=== PATIENT | male | born 1960 | race Caucasian/White ===

== ENCOUNTER 2022-10-14 22:29 | Inpatient (IN) | payer OTHER ==
[2022-10-14] MEDS ORDERED: IPRATROPIUM 0.5 MG/2.5 ML NEBU INHALATION STA (22:38)
[2022-10-14] MEDS ORDERED: SODIUM CHLORIDE 0.9% 500 ML 500 ML IV STA (22:38)
[2022-10-14] MEDS ORDERED: ALBUTEROL NEBULIZED 2.5 MG/3 ML INHALATION STA (22:38)
[2022-10-14] MEDS ORDERED: SODIUM CHLORIDE 0.9% 1,000 ML IV STA (22:38)
[2022-10-14] MEDS ORDERED: methylPREDNISolone SOD SUCCI 125 MG/2 ML VIAL IV STA (22:38)
--- NOTE | 2022-10-14 22:40 | ED ---
SOB HPI - General Chief Complaint: Shortness of Breath Stated Complaint: asthma attack Time Seen by Provider: 10/14/22 22:38 Source: patient, RN notes reviewed, old records reviewed, Caregiver Mode of arrival: ambulatory Limitations: no limitations - History of Present Illness Initial Comments: This is a 62-year-old male to the emergency department for evaluation. Patient coming in for significant shortness of breath wheezing diffuse and generalized wheezing no chest pain. He does have history of COPD his been out of his medications at home. Aside from COPD and asthma patient has no significant heart history no recent fevers no known travel history or sick contacts. Patient was in the last 3 days did run rales medications has been having sig nificant shortness of breath since MD Complaint: shortness of breath, cough, "asthma attack", anxiety -: hour(s) Radiation: back Severity: moderate Severity scale (1-10): 6 Consistency: constant Improves With: oxygen, rest Worsens With: exertion, movement Known History Of: COPD, asthma Context: recent URI Associated Symptoms: chest pain, cough, sputum production Treatments Prior to Arrival: none - Related Data Allergies Allergy/AdvReac Type Severity Reaction Status Date / Time No Known Allergies Allergy Verified 10/14/22 22:34 Review of Systems ROS Statement: Those systems with pertinent positive or pertinent negative responses have been documented in the HPI. ROS Other: All systems not noted in ROS Statement are negative. Past Medical History Past Medical History: Asthma, COPD History of Any Multi-Drug Resistant Organisms: None Reported Past Surgical History: Appendectomy, Bowel Resection, Ear Surgery, Hernia Repair, Orthopedic Surgery Past Psychological History: No Psychological Hx Reported Smoking Status: Current every day smoker Past Alcohol Use History: Occasional General Exam Limitations: no limitations General appearance: alert, in no apparent distress, anxious, in distress Head exam: Present: atraumatic, normocephalic, normal inspection Eye exam: Present: normal appearance, PERRL, EOMI. Absent: scleral icterus, conjunctival injection, periorbital swelling ENT exam: Present: normal exam, mucous membranes dry Neck exam: Present: normal inspection. Absent: tenderness, meningismus, lymphadenopathy Respiratory exam: Present: respiratory distress, wheezes, accessory muscle use, decreased breath sounds, prolonged expiratory. Absent: rales, rhonchi, stridor Cardiovascular Exam: Present: normal rhythm, tachycardia, normal heart sounds. Absent: systolic murmur, diastolic murmur, rubs, gallop, clicks GI/Abdominal exam: Present: soft, normal bowel sounds. Absent: distended, tenderness, guarding, rebound, rigid Extremities exam: Present: normal inspection, full ROM, normal capillary refill. Absent: tenderness, pedal edema, joint swelling, calf tenderness Back exam: Present: normal inspection Neurological exam: Present: alert, oriented X3, CN II-XII intact Psychiatric exam: Present: normal affect, normal mood Skin exam: Present: warm, dry, intact, normal color. Absent: rash Course Vital Signs 10/14/22 10/14/22 10/14/22 22:31 23:06 23:28 Temperature 98 F Pulse Rate 122 H 92 98 Respiratory 24 Rate Blood Pressure 152/87 O2 Sat by Pulse 98 Oximetry 10/14/22 10/15/22 23:56 00:10 Temperature Pulse Rate 109 H 109 H Respiratory 22 Rate Blood Pressure 140/63 O2 Sat by Pulse 91 L Oximetry - Reevaluation(s) Reevaluation #1: 10/14/22 22:40 Medical records reviewed Reevaluation #2: 10/14/22 22:40 Patient symptoms are improving Reevaluation #3: 10/14/22 22:40 Patient informed results and questions answered Reevaluation #4: 10/14/22 22:40 Differential Dyspnea: Coronary syndrome, arrhythmia, tamponade, asthma, COPD, pulmonary embolism, pneumonia, pneumothorax, pulmonary effusion, anaphylaxis, diabetic ketoacidosis, flailed chest, pulmonary contusion, diaphragmatic rupture, anemia, neuromuscular, this is not meant to be an all-inclusive list. Reevaluation #5: 10/14/22 22:40 Was pt. sent in by a medical professional or institution? @ -no Did you speak to anyone other than the patient for history? @ -no Did you review nursing and triage notes? @ -agree Were old charts reviewed? @ -no Differential Diagnosis? @ -prior EKG interpreted by me (3pts min.)? @ -yes X-rays interpreted by me (1pt min.)? @ -yes CT interpreted by me (1pt min.)? @ -[none] U/S interpreted by me (1pt. min.)? @ -[none] What testing was considered but not performed? (CT, X-rays, U/S, labs)? Why? @ CT chest, PE What meds were considered but not given? Why? @ -[none] Did you discuss the management of the patient with other professionals? @ -no Did you reconcile home meds? @ -[none] Was smoking cessation discussed for >3mins.? @ -[none] Was critical care preformed (if so, how long)? @ -[none] Were there social determinants of health that impacted care today? How? (Homelessness, low income, unemployed, alcoholism, drug addiction, transportation, low edu. Level, literacy, decrease access to med. care, nursing home, rehab)? @ -currently off his medications Was there de-escalation of care discussed even if they declined? (Discuss DNR or withdrawal of care, Hospice)? @ -no What co-morbidities impacted this encounter? (DM, HTN, Smoking, COPD, CAD, Cancer, CVA, Hep., AIDS, mental health diagnosis, sleep apnea, morbid obesity)? @ -COPD Was patient admitted / discharged? @ -admit Undiagnosed new problem with uncertain prognosis? @ -nSTEMI Drug Therapy requiring intensive monitoring for toxicity (Heparin, Nitro, Insulin, Cardizem)? @ -heparin Were any procedures done? @ -[none] Diagnosis/symptom? @ -NSTEMI,COPD Acute, or Chronic, or Acute on Chronic? @ -Acute Uncomplicated (without systemic symptoms) or Complicated (systemic symptoms)? @ -compicated COPD Side effects of treatment? @ -[none] Exacerbation, Progression, or Severe Exacerbation] @ -[no] Poses a threat to life or bodily function? @ -[no] 10/15/22 00:22 - Consultations Consultation #1: spoke w [facility] regarding patient we can admit this patient Medical Decision Making - Medical Decision Making 62 male to the emergency department for evaluation of severe COPD exacerbation significant wheezing out of medication. Patient's also suffered a non-ST elevated [place] at this time will be admitted for cardiology to evaluate place on heparin - Lab Data Result diagrams: 10/14/22 22:51 10/14/22 22:51 Lab Results 10/14/22 10/14/22 10/14/22 Range/Units 22:51 22:51 22:51 WBC 7.9 (3.8-10.6) k/uL RBC 4.65 (4.30-5.90) m/uL Hgb 15.8 (13.0-17.5) gm/dL Hct 45.3 (39.0-53.0) % MCV 97.5 (80.0-100.0) fL MCH 34.0 (25.0-35.0) pg MCHC 34.9 (31.0-37.0) g/dL RDW 11.5 (11.5-15.5) % Plt Count 263 (150-450) k/uL MPV 7.6 Neutrophils % 52 % Lymphocytes % 34 % Monocytes % 6 % Eosinophils % 4 % Basophils % 1 % Neutrophils # 4.2 (1.3-7.7) k/uL Lymphocytes # 2.7 (1.0-4.8) k/uL Monocytes # 0.5 (0-1.0) k/uL Eosinophils # 0.3 (0-0.7) k/uL Basophils # 0.1 (0-0.2) k/uL PT 9.7 (9.0-12.0) sec INR 0.9 (<1.2) APTT 24.8 (22.0-30.0) sec Sodium 141 (137-145) mmol/L Potassium 4.0 (3.5-5.1) mmol/L Chloride 108 H (98-107) mmol/L Carbon Dioxide 23 (22-30) mmol/L Anion Gap 10 mmol/L BUN 12 (9-20) mg/dL Creatinine 0.81 (0.66-1.25) mg/dL Est GFR (CKD-EPI)AfAm >90 (>60 ml/min/1.73 sqM) Est GFR (CKD-EPI)NonAf >90 (>60 ml/min/1.73 sqM) Glucose 121 H (74-99) mg/dL Plasma Lactic Acid Tony (0.7-2.0) mmol/L Calcium 9.4 (8.4-10.2) mg/dL Magnesium 2.2 (1.6-2.3) mg/dL Total Bilirubin 0.5 (0.2-1.3) mg/dL AST 67 H (17-59) U/L ALT 76 H (4-49) U/L Alkaline Phosphatase 75 (38-126) U/L Troponin I (0.000-0.034) ng/mL NT-Pro-B Natriuret Pep pg/mL Total Protein 7.0 (6.3-8.2) g/dL Albumin 4.5 (3.5-5.0) g/dL 10/14/22 10/14/22 10/14/22 Range/Units 22:51 22:51 22:51 WBC (3.8-10.6) k/uL RBC (4.30-5.90) m/uL Hgb (13.0-17.5) gm/dL Hct (39.0-53.0) % MCV (80.0-100.0) fL MCH (25.0-35.0) pg MCHC (31.0-37.0) g/dL RDW (11.5-15.5) % Plt Count (150-450) k/uL MPV Neutrophils % % Lymphocytes % % Monocytes % % Eosinophils % % Basophils % % Neutrophils # (1.3-7.7) k/uL Lymphocytes # (1.0-4.8) k/uL Monocytes # (0-1.0) k/uL Eosinophils # (0-0.7) k/uL Basophils # (0-0.2) k/uL PT (9.0-12.0) sec INR (<1.2) APTT (22.0-30.0) sec Sodium (137-145) mmol/L Potassium (3.5-5.1) mmol/L Chloride (98-107) mmol/L Carbon Dioxide (22-30) mmol/L Anion Gap mmol/L BUN (9-20) mg/dL Creatinine (0.66-1.25) mg/dL Est GFR (CKD-EPI)AfAm (>60 ml/min/1.73 sqM) Est GFR (CKD-EPI)NonAf (>60 ml/min/1.73 sqM) Glucose (74-99) mg/dL Plasma Lactic Acid Tony 2.3 H* (0.7-2.0) mmol/L Calcium (8.4-10.2) mg/dL Magnesium (1.6-2.3) mg/dL Total Bilirubin (0.2-1.3) mg/dL AST (17-59) U/L ALT (4-49) U/L Alkaline Phosphatase (38-126) U/L Troponin I 0.363 H* (0.000-0.034) ng/mL NT-Pro-B Natriuret Pep 393 pg/mL Total Protein (6.3-8.2) g/dL Albumin (3.5-5.0) g/dL - EKG Data -: EKG Interpreted by Me (EKG shows sinus tachycardia, MI 130 QRS 102 QTc 412) - Radiology Data Radiology results: report reviewed (Chest x-rays negative for acute disease), image reviewed Critical Care Time Critical Care Time: Yes Total Critical Care Time: 31 Disposition Clinical Impression: Acute exacerbation of chronic obstructive pulmonary disease, NSTEMI (non-ST elevated myocardial infarction) Disposition: ADMITTED IP TO THIS HOSP Condition: Serious Is patient prescribed a controlled substance at d/c from ED?: No Referrals: None,Stated [Primary Care Provider] - 1-2 days Time of Disposition: 00:25
[2022-10-14 23:07] LABS: Basophils # (A) 0.1 k/uL (0-0.2); Basophils % (A) 1 %; Eosinophils # (A) 0.3 k/uL (0-0.7); Eosinophils % (A) 4 %; HCT 45.3 % (39.0-53.0); HGB 15.8 gm/dL (13.0-17.5); Lymphocytes # (A) 2.7 k/uL (1.0-4.8); Lymphocytes % (A) 34 %; MCHC 34.9 g/dL (31.0-37.0); MCV 97.5 fL (80.0-100.0); Mean Platelet Volume 7.6; Monocytes # (A) 0.5 k/uL (0-1.0); Monocytes % (A) 6 %; Neutrophils # (A) 4.2 k/uL (1.3-7.7); Neutrophils % (A) 52 %; Platelet Count 263 k/uL (150-450); RBC 4.65 m/uL (4.30-5.90); RDW 11.5 % (11.5-15.5); WBC 7.9 k/uL (3.8-10.6)
[2022-10-14 23:17] LABS: INR 0.9 (<1.2); Partial Thromboplastin Time 24.8 sec (22.0-30.0); Prothrombin Time 9.7 sec (9.0-12.0)
[2022-10-14 23:21] LABS: ALT 76 U/L (4-49); AST 67 U/L (17-59); African American GFR (CKD) >90 (>60 ml/min/1.73 sqM); Albumin 4.5 g/dL (3.5-5.0); Alkaline Phosphatase 75 U/L (38-126); Anion Gap 10 mmol/L; Blood Urea Nitrogen 12 mg/dL (9-20); Calcium 9.4 mg/dL (8.4-10.2); Carbon Dioxide 23 mmol/L (22-30); Chloride 108 mmol/L (98-107); Glucose 121 mg/dL (74-99); Magnesium 2.2 mg/dL (1.6-2.3); Non-African American GFR(CKD) >90 (>60 ml/min/1.73 sqM); Sodium 141 mmol/L (137-145); Total Bilirubin 0.5 mg/dL (0.2-1.3)
--- NOTE | 2022-10-15 00:10 | XR ---
EXAMINATION TYPE: XR chest 1V portable DATE OF EXAM: 10/14/2022 COMPARISON: NONE HISTORY: Short of TECHNIQUE: FINDINGS: Heart is normal. Lungs are clear. Diaphragm is normal. Bony thorax is intact. IMPRESSION: Normal chest.
[2022-10-15] MEDS ORDERED: HEPARIN SODIUM 1,000 UN/ML (10ML VL) IV PRN (00:18)
[2022-10-15] MEDS ORDERED: HEPARIN SODIUM 1,000 UN/ML (10ML VL) IV ONE (00:18)
[2022-10-15] MEDS ORDERED: IPRATROPIUM-ALBUTEROL 3 ML NEB INHALATION STA (00:18)
[2022-10-15] MEDS ORDERED: ONDANSETRON 4 MG/2 ML VIAL IVP PRN (00:18)
[2022-10-15] MEDS ORDERED: NALOXONE 0.4 MG/ML 1 ML VIAL IV PRN (00:18)
[2022-10-15] MEDS ORDERED: ALBUTEROL NEBULIZED 2.5 MG/3 ML INHALATION PRN (00:32)
[2022-10-15] MEDS: HEPARIN SOD,PORK IN 0.45% NACL 25,000 UNIT in 0.45% NACL 1 250ML.BAG IV SCH (00:44)
[2022-10-15] MEDS: MORPHINE SULFATE 4 MG/ML SYRINGE IV PRN ×2 (01:46→06:00)
[2022-10-15] MEDS ORDERED: LORazepam 1 MG TAB PO PRN (02:15)
[2022-10-15] MEDS: NICOTINE 21MG/24HR PATCH TRANSDERM SCH ×2 (03:52→08:32)
[2022-10-15] MEDS: LORazepam 1 MG TAB PO PRN ×4 (03:52→23:15)
[2022-10-15] MEDS: SODIUM CHLORIDE 0.9% 1,000 ML IV SCH ×4 (03:53→20:00)
[2022-10-15] MEDS: methylPREDNISolone SOD SUCCI 125 MG/2 ML VIAL IV SCH ×4 (06:00→23:16)
[2022-10-15] MEDS ORDERED: HEPARIN SODIUM,PORCINE 2,500 UNIT in SODIUM CHLORIDE 0.9% 250 ML IRRIGATION PRN (07:00)
[2022-10-15] MEDS ORDERED: HEPARIN SODIUM,PORCINE 10,000 UNIT in SODIUM CHLORIDE 0.9% 1,000 ML IRRIGATION PRN (07:00)
[2022-10-15] MEDS ORDERED: ALBUTEROL NEBULIZED 2.5 MG/3 ML INHALATION SCH (08:00)
[2022-10-15] MEDS ORDERED: ASPIRIN 81 MG PO SCH (09:15)
[2022-10-15] MEDS ORDERED: ALPRAZolam 0.25 MG TAB PO PRN (09:23)
[2022-10-15] MEDS ORDERED: NITROGLYCERIN SL TABS 0.4 MG TAB SUBLINGUAL PRN (09:23)
[2022-10-15] MEDS ORDERED: ATORVASTATIN 80 MG TAB PO STA (09:23)
[2022-10-15] MEDS ORDERED: ASPIRIN 325 MG TAB PO STA (09:23)
[2022-10-15] MEDS ORDERED: ALPRAZolam 0.5 MG TAB PO PRN (09:23)
[2022-10-15] MEDS ORDERED: SODIUM CHLORIDE 0.9% 1,000 ML in EMPTY BAG 1 BAG IV SCH (09:30)
[2022-10-15] MEDS: METOPROLOL TARTRATE 12.5 MG TAB PO SCH ×2 (09:35→19:59)
--- NOTE | 2022-10-15 09:36 | P.HPIM ---
History of Present Illness This is a pleasant 62 years old male with past medical history of asthma/COPD, not on home medication. Patient presents because of dyspnea and he was wheezing in the emergency room. This morning patient told me he was complaining of from left-sided chest pain for the last 2 days, it was then/10 in severity however does not look in distress currently due to pain, he states this felt like sharp increased by deep inspiration and is going to the back. Also reports some dizziness that he is about to pass out But he did not. He occasionally coughs, and his been complaining with dyspnea. He denies any GI or urinary symptoms, no abdominal pain vomiting or diarrhea, no urgency or dysuria. He has mild headache but no weakness or numbness He smokes about 1 pack per day and he was counseled to quit and he agrees, he already has nicotine patch. He drinks about half a pint of liquor as well as 2 large cancer of beer, no illicit drugs. He feels depressed but denies suicidal or homicidal ideation He is not on home oxygen and he does not follow up with [facility] He complained from insomnia as well Vitas looks stable, patient is mildly tachypneic with rate about 22, afebrile.. Saturation 93-94% on room air. CBC, INR, BMP are unremarkable Mildly elevated liver enzymes with AST 67 and ALT 76 with normal bilirubin. Lactic acid is high at 2.7, troponin is elevated 0.3 and 0.2. ProBNP 393. Chest x-ray: Normal chest EKG showing sinus tachycardia at [address]-T changes On admission patient was started on heparin drip, IV Solu-Medrol and normal saline. Cartilage and pulmonary services were consulted Review of Systems Review of systems CONSTITUTIONAL: No fever, no malaise, no fatigue. HEENT: No recent visual problems or hearing problems. Denied any sore throat. CARDIOVASCULAR: No orthopnea, PND, no palpitations, no syncope. PULMONARY: No chest wall tenderness, no hemoptysis. GASTROINTESTINAL: No diarrhea, no nausea, no vomiting, no abdominal pain. Normoactive bowel sounds. NEUROLOGICAL: No headaches, no weakness, no numbness. HEMATOLOGICAL: Denies any bleeding or petechiae. GENITOURINARY: Denies any burning micturition, frequency, or urgency. MUSCULOSKELETAL/RHEUMATOLOGICAL: Denies any joint pain, swelling, or any muscle pain. ENDOCRINE: Denies any polyuria or polydipsia. Past Medical History Past Medical History: Asthma, COPD History of Any Multi-Drug Resistant Organisms: None Reported Past Surgical History: Appendectomy, Bowel Resection, Ear Surgery, Hernia Repair, Orthopedic Surgery Past Anesthesia/Blood Transfusion Reactions: No Reported Reaction Past Psychological History: No Psychological Hx Reported Smoking Status: Current every day smoker Past Alcohol Use History: Occasional Medications and Allergies Home Medications Medication Instructions Recorded Confirmed Type No Known Home Medications 10/15/22 10/15/22 History Allergies Allergy/AdvReac Type Severity Reaction Status Date / Time No Known Allergies Allergy Verified 10/15/22 07:34 Physical Exam Vitals: Vital Signs Temp Pulse Pulse Resp BP BP Pulse Ox 10/15/22 04:00 97 22 159/73 93 L 10/15/22 03:15 96 10/15/22 03:07 97 94 L 10/15/22 01:19 98 F 104 H 22 162/86 94 L 10/15/22 00:10 109 H 22 140/63 91 L 10/14/22 23:56 109 H 10/14/22 23:28 98 10/14/22 23:06 92 10/14/22 22:31 98 F 122 H 24 152/87 98 Intake and Output 10/14/22 10/15/22 10/15/22 22:59 06:59 14:59 Output Total 800 Balance -800 Output: Urine 800 Other: Voiding Method Urinal Weight 83.915 kg 83.915 kg GENERAL: The patient is alert and oriented x3, not in any acute distress. Well developed, well nourished. HEENT: Pupils are round and equally reacting to light. EOMI. No scleral icterus. No conjunctival pallor. Normocephalic, atraumatic. No pharyngeal erythema. No thyromegaly. CARDIOVASCULAR: S1 and S2 present. No murmurs, rubs, or gallops. PULMONARY: Chest is clear to auscultation, no wheezing or crackles. ABDOMEN: Soft, nontender, nondistended, normoactive bowel sounds. No palpable organomegaly. MUSCULOSKELETAL: No joint swelling or deformity. EXTREMITIES: No cyanosis, clubbing, or pedal edema. NEUROLOGICAL: Gross neurological examination did not reveal any focal deficits. SKIN: No rashes. no petechiae. Results CBC & Chem 7: 10/14/22 22:51 10/14/22 22:51 Labs: Abnormal Lab Results - Last 24 Hours (Table) 10/14/22 10/14/22 10/14/22 Range/Units 22:51 22:51 22:51 Chloride 108 H (98-107) mmol/L Glucose 121 H (74-99) mg/dL Plasma Lactic Acid Tony 2.3 H* (0.7-2.0) mmol/L AST 67 H (17-59) U/L ALT 76 H (4-49) U/L Troponin I 0.363 H* (0.000-0.034) ng/mL 10/15/22 10/15/22 Range/Units 02:54 02:54 Chloride (98-107) mmol/L Glucose (74-99) mg/dL Plasma Lactic Acid Tony 2.7 H* (0.7-2.0) mmol/L AST (17-59) U/L ALT (4-49) U/L Troponin I 0.228 H* (0.000-0.034) ng/mL Thrombosis Risk Factor Assmnt - Choose All That Apply Any of the Below Risk Factors Present?: Yes Each Factor Represents 1 point: Abnormal pulmonary function (COPD) Each Risk Factor Represents 2 Points: Age 61-74 years Thrombosis Risk Factor Assessment Total Risk Factor Score: 3 Thrombosis Risk Factor Assessment Level: Moderate Risk Assessment and Plan Assessment: Elevated troponin suspicious for non-STEMI Presyncope Possible acute COPD exacerbation, mild Mild transaminitis, most likely secondary to alcohol affect Alcohol abuse at-risk of alcohol withdrawal Nicotine dependence Elevated lactic acid Insomnia Continue with steroids Continue with aspirin Continuous serial troponin Check echocardiogram Cardiology and pulmonary consult Nicotine patch Continue with CIWA protocol and pain me Labs and medication were reviewed.. Continue same treatment. Continue with symptomatic treatment. Resume home medication. Monitor labs and vitals. DVT and GI prophylaxis. Further recommendations as per clinical course of the patient DVT prophylaxis: heparin GI Prophylaxis: Pepcid PT/OT: Pending, deferred Prognosis is guarded
[2022-10-15] MEDS ORDERED: IPRATROPIUM-ALBUTEROL 3 ML NEB INHALATION PRN (11:04)
--- NOTE | 2022-10-15 11:24 | P.CRDCN ---
History of Present Illness History of present illness: HISTORY OF PRESENT ILLNESS: This is a 62-year-old male with a past medical history significant for COPD and nicotine dependence. 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 We have been asked to see the patient in consultation for elevated troponins. Patient examin ed at the bedside. Patient states he began having shortness of breath about 2 days ago. He states he uses 4 inhalers at home which he ran out of about 3 days ago. He states in addition to her shortness of breath he has been having chest pain in the middle of his chest that goes into his back. He states the chest pain has been present for the past 2 days and is fairly persistent. He states the pain is not worse with deep inspiration. He reports the pain is worse with chest wall palpation. He reports he felt like he was having hot flashes at home and was diaphoretic. The patient is a current cigarette smoker. He denies any known history of hypertension, hyperlipidemia, or diabetes. He denies having any previous cardiac workup. * EKG reveals sinus mechanism with no signs of acute ischemia * Chest xray negative for acute process * Laboratory data: WBC 7.9. Hemoglobin 15.8. Platelet count 263. Sodium 141. Potassium 4.0. BUN 12. Creatinine 0.81. Troponin 0.363. 0.228. 0.194. * Current home cardiac medications include: None REVIEW OF SYSTEMS: At the time of my exam: CONSTITUTIONAL: Denies fever or chills. HEENT: Denies blurred vision, vision changes, or eye pain. Denies hemoptysis CARDIOVASCULAR: Denies chest pain. Denies orthopnea. Denies PND. Denies palpitations RESPIRATORY: Denies shortness of breath. GASTROINTESTINAL: Denies abdominal pain. Denies nausea or vomiting. HEMATOLOGIC: Denies bleeding disorders. GENITOURINARY: Denies any blood in urine. SKIN: Denies pruitis. Denies rash. PHYSICAL EXAM: VITAL SIGNS: Reviewed. GENERAL: Well-developed in no acute distress. HEENT: Head is normocephalic. Pupils are equal, round. Sclerae anicteric. Mucous membranes of the mouth are moist. Neck supple. No JVD or thyromegaly LUNGS: Respirations even and unlabored. Lungs with decreased air exchange bilaterally HEART: Regular rate and rhythm. S1 and S2 heard. ABDOMEN: Soft. Nondistended. Nontender. EXTREMITIES: Normal range of motion. No clubbing or cyanosis. Peripheral pulses intact. No lower extremity edema NEUROLOGIC: Awake and alert. Oriented x 3. ASSESSMENT: Chest pain Non-STEMI Acute COPD exacerbation Nicotine dependence Elevated lactic acid Mildly elevated LFTs PLAN: Obtain 2-D echo to assess cardiac structure and function Continue IV heparin Begin aspirin, atorvastatin, metoprolol, and Nitropaste Patient to undergo cardiac catheterization today with Dr. Guerrero Further recommendations pending patient's course Nurse practitioner note has been reviewed by physician. Signing provider agrees with the documented findings, assessment, and plan of care. Past Medical History Past Medical History: Asthma, COPD History of Any Multi-Drug Resistant Organisms: None Reported Past Surgical History: Appendectomy, Bowel Resection, Ear Surgery, Hernia Repair, Orthopedic Surgery Past Anesthesia/Blood Transfusion Reactions: No Reported Reaction Past Psychological History: No Psychological Hx Reported Smoking Status: Current every day smoker Past Alcohol Use History: Occasional Medications and Allergies Home Medications Medication Instructions Recorded Confirmed Type No Known Home Medications 10/15/22 10/15/22 History Allergies Allergy/AdvReac Type Severity Reaction Status Date / Time No Known Allergies Allergy Verified 10/15/22 07:34 Physical Exam Vitals: Vital Signs Temp Pulse Pulse Resp BP BP Pulse Ox 10/15/22 08:01 110 H 20 10/15/22 07:50 107 H 20 99 10/15/22 04:00 97 22 159/73 93 L 10/15/22 03:15 96 10/15/22 03:07 97 94 L 10/15/22 01:19 98 F 104 H 22 162/86 94 L 10/15/22 00:10 109 H 22 140/63 91 L 10/14/22 23:56 109 H 10/14/22 23:28 98 10/14/22 23:06 92 10/14/22 22:31 98 F 122 H 24 152/87 98 Intake and Output 10/14/22 10/15/22 10/15/22 22:59 06:59 14:59 Output Total 800 Balance -800 Output: Urine 800 Other: Voiding Method Urinal Weight 83.915 kg 83.915 kg Results 10/14/22 22:51 10/14/22 22:51 Cardiac Enzymes 10/14/22 10/14/22 10/15/22 Range/Units 22:51 22:51 02:54 AST 67 H (17-59) U/L Troponin I 0.363 H* 0.228 H* (0.000-0.034) ng/mL Coagulation 10/14/22 10/15/22 Range/Units 22:51 07:58 PT 9.7 (9.0-12.0) sec APTT 24.8 33.5 H (22.0-30.0) sec CBC 10/14/22 Range/Units 22:51 WBC 7.9 (3.8-10.6) k/uL RBC 4.65 (4.30-5.90) m/uL Hgb 15.8 (13.0-17.5) gm/dL Hct 45.3 (39.0-53.0) % Plt Count 263 (150-450) k/uL Comprehensive Metabolic Panel 10/14/22 Range/Units 22:51 Sodium 141 (137-145) mmol/L Potassium 4.0 (3.5-5.1) mmol/L Chloride 108 H (98-107) mmol/L Carbon Dioxide 23 (22-30) mmol/L BUN 12 (9-20) mg/dL Creatinine 0.81 (0.66-1.25) mg/dL Glucose 121 H (74-99) mg/dL Calcium 9.4 (8.4-10.2) mg/dL AST 67 H (17-59) U/L ALT 76 H (4-49) U/L Alkaline Phosphatase 75 (38-126) U/L Total Protein 7.0 (6.3-8.2) g/dL Albumin 4.5 (3.5-5.0) g/dL Current Medications Generic Name Dose Route Start Last Admin Trade Name Freq PRN Reason Stop Dose Admin Acetaminophen 650 mg 10/15/22 00:18 Acetaminophen Tab 325 Mg Tab PO Q6HR PRN Mild Pain or Fever > 100.5 Albuterol Sulfate 2.5 mg 10/15/22 08:00 10/15/22 07:49 Albuterol Nebulized 2.5 Mg/3 Ml INHALATION 2.5 mg RT-QID AUNG Administration Albuterol Sulfate 2.5 mg 10/15/22 00:32 Albuterol Nebulized 2.5 Mg/3 Ml INHALATION RT-Q2H PRN Shortness Of Breath Or Wheezing Heparin Sodium (Porcine) 0 unit 10/15/22 00:18 Heparin Sodium 1,000 Un/Ml (10ml Vl) IV PER PROTOCOL PRN Low PTT Protocol Heparin Sodium/Sodium Chloride 250 mls @ 10 mls/hr 10/15/22 00:30 10/15/22 00:44 25,000 unit/ Sodium Chloride IV 11.9168 units/kg/hr .Q24H AUNG 10 mls/hr Administration Protocol 11.9168 UNITS/KG/HR Sodium Chloride 1,000 mls @ 130 mls/hr 10/15/22 00:30 10/15/22 03:53 Saline 0.9% IV Not Given .Q7H42M AUNG Lorazepam 1 mg 10/15/22 02:15 10/15/22 03:52 Lorazepam 1 Mg Tab PO 1 mg Q4HR PRN Administration Ciwa 6 To 7 Lorazepam 1 mg 10/15/22 02:15 Lorazepam 1 Mg Tab PO Q1HR PRN Alcohol Withdrawal Methylprednisolone Sodium Succinate 60 mg 10/15/22 06:00 10/15/22 06:00 Methylprednisolone Sod Succi 125 Mg/2 Ml Vial IV 60 mg Q6HR AUNG Administration Morphine Sulfate 4 mg 10/15/22 00:18 10/15/22 06:00 Morphine Sulfate 4 Mg/Ml Syringe IV 4 mg Q4HR PRN Administration Severe Pain (Scale 7 to 10) Naloxone HCl 0.2 mg 10/15/22 00:18 Naloxone 0.4 Mg/Ml 1 Ml Vial IV Q2M PRN Opioid Reversal Nicotine 1 patch 10/15/22 02:15 10/15/22 08:32 Nicotine 21mg/24hr Patch TRANSDERM Not Given DAILY AUNG Ondansetron HCl 4 mg 10/15/22 00:18 Ondansetron 4 Mg/2 Ml Vial IVP Q8HR PRN Nausea And Vomiting Thiamine HCl 100 mg 10/16/22 09:00 Thiamine 100 Mg Tab PO DAILY AUNG Intake and Output 10/14/22 10/15/22 10/15/22 22:59 06:59 14:59 Output Total 800 Balance -800 Output: Urine 800 Other: Voiding Method Urinal Weight 83.915 kg 83.915 kg 10/14/22 22:51 10/14/22 22:51
[2022-10-15] MEDS: IPRATROPIUM-ALBUTEROL 3 ML NEB INHALATION SCH ×3 (11:25→20:59)
[2022-10-15] MEDS ORDERED: IV FLUID CONTINUATION 1,000 ML IV ONE (11:30)
[2022-10-15] MEDS ORDERED: MIDAZOLAM 2 MG/2 ML VIAL IV ONE (11:38)
[2022-10-15] MEDS ORDERED: fentaNYL (PF) 50 MCG/ML 2 ML AMP IV ONE (11:38)
[2022-10-15] MEDS ORDERED: LIDOCAINE 1% INJ 10MG/ML (5 ML VIAL-PF) SQ ONE (11:39)
[2022-10-15] MEDS ORDERED: VERAPAMIL SYRINGE (5 MG/10 ML) INTRAARTER ONE (11:40)
[2022-10-15] MEDS: HEPARIN SODIUM 1,000 UN/ML (10ML VL) IV ONE ×2 (11:44→12:25)
[2022-10-15] MEDS: FAMOTIDINE 20 MG/2 ML VIAL IV SCH ×2 (12:17→19:58)
[2022-10-15] MEDS ORDERED: TICAGRELOR 90 MG TAB PO ONE (12:26)
[2022-10-15] MEDS ORDERED: NITROGLYCERIN 1000MCG/10ML SYRINGE INTRACORON ONE (12:34)
[2022-10-15] MEDS ORDERED: IOPAMIDOL-370 100ML BTL INJ ONE (12:40)
--- NOTE | 2022-10-15 13:22 | P.PRCINT ---
Percutaneous Coronary Int. - Percutaneous Coronary Intervention Percutaneous Coronary Intervention: PROCEDURES PERFORMED: Left coronary angiography, PCI proximal OM1 with a 3.25 x 12mm Xience PRASHANTH INDICATION: NSTEMI, chest pain PROCEDURE: After the risks, benefits and alternatives of the above mentioned procedure explained in detail with the patient, informed consent was obtained. Patient was taken to the catheterization lab and prepped and draped in usual fashion. A right radial sheath had previously been placed and diagnostic images were performed with diagnostic procedure, see separate report. There was a BUTTONHOLE MAKER HAND of the RCA well collateralized ane culprit lesion felt to be OM1. Therefore the decision was made to perform PCI of OM1. Heparin was given for ACT greater than 250. A 6-Andorran CLS 3.5 guide was used to engage the left main. A 0.014 BMW wire was advanced to the distal OM1 branch. Primary stenting was performed with a 3.25 x 12 mm Xience PRASHANTH with excellent result. Stenting did straighten out the proximal portion of OM1 lesion to the circumflex having a different angulation however no significant compromise noted to the circumflex. The intervention there was 95% stenosis and EBONY 3 flow and post intervention there was 0% stenosis with EBONY 3 flow. The right radial sheath was removed and a TR band was placed with hemostasis achieved. The patient tolerated the procedure well. Patient was transported back to the post catheterization holding area in stable condition. Conscious Sedation: Patient was monitored under the direct supervision of vision of myself for conscious sedation using Versed and fentanyl for a total duration of 22 minutes HEMODYNAMICS: Aorta: 137/81 SELECTIVE CORONARY ARTERIOGRAPHY: LEFT MAIN: The left main is a large caliber vessel which bifurcates into the LAD and circumflex. There is no significant stenosis. LEFT ANTERIOR DESCENDING CORONARY ARTERY: LAD is a large caliber vessel which wraps around to the apex. There is a mid LAD 20-30% stenosis and otherwise mild luminal irregularities. There are [id number] collaterals to the RCA. LEFT CIRCUMFLEX CORONARY ARTERY: Left circumflex is a moderate caliber vessel. OM1 is moderate caliber and has a proximal 95% stenosis and otherwise there are mild luminal irregularities. RIGHT CORONARY ARTERY: The right coronary artery was not imaged however known to be 100% occluded. FINAL IMPRESSION: 1. CAD as described above including 95% OM1 stenosis status post PCI proximal OM1 with a 3.25 x 12mm Xience PRASHANTH PLAN: 1. Aggressive risk factor modification per most recent ACC/AHA guidelines. 2. Continue dual antiplatelet with aspirin and Brillinta for 12 months.
[2022-10-15] MEDS ORDERED: ATROPINE SULFATE 0.1 MG/ML 10ML SYRINGE IV PRN (13:42)
[2022-10-15] MEDS ORDERED: ZOLPIDEM 5 MG TAB PO PRN (13:42)
[2022-10-15] MEDS ORDERED: RX INFO: IV CONTRAST WAS GIVEN 1 EACH MISC MISCELLANE PRN (13:42)
[2022-10-15] MEDS ORDERED: MAG HYDROX/AL HYDROX/SIMETH 30 ML CUP PO PRN (13:42)
--- NOTE | 2022-10-15 15:19 | P.CNPUL ---
History of Present Illness Consult date: 10/15/22 Requesting physician: Roby E Jayashree Reason for consult: COPD Chief complaint: Shortness of breath, cough, wheezing, and chest discomfort History of present illness: This is a 62-year-old white male, [id number] smoking history at least, patient is known to have COPD, and normally maintained on medications in the form of albuterol and Advair. A few days ago, patient ran out of his medications, and he develops symptoms of cough wheezing and shortness of breath. Cough is nonproductive, no fever no chills, no hemoptysis, but he did have intermittent episodes of left-sided chest discomfort. Patient felt that his chest was tight, and remains tight even during my evaluation. He was already seen by cardiology for his abnormal troponin on this admission, he is already on heparin, and the patient is scheduled to have cardiac catheterization. By the time I'm dictating this report, patient underwent cardiac catheterization, and he was found to have 95% stenosis of his obtuse marginal branch and he underwent stent placement in the meantime the patient is already on bronchodilators including albuterol with Atrovent, Symbicort, Solu-Medrol, I expect him to do well, and hopefully we cou ld consider discharge planning in the next couple of days. Chest x-ray on admission showed no evidence of active disease Review of Systems CONSTITUTIONAL: No fever, no malaise, no fatigue. HEENT: Negative. CARDIOVASCULAR: As noted in HPI mostly chest tightness PULMONARY: As noted in HPI cough wheezing shortness of breath GASTROINTESTINAL: Negative.. NEUROLOGICAL: Negative HEMATOLOGICAL: Negative GENITOURINARY: Negative MUSCULOSKELETAL/RHEUMATOLOGICAL: Negative ENDOCRINE: Negative Past Medical History Past Medical History: Asthma, COPD History of Any Multi-Drug Resistant Organisms: None Reported Past Surgical History: Appendectomy, Bowel Resection, Ear Surgery, Hernia Repair, Orthopedic Surgery Past Anesthesia/Blood Transfusion Reactions: No Reported Reaction Past Psychological History: No Psychological Hx Reported Smoking Status: Current every day smoker Past Alcohol Use History: Occasional Medications and Allergies Home Medications Medication Instructions Recorded Confirmed Type No Known Home Medications 10/15/22 10/15/22 History Allergies Allergy/AdvReac Type Severity Reaction Status Date / Time No Known Allergies Allergy Verified 10/15/22 07:34 Physical Exam Vitals: Vital Signs Temp Pulse Pulse Resp BP BP Pulse Ox 10/15/22 08:01 110 H 20 10/15/22 08:00 97.7 F 113 H 20 160/81 94 L 10/15/22 07:50 107 H 20 99 10/15/22 04:00 97 22 159/73 93 L 10/15/22 03:15 96 10/15/22 03:07 97 94 L 10/15/22 01:19 98 F 104 H 22 162/86 94 L 10/15/22 00:10 109 H 22 140/63 91 L 10/14/22 23:56 109 H 10/14/22 23:28 98 10/14/22 23:06 92 10/14/22 22:31 98 F 122 H 24 152/87 98 Intake and Output 10/15/22 10/15/22 10/15/22 06:59 14:59 22:59 Intake Total 200 Output Total 800 300 Balance -800 -100 Intake: IV 200 Output: Urine 800 300 Other: Voiding Method Urinal Weight 83.915 kg Physical Exam: Revealed 62-year-old white male in no distress. Head: Atraumatic, normocephalic. HEENT:[Neck is supple.] [No neck masses.] [No thyromegaly.] [No JVD.] Chest: Scattered rhonchi and wheezes noted bilaterally. Anterior chest wall tenderness was also noted. Cardiac Exam: [Normal S1 and S2, no S3 gallop, no murmur.] Abdomen: [Soft, nontender, no megaly, no rebound, no guarding, normal bowel sounds.] Extremities: [No clubbing, no edema, no cyanosis.] Neurological Exam: [No focal neurologic deficit.] Alert oriented 3. Psychiatric: Normal mood, affect and normal mental status examination. Skin: No rashes Results - Laboratory Findings CBC and BMP: 10/14/22 22:51 10/14/22 22:51 PT/INR, D-dimer PT 9.7 sec (9.0-12.0) 10/14/22 22:51 INR 0.9 (<1.2) 10/14/22 22:51 Abnormal lab findings: Abnormal Labs 10/14/22 10/14/22 10/14/22 22:51 22:51 22:51 APTT Chloride 108 H Glucose 121 H Plasma Lactic Acid Tony 2.3 H* AST 67 H ALT 76 H Troponin I 0.363 H* 10/15/22 10/15/22 10/15/22 02:54 02:54 07:58 APTT Chloride Glucose Plasma Lactic Acid Tony 2.7 H* AST ALT Troponin I 0.228 H* 0.194 H* 10/15/22 07:58 APTT 33.5 H Chloride Glucose Plasma Lactic Acid Tony AST ALT Troponin I - Diagnostic Findings Chest x-ray: image reviewed (No evidence of active disease) Assessment and Plan Assessment: Impression: Acute exacerbation of COPD, no evidence of pneumonia Elevated troponin, consistent with non-ST elevation myocardial infarction History of alcohol abuse, patient is at risk of alcohol withdrawal. Tobacco dependence syndrome. Recommendation: Continue bronchodilators Continue Solu-Medrol Continue heparin, cardiac catheterization report was noted, patient had a stent placement. Continue medical therapy for his underlying coronary artery disease Patient was counseled regarding smoking cessation. We will continue to follow Time with Patient: Greater than 30
[2022-10-15] MEDS: NITROGLYCERIN OINT 1 INCH/GM PACKET TOPICAL SCH ×2 (18:04→23:15)
[2022-10-15] MEDS: ACETAMINOPHEN TAB 325 MG TAB PO PRN (18:05)
[2022-10-15] MEDS: ATORVASTATIN 80 MG TAB PO SCH (19:58)
[2022-10-15] MEDS: TICAGRELOR 90 MG TAB PO SCH (19:59)
[2022-10-15] MEDS: SYMBICORT 160-4.5 MCG INHALER INHALATION SCH (20:58)
--- NOTE | 2022-10-15 22:10 | CC ---
CARDIAC CATHETERIZATION REPORT INDICATION: Acute [id number] elevation WA. PROCEDURE NOTE: After obtaining informed consent, left heart catheterization and coronary angiogram were performed via the right radial artery using size 3.5 right and left Angela catheters. Hemodynamics were obtained using the right Angela catheter. The patient tolerated the procedure well without any obvious immediate complications. The patient received moderate conscious sedation. Total sedation time was 19 minutes. Right radial artery access was obtained using modified Seldinger technique. A 6-Kiswahili sheath was placed. Catheters and wires were floated into the ascending aorta under fluoroscopic guidance. The patient received 5 mg of verapamil and 4000 units of heparin per protocol. FINDINGS: 1. Hemodynamics: Left ventricular end-diastolic pressure is 11 mm. There is no significant gradient across the aortic valve. 2. Left ventriculogram: Left ventriculogram was not performed. 3. Angiographic data: a.Left main coronary artery: Left main coronary artery appears calcified, but is free of significant stenosis. Divides into left anterior descending coronary artery and circumflex coronary artery. LAD and its branches are free of significant stenosis. OM branch shows a focal 95% stenosis. There are left-to- right collaterals to the distal RCA from the circ. Right coronary artery appears chronically occluded proximally. CONCLUSION: 1. Chronic occlusion of the right coronary artery with extensive [id number] collaterals. 2. 95% focal stenosis involving the OM branch. PLAN: Dr. Muhammad, the on-call yardage control operator forming will review the angiographic data and advise on the angioplasty of the OM branch. MMRADHA / DELONTEN: [id number] /
[2022-10-16] MEDS: HEPARIN SOD,PORK IN 0.45% NACL 25,000 UNIT in 0.45% NACL 1 250ML.BAG IV SCH (03:43)
[2022-10-16] MEDS: MORPHINE SULFATE 4 MG/ML SYRINGE IV PRN (03:50)
[2022-10-16] MEDS: methylPREDNISolone SOD SUCCI 125 MG/2 ML VIAL IV SCH ×3 (07:00→17:39)
[2022-10-16] MEDS: IPRATROPIUM-ALBUTEROL 3 ML NEB INHALATION SCH ×4 (08:08→20:55)
[2022-10-16] MEDS: SYMBICORT 160-4.5 MCG INHALER INHALATION SCH ×2 (08:08→20:33)
[2022-10-16] MEDS: METOPROLOL TARTRATE 12.5 MG TAB PO SCH (08:44)
[2022-10-16] MEDS: FAMOTIDINE 20 MG/2 ML VIAL IV SCH (08:44)
[2022-10-16] MEDS: THIAMINE 100 MG TAB PO SCH (08:44)
[2022-10-16] MEDS: NICOTINE 21MG/24HR PATCH TRANSDERM SCH (08:44)
[2022-10-16] MEDS: ASPIRIN 81 MG PO SCH (08:44)
[2022-10-16] MEDS: TICAGRELOR 90 MG TAB PO SCH ×2 (08:45→20:29)
[2022-10-16] MEDS: LORazepam 1 MG TAB PO PRN ×2 (08:45→20:28)
[2022-10-16] MEDS: NITROGLYCERIN OINT 1 INCH/GM PACKET TOPICAL SCH ×2 (08:45→17:39)
[2022-10-16 09:23] LABS: Basophils % (A) 0 %; Eosinophils % (A) 0 %; HCT 45.1 % (39.0-53.0); HGB 14.7 gm/dL (13.0-17.5); Lymphocytes # (A) 0.5 k/uL (1.0-4.8); Lymphocytes % (A) 3 %; MCHC 32.6 g/dL (31.0-37.0); MCV 98.2 fL (80.0-100.0); Mean Platelet Volume 7.4; Monocytes # (A) 0.5 k/uL (0-1.0); Monocytes % (A) 3 %; Neutrophils # (A) 13.1 k/uL (1.3-7.7); Neutrophils % (A) 93 %; Platelet Count 251 k/uL (150-450); RBC 4.59 m/uL (4.30-5.90); RDW 11.9 % (11.5-15.5); WBC 14.1 k/uL (3.8-10.6)
[2022-10-16] MEDS ORDERED: METOPROLOL TARTRATE 12.5 MG TAB PO STA (09:36)
[2022-10-16 09:38] LABS: INR 0.9 (<1.2); Prothrombin Time 10.1 sec (9.0-12.0)
--- NOTE | 2022-10-16 10:52 | P.PN ---
Subjective This is a pleasant 62 years old male with past medical history of asthma/COPD, not on home medication. Patient presents because of dyspnea and he was wheezing in the emergency room. This morning patient told me he was complaining of from left-sided chest pain for the last 2 days, it was then/10 in severity however does not look in distress currently due to pain, he states this felt like sharp increased by deep inspiration and is going to the back. Also reports some dizziness that he is about to pass out But he did not. He occasionally coughs, and his been complaining with dyspnea. He denies any GI or urinary symptoms, no abdominal pain vomiting or diarrhea, no urgency or dysuria. He has mild headache but no weakness or numbness He smokes about 1 pack per day and he was counseled to quit and he agrees, he already has nicotine patch. He drinks about half a pint of liquor as well as 2 large cancer of beer, no illicit drugs. He feels depressed but denies suicidal or homicidal ideation He is not on home oxygen and he does not follow up with manager beverage and automobile tester He complained from insomnia as well Vitas looks stable, patient is mildly tachypneic with rate about 22, afebrile.. Saturation 93-94% on room air. CBC, INR, BMP are unremarkable Mildly elevated liver enzymes with AST 67 and ALT 76 with normal bilirubin. Lactic acid is high at 2.7, troponin is elevated 0.3 and 0.2. ProBNP 393. Chest x-ray: Normal chest EKG showing sinus tachycardia at [address]-T changes On admission patient was started on heparin drip, IV Solu-Medrol and normal saline. Cartilage and pulmonary services were consulted 10/16/2022 Patient stent placed yesterday to OM1, patient denies chest pain today however he feels uncomfortable and he still wheezing He is not quite ready for discharge. Because of his COPD and was he was cleared. He is not undergoing significant withdrawal symptoms. Patient was started on aspirin and brilinta , the importance of dual antiplatelet therapy is explained for him with risks benefits including but not limited to the risk of bleeding and he verbalized understanding and acceptance. mild leukocytosis secondary to steroid effect. Currently he is on CIWA protocol, thiamine, Solu-Medrol 60 mg on normal saline 75 mL/h. Also on aspirin and brilinta Objective - Vital Signs Vital signs: Vital Signs Temp 97.6 F 10/16/22 08:00 Pulse 90 10/16/22 08:23 Resp 18 10/16/22 08:00 BP 154/77 10/16/22 08:00 Pulse Ox 94 L 10/16/22 08:00 FiO2 Intake & Output 10/15/22 10/16/22 10/16/22 18:59 06:59 18:59 Intake Total 1400 600 Output Total 675 350 Balance 725 -350 600 Intake: IV 200 Oral 1200 600 Output: Urine 675 350 Other: Voiding Method Urinal - Exam GENERAL: The patient is alert and oriented x3, not in any acute distress. Well developed, well nourished. HEENT: Pupils are round and equally reacting to light. EOMI. No scleral icterus. No conjunctival pallor. Normocephalic, atraumatic. No pharyngeal erythema. No thyromegaly. CARDIOVASCULAR: S1 and S2 present. No murmurs, rubs, or gallops. -PULMONARY: Chest is clear to auscultation, Bilateral expiratory wheezing, no crackles. ABDOMEN: Soft, nontender, nondistended, normoactive bowel sounds. No palpable organomegaly. MUSCULOSKELETAL: No joint swelling or deformity. EXTREMITIES: No cyanosis, clubbing, or pedal edema. NEUROLOGICAL: Gross neurological examination did not reveal any focal deficits. SKIN: No rashes. no petechiae. - Labs CBC & Chem 7: 10/16/22 08:59 10/14/22 22:51 Labs: Abnormal Lab Results - Last 24 Hours (Table) 10/16/22 Range/Units 08:59 WBC 14.1 H (3.8-10.6) k/uL Neutrophils # 13.1 H (1.3-7.7) k/uL Lymphocytes # 0.5 L (1.0-4.8) k/uL Microbiology - Last 24 Hours (Table) 10/15/22 02:54 Blood Culture - Preliminary Blood No Growth after 24 hours Assessment and Plan Assessment: Elevated troponin suspicious for non-STEMI, status post PCI to OM1 Presyncope Possible acute COPD exacerbation, mild Mild transaminitis, most likely secondary to alcohol affect Alcohol abuse at-risk of alcohol withdrawal Nicotine dependence Elevated lactic acid Insomnia Plan: Continue with steroids, Solu-Medrol 60 mg Continue with aspirin, brilinta Cardiology and pulmonary consult Nicotine patch Continue with CIWA protocol and pain me Labs and medication were reviewed.. Continue same treatment. Continue with symptomatic treatment. Resume home medication. Monitor labs and vitals. DVT and GI prophylaxis. Further recommendations as per clinical course of the patient DVT prophylaxis: heparin GI Prophylaxis: Pepcid PT/OT: Pending, deferred Prognosis is guarded
[2022-10-16 12:21] LABS: African American GFR (CKD) >90 (>60 ml/min/1.73 sqM); Anion Gap 7 mmol/L; Blood Urea Nitrogen 11 mg/dL (9-20); Calcium 9.4 mg/dL (8.4-10.2); Carbon Dioxide 22 mmol/L (22-30); Chloride 107 mmol/L (98-107); Glucose 172 mg/dL (74-99); Non-African American GFR(CKD) >90 (>60 ml/min/1.73 sqM); Potassium 4.1 mmol/L (3.5-5.1); Sodium 136 mmol/L (137-145)
[2022-10-16 13:02] VITALS: BMI 27.3
--- NOTE | 2022-10-16 13:07 | P.PN ---
Subjective Progress Note Date: 10/16/22 HISTORY OF PRESENT ILLNESS: This is a 62-year-old male with a past medical history significant for COPD and nicotine dependence. Patient does not follow with a turret lathe tender. We have been asked to see the patient in consultation for elevated troponins. Patient examined at the bedside. Patient states he began having shortness of breath about 2 days ago. He states he uses 4 inhalers at home which he ran out of about 3 days ago. He states in addition to her shortness of breath he has been having chest pain in the middle of his chest that goes into his back. He states the chest pain has been present for the past 2 days and is fairly persistent. He states the pain is not worse with deep inspiration. He reports the pain is worse with chest wall palpation. He reports he felt like he was having hot flashes at home and was diaphoretic. The patient is a current cigarette smoker. He denies any known history of hypertension, hyperlipidemia, or diabetes. He denies having any previous cardiac workup. * EKG reveals sinus mechanism with no signs of acute ischemia * Chest xray negative for acute process * Laboratory data: WBC 7.9. Hemoglobin 15.8. Platelet count 263. Sodium 141. Potassium 4.0. BUN 12. Creatinine 0.81. Troponin 0.363. 0.228. 0.194. * Current home cardiac medications include: None 10/16/2022 Patient is status post cardiac catheterization with Dr. Ceballos revealing 95% OM1 stenosis and 100% occlusion of RCA. Patient underwent stenting of OM1 by Dr. Muhammad. Patient examined this morning at the bedside. Patient denies chest pain or pressure. He denies shortness of breath. Vital signs are stable. PHYSICAL EXAM: VITAL SIGNS: Reviewed. GENERAL: Well-developed in no acute distress. HEENT: Head is normocephalic. Pupils are equal, round. Sclerae anicteric. Mucous membranes of the mouth are moist. Neck supple. No JVD or thyromegaly LUNGS: Respirations even and unlabored. Lungs with decreased air exchange bilaterally HEART: Regular rate and rhythm. S1 and S2 heard. ABDOMEN: Soft. Nondistended. Nontender. EXTREMITIES: Normal range of motion. No clubbing or cyanosis. Peripheral pulses intact. No lower extremity edema NEUROLOGIC: Awake and alert. Oriented x 3. ASSESSMENT: Chest pain Non-STEMI Acute COPD exacerbation Nicotine dependence Elevated lactic acid Mildly elevated LFTs PLAN: 2-D echo ordered. Await results Increase metoprolol to 25 mg twice a day as patient is mildly tachycardic this morning Continue additional cardiac medications Further recommendations pending patient's course Nurse practitioner note has been reviewed by physician. Signing provider agrees with the documented findings, assessment, and plan of care. Objective - Vital Signs Vital signs: Vital Signs Temp 97.6 F 10/16/22 08:00 Pulse 100 10/16/22 11:50 Resp 18 10/16/22 08:00 BP 154/77 10/16/22 08:00 Pulse Ox 94 L 10/16/22 08:00 FiO2 Intake & Output 10/15/22 10/16/22 10/16/22 18:59 06:59 18:59 Intake Total 1400 600 Output Total 675 350 Balance 725 -350 600 Weight 83.915 kg Intake: IV 200 Oral 1200 600 Output: Urine 675 350 Other: Voiding Method Urinal - Labs CBC & Chem 7: 10/16/22 08:59 10/16/22 08:59 Labs: Abnormal Lab Results - Last 24 Hours (Table) 10/16/22 10/16/22 Range/Units 08:59 08:59 WBC 14.1 H (3.8-10.6) k/uL Neutrophils # 13.1 H (1.3-7.7) k/uL Lymphocytes # 0.5 L (1.0-4.8) k/uL Sodium 136 L (137-145) mmol/L Glucose 172 H (74-99) mg/dL Microbiology - Last 24 Hours (Table) 10/15/22 02:54 Blood Culture - Preliminary Blood No Growth after 24 hours
--- NOTE | 2022-10-16 13:25 | P.PN ---
Subjective Progress Note Date: 10/16/22 This is a 62-year-old white male, [id number] smoking history at least, patient is known to have COPD, and normally maintained on medications in the form of albuterol and Advair. A few days ago, patient ran out of his medications, and he develops symptoms of cough wheezing and shortness of breath. Cough is nonproductive, no fever no chills, no hemoptysis, but he did have intermittent episodes of left-sided chest discomfort. Patient felt that his chest was tight, and remains tight even during my evaluation. He was already seen by cardiology for his abnormal troponin on this admission, he is already on heparin, and the patient is scheduled to have cardiac catheterization. By the time I'm dictating this report, patient underwent cardiac catheterization, and he was found to have 95% stenosis of his obtuse marginal branch and he underwent stent placement in the meantime the patient is already on bronchodilators including albuterol with Atrovent, Symbicort, Solu-Medrol, I expect him to do well, and hopefully we could consider discharge planning in the next couple of days. Chest x-ray on a dmission showed no evidence of active disease The patient is seen today 10/16/2022 in follow-up on the selective care unit. He is currently resting comfortably in bed. Awake and alert in no acute d istress. He did end up undergoing a catheterization and stenting to the OM1. He is initiated on Brilinta. He is still short of breath with exertion. Still with some chest tightness and wheezing. He is currently maintaining O2 saturations in the 90s on room air. Afebrile. Hemodynamically stable. Blood culture reveals no growth. White count 14.1. Hemoglobin 14.7. Platelets 251. Sodium 136. Potassium 4.1. BUN 11. Creatinine 0.69. Glucose 172. He is continued on Symbicort, DuoNeb inhalations, IV Solu-Medrol. NicoDerm patch in place. Objective - Vital Signs Vital signs: Vital Signs Temp 97.6 F 10/16/22 08:00 Pulse 100 10/16/22 11:50 Resp 18 10/16/22 08:00 BP 154/77 10/16/22 08:00 Pulse Ox 94 L 10/16/22 08:00 FiO2 Intake & Output 10/15/22 10/16/22 10/16/22 18:59 06:59 18:59 Intake Total 1400 600 Output Total 675 350 Balance 725 -350 600 Weight 83.915 kg Intake: IV 200 Oral 1200 600 Output: Urine 675 350 Other: Voiding Method Urinal - Exam GENERAL EXAM: Alert, pleasant 62-year-old male patient, on room air, comfortable in no apparent distress. HEAD: Normocephalic. EYES: Normal reaction of pupils, equal size. NOSE: Clear with pink turbinates. THROAT: No erythema or exudates. NECK: No masses, no JVD. CHEST: No chest wall deformity. LUNGS: Equal air entry with bilateral expiratory wheezing, diminished. CVS: S1 and S2 normal with no audible murmur, regular rhythm. ABDOMEN: No hepatosplenomegaly, normal bowel sounds, no guarding or rigidity. SPINE: No scoliosis or deformity SKIN: No rashes CENTRAL NERVOUS SYSTEM: No focal deficits, tone is normal in all 4 extremities. EXTREMITIES: There is no peripheral edema. No clubbing, no cyanosis. Peripheral pulses are intact. - Labs CBC & Chem 7: 10/16/22 08:59 10/16/22 08:59 Labs: Abnormal Lab Results - Last 24 Hours (Table) 10/16/22 10/16/22 Range/Units 08:59 08:59 WBC 14.1 H (3.8-10.6) k/uL Neutrophils # 13.1 H (1.3-7.7) k/uL Lymphocytes # 0.5 L (1.0-4.8) k/uL Sodium 136 L (137-145) mmol/L Glucose 172 H (74-99) mg/dL Microbiology - Last 24 Hours (Table) 10/15/22 02:54 Blood Culture - Preliminary Blood No Growth after 24 hours Assessment and Plan Assessment: Acute exacerbation of COPD, no evidence of pneumonia Non-ST elevation myocardial infarction, status post stenting to the OM1, 10/15/2022 History of alcohol abuse, patient is at risk of alcohol withdrawal. Tobacco dependence syndrome. Plan: The patient was seen and evaluated Labs and medications reviewed Continue DuoNeb inhalations, Symbicort, IV Solu-Medrol Stable and on room air Educated regarding the importance of complete smoking cessation NicoDerm patch is in place Probable discharge in the a.m. We'll continue to follow I have personally seen and examined the patient, performed the documentation and the assessment and plan as written. Number of minutes spent on the visit: 10.
[2022-10-16] MEDS: ATORVASTATIN 80 MG TAB PO SCH (20:28)
[2022-10-16] MEDS: METOPROLOL TARTRATE 25 MG TAB PO SCH ×2 (20:28→20:29)
[2022-10-16] MEDS: ACETAMINOPHEN TAB 325 MG TAB PO PRN (20:29)
[2022-10-16] MEDS: SODIUM CHLORIDE 0.9% 1,000 ML IV SCH (20:30)
[2022-10-16] MEDS: FAMOTIDINE 20 MG TAB PO SCH (20:30)
[2022-10-17] MEDS: methylPREDNISolone SOD SUCCI 125 MG/2 ML VIAL IV SCH ×2 (00:07→05:14)
[2022-10-17] MEDS: NITROGLYCERIN OINT 1 INCH/GM PACKET TOPICAL SCH ×2 (00:08→08:49)
[2022-10-17 02:08] VITALS: RESP 18
[2022-10-17] MEDS: SODIUM CHLORIDE 0.9% 1,000 ML IV SCH (03:21)
[2022-10-17] MEDS: IPRATROPIUM-ALBUTEROL 3 ML NEB INHALATION SCH ×2 (07:26→11:40)
[2022-10-17] MEDS: SYMBICORT 160-4.5 MCG INHALER INHALATION SCH (07:26)
[2022-10-17] MEDS: ASPIRIN 81 MG PO SCH (09:06)
[2022-10-17] MEDS: FAMOTIDINE 20 MG TAB PO SCH (09:06)
[2022-10-17] MEDS: TICAGRELOR 90 MG TAB PO SCH (09:06)
[2022-10-17] MEDS: THIAMINE 100 MG TAB PO SCH (09:06)
[2022-10-17] MEDS: ACETAMINOPHEN TAB 325 MG TAB PO PRN (09:06)
[2022-10-17] MEDS: NICOTINE 21MG/24HR PATCH TRANSDERM SCH (09:07)
[2022-10-17] MEDS: METOPROLOL TARTRATE 25 MG TAB PO SCH (09:07)
[2022-10-17 09:12] VITALS: PULSE 95; TEMP 98.7
[2022-10-17 09:14] VITALS: BP 147/69
--- NOTE | 2022-10-17 10:30 | P.PN ---
Subjective Progress Note Date: 10/17/22 HISTORY OF PRESENT ILLNESS: This is a 62-year-old male with a past medical history significant for COPD and nicotine dependence. 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 We have been asked to see the patient in consultation for elevated troponins. Patient examined at the bedside. Patient states he began having shortness of breath about 2 days ago. He states he uses 4 inhalers at home which he ran out of about 3 days ago. He states in addition to her shortness of breath he has been having chest pain in the middle of his chest that goes into his back. He states the chest pain has been present for the past 2 days and is fairly persistent. He states the pain is not worse with deep inspiration. He reports the pain is worse with chest wall palpation. He reports he felt like he was having hot flashes at home and was diaphoretic. The patient is a current cigarette smoker. He denies any known history of hypertension, hyperlipidemia, or diabetes. He denies having any previous cardiac workup. * EKG reveals sinus mechanism with no signs of acute ischemia * Chest xray negative for acute process * Laboratory data: WBC 7.9. Hemoglobin 15.8. Platelet count 263. Sodium 141. Potassium 4.0. BUN 12. Creatinine 0.81. Troponin 0.363. 0.228. 0.194. * Current home cardiac medications include: None 10/16/2022 Patient is status post cardiac catheterization with Dr. Ceballos revealing 95% OM1 stenosis and 100% occlusion of RCA. Patient underwent stenting of OM1 by Dr. Muhammad. Patient examined this morning at the bedside. Patient denies chest pain or pressure. He denies shortness of breath. Vital signs are stable. 10/17/2022 Patient examined this morning at the bedside. Patient denies chest pain or pressure. He denies shortness of breath. He's been up ambulate without difficulty. Vital signs are stable. PHYSICAL EXAM: VITAL SIGNS: Reviewed. GENERAL: Well-developed in no acute distress. HEENT: Head is normocephalic. Pupils are equal, round. Sclerae anicteric. Mucous membranes of the mouth are moist. Neck supple. No JVD or thyromegaly LUNGS: Respirations even and unlabored. Lungs with decreased air exchange bilaterally HEART: Regular rate and rhythm. S1 and S2 heard. ABDOMEN: Soft. Nondistended. Nontender. EXTREMITIES: Normal range of motion. No clubbing or cyanosis. Peripheral pulses intact. No lower extremity edema NEUROLOGIC: Awake and alert. Oriented x 3. ASSESSMENT: Chest pain Non-STEMI Acute COPD exacerbation Nicotine dependence Elevated lactic acid Mildly elevated LFTs PLAN: Will obtain 2-D echo outpatient in the office Continue current cardiac medications Patient is stable for discharge home today from a cardiac standpoint Nurse practitioner note has been reviewed by physician. Signing provider agrees with the documented findings, assessment, and plan of care. Objective - Vital Signs Vital signs: Vital Signs Temp 98.7 F 10/17/22 08:00 Pulse 95 10/17/22 08:00 Resp 18 10/17/22 08:00 BP 147/69 10/17/22 08:00 Pulse Ox 94 L 10/17/22 08:00 FiO2 Intake & Output 10/16/22 10/17/22 10/17/22 18:59 06:59 18:59 Intake Total 1680 700 180 Balance 1680 700 180 Weight 83.915 kg Intake: Intake, IV Titration 300 Amount Sodium Chloride 0.9% 1, 300 000 ml @ 75 mls/hr IV . [id number] [facility] Rx#:[id number] Oral 1680 400 180 Other: Voiding Method Urinal # Voids 2 # Bowel Movements 1 - Labs CBC & Chem 7: 10/16/22 08:59 10/16/22 08:59 Labs: Abnormal Lab Results - Last 24 Hours (Table) 10/16/22 Range/Units 08:59 Sodium 136 L (137-145) mmol/L Glucose 172 H (74-99) mg/dL Microbiology - Last 24 Hours (Table) 10/15/22 02:54 Blood Culture - Preliminary Blood No Growth after 48 hours
--- NOTE | 2022-10-17 12:43 | P.PN ---
Subjective Progress Note Date: 10/17/22 This is a 62-year-old white male, 10-toez-abal smoking history at least, patient is known to have COPD, and normally maintained on medications in the form of albuterol and Advair. A few days ago, patient ran out of his medications, and he develops symptoms of cough wheezing and shortness of breath. Cough is nonproductive, no fever no chills, no hemoptysis, but he did have intermittent episodes of left-sided chest discomfort. Patient felt that his chest was tight, and remains tight even during my evaluation. He was already seen by cardiology for his abnormal troponin on this admission, he is already on heparin, and the patient is scheduled to have cardiac catheterization. By the time I'm dictating this report, patient underwent cardiac catheterization, and he was found to have 95% stenosis of his obtuse marginal branch and he underwent stent placement in the meantime the patient is already on bronchodilators including albuterol with Atrovent, Symbicort, Solu-Medrol, I expect him to do well, and hopefully we could consider discharge planning in the next couple of days. Chest x-ray on a dmission showed no evidence of active disease The patient is seen today 10/16/2022 in follow-up on the selective care unit. He is currently resting comfortably in bed. Awake and alert in no acute d istress. He did end up undergoing a catheterization and stenting to the OM1. He is initiated on Brilinta. He is still short of breath with exertion. Still with some chest tightness and wheezing. He is currently maintaining O2 saturations in the 90s on room air. Afebrile. Hemodynamically stable. Blood culture reveals no growth. White count 14.1. Hemoglobin 14.7. Platelets 251. Sodium 136. Potassium 4.1. BUN 11. Creatinine 0.69. Glucose 172. He is continued on Symbicort, DuoNeb inhalations, IV Solu-Medrol. NicoDerm patch in place. The patient is seen today 10/17/2022 in follow-up on the selective care unit. He is currently sitting up at the bedside. Awake and alert in no acute distress. No worsening shortness of breath, cough or congestion. No chest pain or palpitations. Maintaining O2 saturation in the 90s on room air. He's afebrile. Hemodynamically stable. No new labs today. He is continued on DuoNeb inhalations, Symbicort, IV Solu-Medrol. NicoDerm patch remains in place. Heparin for DVT prophylaxis. Continued on Brilinta and aspirin. Objective - Vital Signs Vital signs: Vital Signs Temp 98.7 F 10/17/22 08:00 Pulse 95 10/17/22 08:00 Resp 18 10/17/22 08:00 BP 147/69 10/17/22 08:00 Pulse Ox 95 10/17/22 12:18 FiO2 Intake & Output 10/16/22 10/17/22 10/17/22 18:59 06:59 18:59 Intake Total 1680 700 180 Balance 1680 700 180 Weight 83.915 kg Intake: Intake, IV Titration 300 Amount Sodium Chloride 0.9% 1, 300 000 ml @ 75 mls/hr IV . [id number] [facility] Rx#:[id number] Oral 1680 400 180 Other: Voiding Method Urinal # Voids 2 # Bowel Movements 1 - Exam GENERAL EXAM: Alert, pleasant 62-year-old male patient, sitting up at the bedside, on room air, comfortable in no apparent distress. HEAD: Normocephalic. EYES: Normal reaction of pupils, equal size. NOSE: Clear with pink turbinates. THROAT: No erythema or exudates. NECK: No masses, no JVD. CHEST: No chest wall deformity. LUNGS: Equal air entry with bilateral expiratory wheezing, diminished. CVS: S1 and S2 normal with no audible murmur, regular rhythm. ABDOMEN: No hepatosplenomegaly, normal bowel sounds, no guarding or rigidity. SPINE: No scoliosis or deformity SKIN: No rashes CENTRAL NERVOUS SYSTEM: No focal deficits, tone is normal in all 4 extremities. EXTREMITIES: There is no peripheral edema. No clubbing, no cyanosis. Peripheral pulses are intact. - Labs CBC & Chem 7: 10/16/22 08:59 10/16/22 08:59 Labs: Microbiology - Last 24 Hours (Table) 10/15/22 02:54 Blood Culture - Preliminary Blood No Growth after 48 hours Assessment and Plan Assessment: Acute exacerbation of COPD, no evidence of pneumonia Non-ST elevation myocardial infarction, status post stenting to the OM1, 10/15/2022 History of alcohol abuse, patient is at risk of alcohol withdrawal. Tobacco dependence syndrome. Plan: The patient was seen and evaluated Medications reviewed Continue DuoNeb inhalations, Symbicort Transition to prednisone taper starting at 40 mg daily for 4 days Educated regarding the importance of complete smoking cessation NicoDerm patch is in place Cleared for discharge from the pulmonary standpoint Follow up in the office in 1 week I have personally seen and examined the patient, performed the documentation and the assessment and plan as written. Number of minutes spent on the visit: 10.
[2022-10-18] MEDS ORDERED: predniSONE 20 MG TAB PO SCH (09:00)
== END 2022-10-17 12:56 | disposition home or self-care (01) | DRG 247 ==
LOC: EC 22:29 → 3SCARD 10-15 00:20
PROVIDERS: ADMIT Hospitalist; ATTEND Hospitalist
PROC: 027034Z Dilation of Coronary Artery, One Artery with Drug-eluting Intraluminal Device, Percutaneous Approach (ICD-10-PCS; principal; 2022-10-15 09:55)
PROC: B2111ZZ Fluoroscopy of Multiple Coronary Arteries using Low Osmolar Contrast (ICD-10-PCS; 2022-10-15 09:55)
PROC: 4A023N7 Measurement of Cardiac Sampling and Pressure, Left Heart, Percutaneous Approach (ICD-10-PCS; 2022-10-15 09:55)
DX: I21.4 Non-ST elevation (NSTEMI) myocardial infarction (principal); J44.1 Chronic obstructive pulmonary disease with (acute) exacerbation; R74.01 Elevation of levels of liver transaminase levels; F10.10 Alcohol abuse, uncomplicated; F41.9 Anxiety disorder, unspecified; T38.0X5A Adverse effect of glucocorticoids and synthetic analogues, initial encounter; G47.00 Insomnia, unspecified; R51.9 Headache, unspecified; D72.829 Elevated white blood cell count, unspecified; F17.210 Nicotine dependence, cigarettes, uncomplicated; Z71.6 Tobacco abuse counseling
CPT/HCPCS: 36415; 71045; 80048; 80053; 83605; 83735; 83880; 84484; 85025; 85610; 85730; 87040; 93005; 93458; 94640; 94644; 94760; 96361; 96374; 96375; 99291

== ENCOUNTER 2022-10-31 11:47 | Observation (INO) | payer OTHER ==
--- NOTE | 2022-10-31 12:36 | ED ---
General Adult HPI - General Chief complaint: Chest Pain Stated complaint: chest pain Time Seen by Provider: 10/31/22 12:06 Source: patient, EMS Mode of arrival: EMS Limitations: no limitations - History of Present Illness Initial comments: This patient is a 62-year-old man who is brought to have evaluation after he was not able to get up from the bathroom floor. Patient states that he had gone to a friend's house. He had gone to use the bathroom. He states that the he had then attempted to get up from the commode and slid off. He was then on the floor between the toilet and tub, and he states he was not able to get up. His friend helped him to the couch and then called the ambulance. The patient has also been having intermittent chest pains. He had been admitted here, had heart catheterization with one stent placement. He states he also was told that he had chronic occlusion of one of the vessels but that it could not be stented. Patient not having any anginal symptoms, no dyspnea, diaphoresis, nausea or vomiting. -: hour(s) Location: chest Radiation: non-radiation Quality: aching Consistency: intermittent Improves with: none Worsens with: none Associated Symptoms: denies other symptoms Treatments Prior to Arrival: none - Related Data Home Medications Medication Instructions Recorded Confirmed Albuterol Inhaler [Ventolin Hfa 2 puff INHALATION RT-QID 10/31/22 10/31/22 Inhaler] Losartan Potassium [Cozaar] 25 mg PO DAILY 10/31/22 10/31/22 predniSONE See Taper PO DIRECTED 10/31/22 10/31/22 Previous Rx's Medication Instructions Recorded Ticagrelor [Brilinta] 90 mg PO BID #60 tab 10/16/22 Acetaminophen Tab [Tylenol] 650 mg PO Q6HR PRN tab 10/17/22 Aspirin 81 mg PO DAILY #30 tab 10/17/22 Atorvastatin [Lipitor] 80 mg PO HS #30 tab 10/17/22 Budesonide-Formot 160-4.5 Mcg 2 puff INHALATION RT-BID #1 inh 10/17/22 [Symbicort 160-4.5 Mcg Inhaler] Famotidine [Pepcid] 20 mg PO BID #60 tab 10/17/22 Metoprolol Tartrate [Lopressor] 25 mg PO BID #60 tab 10/17/22 Nitroglycerin Sl Tabs [Nitrostat] 0.4 mg SUBLINGUAL Q5M PRN #20 tab 10/17/22 Thiamine [Vitamin B-1] 100 mg PO DAILY #30 tab 10/17/22 Allergies Allergy/AdvReac Type Severity Reaction Status Date / Time No Known Allergies Allergy Verified 10/31/22 17:04 Review of Systems ROS Statement: Those systems with pertinent positive or pertinent negative responses have been documented in the HPI. ROS Other: All systems not noted in ROS Statement are negative. Constitutional: Reports: weakness. Denies: fever, chills Eyes: Denies: vision change Respiratory: Denies: cough, dyspnea Cardiovascular: Reports: chest pain. Denies: palpitations, orthopnea, edema, syncope Gastrointestinal: Denies: abdominal pain, vomiting, diarrhea Genitourinary: Denies: dysuria, hematuria Musculoskeletal: Denies: back pain Skin: Denies: rash Neurological: Denies: headache, weakness, numbness Past Medical History Past Medical History: Asthma, COPD, Myocardial Infarction ([place]) History of Any Multi-Drug Resistant Organisms: None Reported Past Surgical History: Appendectomy, Bowel Resection, Ear Surgery, Heart Catheterization With Stent, Hernia Repair, Orthopedic Surgery Past Anesthesia/Blood Transfusion Reactions: No Reported Reaction Past Psychological History: No Psychological Hx Reported Smoking Status: Current every day smoker Past Alcohol Use History: Daily, Heavy Past Drug Use History: Marijuana - Past Family History Father Family Medical History: Coronary Artery Disease (CAD) General Exam Limitations: no limitations General appearance: alert, in no apparent distress, appears intoxicated Head exam: Present: atraumatic, normocephalic Eye exam: Present: normal appearance. Absent: scleral icterus, conjunctival injection ENT exam: Present: mucous membranes dry Neck exam: Present: normal inspection, full ROM. Absent: tenderness Respiratory exam: Present: normal lung sounds bilaterally. Absent: respiratory distress, wheezes, rales, rhonchi, stridor, chest wall tenderness, accessory muscle use Cardiovascular Exam: Present: regular rate, normal rhythm, normal heart sounds. Absent: systolic murmur, diastolic murmur, rubs, gallop GI/Abdominal exam: Present: soft. Absent: distended, tenderness, guarding, rebound, rigid, mass Extremities exam: Present: normal inspection, normal capillary refill. Absent: pedal edema, calf tenderness Back exam: Present: normal inspection. Absent: CVA tenderness (R), CVA tenderness (L) Neurological exam: Present: alert Skin exam: Present: warm, dry, intact, normal color. Absent: rash Course Vital Signs 10/31/22 10/31/22 10/31/22 11:49 14:00 15:00 Temperature 98.3 F Pulse Rate 85 70 72 Respiratory 20 18 18 Rate Blood Pressure 133/75 127/73 120/62 O2 Sat by Pulse 97 95 120 H Oximetry 10/31/22 10/31/22 18:20 18:28 Temperature 98.4 F Pulse Rate 87 85 Respiratory 18 18 Rate Blood Pressure 155/79 129/78 O2 Sat by Pulse 97 96 Oximetry EKG Findings - EKG Results: EKG: interpreted by KIRAN ZAVALA, sinus rhythm (Rate 74 bpm), normal axis, normal QRS, normal ST/T, no acute changes Medical Decision Making - Medical Decision Making Patient is 62-year-old man here for generalized weakness, found to have significantly high alcohol level. Patient be admitted to prevent DTs. - Lab Data Result diagrams: 10/31/22 12:35 10/31/22 12:35 Lab Results 10/31/22 10/31/22 10/31/22 Range/Units 12:35 12:35 12:35 WBC 6.7 (3.8-10.6) k/uL RBC 4.62 (4.30-5.90) m/uL Hgb 14.9 (13.0-17.5) gm/dL Hct 44.2 (39.0-53.0) % MCV 95.8 (80.0-100.0) fL MCH 32.3 (25.0-35.0) pg MCHC 33.8 (31.0-37.0) g/dL RDW 12.4 (11.5-15.5) % Plt Count 249 (150-450) k/uL MPV 6.9 Neutrophils % 89 % Lymphocytes % 8 % Monocytes % 3 % Eosinophils % 0 % Basophils % 0 % Neutrophils # 5.9 (1.3-7.7) k/uL Lymphocytes # 0.5 L (1.0-4.8) k/uL Monocytes # 0.2 (0-1.0) k/uL Eosinophils # 0.0 (0-0.7) k/uL Basophils # 0.0 (0-0.2) k/uL PT 9.7 (9.0-12.0) sec INR 0.9 (<1.2) APTT 21.8 L (22.0-30.0) sec Sodium (137-145) mmol/L Potassium (3.5-5.1) mmol/L Chloride (98-107) mmol/L Carbon Dioxide (22-30) mmol/L Anion Gap mmol/L BUN (9-20) mg/dL Creatinine (0.66-1.25) mg/dL Est GFR (CKD-EPI)AfAm (>60 ml/min/1.73 sqM) Est GFR (CKD-EPI)NonAf (>60 ml/min/1.73 sqM) Glucose (74-99) mg/dL Calcium (8.4-10.2) mg/dL Magnesium (1.6-2.3) mg/dL Total Bilirubin (0.2-1.3) mg/dL AST (17-59) U/L ALT (4-49) U/L Alkaline Phosphatase (38-126) U/L Troponin I (0.000-0.034) ng/mL NT-Pro-B Natriuret Pep pg/mL Total Protein (6.3-8.2) g/dL Albumin (3.5-5.0) g/dL Amylase (30-110) U/L Lipase (23-300) U/L Urine Color Colorless Urine Appearance Clear (Clear) Urine pH 5.5 (5.0-8.0) Ur Specific [place] 1.006 (1.001-1.035) Urine Protein Negative (Negative) Urine Glucose (UA) Negative (Negative) Urine Ketones Negative (Negative) Urine Blood Negative (Negative) Urine Nitrite Negative (Negative) Urine Bilirubin Negative (Negative) Urine Urobilinogen <2.0 (<2.0) mg/dL Ur Leukocyte Esterase Negative (Negative) Serum Alcohol mg/dL 10/31/22 10/31/22 10/31/22 Range/Units 12:35 12:35 12:35 WBC (3.8-10.6) k/uL RBC (4.30-5.90) m/uL Hgb (13.0-17.5) gm/dL Hct (39.0-53.0) % MCV (80.0-100.0) fL MCH (25.0-35.0) pg MCHC (31.0-37.0) g/dL RDW (11.5-15.5) % Plt Count (150-450) k/uL MPV Neutrophils % % Lymphocytes % % Monocytes % % Eosinophils % % Basophils % % Neutrophils # (1.3-7.7) k/uL Lymphocytes # (1.0-4.8) k/uL Monocytes # (0-1.0) k/uL Eosinophils # (0-0.7) k/uL Basophils # (0-0.2) k/uL PT (9.0-12.0) sec INR (<1.2) APTT (22.0-30.0) sec Sodium 144 (137-145) mmol/L Potassium 4.5 (3.5-5.1) mmol/L Chloride 109 H (98-107) mmol/L Carbon Dioxide 26 (22-30) mmol/L Anion Gap 9 mmol/L BUN 15 (9-20) mg/dL Creatinine 0.74 (0.66-1.25) mg/dL Est GFR (CKD-EPI)AfAm >90 (>60 ml/min/1.73 sqM) Est GFR (CKD-EPI)NonAf >90 (>60 ml/min/1.73 sqM) Glucose 111 H (74-99) mg/dL Calcium 8.6 (8.4-10.2) mg/dL Magnesium 2.1 (1.6-2.3) mg/dL Total Bilirubin 0.7 (0.2-1.3) mg/dL AST 70 H (17-59) U/L ALT 99 H (4-49) U/L Alkaline Phosphatase 56 (38-126) U/L Troponin I 0.013 (0.000-0.034) ng/mL NT-Pro-B Natriuret Pep 160 pg/mL Total Protein 7.0 (6.3-8.2) g/dL Albumin 4.5 (3.5-5.0) g/dL Amylase 128 H (30-110) U/L Lipase 236 (23-300) U/L Urine Color Urine Appearance (Clear) Urine pH (5.0-8.0) Ur Specific [place] (1.001-1.035) Urine Protein (Negative) Urine Glucose (UA) (Negative) Urine Ketones (Negative) Urine Blood (Negative) Urine Nitrite (Negative) Urine Bilirubin (Negative) Urine Urobilinogen (<2.0) mg/dL Ur Leukocyte Esterase (Negative) Serum Alcohol 298 H* mg/dL 10/31/22 Range/Units 16:53 WBC (3.8-10.6) k/uL RBC (4.30-5.90) m/uL Hgb (13.0-17.5) gm/dL Hct (39.0-53.0) % MCV (80.0-100.0) fL MCH (25.0-35.0) pg MCHC (31.0-37.0) g/dL RDW (11.5-15.5) % Plt Count (150-450) k/uL MPV Neutrophils % % Lymphocytes % % Monocytes % % Eosinophils % % Basophils % % Neutrophils # (1.3-7.7) k/uL Lymphocytes # (1.0-4.8) k/uL Monocytes # (0-1.0) k/uL Eosinophils # (0-0.7) k/uL Basophils # (0-0.2) k/uL PT (9.0-12.0) sec INR (<1.2) APTT (22.0-30.0) sec Sodium (137-145) mmol/L Potassium (3.5-5.1) mmol/L Chloride (98-107) mmol/L Carbon Dioxide (22-30) mmol/L Anion Gap mmol/L BUN (9-20) mg/dL Creatinine (0.66-1.25) mg/dL Est GFR (CKD-EPI)AfAm (>60 ml/min/1.73 sqM) Est GFR (CKD-EPI)NonAf (>60 ml/min/1.73 sqM) Glucose (74-99) mg/dL Calcium (8.4-10.2) mg/dL Magnesium (1.6-2.3) mg/dL Total Bilirubin (0.2-1.3) mg/dL AST (17-59) U/L ALT (4-49) U/L Alkaline Phosphatase (38-126) U/L Troponin I 0.014 (0.000-0.034) ng/mL NT-Pro-B Natriuret Pep pg/mL Total Protein (6.3-8.2) g/dL Albumin (3.5-5.0) g/dL Amylase (30-110) U/L Lipase (23-300) U/L Urine Color Urine Appearance (Clear) Urine pH (5.0-8.0) Ur Specific [place] (1.001-1.035) Urine Protein (Negative) Urine Glucose (UA) (Negative) Urine Ketones (Negative) Urine Blood (Negative) Urine Nitrite (Negative) Urine Bilirubin (Negative) Urine Urobilinogen (<2.0) mg/dL Ur Leukocyte Esterase (Negative) Serum Alcohol mg/dL Disposition Clinical Impression: Alcohol intoxication Disposition: ADMITTED IP TO THIS HOSP Condition: Fair
[2022-10-31 13:07] LABS: Basophils % (A) 0 %; Eosinophils % (A) 0 %; HCT 44.2 % (39.0-53.0); HGB 14.9 gm/dL (13.0-17.5); Lymphocytes # (A) 0.5 k/uL (1.0-4.8); Lymphocytes % (A) 8 %; MCH 32.3 pg (25.0-35.0); MCHC 33.8 g/dL (31.0-37.0); MCV 95.8 fL (80.0-100.0); Mean Platelet Volume 6.9; Monocytes # (A) 0.2 k/uL (0-1.0); Monocytes % (A) 3 %; Neutrophils # (A) 5.9 k/uL (1.3-7.7); Neutrophils % (A) 89 %; Platelet Count 249 k/uL (150-450); RBC 4.62 m/uL (4.30-5.90); RDW 12.4 % (11.5-15.5); WBC 6.7 k/uL (3.8-10.6)
[2022-10-31 13:10] LABS: Appearance,Urine Clear (Clear); Bilirubin,Urine Negative (Negative); Blood,Urine Negative (Negative); Color,Urine Colorless; Glucose,Urine (UA) Negative (Negative); Ketones,Urine Negative (Negative); Leukocyte Esterase,Urine Negative (Negative); Nitrite,Urine Negative (Negative); PH, Urine 5.5 (5.0-8.0); Protein,Urine Negative (Negative); Specific Gravity,Urine 1.006 (1.001-1.035); Urobilinogen,Urine <2.0 mg/dL (<2.0)
--- NOTE | 2022-10-31 13:17 | XR ---
EXAMINATION TYPE: XR chest 2V DATE OF EXAM: 10/31/2022 COMPARISON: Chest x-ray 17 days ago HISTORY: Chest pain. TECHNIQUE: Frontal and lateral views of the chest are obtained. FINDINGS: There is no suspicious new focal air space opacity, pleural effusion, or pneumothorax seen . The cardiac silhouette size is stable and within normal limits. Old fractures of the anterolateral right fourth and fifth ribs are noted. Old fracture of the anterolateral left sixth rib is also susp ected. IMPRESSION: No acute process. No significant change from prior.
[2022-10-31 13:20] LABS: INR 0.9 (<1.2); Partial Thromboplastin Time 21.8 sec (22.0-30.0); Prothrombin Time 9.7 sec (9.0-12.0)
[2022-10-31 13:31] LABS: ALT 99 U/L (4-49); AST 70 U/L (17-59); African American GFR (CKD) >90 (>60 ml/min/1.73 sqM); Albumin 4.5 g/dL (3.5-5.0); Alkaline Phosphatase 56 U/L (38-126); Amylase 128 U/L (30-110); Anion Gap 9 mmol/L; Blood Urea Nitrogen 15 mg/dL (9-20); Calcium 8.6 mg/dL (8.4-10.2); Carbon Dioxide 26 mmol/L (22-30); Chloride 109 mmol/L (98-107); Glucose 111 mg/dL (74-99); Lipase 236 U/L (23-300); Magnesium 2.1 mg/dL (1.6-2.3); Non-African American GFR(CKD) >90 (>60 ml/min/1.73 sqM); Potassium 4.5 mmol/L (3.5-5.1); Sodium 144 mmol/L (137-145); Total Bilirubin 0.7 mg/dL (0.2-1.3)
[2022-10-31 13:54] LABS: Alcohol 298 mg/dL
[2022-10-31] MEDS ORDERED: SODIUM CHLORIDE 0.9% 1,000 ML IV ONE (16:22)
[2022-10-31] MEDS ORDERED: MAG HYDROX/AL HYDROX/SIMETH 30 ML, HYOSCYAMINE ELIXIR 10 ML, LIDOCAINE VISCOUS 2% 10 ML PO STA ×3 (17:49)
[2022-10-31] MEDS ORDERED: MORPHINE SULFATE 4 MG/ML SYRINGE IV STA (19:25)
[2022-10-31] MEDS ORDERED: NALOXONE 0.4 MG/ML 1 ML VIAL IV PRN (20:15)
[2022-10-31] MEDS ORDERED: chlordiazePOXIDE 25 MG CAP PO PRN (20:17)
[2022-10-31] MEDS ORDERED: LORazepam 2 MG/ML INJ IV PRN ×3 (20:17)
[2022-10-31] MEDS: SODIUM CHLORIDE 0.9% 1,000 ML IV SCH (21:43)
[2022-10-31] MEDS ORDERED: ACETAMINOPHEN TAB 325 MG TAB PO PRN (22:35)
--- NOTE | 2022-10-31 22:37 | P.HPIM ---
History of Present Illness H&P Date: 10/31/22 The patient is a 62-year-old male with a PMH of COPD and CAD status post recent stenting of OM1 on 10/15/22 who presents to the emergency room with complaints of left-sided chest pain and alcohol intoxication. Patient reports that he began having a left-sided sharp 10 out of 10 chest discomfort, nonradiating, occurring intermittently starting this morning at around 10 AM. He reports that the pain was initially waxing and waning but then subsequently became constant, which prompted the emergency room. He denies pleuritic nature of the pain. Reports associated lightheadedness. Denied lower extremity swelling or pain. States that the pain is different from when he had his IN 2 weeks ago. Cardiac catheterization at that time had revealed 100% occluded RCA and 95% occluded left OM1 which was subsequently stented with a PRASHANTH. States that the pain is improved to a 6 out of 10 at the time of interview. Patient reports that he has been drinking heavily for the past several decades, and is currently drinking around a pint of hard liquor daily with last drink earlier today. Laboratory e valuation revealed a serum alcohol level of 298 and troponin 0.013. EKG revealed sinus rhythm at [address]/T-wave changes noted as reviewed by me. Chest x-ray was unremarkable. Review of systems: Pertinent positives and negatives as discussed in HPI, a complete review of systems was performed and all other systems are negative. Physical examination: General: non toxic, no distress, appears at stated age, normal weight Derm: no unusual rashes/lesions, warm Head: atraumatic, normocephalic, symmetric Eyes: EOMI, no lid lag, anicteric sclera, pupils equal round reactive to light ENT: Nose and ears atraumatic Neck: No cervical lymphadenopathy, trachea midline, supple Mouth: no lip lesion, mucus membranes moist Cardiovascular: S1S2 reg, no murmur, positive dorsalis pedis pulse bilateral, no edema Lungs: CTA bilateral, no rhonchi, no rales, no accessory muscle use Abdominal: soft, nontender to palpation, no guarding Ext: muscle strength 5 out of 5 in all 4 extremities grossly, no gross muscle atrophy, no contractures, Neuro: CN II-XI grossly intact, no gross focal neuro deficits Psych: Alert, oriented, appropriate affect Assessment/plan Chest pain with atypical features -Cardiology consulted -Cardiac monitoring -Trend troponin -Continue with aspirin, brillinta Alcohol intoxication, impending withdrawal -Strongly advised on importance of cessation -[facility] protocol -Monitor electrolytes -Cardiac monitoring -IV fluids -Thiamine DVT prophylaxis -Heparin subcu The patient is admitted with an anticipated less than 2 midnight stay for evaluation of chest pain CODE STATUS: Full Code Discussed with: Patient Anticipated discharge date: in am Anticipated discharge place: Home Past Medical History Past Medical History: Asthma, COPD, Myocardial Infarction ([place]) History of Any Multi-Drug Resistant Organisms: None Reported Past Surgical History: Appendectomy, Bowel Resection, Ear Surgery, Heart Catheterization With Stent, Hernia Repair, Orthopedic Surgery Past Anesthesia/Blood Transfusion Reactions: No Reported Reaction Past Psychological History: No Psychological Hx Reported Smoking Status: Current every day smoker Past Alcohol Use History: Daily, Heavy Past Drug Use History: Marijuana - Past Family History Father Family Medical History: Coronary Artery Disease (CAD) Medications and Allergies Home Medications Medication Instructions Recorded Confirmed Type Ticagrelor [Brilinta] 90 mg PO BID #60 tab 10/16/22 10/31/22 Rx Acetaminophen Tab [Tylenol] 650 mg PO Q6HR PRN tab 10/17/22 10/31/22 Rx Aspirin 81 mg PO DAILY #30 tab 10/17/22 10/31/22 Rx Atorvastatin [Lipitor] 80 mg PO HS #30 tab 10/17/22 10/31/22 Rx Budesonide-Formot 160-4.5 Mcg 2 puff INHALATION RT-BID #1 inh 10/17/22 10/31/22 Rx [Symbicort 160-4.5 Mcg Inhaler] Famotidine [Pepcid] 20 mg PO BID #60 tab 10/17/22 10/31/22 Rx Metoprolol Tartrate [Lopressor] 25 mg PO BID #60 tab 10/17/22 10/31/22 Rx Nitroglycerin Sl Tabs [Nitrostat] 0.4 mg SUBLINGUAL Q5M PRN #20 tab 10/17/22 10/31/22 Rx Thiamine [Vitamin B-1] 100 mg PO DAILY #30 tab 10/17/22 10/31/22 Rx Albuterol Inhaler [Ventolin Hfa 2 puff INHALATION RT-QID 10/31/22 10/31/22 History Inhaler] Losartan Potassium [Cozaar] 25 mg PO DAILY 10/31/22 10/31/22 History predniSONE See Taper PO DIRECTED 10/31/22 10/31/22 History Allergies Allergy/AdvReac Type Severity Reaction Status Date / Time No Known Allergies Allergy Verified 10/31/22 17:04 Physical Exam Vitals: Vital Signs Temp Pulse Resp BP Pulse Ox 10/31/22 18:28 98.4 F 85 18 129/78 96 10/31/22 18:20 87 18 155/79 97 10/31/22 15:00 72 18 120/62 120 H 10/31/22 14:00 70 18 127/73 95 10/31/22 11:49 98.3 F 85 20 133/75 97 Intake and Output 10/31/22 10/31/22 10/31/22 06:59 14:59 22:59 Other: Weight 87.09 kg Results CBC & Chem 7: 10/31/22 12:35 10/31/22 12:35 Labs: Abnormal Lab Results - Last 24 Hours (Table) 10/31/22 10/31/22 10/31/22 Range/Units 12:35 12:35 12:35 Lymphocytes # 0.5 L (1.0-4.8) k/uL APTT 21.8 L (22.0-30.0) sec Chloride 109 H (98-107) mmol/L Glucose 111 H (74-99) mg/dL AST 70 H (17-59) U/L ALT 99 H (4-49) U/L Amylase 128 H (30-110) U/L Serum Alcohol 298 H* mg/dL
[2022-10-31] MEDS: NICOTINE 21MG/24HR PATCH TRANSDERM SCH (22:38)
[2022-11-01] MEDS: HEPARIN SODIUM,PORCINE/PF 5,000 UNIT/0.5 ML SYRINGE SQ SCH ×4 (00:41→16:46)
[2022-11-01] MEDS: SODIUM CHLORIDE 0.9% 1,000 ML IV SCH ×2 (07:49→13:12)
[2022-11-01 07:51] VITALS: TEMP 98.2
[2022-11-01] MEDS ORDERED: SYMBICORT 160-4.5 MCG INHALER INHALATION SCH (08:00)
[2022-11-01] MEDS: NICOTINE 21MG/24HR PATCH TRANSDERM SCH (08:32)
[2022-11-01] MEDS ORDERED: FAMOTIDINE 20 MG TAB PO SCH (09:00)
[2022-11-01] MEDS ORDERED: METOPROLOL TARTRATE 25 MG TAB PO SCH (09:00)
[2022-11-01] MEDS ORDERED: ASPIRIN 81 MG PO SCH (09:00)
[2022-11-01] MEDS ORDERED: TICAGRELOR 90 MG TAB PO SCH (09:00)
[2022-11-01] MEDS ORDERED: THIAMINE 100 MG TAB PO SCH (09:00)
[2022-11-01] MEDS ORDERED: LOSARTAN 25 MG TAB PO SCH (09:00)
[2022-11-01] MEDS: ALBUTEROL NEBULIZED 2.5 MG/3 ML INHALATION SCH ×3 (09:12→15:32)
--- NOTE | 2022-11-01 10:37 | P.PN ---
Subjective Progress Note Date: 11/01/22 Patient complaint of chest pain again this morning. Had another EKG, reviewed by me, no changes from initial EKG on admission. Patient's troponin is pending. Ongoing chest pain appears to be musculoskeletal in nature, worse with palpation of the chest. Cardiology evaluation is still pending Gen: awake, alert HEENT: normocephalic, atraumatic, good hearing acuity, moist mucous membranes Resp: good air exchange, breathing comfortably with no accessory muscle use, clear to auscultation bilaterally CVS: good distal perfusion x 4, regular rate and rhythm, no murmurs, GI: soft, NTTP, ND : no SPT, no CVAT, gleason catheter not present MSK: no pitting edema, no clubbing, reproducible pain to palpation of the pectoral muscle on the left Neuro: non-focal, moving all extremities Psych: cooperative, euthymic mood Assessment/plan: Chest pain with atypical features -Cardiology consulted, pending evaluation -Cardiac monitoring, no acute events -Trend troponin, thus far negative, repeating troponin today -Continue with aspirin, brillinta -EKG repeated today and no changes from admission - normal sinus rhythm with no ST-T changes concerning for ischemia and normal intervals/durations Alcohol intoxication, impending withdrawal -Strongly advised on importance of cessation -CIWA protocol, ativan PRN for withdrawal symptoms. -Monitor electrolytes -Cardiac monitoring -IV fluids -Thiamine DVT prophylaxis -Heparin subcu The patient is admitted with an anticipated less than 2 midnight stay for lacy luation of chest pain CODE STATUS: Full Code Discussed with: Patient Anticipated discharge date: in am Anticipated discharge place: Home Objective - Vital Signs Vital signs: Vital Signs Temp 98.2 F 11/01/22 07:51 Pulse 81 11/01/22 09:24 Resp 18 11/01/22 09:24 BP 162/81 11/01/22 07:51 Pulse Ox 98 11/01/22 09:13 FiO2 Intake & Output 10/31/22 11/01/22 11/01/22 18:59 06:59 18:59 Output Total 300 Balance -300 Weight 87.09 kg 87.09 kg Output: Urine 300 Other: # Voids 2 - Labs CBC & Chem 7: 10/31/22 12:35 10/31/22 12:35 Labs: Abnormal Lab Results - Last 24 Hours (Table) 10/31/22 10/31/22 10/31/22 Range/Units 12:35 12:35 12:35 Lymphocytes # 0.5 L (1.0-4.8) k/uL APTT 21.8 L (22.0-30.0) sec Chloride 109 H (98-107) mmol/L Glucose 111 H (74-99) mg/dL AST 70 H (17-59) U/L ALT 99 H (4-49) U/L Amylase 128 H (30-110) U/L Serum Alcohol 298 H* mg/dL
--- NOTE | 2022-11-01 13:37 | P.CRDCN ---
History of Present Illness Consult date: 11/01/22 Requesting physician: Chau Yarbrough Reason for Consult (text): chest pain Chief complaint: dizziness, fall, chest pain History of present illness: This is a 62-year-old gentleman who follows with Dr. Guerrero. Just recently established with a housing liaison. Was recently admitted on the of this month with complaints of shortness of breath and chest pain and was found to be positive for non-ST elevation MN. He has a history of COPD and nicotine dependence. He also drinks 224 ounce beers and a half a pint of whiskey every day. On last admission he underwent cardiac catheterization which showed 95% lesion in the first OM and 100% occlusion of the RCA and he underwent stenting of the first OM by Dr. Muhammad. Does continue to have chest pain since discharge. Presented to the emergency department this admission after becoming dizzy and falling in the bathroom at a friend's house. On admission alcohol level was found to be elevated. He has also been complaining of chest discomfor t, fairly constant and with some tenderness to palpation. He said he was recently seen in the office by Dr. Ceballos and had medication adjustments at that time but is unsure of what those changes were. He denies relief of his chest pain with nitroglycerin the pain was relieved with morphine. Troponins on admission have been 0.013 0.014. Another troponin was drawn this morning and that is pending. EKG shows no evidence of ischemia. Chest x-ray shows no acute process, no significant change from prior. He does complain of some shortness of breath, somewhat worse since discharge however he continues to smoke half a pack a day. He has not followed up with pulmonology but is planning to do so. Denies any edema, orthopnea or PND. Does have positional dizziness. Denies any syncope. Denies any palpitations. He's had no nausea or vomiting. Denies any evidence of bleeding. He's had no reflux or heartburn. Past Medical History Past Medical History: Asthma, COPD, Myocardial Infarction ([place]) Last Myocardial Infarction Date:: n/a History of Any Multi-Drug Resistant Organisms: None Reported Past Surgical History: Appendectomy, Bowel Resection, Ear Surgery, Heart Catheterization With Stent, Hernia Repair, Orthopedic Surgery Past Anesthesia/Blood Transfusion Reactions: No Reported Reaction Date of Last Stent Placement:: per patient 2 weeks ago Past Psychological History: No Psychological Hx Reported Smoking Status: Current every day smoker Past Alcohol Use History: Daily, Heavy Past Drug Use History: Marijuana - Past Family History Father Family Medical History: Coronary Artery Disease (CAD) Medications and Allergies Home Medications Medication Instructions Recorded Confirmed Type Ticagrelor [Brilinta] 90 mg PO BID #60 tab 10/16/22 10/31/22 Rx Acetaminophen Tab [Tylenol] 650 mg PO Q6HR PRN tab 10/17/22 10/31/22 Rx Aspirin 81 mg PO DAILY #30 tab 10/17/22 10/31/22 Rx Atorvastatin [Lipitor] 80 mg PO HS #30 tab 10/17/22 10/31/22 Rx Budesonide-Formot 160-4.5 Mcg 2 puff INHALATION RT-BID #1 inh 10/17/22 10/31/22 Rx [Symbicort 160-4.5 Mcg Inhaler] Famotidine [Pepcid] 20 mg PO BID #60 tab 10/17/22 10/31/22 Rx Metoprolol Tartrate [Lopressor] 25 mg PO BID #60 tab 10/17/22 10/31/22 Rx Nitroglycerin Sl Tabs [Nitrostat] 0.4 mg SUBLINGUAL Q5M PRN #20 tab 10/17/22 10/31/22 Rx Thiamine [Vitamin B-1] 100 mg PO DAILY #30 tab 10/17/22 10/31/22 Rx Albuterol Inhaler [Ventolin Hfa 2 puff INHALATION RT-QID 10/31/22 10/31/22 History Inhaler] Losartan Potassium [Cozaar] 25 mg PO DAILY 10/31/22 10/31/22 History predniSONE See Taper PO DIRECTED 10/31/22 10/31/22 History Allergies Allergy/AdvReac Type Severity Reaction Status Date / Time No Known Allergies Allergy Verified 10/31/22 17:04 Physical Exam Vitals: Vital Signs Temp Pulse Pulse Resp BP BP Pulse Ox 11/01/22 09:24 81 18 11/01/22 09:13 81 18 98 11/01/22 07:51 98.2 F 86 16 162/81 99 11/01/22 01:47 98.0 F 78 14 162/78 96 11/01/22 00:15 98.1 F 98 16 171/89 96 11/01/22 00:00 78 16 155/77 96 10/31/22 22:00 77 16 144/70 95 10/31/22 20:00 98 16 143/87 96 10/31/22 18:28 98.4 F 85 18 129/78 96 10/31/22 18:20 87 18 155/79 97 10/31/22 15:00 72 18 120/62 120 H 10/31/22 14:00 70 18 127/73 95 10/31/22 11:49 98.3 F 85 20 133/75 97 Intake and Output 10/31/22 11/01/22 11/01/22 22:59 06:59 14:59 Output Total 300 Balance -300 Output: Urine 300 Other: # Voids 2 Weight 87.09 kg PHYSICAL EXAMINATION: This is a 62-year-old male in no apparent distress at the time of my examination. HEENT: Head is atraumatic, normocephalic. Pupils are equal, round. Sclerae anicteric. Conjunctivae are clear. Mucous membranes of the mouth are moist. Neck is supple. There is no elevated jugular venous pressure. No carotid bruit is heard. CHEST EXAMINATION: Lungs reveal diffuse expiratory wheezing throughout. No rales or rhonchi. Respirations even and nonlabored. HEART EXAMINATION: Heart regular, positive S1 and S2. No S3. No S4. No clicks, rubs or murmurs. ABDOMEN: Mild distention noted, abdomen somewhat firm, nontender. Bowel sounds are heard. No organomegaly noted. EXTREMITIES: 2+ peripheral pulses with no evidence of peripheral edema and no calf tenderness noted. NEUROLOGIC EXAMINATION: Patient is awake, alert and oriented x3. Results 10/31/22 12:35 10/31/22 12:35 Cardiac Enzymes 10/31/22 10/31/22 10/31/22 Range/Units 12:35 12:35 16:53 AST 70 H (17-59) U/L Troponin I 0.013 0.014 (0.000-0.034) ng/mL Coagulation 10/31/22 Range/Units 12:35 PT 9.7 (9.0-12.0) sec APTT 21.8 L (22.0-30.0) sec CBC 10/31/22 Range/Units 12:35 WBC 6.7 (3.8-10.6) k/uL RBC 4.62 (4.30-5.90) m/uL Hgb 14.9 (13.0-17.5) gm/dL Hct 44.2 (39.0-53.0) % Plt Count 249 (150-450) k/uL Comprehensive Metabolic Panel 10/31/22 Range/Units 12:35 Sodium 144 (137-145) mmol/L Potassium 4.5 (3.5-5.1) mmol/L Chloride 109 H (98-107) mmol/L Carbon Dioxide 26 (22-30) mmol/L BUN 15 (9-20) mg/dL Creatinine 0.74 (0.66-1.25) mg/dL Glucose 111 H (74-99) mg/dL Calcium 8.6 (8.4-10.2) mg/dL AST 70 H (17-59) U/L ALT 99 H (4-49) U/L Alkaline Phosphatase 56 (38-126) U/L Total Protein 7.0 (6.3-8.2) g/dL Albumin 4.5 (3.5-5.0) g/dL Current Medications Generic Name Dose Route Start Last Admin Trade Name Freq PRN Reason Stop Dose Admin Acetaminophen 650 mg 10/31/22 22:35 Acetaminophen Tab 325 Mg Tab PO Q6HR PRN Mild Pain or Fever > 100.5 Albuterol Sulfate 2.5 mg 11/01/22 08:00 11/01/22 09:12 Albuterol Nebulized 2.5 Mg/3 Ml INHALATION 2.5 mg RT-QID AUNG Administration Aspirin 81 mg 11/01/22 09:00 11/01/22 08:32 Aspirin 81 Mg PO 81 mg DAILY AUNG Administration Atorvastatin Calcium 80 mg 11/01/22 21:00 Atorvastatin 80 Mg Tab PO HS [facility] Budesonide/Formoterol Fumarate 2 puff 11/01/22 08:00 11/01/22 09:12 Symbicort 160-4.5 Mcg Inhaler INHALATION 2 puff RT-BID AUNG Administration Chlordiazepoxide HCl 50 mg 10/31/22 20:17 Chlordiazepoxide 25 Mg Cap PO Q4HR PRN Ciwa 6 To 7 Famotidine 20 mg 11/01/22 09:00 11/01/22 08:32 Famotidine 20 Mg Tab PO 20 mg BID AUNG Administration Heparin Sodium (Porcine) 5,000 unit 11/01/22 00:00 11/01/22 08:32 Heparin Sodium,Porcine/Pf 5,000 Unit/0.5 Ml Syringe SQ Not Given Q8HR AUNG Sodium Chloride 1,000 mls @ 130 mls/hr 10/31/22 20:15 11/01/22 07:49 Saline 0.9% IV Not Given .Q7H42M AUNG Lorazepam 2 mg 10/31/22 20:17 Lorazepam 2 Mg/Ml Inj IV 11/02/22 20:17 Q10M PRN CIWA 16 or higher Lorazepam 1 mg 10/31/22 20:17 11/01/22 00:42 Lorazepam 2 Mg/Ml Inj IV 1 mg Q2HR PRN Administration CIWA 8 or 9 Lorazepam 1 mg 10/31/22 20:17 Lorazepam 2 Mg/Ml Inj IV Q1HR PRN CIWA 10 to 15 Losartan Potassium 25 mg 11/01/22 09:00 11/01/22 08:32 Losartan 25 Mg Tab PO 25 mg DAILY AUNG Administration Metoprolol Tartrate 25 mg 11/01/22 09:00 11/01/22 08:32 Metoprolol Tartrate 25 Mg Tab PO 25 mg BID AUNG Administration Naloxone HCl 0.2 mg 10/31/22 20:15 Naloxone 0.4 Mg/Ml 1 Ml Vial IV Q2M PRN Opioid Reversal Nicotine 1 patch 10/31/22 22:00 11/01/22 08:32 Nicotine 21mg/24hr Patch TRANSDERM 1 patch DAILY AUNG Administration Thiamine HCl 100 mg 11/01/22 09:00 11/01/22 08:32 Thiamine 100 Mg Tab PO 100 mg DAILY AUNG Administration Ticagrelor 90 mg 11/01/22 09:00 11/01/22 08:32 Ticagrelor 90 Mg Tab PO 90 mg BID AUNG Administration Intake and Output 10/31/22 11/01/22 11/01/22 22:59 06:59 14:59 Output Total 300 Balance -300 Output: Urine 300 Other: # Voids 2 Weight 87.09 kg 10/31/22 12:35 10/31/22 12:35 EKG Interpretations (text) Sinus rhythm Assessment and Plan Assessment: #1 symptoms of chest pain, acute coronary event has been ruled out #2 CAD with recent non-ST elevation [place], known 100% occlusion of RCA and recent PCI of the OM1 #3 hypertension #4 hyperlipidemia #5 alcohol abuse #6 nicotine dependence #7 COPD Plan: From cardiology's perspective patient's pain is atypical for acute coronary syndrome. No indication for further cardiac workup at this time. Patient may be discharged home and follow-up in the office with Dr. Guerrero. SAND TECHNICIAN note has been reviewed, I agree with a documented findings and plan of care. Patient was seen and examined.
[2022-11-01 13:39] VITALS: BP 161/79; RESP 16
[2022-11-01 15:44] VITALS: PULSE 71
--- NOTE | 2022-11-01 16:54 | P.DS ---
Providers Date of admission: 10/31/22 20:15 Expected date of discharge: 11/01/22 Attending physician: Chau Yarbrough MD Consults: 10/31/22 22:34 Consult Physician Urgent Consulting Provider: Andrea Olvera Consult Reason/Comments: chest pain Do you want consulting provider notified?: Yes Primary care physician: Stated None Hospital Course: Chest pain with atypical features Alcohol intoxication, impending withdrawal COPD without exacerbation HTN HLD The patient is a 62-year-old male with a PMH of COPD and CAD status post recent stenting of OM1 on 10/15/22 who presents to the emergency room with complaints of left-sided chest pain and alcohol intoxication. Patient recently had an [facility] 2 weeks ago. Cardiac catheterization at that time had revealed 100% occluded RCA and 95% occluded left OM1 which was subsequently stented with a PRASHANTH. In the emergency room, patient was afebrile, 133/75, heart rate 85, 97% on room air. Laboratory evaluation revealed a serum alcohol level of 298 and troponin 0.013. EKG revealed sinus rhythm at [address]/T-wave changes noted as reviewed by me. Chest x-ray was unremarkable. Case was discussed with emergency room physician decision was made to admit the patient for chest pain rule out. Cardiology was consulted and helped facilitate the case. Troponin's trended negative. EKG showed normal sinus rhythm with no ischemic changes on admission and had a repeat done on the day of discharge which also showed normal sinus rhythm with no ischemic changes and was similar to admission EKG. Cardiology had evaluated the patient and cleared him for discharge with routine follow-up with his tour narrator. Patient will be discharged with follow-up with cardiology as well as primary care physician for further monitoring. See same day progress note for physical exam Patient Condition at Discharge: Good Plan - Discharge Summary Discharge Rx Participant: Yes New Discharge Prescriptions: Continue Ticagrelor [Brilinta] 90 mg PO BID #60 tab Aspirin 81 mg PO DAILY #30 tab Metoprolol Tartrate [Lopressor] 25 mg PO BID #60 tab Famotidine [Pepcid] 20 mg PO BID #60 tab Budesonide-Formot 160-4.5 Mcg [Symbicort 160-4.5 Mcg Inhaler] 2 puff INHALATION RT-BID #1 inh Acetaminophen Tab [Tylenol] 650 mg PO Q6HR PRN tab PRN Reason: Mild Pain Or Fever > 100.5 Thiamine [Vitamin B-1] 100 mg PO DAILY #30 tab Losartan Potassium [Cozaar] 25 mg PO DAILY Albuterol Inhaler [Ventolin Hfa Inhaler] 2 puff INHALATION RT-QID Atorvastatin [Lipitor] 80 mg PO HS #30 tab Nitroglycerin Sl Tabs [Nitrostat] 0.4 mg SUBLINGUAL Q5M PRN #20 tab PRN Reason: Chest Pain predniSONE See Taper PO DIRECTED Discharge Medication List Ticagrelor [Brilinta] 90 mg PO BID #60 tab 10/16/22 [Rx] Acetaminophen Tab [Tylenol] 650 mg PO Q6HR PRN tab 10/17/22 [Rx] Aspirin 81 mg PO DAILY #30 tab 10/17/22 [Rx] Atorvastatin [Lipitor] 80 mg PO HS #30 tab 10/17/22 [Rx] Budesonide-Formot 160-4.5 Mcg [Symbicort 160-4.5 Mcg Inhaler] 2 puff INHALATION RT-BID #1 inh 10/17/22 [Rx] Famotidine [Pepcid] 20 mg PO BID #60 tab 10/17/22 [Rx] Metoprolol Tartrate [Lopressor] 25 mg PO BID #60 tab 10/17/22 [Rx] Nitroglycerin Sl Tabs [Nitrostat] 0.4 mg SUBLINGUAL Q5M PRN #20 tab 10/17/22 [Rx] Thiamine [Vitamin B-1] 100 mg PO DAILY #30 tab 10/17/22 [Rx] Albuterol Inhaler [Ventolin Hfa Inhaler] 2 puff INHALATION RT-QID 10/31/22 [History] Losartan Potassium [Cozaar] 25 mg PO DAILY 10/31/22 [History] predniSONE See Taper PO DIRECTED 10/31/22 [History] Follow up Appointment(s)/Referral(s): None,Stated [Primary Care Provider] - 1-2 days Discharge Disposition: HOME SELF-CARE
[2022-11-01] MEDS ORDERED: ATORVASTATIN 80 MG TAB PO SCH (21:00)
== END 2022-11-01 17:51 | disposition home or self-care (01) ==
LOC: EC 11:47 → 4SSUR 20:15
PROVIDERS: ADMIT Internal Medicine; ATTEND Internal Medicine
DX: F10.129 Alcohol abuse with intoxication, unspecified (principal); Y90.8 Blood alcohol level of 240 mg/100 ml or more; Z71.41 Alcohol abuse counseling and surveillance of alcoholic; R07.89 Other chest pain; J44.9 Chronic obstructive pulmonary disease, unspecified; I10 Essential (primary) hypertension; I25.10 Atherosclerotic heart disease of native coronary artery without angina pectoris; E78.5 Hyperlipidemia, unspecified; I25.2 Old myocardial infarction; F17.210 Nicotine dependence, cigarettes, uncomplicated; Z90.49 Acquired absence of other specified parts of digestive tract; Z95.5 Presence of coronary angioplasty implant and graft; Z98.890 Other specified postprocedural states; Z82.49 Family history of ischemic heart disease and other diseases of the circulatory system; Z79.899 Other long term (current) drug therapy; Z79.02 Long term (current) use of antithrombotics/antiplatelets; Z79.51 Long term (current) use of inhaled steroids
CPT/HCPCS: 96374; 96375; 99285; 36415; 94640 ×2; 94760; 93005; 83880; 80053; 82150; 83690; 83735; 84484 ×2; 85025; 85610; 85730; 81003; 71046; G0378 ×2; G0480; S4990 ×2; J2060; J2270; 80320

== ENCOUNTER 2023-03-22 18:58 | Inpatient (IN) | payer OTHER ==
[2023-03-22] MEDS ORDERED: IPRATROPIUM-ALBUTEROL 3 ML NEB INHALATION STA (19:05)
[2023-03-22] MEDS ORDERED: SODIUM CHLORIDE 0.9% 1,000 ML IV STA ×2 (19:05→19:56)
[2023-03-22 19:06] VITALS: RESP 18
--- NOTE | 2023-03-22 19:08 | ED ---
Weakness HPI - General Chief complaint: Chest Pain Stated complaint: KAY,CHEST PAIN,ETOH Time Seen by Provider: 03/22/23 19:05 Source: patient, EMS, RN notes reviewed, old records reviewed Mode of arrival: EMS Limitations: no limitations - History of Present Illness Initial comments: Is a 62-year-old male to the emergency department for evaluation today. This patient presents today for evaluation regards to shortness of breath complains of shortness of breath. Patient does admit alcohol intoxication patient is also complaining of chest pain chest pain is anterior chest back. Does admit to significant alcohol use today and depression. Patient denies suicidal thoughts MD Complaint: generalized weakness (Shortness of breath and chest pain) -: days(s) Location: generalized Severity: moderate Severity scale (1-10): 4 Consistency: constant Improves with: none Worsens with: none Context: recent illness, history of similar Associated Symptoms: chest pain, shortness of breath - Related Data Home Medications Medication Instructions Recorded Confirmed Albuterol Inhaler [Ventolin Hfa 2 puff INHALATION RT-QID PRN 10/31/22 03/22/23 Inhaler] Albuterol Nebulized [Ventolin 2.5 mg INHALATION RT-QID 03/22/23 03/22/23 Nebulized] Nitroglycerin Sl Tabs [Nitrostat] 0.4 mg SL Q5M PRN 03/22/23 03/22/23 lisinopriL [Prinivil] 10 mg PO DAILY 03/22/23 03/22/23 Previous Rx's Medication Instructions Recorded Ticagrelor [Brilinta] 90 mg PO BID #60 tab 10/16/22 Acetaminophen Tab [Tylenol] 650 mg PO Q6HR PRN tab 10/17/22 Aspirin 81 mg PO DAILY #30 tab 10/17/22 Atorvastatin [Lipitor] 80 mg PO HS #30 tab 10/17/22 Budesonide-Formot 160-4.5 Mcg 2 puff INHALATION RT-BID #1 inh 10/17/22 [Symbicort 160-4.5 Mcg Inhaler] Famotidine [Pepcid] 20 mg PO BID #60 tab 10/17/22 Metoprolol Tartrate [Lopressor] 25 mg PO BID #60 tab 10/17/22 Allergies Allergy/AdvReac Type Severity Reaction Status Date / Time No Known Allergies Allergy Verified 03/22/23 20:56 Review of Systems ROS Statement: Those systems with pertinent positive or pertinent negative responses have been documented in the HPI. ROS Other: All systems not noted in ROS Statement are negative. Past Medical History Past Medical History: Asthma, COPD, Hypertension, Myocardial Infarction (ND) Last Myocardial Infarction Date:: n/a History of Any Multi-Drug Resistant Organisms: None Reported Past Surgical History: Appendectomy, Bowel Resection, Ear Surgery, Heart Catheterization With Stent, Hernia Repair, Orthopedic Surgery Past Anesthesia/Blood Transfusion Reactions: No Reported Reaction Date of Last Stent Placement:: per patient 2 weeks ago Past Psychological History: No Psychological Hx Reported Smoking Status: Current every day smoker Past Alcohol Use History: Daily, Heavy Past Drug Use History: Marijuana - Past Family History Father Family Medical History: Coronary Artery Disease (CAD) General Exam Limitations: no limitations General appearance: alert, appears intoxicated, anxious Head exam: Present: atraumatic, normocephalic, normal inspection Eye exam: Present: normal appearance, PERRL, EOMI. Absent: scleral icterus, conjunctival injection, periorbital swelling ENT exam: Present: normal exam, mucous membranes moist Neck exam: Present: normal inspection. Absent: tenderness, meningismus, lymphadenopathy Respiratory exam: Present: respiratory distress, wheezes. Absent: rales, rhonchi, stridor Cardiovascular Exam: Present: normal rhythm, tachycardia, normal heart sounds. Absent: systolic murmur, diastolic murmur, rubs, gallop, clicks GI/Abdominal exam: Present: soft, normal bowel sounds. Absent: distended, tenderness, guarding, rebound, rigid Extremities exam: Present: normal inspection, full ROM, normal capillary refill. Absent: tenderness, pedal edema, joint swelling, calf tenderness Back exam: Present: normal inspection Neurological exam: Present: alert, oriented X3, CN II-XII intact Psychiatric exam: Present: normal affect, normal mood Skin exam: Present: warm, dry, intact, normal color. Absent: rash Course Vital Signs 03/22/23 03/22/23 03/22/23 19:00 20:03 20:13 Pulse Rate 80 92 96 Pulse Rate [ Pulse Oximetery ] Respiratory 18 Rate Blood Pressure 144/98 Blood Pressure [Left Arm] O2 Sat by Pulse 98 Oximetry 06/18/23 06/18/23 06/18/23 20:14 20:25 20:51 Pulse Rate 96 96 90 Pulse Rate [ Pulse Oximetery ] Respiratory 18 Rate Blood Pressure 161/70 Blood Pressure [Left Arm] O2 Sat by Pulse 97 Oximetry 03/22/23 21:59 Pulse Rate Pulse Rate [ 107 H Pulse Oximetery ] Respiratory 18 Rate Blood Pressure Blood Pressure 184/95 [Left Arm] O2 Sat by Pulse 97 Oximetry - Reevaluation(s) Reevaluation #1: 03/22/23 20:20 Medical record is reviewed Reevaluation #2: 03/22/23 20:20 Patient fell out of his bed here in the ER x-rays will be obtained further imaging Imaging is negative Reevaluation #3: 03/22/23 20:21 Results and questions have been answered Reevaluation #4: 03/22/23 20:21 Was pt. sent in by a medical professional or institution? @ -no Did you speak to anyone other than the patient for history? @ -no Did you review nursing and triage notes? @ -agree Were old charts reviewed? @ -no Differential Diagnosis? @ -prior EKG interpreted by me (3pts min.)? @ -yes X-rays interpreted by me (1pt min.)? @ -yes CT interpreted by me (1pt min.)? @ -yes U/S interpreted by me (1pt. min.)? @ -no What testing was considered but not performed? (CT, X-rays, U/S, labs)? Why? @ -no What meds were considered but not given? Why? @ -no Did you discuss the management of the patient with other professionals? @ -no Did you reconcile home meds? @ -no Was smoking cessation discussed for >3mins.? @ -no Was critical care preformed (if so, how long)? @ -no Were there social determinants of health that impacted care today? How? (Homelessness, low income, unemployed, alcoholism, drug addiction, transpor tation, low edu. Level, literacy, decrease access to med. care, fci, rehab)? @ -no Was there de-escalation of care discussed even if they declined? (Discuss DNR or withdrawal of care, Hospice)? @ -no What co-morbidities impacted this encounter? (DM, HTN, Smoking, COPD, CAD, Cancer, CVA, Hep., AIDS, mental health diagnosis, sleep apnea, morbid obesity)? @ -none Was patient admitted / discharged? @ -62 male who is intoxicated and presents to the emergency department for evaluation of chest pain. Persistent chest pain here in the ER will be admitted for inpatient evaluation, patient also suffers from COPD and breathing treatments and supportive care Admitted Undiagnosed new problem with uncertain prognosis? @ -no Drug Therapy requiring intensive monitoring for toxicity (Heparin, Nitro, Insulin, Cardizem)? @ -no Were any procedures done? @ -no Diagnosis/symptom? @ -Chest pain, COPD, EtOH Acute, or Chronic, or Acute on Chronic? @ -Acute Uncomplicated (without systemic symptoms) or Complicated (systemic symptoms)? @ -uncomplicated Side effects of treatment? @ -no Exacerbation, Progression, or Severe Exacerbation] @ -no Poses a threat to life or bodily function? @ -yes all 3 etoh, ACS with chest pain, as well as respiratoyr failure w hypoxia and COPD Reevaluation #5: 03/22/23 20:21 Differential Chest Pain: Stable Angina, Unstable Angina, STEMI, NSTEMI Aortic Dissection, Pneumothorax, Musculoskeletal, Esophageal Spasm GERD, Cholecystitis, Pancreatitis, Zoster, this is not meant to be an all-inclusive list. Differential Dyspnea: Coronary syndrome, arrhythmia, tamponade, asthma, COPD, pulmonary embolism, pneumonia, pneumothorax, pulmonary effusion, anaphylaxis, diabetic ketoacidosis, flailed chest, pulmonary contusion, diaphragmatic rupture, anemia, neuromuscular, this is not meant to be an all-inclusive list. - Consultations Consultation #1: spoke w admitting physician who agree to admit this patient EKG Findings - EKG Comments: EKG Findings:: EKG is sinus 84 [address] 139 QRS 100 QTc 409 - EKG Results: EKG: interpreted by ERMD Medical Decision Making - Medical Decision Making 62 male who is intoxicated and presents to the emergency department for eval uation of chest pain. Persistent chest pain here in the ER will be admitted for inpatient evaluation, patient also suffers from COPD and breathing treatments and supportive care - Lab Data Result diagrams: 03/24/23 07:36 03/24/23 07:36 Lab Results 03/22/23 03/22/23 03/22/23 Range/Units 19:14 19:14 19:14 WBC 8.0 (3.8-10.6) k/uL RBC 4.88 (4.30-5.90) m/uL Hgb 15.9 (13.0-17.5) gm/dL Hct 47.9 (39.0-53.0) % MCV 98.2 (80.0-100.0) fL MCH 32.6 (25.0-35.0) pg MCHC 33.2 (31.0-37.0) g/dL RDW 11.6 (11.5-15.5) % Plt Count 245 (150-450) k/uL MPV 7.3 Neutrophils % 50 % Lymphocytes % 39 % Monocytes % 6 % Eosinophils % 2 % Basophils % 1 % Neutrophils # 4.0 (1.3-7.7) k/uL Lymphocytes # 3.1 (1.0-4.8) k/uL Monocytes # 0.5 (0-1.0) k/uL Eosinophils # 0.1 (0-0.7) k/uL Basophils # 0.0 (0-0.2) k/uL PT 10.2 (9.0-12.0) sec INR 1.0 (<1.2) APTT 24.2 (22.0-30.0) sec Sodium 137 (137-145) mmol/L Potassium 5.4 H (3.5-5.1) mmol/L Chloride 106 (98-107) mmol/L Carbon Dioxide 24 (22-30) mmol/L Anion Gap 7 mmol/L BUN 11 (9-20) mg/dL Creatinine 0.68 (0.66-1.25) mg/dL Est GFR (CKD-EPI)AfAm >90 (>60 ml/min/1.73 sqM) Est GFR (CKD-EPI)NonAf >90 (>60 ml/min/1.73 sqM) Glucose 82 (74-99) mg/dL Calcium 8.4 (8.4-10.2) mg/dL Magnesium 2.1 (1.6-2.3) mg/dL Total Bilirubin 1.0 (0.2-1.3) mg/dL AST 115 H (17-59) U/L ALT 88 H (4-49) U/L Alkaline Phosphatase 83 (38-126) U/L Troponin I (0.000-0.034) ng/mL NT-Pro-B Natriuret Pep pg/mL Total Protein 7.0 (6.3-8.2) g/dL Albumin 4.2 (3.5-5.0) g/dL Serum Alcohol 294 H* mg/dL 03/22/23 03/22/23 Range/Units 19:14 19:14 WBC (3.8-10.6) k/uL RBC (4.30-5.90) m/uL Hgb (13.0-17.5) gm/dL Hct (39.0-53.0) % MCV (80.0-100.0) fL MCH (25.0-35.0) pg MCHC (31.0-37.0) g/dL RDW (11.5-15.5) % Plt Count (150-450) k/uL MPV Neutrophils % % Lymphocytes % % Monocytes % % Eosinophils % % Basophils % % Neutrophils # (1.3-7.7) k/uL Lymphocytes # (1.0-4.8) k/uL Monocytes # (0-1.0) k/uL Eosinophils # (0-0.7) k/uL Basophils # (0-0.2) k/uL PT (9.0-12.0) sec INR (<1.2) APTT (22.0-30.0) sec Sodium (137-145) mmol/L Potassium (3.5-5.1) mmol/L Chloride (98-107) mmol/L Carbon Dioxide (22-30) mmol/L Anion Gap mmol/L BUN (9-20) mg/dL Creatinine (0.66-1.25) mg/dL Est GFR (CKD-EPI)AfAm (>60 ml/min/1.73 sqM) Est GFR (CKD-EPI)NonAf (>60 ml/min/1.73 sqM) Glucose (74-99) mg/dL Calcium (8.4-10.2) mg/dL Magnesium (1.6-2.3) mg/dL Total Bilirubin (0.2-1.3) mg/dL AST (17-59) U/L ALT (4-49) U/L Alkaline Phosphatase (38-126) U/L Troponin I 0.032 (0.000-0.034) ng/mL NT-Pro-B Natriuret Pep 77 pg/mL Total Protein (6.3-8.2) g/dL Albumin (3.5-5.0) g/dL Serum Alcohol mg/dL - EKG Data -: EKG Interpreted by Me - Radiology Data Radiology results: report reviewed (Chest x-ray is negative for acute disease CT brain C-spine chest and pelvis x-ray negative for traumatic injury), image reviewed Disposition Clinical Impression: Acute exacerbation of chronic obstructive pulmonary disease, Alcohol intoxication, Chest wall syndrome, Chest pain, Atypical chest pain Disposition: ADMITTED IP TO THIS HOSP Condition: Fair Is patient prescribed a controlled substance at d/c from ED?: No Time of Disposition: 20:15
[2023-03-22 19:22] LABS: Basophils % (A) 1 %; Eosinophils # (A) 0.1 k/uL (0-0.7); Eosinophils % (A) 2 %; HCT 47.9 % (39.0-53.0); HGB 15.9 gm/dL (13.0-17.5); Lymphocytes # (A) 3.1 k/uL (1.0-4.8); Lymphocytes % (A) 39 %; MCH 32.6 pg (25.0-35.0); MCHC 33.2 g/dL (31.0-37.0); MCV 98.2 fL (80.0-100.0); Mean Platelet Volume 7.3; Monocytes # (A) 0.5 k/uL (0-1.0); Monocytes % (A) 6 %; Neutrophils % (A) 50 %; Platelet Count 245 k/uL (150-450); RBC 4.88 m/uL (4.30-5.90); RDW 11.6 % (11.5-15.5)
[2023-03-22 19:37] LABS: ALT 88 U/L (4-49); AST 115 U/L (17-59); African American GFR (CKD) >90 (>60 ml/min/1.73 sqM); Albumin 4.2 g/dL (3.5-5.0); Alkaline Phosphatase 83 U/L (38-126); Anion Gap 7 mmol/L; Blood Urea Nitrogen 11 mg/dL (9-20); Calcium 8.4 mg/dL (8.4-10.2); Carbon Dioxide 24 mmol/L (22-30); Chloride 106 mmol/L (98-107); Glucose 82 mg/dL (74-99); Magnesium 2.1 mg/dL (1.6-2.3); Non-African American GFR(CKD) >90 (>60 ml/min/1.73 sqM); Potassium 5.4 mmol/L (3.5-5.1); Sodium 137 mmol/L (137-145)
[2023-03-22 19:44] LABS: Alcohol 294 mg/dL
--- NOTE | 2023-03-22 19:47 | XR ---
EXAMINATION TYPE: XR chest 1V portable DATE OF EXAM: 03/22/2023 7:34 PM COMPARISON: Chest x-ray 10/31/2022 TECHNIQUE: XR chest 1V portable . CLINICAL INDICATION:Male, 62 years old with history of sob; FINDINGS: Lungs/Pleura: There is no evidence of pleural effusion, focal consolidation, or pneumothorax. Pulmonary vascularity: Unremarkable. Heart/mediastinum: Cardiomediastinal silhouette is unremarkable. Musculoskeletal: No acute osseous pathology. IMPRESSION: No acute cardiopulmonary disease/process.
[2023-03-22] MEDS ORDERED: LORazepam 2 MG/ML INJ IV PRN ×2 (20:07)
[2023-03-22] MEDS ORDERED: HYDROmorphone 1 MG/ML 1 ML SYRINGE IVP STA (20:07)
[2023-03-22] MEDS ORDERED: MORPHINE SULFATE 4 MG/ML SYRINGE IV PRN (20:07)
[2023-03-22] MEDS ORDERED: NALOXONE 0.4 MG/ML 1 ML VIAL IV PRN (20:07)
[2023-03-22] MEDS ORDERED: THIAMINE 100 MG/ML 2 ML VIAL IM STA (20:07)
[2023-03-22] MEDS ORDERED: ONDANSETRON 4 MG/2 ML VIAL IVP PRN (20:07)
[2023-03-22 20:14] LABS: Partial Thromboplastin Time 24.2 sec (22.0-30.0); Prothrombin Time 10.2 sec (9.0-12.0)
--- NOTE | 2023-03-22 20:41 | XR ---
EXAMINATION TYPE: XR chest 1V DATE OF EXAM: 03/22/2023 8:34 PM COMPARISON: Chest x-ray 03/22/2023, chest x-ray 10/14/2022 TECHNIQUE: XR chest 1V . CLINICAL INDICATION:Male, 62 years old with history of fall; FINDINGS: Lungs/Pleura: There is no evidence of pleural effusion, focal consolidation, or pneumothorax. Pulmonary vascularity: Unremarkable. Heart/mediastinum: Cardiomediastinal silhouette is unremarkable. Musculoskeletal: No acute osseous pathology. Degenerative changes of the acromioclavicular joints michelle aterally. IMPRESSION: No acute cardiopulmonary disease/process. No significant change from earlier radiograph.
--- NOTE | 2023-03-22 20:43 | XR ---
EXAMINATION TYPE: XR pelvis AP view DATE OF EXAM: 03/22/2023 8:34 PM INDICATION: Patient age:Male; 62 years old; Reason for study: fall; [facility]. COMPARISON: None. TECHNIQUE: AP view of the pelvis. FINDINGS: No evidence of any acute osseous pathology, joint dislocation, or soft tissue swelling. IMPRESSION: No acute osseous pathology.
--- NOTE | 2023-03-22 20:52 | CT ---
EXAMINATION TYPE: CT brain cspine wo con CT DLP: 1435.9 mGycm, Automated exposure control for dose reduction was used. DATE OF EXAM: 03/22/2023 8:42 PM COMPARISON: None.. CLINICAL INDICATION:Male, 62 years old with history of fall; Fall TECHNIQUE: Brain: Multiple axial CT images of the brain were obtained without IV contrast. Cspine: Axial CT images from the skull base to the inferior aspect of T2 we obtained without intraven ous contrast. Coronal and sagittal reformatted images were also reviewed. FINDINGS: Brain: Extra-axial spaces: No abnormal extra-axial fluid collections. Ventricular system: Within normal limits Cerebral parenchyma: No acute intraparenchymal hemorrhage or mass effect. The rosas-white junction is well differentiated. Cerebellum: Unremarkable. Mass effect: No evidence of midline shift. Intracranial vasculature: Atherosclerotic calcifications of the intracranial vessels. Soft tissues: Normal. Calvarium/osseous structures: No depressed skull fracture. Paranasal sinuses and mastoid air cells: Mild scattered mucosal thickening and or secretions.Mastoid air cells are Clear Visualized orbits: Orbital contents are intact. Cervical spine: Fracture: None. Osseous structures: Multilevel degenerative disc disease changes with endplate spurring and disc oste ophyte complex's. Degenerative changes are most pronounced at C5-C6 and C6-C7. Vertebral alignment: Mild straightening is noted which is likely secondary to positioning. The cranio cervical and cervicothoracic junctions are normally aligned. Spinal canal/Neural Foramina: No evidence of significant spinal canal narrowing. No evidence for sign ificant neural foraminal stenosis. Neck soft tissues: Prevertebral soft tissues are within normal limits. Other: The airway is patent. The lung apices are clear. IMPRESSION: 1. No acute intracranial process. 2. No evidence of cervical spine fracture. 3. Mild multilevel degenerative disc disease.
[2023-03-22] MEDS: SODIUM CHLORIDE 0.9% 1,000 ML IV SCH ×2 (21:06→21:08)
[2023-03-22] MEDS ORDERED: ALBUTEROL NEBULIZED 2.5 MG/3 ML INHALATION PRN (21:50)
[2023-03-22] MEDS ORDERED: NITROGLYCERIN SL TABS 0.4 MG TAB SUBLINGUAL PRN (21:51)
[2023-03-22] MEDS: METOPROLOL TARTRATE 25 MG TAB PO SCH (22:16)
[2023-03-22] MEDS: ATORVASTATIN 80 MG TAB PO SCH (22:16)
[2023-03-22] MEDS: LORazepam 2 MG/ML INJ IV PRN (22:16)
[2023-03-22] MEDS: TICAGRELOR 90 MG TAB PO SCH (22:16)
[2023-03-23] MEDS: NICOTINE 21MG/24HR PATCH TRANSDERM SCH ×2 (00:08→19:51)
[2023-03-23] MEDS: LORazepam 2 MG/ML INJ IV PRN ×7 (00:08→21:29)
[2023-03-23] MEDS: SYMBICORT 160-4.5 MCG INHALER INHALATION SCH ×3 (04:13→21:19)
[2023-03-23] MEDS: SODIUM CHLORIDE 0.9% 1,000 ML IV SCH ×6 (05:38→17:39)
[2023-03-23 08:18] LABS: Basophils % (A) 1 %; Eosinophils # (A) 0.1 k/uL (0-0.7); Eosinophils % (A) 1 %; HCT 40.3 % (39.0-53.0); HGB 13.2 gm/dL (13.0-17.5); Lymphocytes # (A) 1.7 k/uL (1.0-4.8); Lymphocytes % (A) 25 %; MCHC 32.7 g/dL (31.0-37.0); MCV 100.8 fL (80.0-100.0); Mean Platelet Volume 7.3; Monocytes # (A) 0.5 k/uL (0-1.0); Monocytes % (A) 7 %; Neutrophils # (A) 4.4 k/uL (1.3-7.7); Neutrophils % (A) 65 %; Platelet Count 191 k/uL (150-450); RDW 11.7 % (11.5-15.5); WBC 6.8 k/uL (3.8-10.6)
[2023-03-23 08:42] LABS: ALT 74 U/L (4-49); AST 110 U/L (17-59); African American GFR (CKD) >90 (>60 ml/min/1.73 sqM); Albumin 3.1 g/dL (3.5-5.0); Alkaline Phosphatase 72 U/L (38-126); Anion Gap 4 mmol/L; Blood Urea Nitrogen 9 mg/dL (9-20); Calcium 7.9 mg/dL (8.4-10.2); Carbon Dioxide 22 mmol/L (22-30); Chloride 111 mmol/L (98-107); Glucose 77 mg/dL (74-99); Magnesium 1.9 mg/dL (1.6-2.3); Non-African American GFR(CKD) >90 (>60 ml/min/1.73 sqM); Phosphorus 3.8 mg/dL (2.5-4.5); Potassium 3.8 mmol/L (3.5-5.1); Sodium 137 mmol/L (137-145); Total Bilirubin 0.4 mg/dL (0.2-1.3); Total Protein 5.3 g/dL (6.3-8.2)
[2023-03-23] MEDS: TICAGRELOR 90 MG TAB PO SCH ×2 (08:54→19:51)
[2023-03-23] MEDS: THIAMINE 100 MG TAB PO SCH (08:54)
[2023-03-23] MEDS: lisinopriL 10 MG TAB PO SCH (08:54)
[2023-03-23] MEDS: ASPIRIN 81 MG PO SCH (08:54)
[2023-03-23] MEDS: METOPROLOL TARTRATE 25 MG TAB PO SCH ×2 (08:54→19:51)
[2023-03-23] MEDS: PANTOPRAZOLE 40 MG/10 ML VIAL IV SCH (08:54)
[2023-03-23] MEDS: ALBUTEROL NEBULIZED 2.5 MG/3 ML INHALATION SCH ×4 (09:16→21:19)
--- NOTE | 2023-03-23 11:07 | P.CRDCN ---
History of Present Illness Consult date: 03/23/23 Consult reason: chest pain History of present illness: History of present illness: This is a 62-year-old male patient of Dr. Rianna Guerrero with past medical history of non-ST MN October 2022 underwent cardiac catheterization which showed a 95% lesion in the first OM and 100% occlusion of the RCA and underwent stenting of the first OM by Dr. Muhammad. Past medical history of hypertension, dyslipidemia, smoking less than a pack per day. Patient was last seen in the office in December which time he did run out of his medication and was only on aspirin and Brillinta. Patient was advised for an echocardiogram and stress test which does not seem to have been completed. We have been asked to evaluate the patient for chest pain. Patient presented to the hospital due to shortness of breath was found to have alcohol intoxication as well as chest pain in the anterior chest to the back. Patient denies any symptoms at the time of evaluation. His initial blood pressure 144/98 EKG sinus rhythm without acute ST changes. Chest x-ray: No acute process. CT of the head and neck revealed no acute intracranial process. No cervical spine fracture. Mild multilevel degenerative disc disease. CBC unremarkable. INR 1. Initial potassium 5.4 now 3.8. AST 110, ALT 74. Troponin negative 1. Serum alcohol level CCXCIV. Home cardiac medications: Aspirin 81 mg daily, Lipitor 80 mg at bedtime, lisinopril 10 mg daily, Lopressor 25 mg twice daily, Nitrostat as needed, Brilinta 90 mg twice daily. Treadmill exercise stress test 11/2022 revealed poor exercise tolerance. Significant CAD cannot be excluded he goes the patient did not achieve 85% of goal at 76% no ischemic EKG abnormalities. Review Of Systems: At the time of my evaluation: Constitutional: No fever, no chills. No weakness, fatigue or lethargy. EENT: No headache. No dizziness. Lungs: No shortness of breath, cough, no sputum production. No wheezing. Cardiovascular: No chest pain, no lower extremity edema. No palpitations. No paroxysmal nocturnal dyspnea. No orthopnea. No lightheadedness or dizziness. No syncopal episodes. Abdominal: No abdominal pain. No nausea, vomiting. No diarrhea. No constipation. No bloody or tarry stools. Genitourinary: No dysuria.. No urinary retention. Musculoskeletal: No myalgias. No muscle weakness, no frequent falls. No back pain. No neck pain. Integumentary: No wounds. No rash. No unusual bruising. Neurologic: No aphasia. No facial droop. No change in mentation. No head injury. No headache. Physical examination: Gen: This is a 62-year-old male. He is resting in bed and appears to be in no acute distress VS: reviewed. Blood pressure 156/90, heart rate in the 60s. HEENT: Head is atraumatic, normocephalic. Pupils equal, round. Sclerae is anicteric. NECK: Supple. No JVD. . LUNGS: Clear to auscultation. No wheezes or rhonchi. No intercostal retractions. HEART: Regular rate and rhythm. No murmur. ABDOMEN: Soft No tenderness. EXTREMITIES: No pedal edema. No calf tenderness. NEUROLOGICAL: Patient is awake, alert and oriented x3. Assessment: Chest pain, acute coronary syndrome ruled out Alcohol intoxication History of coronary artery disease with non-ST MN known to have 100% occlusion of the RCA and recent PCI of the OM1 10/2022 Hypertension Hyperlipidemia History of alcohol abuse Tobacco use and dependence COPD Noncompliance Plan: Acute coronary syndrome has been ruled out Resume patient's home cardiac medications Obtain 2-D echocardiogram and Doppler study to assess cardiac structure and function No further cardiac workup at this time. Patient may follow-up in the office with Dr. Rianna Guerrero in one week following discharge Thank you kindly for this consultation. Nurse practitioner note has been reviewed, I agree with documented findings and plan of care. Patient was seen and examined. Past Medical History Past Medical History: Asthma, COPD, Hypertension, Myocardial Infarction (MN) Last Myocardial Infarction Date:: n/a History of Any Multi-Drug Resistant Organisms: None Reported Past Surgical History: Appendectomy, Bowel Resection, Ear Surgery, Heart Catheterization With Stent, Hernia Repair, Orthopedic Surgery Past Anesthesia/Blood Transfusion Reactions: No Reported Reaction Date of Last Stent Placement:: 10/05/2022 Past Psychological History: No Psychological Hx Reported Smoking Status: Current every day smoker Past Alcohol Use History: Daily, Heavy Past Drug Use History: Marijuana - Past Family History Father Family Medical History: Coronary Artery Disease (CAD) Medications and Allergies Home Medications Medication Instructions Recorded Confirmed Type Ticagrelor [Brilinta] 90 mg PO BID #60 tab 10/16/22 03/22/23 Rx Acetaminophen Tab [Tylenol] 650 mg PO Q6HR PRN tab 10/17/22 03/22/23 Rx Aspirin 81 mg PO DAILY #30 tab 10/17/22 03/22/23 Rx Atorvastatin [Lipitor] 80 mg PO HS #30 tab 10/17/22 03/22/23 Rx Budesonide-Formot 160-4.5 Mcg 2 puff INHALATION RT-BID #1 inh 10/17/22 03/22/23 Rx [Symbicort 160-4.5 Mcg Inhaler] Famotidine [Pepcid] 20 mg PO BID #60 tab 10/17/22 03/22/23 Rx Metoprolol Tartrate [Lopressor] 25 mg PO BID #60 tab 10/17/22 03/22/23 Rx Albuterol Inhaler [Ventolin Hfa 2 puff INHALATION RT-QID PRN 10/31/22 03/22/23 History Inhaler] Albuterol Nebulized [Ventolin 2.5 mg INHALATION RT-QID 03/22/23 03/22/23 History Nebulized] Nitroglycerin Sl Tabs [Nitrostat] 0.4 mg SL Q5M PRN 03/22/23 03/22/23 History lisinopriL [Prinivil] 10 mg PO DAILY 03/22/23 03/22/23 History Allergies Allergy/AdvReac Type Severity Reaction Status Date / Time No Known Allergies Allergy Verified 03/22/23 20:56 Physical Exam Vitals: Vital Signs Temp Pulse Pulse Resp BP BP Pulse Ox 03/23/23 08:43 98.3 F 69 18 156/90 99 03/23/23 04:00 74 18 145/87 96 03/23/23 00:00 88 18 112/62 93 L 03/22/23 21:59 107 H 18 184/95 97 03/22/23 20:51 90 18 161/70 97 03/22/23 20:25 96 03/22/23 20:14 96 03/22/23 20:13 96 03/22/23 20:03 92 03/22/23 19:00 80 18 144/98 98 Intake and Output 03/22/23 03/23/23 03/23/23 22:59 06:59 14:59 Other: Voiding Method Urinal Urinal # Voids 1 Weight 83.915 kg Results 03/23/23 07:32 03/23/23 07:32 Cardiac Enzymes 03/22/23 03/22/23 03/23/23 Range/Units 19:14 19:14 07:32 AST 115 H 110 H (17-59) U/L Troponin I 0.032 (0.000-0.034) ng/mL Coagulation 03/22/23 Range/Units 19:14 PT 10.2 (9.0-12.0) sec APTT 24.2 (22.0-30.0) sec CBC 03/22/23 03/23/23 Range/Units 19:14 07:32 WBC 8.0 6.8 (3.8-10.6) k/uL RBC 4.88 4.00 L (4.30-5.90) m/uL Hgb 15.9 13.2 (13.0-17.5) gm/dL Hct 47.9 40.3 (39.0-53.0) % Plt Count 245 191 (150-450) k/uL Comprehensive Metabolic Panel 03/22/23 03/23/23 Range/Units 19:14 07:32 Sodium 137 137 (137-145) mmol/L Potassium 5.4 H 3.8 (3.5-5.1) mmol/L Chloride 106 111 H (98-107) mmol/L Carbon Dioxide 24 22 (22-30) mmol/L BUN 11 9 (9-20) mg/dL Creatinine 0.68 0.58 L (0.66-1.25) mg/dL Glucose 82 77 (74-99) mg/dL Calcium 8.4 7.9 L (8.4-10.2) mg/dL AST 115 H 110 H (17-59) U/L ALT 88 H 74 H (4-49) U/L Alkaline Phosphatase 83 72 (38-126) U/L Total Protein 7.0 5.3 L (6.3-8.2) g/dL Albumin 4.2 3.1 L (3.5-5.0) g/dL Current Medications Generic Name Dose Route Start Last Admin Trade Name Freq PRN Reason Stop Dose Admin Acetaminophen 650 mg 03/22/23 21:50 Acetaminophen Tab 325 Mg Tab PO Q6HR PRN Mild Pain or Fever > 100.5 Albuterol Sulfate 2.5 mg 03/22/23 21:50 Albuterol Nebulized 2.5 Mg/3 Ml INHALATION RT-QID PRN Shortness Of Breath Albuterol Sulfate 2.5 mg 03/23/23 08:00 Albuterol Nebulized 2.5 Mg/3 Ml INHALATION RT-QID AUNG Aspirin 81 mg 03/23/23 09:00 03/23/23 08:54 Aspirin 81 Mg PO 81 mg DAILY AUNG Administration Atorvastatin Calcium 80 mg 03/22/23 22:00 03/22/23 22:16 Atorvastatin 80 Mg Tab PO 80 mg HS AUNG Administration Budesonide/Formoterol Fumarate 2 puff 03/22/23 21:51 03/23/23 04:13 Symbicort 160-4.5 Mcg Inhaler INHALATION Not Given RT-BID AUNG Sodium Chloride 1,000 mls @ 130 mls/hr 03/22/23 20:00 03/23/23 08:55 Saline 0.9% IV 130 mls/hr .Q7H42M AUNG Administration Sodium Chloride 1,000 mls @ 130 mls/hr 03/22/23 20:15 03/23/23 08:55 Saline 0.9% IV Not Given .Q7H42M AUNG Lisinopril 10 mg 03/23/23 09:00 03/23/23 08:54 Lisinopril 10 Mg Tab PO 10 mg DAILY AUNG Administration Lorazepam 2 mg 03/22/23 20:07 Lorazepam 2 Mg/Ml Inj IV 03/24/23 20:08 Q10M PRN CIWA 16 or higher Lorazepam 1 mg 03/22/23 20:07 03/23/23 08:54 Lorazepam 2 Mg/Ml Inj IV 1 mg Q2HR PRN Administration CIWA 8 or 9 Lorazepam 1 mg 03/22/23 20:07 03/23/23 04:07 Lorazepam 2 Mg/Ml Inj IV 1 mg Q1HR PRN Administration CIWA 10 to 15 Metoprolol Tartrate 25 mg 03/22/23 22:00 03/23/23 08:54 Metoprolol Tartrate 25 Mg Tab PO 25 mg BID AUNG Administration Naloxone HCl 0.2 mg 03/22/23 20:07 Naloxone 0.4 Mg/Ml 1 Ml Vial IV Q2M PRN Opioid Reversal Nicotine 1 patch 03/22/23 23:00 03/23/23 00:08 Nicotine 21mg/24hr Patch TRANSDERM 1 patch HS AUNG Administration Nitroglycerin 0.4 mg 03/22/23 21:51 Nitroglycerin Sl Tabs 0.4 Mg Tab SUBLINGUAL Q5M PRN Chest Pain Ondansetron HCl 4 mg 03/22/23 20:07 Ondansetron 4 Mg/2 Ml Vial IVP Q8HR PRN Nausea And Vomiting Pantoprazole Sodium 40 mg 03/23/23 09:00 03/23/23 08:54 Pantoprazole 40 Mg/10 Ml Vial IV 40 mg DAILY AUNG Administration Thiamine HCl 100 mg 03/23/23 09:00 03/23/23 08:54 Thiamine 100 Mg Tab PO 100 mg DAILY AUNG Administration Ticagrelor 90 mg 03/22/23 22:00 03/23/23 08:54 Ticagrelor 90 Mg Tab PO 90 mg BID AUNG Administration Intake and Output 03/22/23 03/23/23 03/23/23 22:59 06:59 14:59 Other: Voiding Method Urinal Urinal # Voids 1 Weight 83.915 kg 03/23/23 07:32 03/23/23 07:32
[2023-03-23] MEDS: ACETAMINOPHEN TAB 325 MG TAB PO PRN (11:27)
--- NOTE | 2023-03-23 13:17 | CA ---
Transthoracic Echo Report Name: Roland Cerda Age: 62 Gender: M : 1960 Exam Date: 03/23/2023 11:28 Exam Location: [facility] Ht (in): 69 Wt (lb): 185 Ordering Physician: Anita Maradiaga Attending/Referring Phys: [id number], Hiren Threader Operator Tejal Greenwood RDCS Procedure CPT: Indications: LVF Cardiac Hx: Technical Quality: Fair Contrast 1: Total Dose (mL): Contrast 2: Total Dose (mL): MEASUREMENTS (Male / Female) Normal Values 2D ECHO LV Diastolic Diameter PLAX 5.0 cm 4.2 - 5.9 / 3.9 - 5.3 cm LV Systolic Diameter PLAX 3.3 cm IVS Diastolic Thickness 1.3 cm 0.6 - 1.0 / 0.6 - 0.9 cm LVPW Diastolic Thickness 1.3 cm 0.6 - 1.0 / 0.6 - 0.9 cm LV Relative Wall Thickness 0.5 RV Internal Dim ED PLAX 3.7 cm LA Systolic Diameter LX 4.3 cm 3.0 - 4.0 / 2.7 - 3.8 cm LV Diastolic Volume MOD 4C 118.7 cm??? LV Systolic Volume MOD 4C 75.7 cm??? LV Ejection Fraction MOD 4C 36.2 % LV Diastolic Length 4C 8.6 cm LV Systolic Length 4C 7.3 cm LV Diastolic Volume MOD 2C 100.9 cm??? LV Systolic Volume MOD 2C 57.9 cm??? LV Ejection Fraction MOD 2C 42.6 % LV Diastolic Length 2C 8.8 cm LV Systolic Length 2C 7.5 cm LA Volume 55.0 cm??? 18 - 58 / 22 - 52 cm??? M-MODE Aortic Root Diameter MM 3.4 cm MV E Point Septal Separation 0.4 cm AV Cusp Separation MM 2.4 cm DOPPLER AV Peak Velocity 103.4 cm/s AV Peak Gradient 4.3 mmHg MV Area PHT 4.0 cm??? Mitral E Point Velocity 97.8 cm/s Mitral A Point Velocity 82.5 cm/s Mitral E to A Ratio 1.2 MV Deceleration Time 189.4 ms MV E' Velocity 6.5 cm/s Mitral E to MV E' Ratio 15.1 TR Peak Velocity 257.8 cm/s TR Peak Gradient 26.6 mmHg Right Ventricular Systolic Press 31.6 mmHg FINDINGS Left Ventricle Left ventricular ejection fraction is estimated at 45 %. Left ventricular cavity size normal. Mildly increased septal wall thickness. Right Ventricle Mild right ventricular dilatation. Right ventricular systolic pressure within normal limits. Right Atrium Normal right atrial size. Left Atrium Mildly increased left atrial diameter. Mitral Valve Structurally normal mitral valve. No mitral stenosis, regurgitation or prolapse. Aortic Valve Trileaflet aortic valve. No aortic valve stenosis or regurgitation. Tricuspid Valve Structurally normal tricuspid valve. No tricuspid regurgitation. Pulmonic Valve Structurally normal pulmonic valve. Trace pulmonic regurgitation. Pericardium Normal pericardium. No pericardial effusion. Aorta Normal size aortic root and proximal ascending aorta. CONCLUSIONS Left ventricular ejection fraction 45% Mild increased left ventricular wall thickness Mild right ventricular dilation RVSP 31 Mildly dilated left atrium No pericardial effusion Previewed by: Dr. Omar Muhammad DO (Electronically Signed) Final Date: 23 March 2023 13:16
--- NOTE | 2023-03-23 13:29 | P.CNPUL ---
History of Present Illness Consult date: 03/23/23 Reason for consult: dyspnea, chest pain History of present illness: 62-year-old male patient, known history of COPD and alcoholism and coronary a rtery disease, came into the hospital for complaints of chest pain or shortness of breath. The patient was intoxicated. The patient is post non-STEMI back in general 2022. He has undergone cardiac catheterization which showed 95% stenosis in the OM1, percent and RCA and the patient underwent stenting of the OM1 and he was discharged home. He is a chronic smoker. He has also history of hypertension, hyperlipidemia and he smokes about one pack of cigarettes a day. There is also history of medication noncompliance. He apparently ran out of his medication he was taking only the combination of aspirin and Brillinta . Chest x-ray shows no acute abnormalities. Consistent with COPD. EKG showed normal sinus rhythm. No acute ST segment changes. CAT scan of the brain was negative. Blood work is essentially within normal limits. Serum alcohol level was up to 94. He did have some mild elevation of the liver function tests consistent with alcoholic hepatitis. BUN and creatinine was within normal limits. Electrolytes were normal. Troponins were negative. He is currently on room air oxygen. Review of Systems Constitutional: No fever, no chills. No weakness, fatigue or lethargy. EENT: No headache. No dizziness. Lungs: No shortness of breath, cough, no sputum production. No wheezing. Cardiovascular: No chest pain, no lower extremity edema. No palpitations. No paroxysmal nocturnal dyspnea. No orthopnea. No lightheadedness or dizziness. No syncopal episodes. Abdominal: No abdominal pain. No nausea, vomiting. No diarrhea. No constipat ion. No bloody or tarry stools. Genitourinary: No dysuria.. No urinary retention. Musculoskeletal: No myalgias. No muscle weakness, no frequent falls. No back pain. No neck pain. Integumentary: No wounds. No rash. No unusual bruising. Neurologic: No aphasia. No facial droop. No change in mentation. No head injury. No headache. Constitutional: Reports as per HPI Eyes: denies as per HPI, denies blurred vision, denies bulging eye, denies de creased vision, denies diplopia, denies discharge, denies dry eye, denies irritation, denies itching, denies pain, denies photophobia, denies loss of peripheral vision, denies loss of vision, denies tunnel vision/blind spots Ears: deny: decreased hearing, ear discharge, earache, tinnitus Ears, nose, mouth and throat: Reports as per HPI Breasts: absent: as per HPI, gynecomastia Cardiovascular: Reports chest pain, Reports dyspnea on exertion Respiratory: Reports cough, Reports dyspnea Gastrointestinal: Reports as per HPI Genitourinary: Reports as per HPI Musculoskeletal: Reports as per HPI Musculoskeletal: absent: ankle pain, ankle stiffness, ankle swelling Neurological: Reports as per HPI Psychiatric: Reports as per HPI Endocrine: Reports as per HPI Hematologic/Lymphatic: Reports as per HPI Allergic/Immunologic: Reports as per HPI Past Medical History Past Medical History: Coronary Artery Disease (CAD), COPD, Hyperlipidemia, Hypertension, Myocardial Infarction ([place]) Additional Past Medical History / Comment(s): Alcoholism Last Myocardial Infarction Date:: n/a History of Any Multi-Drug Resistant Organisms: None Reported Past Surgical History: Appendectomy, Bowel Resection, Ear Surgery, Heart Ca theterization With Stent, Hernia Repair, Orthopedic Surgery Past Anesthesia/Blood Transfusion Reactions: No Reported Reaction Date of Last Stent Placement:: 10/05/2022 Past Psychological History: No Psychological Hx Reported Smoking Status: Current every day smoker Past Alcohol Use History: Daily, Heavy Past Drug Use History: Marijuana - Past Family History Father Family Medical History: Coronary Artery Disease (CAD) Medications and Allergies Home Medications Medication Instructions Recorded Confirmed Type Ticagrelor [Brilinta] 90 mg PO BID #60 tab 10/16/22 03/22/23 Rx Acetaminophen Tab [Tylenol] 650 mg PO Q6HR PRN tab 10/17/22 03/22/23 Rx Aspirin 81 mg PO DAILY #30 tab 10/17/22 03/22/23 Rx Atorvastatin [Lipitor] 80 mg PO HS #30 tab 10/17/22 03/22/23 Rx Budesonide-Formot 160-4.5 Mcg 2 puff INHALATION RT-BID #1 inh 10/17/22 03/22/23 Rx [Symbicort 160-4.5 Mcg Inhaler] Famotidine [Pepcid] 20 mg PO BID #60 tab 10/17/22 03/22/23 Rx Metoprolol Tartrate [Lopressor] 25 mg PO BID #60 tab 10/17/22 03/22/23 Rx Albuterol Inhaler [Ventolin Hfa 2 puff INHALATION RT-QID PRN 10/31/22 03/22/23 History Inhaler] Albuterol Nebulized [Ventolin 2.5 mg INHALATION RT-QID 03/22/23 03/22/23 History Nebulized] Nitroglycerin Sl Tabs [Nitrostat] 0.4 mg SL Q5M PRN 03/22/23 03/22/23 History lisinopriL [Prinivil] 10 mg PO DAILY 03/22/23 03/22/23 History Allergies Allergy/AdvReac Type Severity Reaction Status Date / Time No Known Allergies Allergy Verified 03/22/23 20:56 Physical Exam Vitals: Vital Signs Temp Pulse Pulse Resp BP BP Pulse Ox 03/23/23 09:16 64 18 95 03/23/23 08:43 98.3 F 69 18 156/90 99 03/23/23 04:00 74 18 145/87 96 03/23/23 00:00 88 18 112/62 93 L 03/22/23 21:59 107 H 18 184/95 97 03/22/23 20:51 90 18 161/70 97 03/22/23 20:25 96 03/22/23 20:14 96 03/22/23 20:13 96 03/22/23 20:03 92 03/22/23 19:00 80 18 144/98 98 Intake and Output 03/22/23 03/23/23 03/23/23 22:59 06:59 14:59 Output Total 300 Balance -300 Output: Urine 300 Other: Voiding Method Urinal Urinal # Voids 1 Weight 83.915 kg Gen. appearance the patient is calm and comfortable and the patient is not having any acute respiratory distress HEENT: Head is atraumatic, normocephalic. Pupils equal, round. Sclerae is anicteric. Neck was supple and without jugular venous distension, thyromegaly, or carotid bruits. Carotids were easily palpable bilaterally. There was no adenopathy.. LUNGS: Clear to auscultation. No wheezes or rhonchi. No intercostal retractions. Cardiac exam revealed the PMI to be normally situated and sized. The rhythm was regular and no extrasystoles were noted during several minutes of auscultation. The first and second heart sounds were normal and physiologic splitting of the second heart sound was noted. There were no murmurs, rubs, clicks, or gallops. Abdominal exam revealed normal bowel sounds. The abdomen was soft, non-tender, and without masses, organomegaly, or appreciable enlargement of the abdominal aorta. Examination of the extremities revealed easily palpable radial, femoral and pedal pulses. There was no cyanosis, clubbing or edema. NEUROLOGICAL: Patient is awake, alert and oriented x3 Results - Laboratory Findings CBC and BMP: 03/23/23 07:32 03/23/23 07:32 PT/INR, D-dimer PT 10.2 sec (9.0-12.0) 03/22/23 19:14 INR 1.0 (<1.2) 03/22/23 19:14 Abnormal lab findings: Abnormal Labs 03/22/23 03/23/23 03/23/23 19:14 07:32 07:32 RBC 4.00 L MCV 100.8 H Potassium 5.4 H Chloride 111 H Creatinine 0.58 L Calcium 7.9 L AST 115 H 110 H ALT 88 H 74 H Total Protein 5.3 L Albumin 3.1 L Serum Alcohol 294 H* - Diagnostic Findings Chest x-ray: image reviewed Assessment and Plan Plan: COPD currently inactive and stable. No signs of any clear exacerbation the patient is a chronic smoker and his chest x-ray is essentially negative for any acute abnormalities. Chest pain, acute coronary syndrome ruled out Alcohol intoxication, watch for any signs of delirium tremens Coronary artery disease with non-ST AL known to have 100% occlusion of the RCA and recent PCI of the OM1 10/2022 Hypertension Hyperlipidemia History of alcohol abuse Tobacco use and dependence Medication noncompliance Plan Continue bronchodilators May transition this patient a prednisone burst taper as of tomorrow No need for antibiotics Cardiology consultation regarding chest pain Watch for any signs of delirium tremens We'll continue to follow
--- NOTE | 2023-03-23 14:57 | P.HPIM ---
History of Present Illness H&P Date: 03/23/23 History of present illness; patient is 62-year-old gentleman with past medical history significant for COPD, alcohol abuse presented to the ER because of worsening shortness of breath. Patient was also intoxicated, expressing that he is very depressed, denies any suicidal thoughts. Patient also complaining of chest pain, central in location, nonradiating, no aggravating or relieving factors associated with this chest pain. Patient denied any fever or chills. Denies any orthopnea or PND. Because of this worsening shortness of breath patient came to the ER. Initial lab work done in the ER showed white count 8, hemoglobin 15.9, platelet count 245, sodium 137, potassium 5.4, BUN 11, creatinine 0.68, serum alcohol [address] cervical spine showed no acute intracranial process, no evidence of cervical spine fracture Pelvic x-ray negative for acute fracture. Chest x-ray showed no acute cardiopulmonary process Patient was admitted to medicine service REVIEW OF SYSTEMS: CONSTITUTIONAL: No fever, no malaise, no fatigue. HEENT: No recent visual problems or hearing problems. Denied any sore throat. CARDIOVASCULAR: As mentioned in HPI PULMONARY: As in HPI GASTROINTESTINAL: No diarrhea, no nausea, no vomiting, no abdominal pain. NEUROLOGICAL: No headaches, no weakness, no numbness. HEMATOLOGICAL: Denies any bleeding or petechiae. GENITOURINARY: Denies any burning micturition, frequency, or urgency. MUSCULOSKELETAL/RHEUMATOLOGICAL: Denies any joint pain, swelling, or any muscle pain. ENDOCRINE: Denies any polyuria or polydipsia. The rest of the 14-point review of systems is negative. PHYSICAL EXAMINATION: GENERAL: The patient is alert and oriented x3, not in any acute distress. Well developed, well nourished. HEENT: Pupils are round and equally reacting to light. EOMI. No scleral icterus. No conjunctival pallor. Normocephalic, atraumatic. No pharyngeal erythema. No thyromegaly. CARDIOVASCULAR: S1 and S2 present. No murmurs, rubs, or gallops. PULMONARY: Chest is clear to auscultation, no wheezing or crackles. ABDOMEN: Soft, nontender, nondistended, normoactive bowel sounds. No palpable organomegaly. MUSCULOSKELETAL: No joint swelling or deformity. EXTREMITIES: No cyanosis, clubbing, or pedal edema. NEUROLOGICAL: Gross neurological examination did not reveal any focal deficits. SKIN: No rashes. Assessment and plan Chest pain Alcohol intoxication Alcohol detox Acute COPD exacerbation Coronary artery disease with non-ST [place] known to have 100% occlusion of the RCA and recent PCI of the OM1 10/2022 Hypertension Hyperlipidemia Plan; Monitor vital signs Monitor CBC Monitor CMP Trend troponins. 2-D echo ordered Continue breathing treatments Continue CIWA protocol Continue Solu-Medrol Continue thiamine and folic acid Cardiology consulted Pulmonology consulted DVT prophylaxis: Past Medical History Past Medical History: Asthma, COPD, Hypertension, Myocardial Infarction ([place]) Last Myocardial Infarction Date:: n/a History of Any Multi-Drug Resistant Organisms: None Reported Past Surgical History: Appendectomy, Bowel Resection, Ear Surgery, Heart Catheterization With Stent, Hernia Repair, Orthopedic Surgery Past Anesthesia/Blood Transfusion Reactions: No Reported Reaction Date of Last Stent Placement:: 10/05/2022 Past Psychological History: No Psychological Hx Reported Smoking Status: Current every day smoker Past Alcohol Use History: Daily, Heavy Past Drug Use History: Marijuana - Past Family History Father Family Medical History: Coronary Artery Disease (CAD) Medications and Allergies Home Medications Medication Instructions Recorded Confirmed Type Ticagrelor [Brilinta] 90 mg PO BID #60 tab 10/16/22 03/22/23 Rx Acetaminophen Tab [Tylenol] 650 mg PO Q6HR PRN tab 10/17/22 03/22/23 Rx Aspirin 81 mg PO DAILY #30 tab 10/17/22 03/22/23 Rx Atorvastatin [Lipitor] 80 mg PO HS #30 tab 10/17/22 03/22/23 Rx Budesonide-Formot 160-4.5 Mcg 2 puff INHALATION RT-BID #1 inh 10/17/22 03/22/23 Rx [Symbicort 160-4.5 Mcg Inhaler] Famotidine [Pepcid] 20 mg PO BID #60 tab 10/17/22 03/22/23 Rx Metoprolol Tartrate [Lopressor] 25 mg PO BID #60 tab 10/17/22 03/22/23 Rx Albuterol Inhaler [Ventolin Hfa 2 puff INHALATION RT-QID PRN 10/31/22 03/22/23 History Inhaler] Albuterol Nebulized [Ventolin 2.5 mg INHALATION RT-QID 03/22/23 03/22/23 History Nebulized] Nitroglycerin Sl Tabs [Nitrostat] 0.4 mg SL Q5M PRN 03/22/23 03/22/23 History lisinopriL [Prinivil] 10 mg PO DAILY 03/22/23 03/22/23 History Allergies Allergy/AdvReac Type Severity Reaction Status Date / Time No Known Allergies Allergy Verified 03/22/23 20:56 Physical Exam Vitals: Vital Signs Temp Pulse Pulse Resp BP BP Pulse Ox 03/23/23 09:16 64 18 95 03/23/23 08:43 98.3 F 69 18 156/90 99 03/23/23 04:00 74 18 145/87 96 03/23/23 00:00 88 18 112/62 93 L 03/22/23 21:59 107 H 18 184/95 97 03/22/23 20:51 90 18 161/70 97 03/22/23 20:25 96 03/22/23 20:14 96 03/22/23 20:13 96 03/22/23 20:03 92 03/22/23 19:00 80 18 144/98 98 Intake and Output 03/22/23 03/23/23 03/23/23 22:59 06:59 14:59 Other: Voiding Method Urinal Urinal # Voids 1 Weight 83.915 kg Results CBC & Chem 7: 03/23/23 07:32 03/23/23 07:32 Labs: Abnormal Lab Results - Last 24 Hours (Table) 03/22/23 03/23/23 03/23/23 Range/Units 19:14 07:32 07:32 RBC 4.00 L (4.30-5.90) m/uL MCV 100.8 H (80.0-100.0) fL Potassium 5.4 H (3.5-5.1) mmol/L Chloride 111 H (98-107) mmol/L Creatinine 0.58 L (0.66-1.25) mg/dL Calcium 7.9 L (8.4-10.2) mg/dL AST 115 H 110 H (17-59) U/L ALT 88 H 74 H (4-49) U/L Total Protein 5.3 L (6.3-8.2) g/dL Albumin 3.1 L (3.5-5.0) g/dL Serum Alcohol 294 H* mg/dL Thrombosis Risk Factor Assmnt - Choose All That Apply Any of the Below Risk Factors Present?: Yes Each Factor Represents 1 point: Abnormal pulmonary function (COPD) Each Risk Factor Represents 2 Points: Age 61-74 years Thrombosis Risk Factor Assessment Total Risk Factor Score: 3 Thrombosis Risk Factor Assessment Level: Moderate Risk
[2023-03-23] MEDS: ATORVASTATIN 80 MG TAB PO SCH (19:51)
[2023-03-23] MEDS: methylPREDNISolone SOD SUCCI 40 MG/ML 1 ML VIAL IV SCH (19:51)
[2023-03-23] MEDS ORDERED: methylPREDNISolone SOD SUCCIN 40 MG in SODIUM CHLORIDE 0.9% 100 ML IVPB SCH (21:00)
[2023-03-24] MEDS: LORazepam 2 MG/ML INJ IV PRN ×3 (00:23→05:47)
[2023-03-24] MEDS: SODIUM CHLORIDE 0.9% 1,000 ML IV SCH ×4 (02:14→09:48)
[2023-03-24] MEDS: lisinopriL 10 MG TAB PO SCH (08:03)
[2023-03-24] MEDS: METOPROLOL TARTRATE 25 MG TAB PO SCH (08:03)
[2023-03-24] MEDS: ASPIRIN 81 MG PO SCH (08:03)
[2023-03-24] MEDS: THIAMINE 100 MG TAB PO SCH (08:03)
[2023-03-24] MEDS: TICAGRELOR 90 MG TAB PO SCH (08:03)
[2023-03-24] MEDS: ACETAMINOPHEN TAB 325 MG TAB PO PRN (08:04)
[2023-03-24] MEDS: methylPREDNISolone SOD SUCCI 40 MG/ML 1 ML VIAL IV SCH (08:05)
[2023-03-24] MEDS: PANTOPRAZOLE 40 MG/10 ML VIAL IV SCH (08:05)
[2023-03-24] MEDS: ALBUTEROL NEBULIZED 2.5 MG/3 ML INHALATION SCH ×3 (08:11→14:45)
[2023-03-24] MEDS: SYMBICORT 160-4.5 MCG INHALER INHALATION SCH (08:11)
[2023-03-24 08:48] LABS: Basophils % (A) 0 %; Eosinophils % (A) 0 %; HCT 46.9 % (39.0-53.0); HGB 15.5 gm/dL (13.0-17.5); Lymphocytes # (A) 0.4 k/uL (1.0-4.8); Lymphocytes % (A) 10 %; MCH 32.8 pg (25.0-35.0); MCHC 33.1 g/dL (31.0-37.0); MCV 99.2 fL (80.0-100.0); Mean Platelet Volume 7.6; Monocytes # (A) 0.2 k/uL (0-1.0); Monocytes % (A) 5 %; Neutrophils # (A) 3.6 k/uL (1.3-7.7); Neutrophils % (A) 84 %; Platelet Count 242 k/uL (150-450); RBC 4.73 m/uL (4.30-5.90); RDW 11.6 % (11.5-15.5); WBC 4.2 k/uL (3.8-10.6)
[2023-03-24 09:08] LABS: ALT 72 U/L (4-49); AST 68 U/L (17-59); African American GFR (CKD) >90 (>60 ml/min/1.73 sqM); Albumin 3.8 g/dL (3.5-5.0); Alkaline Phosphatase 94 U/L (38-126); Anion Gap 8 mmol/L; Blood Urea Nitrogen 4 mg/dL (9-20); Calcium 8.9 mg/dL (8.4-10.2); Carbon Dioxide 20 mmol/L (22-30); Chloride 106 mmol/L (98-107); Glucose 148 mg/dL (74-99); Non-African American GFR(CKD) >90 (>60 ml/min/1.73 sqM); Potassium 4.4 mmol/L (3.5-5.1); Sodium 134 mmol/L (137-145); Total Bilirubin 0.9 mg/dL (0.2-1.3); Total Protein 6.5 g/dL (6.3-8.2)
--- NOTE | 2023-03-24 10:53 | P.PN ---
Subjective Progress Note Date: 03/24/23 History of present illness: This is a 62-year-old male patient of Dr. Rianna Guerrero with past medical history of non-ST IA October 2022 underwent cardiac catheterization which showed a 95% lesion in the first OM and 100% occlusion of the RCA and underwent stenting of the first OM by Dr. Muhammad. Past medical history of hypertension, dyslipidemia, smoking less than a pack per day. Patient was last seen in the office in December which time he did run out of his medication and was only on aspirin and Brillinta. Patient was advised for an echocardiogram and stress test which does not seem to have been completed. We have been asked to evaluate the patient for chest pain. Patient presented to the hospital due to shortness of breath was found to have alcohol intoxication as well as chest pain in the anterior chest to the back. Patient denies any symptoms at the time of evaluation. His initial blood pressure 144/98 EKG sinus rhythm without acute ST changes. Chest x-ray: No acute process. CT of the head and neck revealed no acute intracranial process. No cervical spine fracture. Mild multilevel degenerative disc disease. CBC unremarkable. INR 1. Initial potassium 5.4 now 3.8. AST 110, ALT 74. Troponin negative 1. Serum alcohol level [id number]. Home cardiac medications: Aspirin 81 mg daily, Lipitor 80 mg at bedtime, lisinopril 10 mg daily, Lopressor 25 mg twice daily, Nitrostat as needed, Brilinta 90 mg twice daily. Treadmill exercise stress test 11/2022 revealed poor exercise tolerance. Significant CAD cannot be excluded he goes the patient did not achieve 85% of goal at 76% no ischemic EKG abnormalities. 03/24 Patient is seen today in follow-up. Echocardiogram reveals EF of 45%, mild increased left ventricular wall thickness, mild right ventricular dilation, RVSP 31, mildly dilated left atrium. No pericardial effusion. Results reviewed with the patient. No prior echocardiogram is available to compare. His heart rate is been running in the 80s and blood pressure 144/86. Patient has been resumed on his home cardiac medications. He denies having any chest pain.. Physical examination: Gen: This is a 62-year-old male. He is resting in bed and appears to be in no acute distress VS: reviewed. HEENT: Head is atraumatic, normocephalic. Pupils equal, round. Sclerae is anicteric. NECK: Supple. No JVD. . LUNGS: Clear to auscultation. No wheezes or rhonchi. No intercostal retractions. HEART: Regular rate and rhythm. No murmur. ABDOMEN: Soft No tenderness. EXTREMITIES: No pedal edema. No calf tenderness. NEUROLOGICAL: Patient is awake, alert and oriented x3. Assessment: Chest pain, acute coronary syndrome ruled out Alcohol intoxication History of coronary artery disease with non-ST [place] known to have 100% occlusion of the RCA and recent PCI of the OM1 10/2022 Hypertension Hyperlipidemia History of alcohol abuse Tobacco use and dependence COPD Noncompliance Plan: Acute coronary syndrome has been ruled out Resume patient's home cardiac medications No further cardiac workup at this time. Patient may follow-up in the office with Dr. Rianna Guerrero in one week following discharge Nurse practitioner note has been reviewed, I agree with documented findings and plan of care. Patient was seen and examined. Objective - Vital Signs Vital signs: Vital Signs Temp 97.5 F L 03/24/23 07:59 Pulse 80 03/24/23 08:26 Resp 18 03/24/23 07:59 BP 144/86 03/24/23 07:59 Pulse Ox 97 03/24/23 07:59 FiO2 Intake & Output 03/23/23 03/24/23 03/24/23 18:59 06:59 18:59 Intake Total 1140 750 Output Total 725 1350 Balance 415 -1350 750 Intake: Oral 1140 750 Output: Urine 725 1350 Other: Voiding Method Urinal Urinal Urinal # Voids 1 # Bowel Movements 1 - Labs CBC & Chem 7: 03/24/23 07:36 03/24/23 07:36 Labs: Abnormal Lab Results - Last 24 Hours (Table) 03/24/23 Range/Units 07:36 Lymphocytes # 0.4 L (1.0-4.8) k/uL
[2023-03-24 11:06] VITALS: TEMP 98
[2023-03-24] MEDS ORDERED: IBUPROFEN 400 MG TAB PO PRN (11:07)
--- NOTE | 2023-03-24 12:09 | P.PN ---
Subjective Progress Note Date: 03/24/23 62-year-old male patient, known history of COPD and alcoholism and coronary art ludwin disease, came into the hospital for complaints of chest pain or shortness of breath. The patient was intoxicated. The patient is post non-STEMI back in general 2022. He has undergone cardiac catheterization which showed 95% stenosis in the OM1, percent and RCA and the patient underwent stenting of the OM1 and he was discharged home. He is a chronic smoker. He has also history of hypertension, hyperlipidemia and he smokes about one pack of cigarettes a day. There is also history of medication noncompliance. He apparently ran out of his medication he was taking only the combination of aspirin and Brillinta . Chest x-ray shows no acute abnormalities. Consistent with COPD. EKG showed normal sinus rhythm. No acute ST segment changes. CAT scan of the brain was negative. Blood work is essentially within normal limits. Serum alcohol level was up to 94. He did have some mild elevation of the liver function tests consistent with alcoholic hepatitis. BUN and creatinine was within normal limits. Electrolytes were normal. Troponins were negative. He is currently on room air oxygen. On today's evaluation of 03/24/2023, the patient is experiencing some on and off pain over the left anterior chest area. Is also complaining of numbness in his right lower extremity patient states that sometimes the patient is left hip area. His alcoholism. no signs of any delirium tremens at this point in time. is also known to have copd copd is currently inactive and stable i'm going to discontinue the iv solu-medrol. he remains on bronchodilators and symbicort as maintenance. the rest of the blood work was noted and the cecum was at 4.2 with hemoglobin 15.5 and a platelet count of 242. bun is at 4 with a creatinine of 0.5 and a sodium level is at 134. Objective - Vital Signs Vital signs: Vital Signs Temp 97.5 F L 03/24/23 07:59 Pulse 80 03/24/23 08:26 Resp 18 03/24/23 07:59 BP 144/86 03/24/23 07:59 Pulse Ox 97 03/24/23 07:59 FiO2 Intake & Output 03/23/23 03/24/23 03/24/23 18:59 06:59 18:59 Intake Total 1140 750 Output Total 725 1350 Balance 415 -1350 750 Intake: Oral 1140 750 Output: Urine 725 1350 Other: Voiding Method Urinal Urinal Urinal # Voids 1 # Bowel Movements 1 - Exam Gen. appearance the patient is calm and comfortable and the patient is not having any acute respiratory distress, the patient is currently on room air oxygen. HEENT: Head is atraumatic, normocephalic. Pupils equal, round. Sclerae is anicteric. Neck was supple and without jugular venous distension, thyromegaly, or carotid bruits. Carotids were easily palpable bilaterally. There was no adenopathy.. LUNGS: Clear to auscultation. No wheezes or rhonchi. No intercostal retractions. Cardiac exam revealed the PMI to be normally situated and sized. The rhythm was regular and no extrasystoles were noted during several minutes of auscultation. The first and second heart sounds were normal and physiologic splitting of the second heart sound was noted. There were no murmurs, rubs, clicks, or gallops. Abdominal exam revealed normal bowel sounds. The abdomen was soft, non-tender, and without masses, organomegaly, or appreciable enlargement of the abdominal aorta. Examination of the extremities revealed easily palpable radial, femoral and pedal pulses. There was no cyanosis, clubbing or edema. NEUROLOGICAL: Patient is awake, alert and oriented x3 - Labs CBC & Chem 7: 03/24/23 07:36 03/24/23 07:36 Labs: Abnormal Lab Results - Last 24 Hours (Table) 03/24/23 03/24/23 Range/Units 07:36 07:36 Lymphocytes # 0.4 L (1.0-4.8) k/uL Sodium 134 L (137-145) mmol/L Carbon Dioxide 20 L (22-30) mmol/L BUN 4 L (9-20) mg/dL Creatinine 0.54 L (0.66-1.25) mg/dL Glucose 148 H (74-99) mg/dL AST 68 H (17-59) U/L ALT 72 H (4-49) U/L Assessment and Plan Plan: COPD currently inactive and stable. No signs of any clear exacerbation the patient is a chronic smoker and his chest x-ray is essentially negative for any acute abnormalities. Chest pain, acute coronary syndrome ruled out, still ongoing pain, unexplained, questionable radiation to his lower extremities Alcohol intoxication, watch for any signs of delirium tremens Coronary artery disease with non-ST [place] known to have 100% occlusion of the RCA and recent PCI of the OM1 10/2022 Hypertension Hyperlipidemia History of alcohol abuse Tobacco use and dependence Medication noncompliance Plan Obesity of the aorta Continue bronchodilators Discontinue the IV Solu-Medrol and there is no need for prednisone No need for antibiotics Cardiology consultation regarding chest pain Watch for any signs of delirium tremens No signs of any delirium tremens We'll continue to follow
--- NOTE | 2023-03-24 12:25 | CT ---
EXAMINATION TYPE: CT angio thor/abd CT DLP: 1052 mGycm, Automated exposure control for dose reduction was used. DATE OF EXAM: 03/24/2023 11:46 AM COMPARISON: None. CLINICAL INDICATION:Male, 62 years old with history of chest pain, leg pain; TECHNIQUE: Multiple thin slice sub-millimeter images were obtained through the chest abdomen, pelvis, after administration of contrast. 3-D reconstructed images and maximum intensity projection images were obtained of the chest, abdomen, pelvis. CT Contrast: Contrast used: 100 cc of Isovue-370 Oral contrast used: None FINDINGS: CTA : Noncontrast imaging does not demonstrate evidence for intrarenal hematoma. Scattered calcified atherosclerosis throughout the aorta. Contrast-enhanced imaging demonstrates no evidence for aneurysm al dilation. The major branches of the aortic arch are patent. No filling defect within the pulmonary arterial vasculature to suggest embolus. The abdominal aorta and its branches are patent. LUNGS/PLEURA: The lung parenchyma appears unremarkable. HEART: Within normal limits. MEDIASTINUM: No gross evidence of adenopathy. LOWER NECK: No significant findings. LIVER: Scattered hepatic simple appearing cyst. GALLBLADDER AND BILE DUCTS: Unremarkable. PANCREAS: Unremarkable. SPLEEN: Unremarkable. ADRENAL GLANDS: Unremarkable. KIDNEYS AND URETERS: No evidence of hydronephrosis or renal calculus. The ureters are unremarkable. PELVIS BLADDER: Unremarkable REPRODUCTIVE: Unremarkable. ABDOMEN & PELVIS STOMACH AND BOWEL: No evidence of bowel obstruction. PERITONEUM: No evidence of pneumoperitoneum or free fluid. VASCULATURE: No evidence of aortic aneurysm. MUSCULOSKELETAL: No acute osseous abnormalities LYMPH NODES: No gross evidence for lymphadenopathy. SOFT TISSUE/ABDOMINAL WALL: Unremarkable IMPRESSION 1. No evidence for vascular occlusion, dissection or intramural hematoma. No aneurysm. 2. Mild to moderate atherosclerosis of the arterial vasculature. 3. No acute thoracic or abdominal process.
--- NOTE | 2023-03-24 13:05 | P.PN ---
Subjective Progress Note Date: 03/24/23 patient is 62-year-old gentleman with past medical history significant for COPD, alcohol abuse presented to the ER because of worsening shortness of breath. Patient was also intoxicated, expressing that he is very depressed, denies any suicidal thoughts. Patient also complaining of chest pain, central i n location, nonradiating, no aggravating or relieving factors associated with this chest pain. Patient denied any fever or chills. Denies any orthopnea or PND. Because of this worsening shortness of breath patient came to the ER. Initial lab work done in the ER showed white count 8, hemoglobin 15.9, platelet count 245, sodium 137, potassium 5.4, BUN 11, creatinine 0.68, serum alcohol [address] cervical spine showed no acute intracranial process, no evidence of cervical spine fracture Pelvic x-ray negative for acute fracture. Chest x-ray showed no acute cardiopulmonary process Patient was admitted to medicine service 03/24. Patient seen and examined. Complaining of numbness of the right lower extremity at times, states it comes and goes. REVIEW OF SYSTEMS: CONSTITUTIONAL: No fever, no malaise,. CARDIOVASCULAR: No chest pain, no palpitations, no syncope. PULMONARY: No shortness of breath, no cough, GASTROINTESTINAL: No diarrhea, no nausea, no vomiting, no abdominal pain. NEUROLOGICAL: No headaches, no weakness, PHYSICAL EXAMINATION: GENERAL: The patient is alert and oriented x3, not in any acute distress. Well developed, well nourished. HEENT: Pupils are round and equally reacting to light. EOMI. No scleral icterus. No conjunctival pallor. Normocephalic, atraumatic. No pharyngeal erythema. No thyromegaly. CARDIOVASCULAR: S1 and S2 present. No murmurs, rubs, or gallops. PULMONARY: Chest is clear to auscultation, no wheezing or crackles. ABDOMEN: Soft, nontender, nondistended, normoactive bowel sounds. No palpable organomegaly. MUSCULOSKELETAL: No joint swelling or deformity. EXTREMITIES: No cyanosis, clubbing, or pedal edema. NEUROLOGICAL: Gross neurological examination did not reveal any focal deficits. SKIN: No rashes. Assessment and plan Chest pain Alcohol intoxication Alcohol detox Acute COPD exacerbation Coronary artery disease with non-ST [place] known to have 100% occlusion of the RCA and recent PCI of the OM1 10/2022 Hypertension Hyperlipidemia Plan; Monitor vital signs Monitor CBC Monitor CMP Continue telemetry monitoring 2-D echo ordered, showed LVEF of 45%, mild right ventricular dilatation, no pericardial effusion Continue breathing treatments Continue CIWA protocol CTA chest abdominal and ordered dC steroids Continue thiamine and folic acid DVT prophylaxis: Objective - Vital Signs Vital signs: Vital Signs Temp 97.5 F L 03/24/23 07:59 Pulse 80 03/24/23 08:26 Resp 18 03/24/23 07:59 BP 144/86 03/24/23 07:59 Pulse Ox 97 03/24/23 07:59 FiO2 Intake & Output 03/23/23 03/24/23 03/24/23 18:59 06:59 18:59 Intake Total 1140 750 Output Total 725 1350 Balance 415 -1350 750 Intake: Oral 1140 750 Output: Urine 725 1350 Other: Voiding Method Urinal Urinal Urinal # Voids 1 # Bowel Movements 1 - Labs CBC & Chem 7: 03/24/23 07:36 03/24/23 07:36 Labs: Abnormal Lab Results - Last 24 Hours (Table) 03/24/23 Range/Units 07:36 Lymphocytes # 0.4 L (1.0-4.8) k/uL
[2023-03-24 15:43] VITALS: BP 154/89; PULSE 82
[2023-03-24] MEDS ORDERED: LORazepam 2 MG/ML INJ IM STA (16:07)
[2023-03-24] MEDS ORDERED: LORazepam 2 MG/ML INJ IV STA (16:12)
--- NOTE | 2023-03-31 15:11 | P.DS ---
Providers Date of admission: 03/22/23 20:14 Expected date of discharge: 03/31/23 Attending physician: Dread Puente Consults: 03/22/23 21:27 Consult Physician Stat Consulting Provider: Andrea Olvera Consult Reason/Comments: chest pain Do you want consulting provider notified?: Yes, Notify in am 03/23/23 09:37 Consult Physician Urgent Consulting Provider: Soham Cash Consult Reason/Comments: COPD exacerbation Do you want consulting provider notified?: Yes Primary care physician: Stated None Hospital Course: Discharge diagnoses; Chest pain Alcohol intoxication Alcohol detox Acute COPD exacerbation Coronary artery disease with non-ST [place] known to have 100% occlusion of the RCA and recent PCI of the OM1 10/2022 Hypertension Hyperlipidemia Hospital course; patient is 62-year-old gentleman with past medical history significant for COPD, alcohol abuse presented to the ER because of worsening shortness of breath. Patient was also intoxicated, expressing that he is very depressed, denies any suicidal thoughts. Patient also complaining of chest pain, central in location, nonradiating, no aggravating or relieving factors associated with this chest pain. Patient denied any fever or chills. Denies any orthopnea or PND. Because of this worsening shortness of breath patient came to the ER. Initial lab work done in the ER showed white count 8, hemoglobin 15.9, platelet count 245, sodium 137, potassium 5.4, BUN 11, creatinine 0.68, serum alcohol [address] cervical spine showed no acute intracranial process, no evidence of cervical spine fracture Pelvic x-ray negative for acute fracture. Chest x-ray showed no acute cardiopulmonary process Patient was admitted to medicine service 03/24. Patient seen and examined. Complaining of numbness of the right lower extremity at times, states it comes and goes. Later in the day, patient started stating that he wants to leave AGAINST MEDICAL ADVICE and he does not want to stay in the hospital. Discussed with him regarding the need for him to stay in the hospital and continue treatment, at this time patient has capacity to make decision and understands the risks and benefits of leaving the hospital AGAINST MEDICAL ADVICE, patient signed AMA papers and left PHYSICAL EXAMINATION: GENERAL: The patient is alert and oriented x3, not in any acute distress. Well developed, well nourished. HEENT: Pupils are round and equally reacting to light. EOMI. No scleral icterus. No conjunctival pallor. Normocephalic, atraumatic. No pharyngeal erythema. No thyromegaly. CARDIOVASCULAR: S1 and S2 present. No murmurs, rubs, or gallops. PULMONARY: Chest is clear to auscultation, no wheezing or crackles. ABDOMEN: Soft, nontender, nondistended, normoactive bowel sounds. No palpable organomegaly. MUSCULOSKELETAL: No joint swelling or deformity. EXTREMITIES: No cyanosis, clubbing, or pedal edema. NEUROLOGICAL: Gross neurological examination did not reveal any focal deficits. SKIN: No rashes. Patient Condition at Discharge: Fair Plan - Discharge Summary Discharge Rx Participant: No New Discharge Prescriptions: No Action Ticagrelor [Brilinta] 90 mg PO BID #60 tab Aspirin 81 mg PO DAILY #30 tab Metoprolol Tartrate [Lopressor] 25 mg PO BID #60 tab Famotidine [Pepcid] 20 mg PO BID #60 tab Budesonide-Formot 160-4.5 Mcg [Symbicort 160-4.5 Mcg Inhaler] 2 puff INHALATION RT-BID #1 inh Acetaminophen Tab [Tylenol] 650 mg PO Q6HR PRN tab PRN Reason: Mild Pain Or Fever > 100.5 Albuterol Inhaler [Ventolin Hfa Inhaler] 2 puff INHALATION RT-QID PRN PRN Reason: Shortness Of Breath Albuterol Nebulized [Ventolin Nebulized] 2.5 mg INHALATION RT-QID lisinopriL [Prinivil] 10 mg PO DAILY Nitroglycerin Sl Tabs [Nitrostat] 0.4 mg SL Q5M PRN PRN Reason: Chest Pain Atorvastatin [Lipitor] 80 mg PO HS #30 tab Discharge Medication List Ticagrelor [Brilinta] 90 mg PO BID #60 tab 10/16/22 [Rx] Acetaminophen Tab [Tylenol] 650 mg PO Q6HR PRN tab 10/17/22 [Rx] Aspirin 81 mg PO DAILY #30 tab 10/17/22 [Rx] Atorvastatin [Lipitor] 80 mg PO HS #30 tab 10/17/22 [Rx] Budesonide-Formot 160-4.5 Mcg [Symbicort 160-4.5 Mcg Inhaler] 2 puff INHALATION RT-BID #1 inh 10/17/22 [Rx] Famotidine [Pepcid] 20 mg PO BID #60 tab 10/17/22 [Rx] Metoprolol Tartrate [Lopressor] 25 mg PO BID #60 tab 10/17/22 [Rx] Albuterol Inhaler [Ventolin Hfa Inhaler] 2 puff INHALATION RT-QID PRN 10/31/22 [History] Albuterol Nebulized [Ventolin Nebulized] 2.5 mg INHALATION RT-QID 03/22/23 [History] Nitroglycerin Sl Tabs [Nitrostat] 0.4 mg SL Q5M PRN 03/22/23 [History] lisinopriL [Prinivil] 10 mg PO DAILY 03/22/23 [History] Follow up Appointment(s)/Referral(s): None,Stated [Primary Care Provider] - 1-2 days Discharge/Stand Alone Forms: AA Meetings [place], Community Resources, Outpatient Counseling, Inp Substance Abuse Facilities, Area PCPs Discharge Disposition: LEFT AGAINST MEDICAL ADVICE
== END 2023-03-24 17:38 | disposition left against medical advice (07) | DRG 770 ==
LOC: EC 18:58 → 3SCARD 20:14
PROVIDERS: ADMIT Hospitalist; ATTEND Hospitalist
PROC: HZ2ZZZZ Detoxification Services for Substance Abuse Treatment (ICD-10-PCS; principal; 2023-03-22)
DX: F10.229 Alcohol dependence with intoxication, unspecified (principal); K70.10 Alcoholic hepatitis without ascites; Z53.29 Procedure and treatment not carried out because of patient's decision for other reasons; I25.82 Chronic total occlusion of coronary artery; J44.9 Chronic obstructive pulmonary disease, unspecified; E78.5 Hyperlipidemia, unspecified; I25.10 Atherosclerotic heart disease of native coronary artery without angina pectoris; R07.89 Other chest pain; F17.210 Nicotine dependence, cigarettes, uncomplicated; F32.A Depression, unspecified; I10 Essential (primary) hypertension; I25.2 Old myocardial infarction; Y90.4 Blood alcohol level of 80-99 mg/100 ml; Z95.5 Presence of coronary angioplasty implant and graft; Z91.199 Patient's noncompliance with other medical treatment and regimen due to unspecified reason; Z79.02 Long term (current) use of antithrombotics/antiplatelets; Z91.148 Patient's other noncompliance with medication regimen for other reason; Z79.51 Long term (current) use of inhaled steroids; Z79.82 Long term (current) use of aspirin; Z79.899 Other long term (current) drug therapy; Z82.49 Family history of ischemic heart disease and other diseases of the circulatory system
CPT/HCPCS: 36415; 70450; 71045; 71275; 72125; 72170; 74175; 80053; 80320; 83735; 83880; 84100; 84484; 85025; 85610; 85730; 93005; 93306; 94640; 94760; 96361; 96372; 96374; 99285

== ENCOUNTER 2023-03-25 17:52 | Emergency (ER) | payer OTHER ==
[2023-03-25 18:00] VITALS: TEMP 98.6
[2023-03-25] MEDS ORDERED: KETOROLAC 15 MG/ML 1 ML VIAL IM STA (18:46)
--- NOTE | 2023-03-25 19:12 | ED ---
General Adult HPI - General Chief complaint: Headache Stated complaint: headache Source: patient Mode of arrival: EMS Limitations: no limitations - History of Present Illness Initial comments: C old male with past medical history significant for coronary artery disease S/PE PCI of OM1 on 10/27 resents to the ED with a chief complaint of headache. Patient was recently seen here and discharged yesterday. Cleared of ACS by cardiology also had an echocardiogram that showed an EF of 45%. During his time here also had a negative head CT. Patient presenting today with continued complaints of headache, chest pain, and residual weakness from prior "stroke". Additionally patient is complaining that he has lost his phone pipe organ mechanic from when he was last here. No other complaints. - Related Data Home Medications Medication Instructions Recorded Confirmed Albuterol Inhaler [Ventolin Hfa 2 puff INHALATION RT-QID PRN 10/31/22 03/22/23 Inhaler] Albuterol Nebulized [Ventolin 2.5 mg INHALATION RT-QID 03/22/23 03/22/23 Nebulized] Nitroglycerin Sl Tabs [Nitrostat] 0.4 mg SL Q5M PRN 03/22/23 03/22/23 lisinopriL [Prinivil] 10 mg PO DAILY 03/22/23 03/22/23 Previous Rx's Medication Instructions Recorded Ticagrelor [Brilinta] 90 mg PO BID #60 tab 10/16/22 Acetaminophen Tab [Tylenol] 650 mg PO Q6HR PRN tab 10/17/22 Aspirin 81 mg PO DAILY #30 tab 10/17/22 Atorvastatin [Lipitor] 80 mg PO HS #30 tab 10/17/22 Budesonide-Formot 160-4.5 Mcg 2 puff INHALATION RT-BID #1 inh 10/17/22 [Symbicort 160-4.5 Mcg Inhaler] Famotidine [Pepcid] 20 mg PO BID #60 tab 10/17/22 Metoprolol Tartrate [Lopressor] 25 mg PO BID #60 tab 10/17/22 Allergies Allergy/AdvReac Type Severity Reaction Status Date / Time No Known Allergies Allergy Verified 03/22/23 20:56 Review of Systems ROS Statement: Those systems with pertinent positive or pertinent negative responses have been documented in the HPI. ROS Other: All systems not noted in ROS Statement are negative. Past Medical History Past Medical History: Asthma, COPD, Hypertension, Myocardial Infarction (GA) Additional Past Medical History / Comment(s): Alcoholism Last Myocardial Infarction Date:: n/a History of Any Multi-Drug Resistant Organisms: None Reported Past Surgical History: Appendectomy, Bowel Resection, Ear Surgery, Heart Catheterization With Stent, Hernia Repair, Orthopedic Surgery Past Anesthesia/Blood Transfusion Reactions: No Reported Reaction Date of Last Stent Placement:: 10/05/2022 Past Psychological History: No Psychological Hx Reported Smoking Status: Current every day smoker Past Alcohol Use History: Daily, Heavy Past Drug Use History: Marijuana - Past Family History Father Family Medical History: Coronary Artery Disease (CAD) General Exam Limitations: no limitations General appearance: alert Head exam: Present: atraumatic Neck exam: Present: normal inspection Respiratory exam: Present: normal lung sounds bilaterally Cardiovascular Exam: Present: regular rate, normal rhythm GI/Abdominal exam: Present: soft Neurological exam: Present: alert, oriented X3 Psychiatric exam: Present: agitated Skin exam: Present: warm, dry Course Vital Signs 03/25/23 17:56 Temperature 98.6 F Pulse Rate 94 Respiratory 18 Rate Blood Pressure 163/96 O2 Sat by Pulse 97 Oximetry Medical Decision Making - Medical Decision Making Was pt. sent in by a medical professional or institution (, PA, PLUG WIRER, urgent care, hospital, or senior care...) When possible be specific @ -No Did you speak to anyone other than the patient for history (EMS, parent, family, police, friend...)? What history was obtained from this source @ -No Did you review nursing and triage notes (agree or disagree)? Why? @ -I reviewed and agree with nursing and triage notes Were old charts reviewed (outside hosp., previous admission, EMS record, old EKG, old radiological studies, urgent care reports/EKG's, senior care records)? Report findings @ -Charts reviewed showing workup with discharge yesterday. Seen by cardiology clearance of ACS. Additionally had an echo that showed an EF of 45%. Also had a CT that showed no acute findings. Differential Diagnosis (chest pain, altered mental status, abdominal pain women, abdominal pain men, vaginal bleeding, weakness, fever, dyspnea, syncope, headache, dizziness, GI bleed, back pain, seizure, CVA, palpatations, mental health, musculoskeletal)? @ -Differential Chest Pain: Stable Angina, Unstable Angina, STEMI, NSTEMI Aortic Dissection, Pneumothorax, Musculoskeletal, Esophageal Spasm GERD, Cholecystitis, Pancreatitis, Zoster, this is not meant to be an all-inclusive list. EKG interpreted by me (3pts min.). @ -None X-rays interpreted by me (1pt min.). @ -None done CT interpreted by me (1pt min.). @ -None done U/S interpreted by me (1pt. min.). @ -None done What testing was considered but not performed or refused? (CT, X-rays, U/S, labs)? Why? @ -Testing to rule out ACS/acute hemorrhage was considered however considering patient had full workup and discharge yesterday felt at this time additional workup for patient's symptoms unnecessary as patient presents with continued symptoms. No new symptoms of pain at this time. What meds were considered but not given or refused? Why? @ -None Did you discuss the management of the patient with other professionals (professionals i.e. , PA, PLUG WIRER, lab, RT, psych nurse, social security specialist, hearing therapy teacher, teacher, correctional officer, watch case polisher)? Give summary @ -No Was smoking cessation discussed for >3mins.? @ -No Was critical care preformed (if so, how long)? @ -No Were there social determinants of health that impacted care today? How? (Homelessness, low income, unemployed, alcoholism, drug addiction, transportation, low edu. Level, literacy, decrease access to med. care, halfway, rehab)? @ -No Was there de-escalation of care discussed even if they declined (Discuss DNR or withdrawal of care, Hospice)? DNR status @ -No What co-morbidities impacted this encounter? (DM, HTN, Smoking, COPD, CAD, Cancer, CVA, ARF, Chemo, Hep., AIDS, mental health diagnosis, sleep apnea, morb id obesity)? @ -None Was patient admitted / discharged? Hospital course, mention meds given and route, prescriptions, significant lab abnormalities, going to OR and other pertinent info. @ -Discharged. Phone pipe organ mechanic was found for patient. Provided Toradol with improvement of pain. At this time, patient is agreeable with no further workup and states that he would like to go home. He is discharged home. Discussed return precautions patient verbalized agreement. Undiagnosed new problem with uncertain prognosis? @ -No Drug Therapy requiring intensive monitoring for toxicity (Heparin, Nitro, Insulin, Cardizem)? @ -No Were any procedures done? @ -No Diagnosis/symptom? @ -Chest pain, headache Acute, or Chronic, or Acute on Chronic? @ -Acute on chronic Uncomplicated (without systemic symptoms) or Complicated (systemic symptoms)? @ -Uncomplicated Side effects of treatment? @ -No Exacerbation, Progression, or Severe Exacerbation? @ -No Poses a threat to life or bodily function? How? (Chest pain, USA, GA, pneumonia, PE, COPD, DKA, ARF, appy, cholecystitis, CVA, Diverticulitis, Homicidal, Suicidal, threat to staff... and all critical care pts) @ -No Disposition Clinical Impression: Headache Disposition: HOME SELF-CARE Condition: Good Instructions (If sedation given, give patient instructions): Acute Headache (ED) Additional Instructions: Please return to the Emergency Department if symptoms worsen or any other concerns. Is patient prescribed a controlled substance at d/c from ED?: No Referrals: None,Stated [Primary Care Provider] - 1-2 days Time of Disposition: 19:40
[2023-03-25 19:56] VITALS: BP 157/101; PULSE 110; RESP 19
== END 2023-03-25 19:56 | disposition home or self-care (01) ==
LOC: EC 17:52
DX: R51.9 Headache, unspecified (principal); J44.9 Chronic obstructive pulmonary disease, unspecified; I10 Essential (primary) hypertension; I25.2 Old myocardial infarction; F17.200 Nicotine dependence, unspecified, uncomplicated; F12.90 Cannabis use, unspecified, uncomplicated; Z79.899 Other long term (current) drug therapy
CPT/HCPCS: 99284; 96372; J1885

== ENCOUNTER 2023-04-21 23:44 | Observation (INO) | payer OTHER ==
[2023-04-22] MEDS ORDERED: SODIUM CHLORIDE 0.9% 1,000 ML IV STA (00:39)
[2023-04-22 00:53] LABS: Basophils % (A) 0 %; Eosinophils # (A) 0.2 k/uL (0-0.7); Eosinophils % (A) 3 %; HCT 45.7 % (39.0-53.0); HGB 15.4 gm/dL (13.0-17.5); Lymphocytes # (A) 2.5 k/uL (1.0-4.8); Lymphocytes % (A) 32 %; MCH 33.3 pg (25.0-35.0); MCHC 33.6 g/dL (31.0-37.0); Mean Platelet Volume 6.9; Monocytes # (A) 0.5 k/uL (0-1.0); Monocytes % (A) 7 %; Neutrophils # (A) 4.4 k/uL (1.3-7.7); Neutrophils % (A) 57 %; Platelet Count 300 k/uL (150-450); RBC 4.61 m/uL (4.30-5.90); RDW 12.3 % (11.5-15.5); WBC 7.8 k/uL (3.8-10.6)
[2023-04-22 01:03] LABS: ALT 67 U/L (4-49); AST 81 U/L (17-59); African American GFR (CKD) >90 (>60 ml/min/1.73 sqM); Albumin 4.2 g/dL (3.5-5.0); Alkaline Phosphatase 103 U/L (38-126); Anion Gap 11 mmol/L; Blood Urea Nitrogen 9 mg/dL (9-20); Calcium 8.7 mg/dL (8.4-10.2); Carbon Dioxide 19 mmol/L (22-30); Chloride 105 mmol/L (98-107); Glucose 98 mg/dL (74-99); Magnesium 2.2 mg/dL (1.6-2.3); Non-African American GFR(CKD) >90 (>60 ml/min/1.73 sqM); Sodium 135 mmol/L (137-145); Total Bilirubin 0.6 mg/dL (0.2-1.3); Total Protein 7.1 g/dL (6.3-8.2)
[2023-04-22 01:06] LABS: INR 0.9 (<1.2); Partial Thromboplastin Time 22.9 sec (22.0-30.0); Prothrombin Time 9.4 sec (9.0-12.0)
--- NOTE | 2023-04-22 01:09 | ED ---
Alcohol HPI - General Chief Complaint: Alcohol Stated Complaint: ETOH Time Seen by Provider: 04/21/23 23:56 Source: patient, EMS, RN notes reviewed Mode of arrival: EMS Limitations: no limitations - History of Present Illness Initial Comments: 62-year-old male presents emergency Department EMS after syncopal episode. Patient was reportedly passed out at home which initially thought from being acutely intoxicated. He states that he's been pass out of recent he had stent placed 5 months ago he states she's been having extreme lightheadedness and sync opal episodes. had another event today which is not remember he did strike his head. Patient states he does drink daily and continues to smoke even though he's had recent cardiac stent placement. Patient states he is unsure if he is taking his cardiac medications properly. Denies any significant complaints of headache no focal weakness he does quite a bit of his chest. - Related Data Home Medications Medication Instructions Recorded Confirmed Albuterol Inhaler [Ventolin Hfa 2 puff INHALATION RT-QID PRN 10/31/22 03/22/23 Inhaler] Albuterol Nebulized [Ventolin 2.5 mg INHALATION RT-QID 03/22/23 03/22/23 Nebulized] Nitroglycerin Sl Tabs [Nitrostat] 0.4 mg SL Q5M PRN 03/22/23 03/22/23 lisinopriL [Prinivil] 10 mg PO DAILY 03/22/23 03/22/23 Previous Rx's Medication Instructions Recorded Ticagrelor [Brilinta] 90 mg PO BID #60 tab 10/16/22 Acetaminophen Tab [Tylenol] 650 mg PO Q6HR PRN tab 10/17/22 Aspirin 81 mg PO DAILY #30 tab 10/17/22 Atorvastatin [Lipitor] 80 mg PO HS #30 tab 10/17/22 Budesonide-Formot 160-4.5 Mcg 2 puff INHALATION RT-BID #1 inh 10/17/22 [Symbicort 160-4.5 Mcg Inhaler] Famotidine [Pepcid] 20 mg PO BID #60 tab 10/17/22 Metoprolol Tartrate [Lopressor] 25 mg PO BID #60 tab 10/17/22 Allergies Allergy/AdvReac Type Severity Reaction Status Date / Time No Known Allergies Allergy Verified 03/22/23 20:56 Review of Systems ROS Statement: Those systems with pertinent positive or pertinent negative responses have been documented in the HPI. ROS Other: All systems not noted in ROS Statement are negative. Past Medical History Past Medical History: Asthma, COPD, Hypertension, Myocardial Infarction (NE) Additional Past Medical History / Comment(s): Alcoholism Last Myocardial Infarction Date:: n/a History of Any Multi-Drug Resistant Organisms: None Reported Past Surgical History: Appendectomy, Bowel Resection, Ear Surgery, Heart Catheterization With Stent, Hernia Repair, Orthopedic Surgery Past Anesthesia/Blood Transfusion Reactions: No Reported Reaction Date of Last Stent Placement:: 10/05/2022 Past Psychological History: No Psychological Hx Reported Smoking Status: Current every day smoker Past Alcohol Use History: Daily, Heavy Past Drug Use History: Marijuana - Past Family History Father Family Medical History: Coronary Artery Disease (CAD) General Exam Limitations: no limitations General appearance: alert, in no apparent distress Head exam: Present: atraumatic, normocephalic, normal inspection Eye exam: Present: normal appearance, PERRL, EOMI. Absent: scleral icterus, conjunctival injection, periorbital swelling ENT exam: Present: normal exam, normal oropharynx, mucous membranes moist Neck exam: Present: normal inspection, full ROM. Absent: tenderness, meningismus, lymphadenopathy Respiratory exam: Present: normal lung sounds bilaterally. Absent: respiratory distress, wheezes, rales, rhonchi, stridor Cardiovascular Exam: Present: regular rate, normal rhythm, normal heart sounds. Absent: systolic murmur, diastolic murmur, rubs, gallop, clicks GI/Abdominal exam: Present: soft, normal bowel sounds. Absent: distended, tenderness, guarding, rebound, rigid Back exam: Absent: normal inspection (Bruising noted) Neurological exam: Present: alert, oriented X3, CN II-XII intact, reflexes normal. Absent: motor sensory deficit Course Vital Signs 04/22/23 01:10 Temperature 97.7 F Pulse Rate 86 Respiratory 18 Rate Blood Pressure 122/71 O2 Sat by Pulse 96 Oximetry Medical Decision Making - Medical Decision Making Was pt. sent in by a medical professional or institution (, PA, ORDER ENTRY SPECIALIST, urgent care, hospital, or halfway...) When possible be specific @ -No Did you speak to anyone other than the patient for history (EMS, parent, family, police, friend...)? What history was obtained from this source @ -EMS regarding prehospital vitals, care and complaint Did you review nursing and triage notes (agree or disagree)? Why? @ -I reviewed and agree with nursing and triage notes Were old charts reviewed (outside hosp., previous admission, EMS record, old EKG, old radiological studies, urgent care reports/EKG's, halfway records)? Report findings @ -No old charts were reviewed Differential Diagnosis (chest pain, altered mental status, abdominal pain women, abdominal pain men, vaginal bleeding, weakness, fever, dyspnea, syncope, headache, dizziness, GI bleed, back pain, seizure, CVA, palpatations, mental health, musculoskeletal)? @ -nDifferential Syncope: Valvular disease, hypertrophic cardiomyopathy, pulmonary embolism, tamponade, tachycardia, bradycardia, NE, hypovolemia, hemorrhage, dissection, anemia, intracranial hemorrhage, seizure, hypoglycemia, carbon monoxide poisoning, this is not meant to be an all-inclusive list.cable EKG interpreted by me (3pts min.). @ -As above X-rays interpreted by me (1pt min.). @ -Chest x-ray shows no acute process CT interpreted by me (1pt min.). @ -CT brain and C-spine no acute injury U/S interpreted by me (1pt. min.). @ -None done What testing was considered but not performed or refused? (CT, X-rays, U/S, labs)? Why? @ -None What meds were considered but not given or refused? Why? @ -None Did you discuss the management of the patient with other professionals (professionals i.e. , PA, ORDER ENTRY SPECIALIST, lab, RT, psych nurse, school social worker, community service worker, teacher, second officer, community case manager)? Give summary @ -No Was smoking cessation discussed for >3mins.? @ -No Was critical care preformed (if so, how long)? @ -No Were there social determinants of health that impacted care today? How? (Homelessness, low income, unemployed, alcoholism, drug addiction, transportation, low edu. Level, literacy, decrease access to med. care, prison, rehab)? @ -No Was there de-escalation of care discussed even if they declined (Discuss DNR or withdrawal of care, Hospice)? DNR status @ -No What co-morbidities impacted this encounter? (DM, HTN, Smoking, COPD, CAD, Cancer, CVA, ARF, Chemo, Hep., AIDS, mental health diagnosis, sleep apnea, morbid obesity)? @ -CAD Was patient admitted / discharged? Hospital course, mention meds given and route, prescriptions, significant lab abnormalities, going to OR and other pertinent info. @ -Admitted patient is a been having multiple recent syncopal episodes patient states started after recent cardiac stent and medications patient be admitted for cardiology evaluation, acute alcohol intoxication Undiagnosed new problem with uncertain prognosis? @ -No Drug Therapy requiring intensive monitoring for toxicity (Heparin, Nitro, Insulin, Cardizem)? @ -No Were any procedures done? @ -No Diagnosis/symptom? @ -Syncope, intoxication Acute, or Chronic, or Acute on Chronic? @ -Acute Uncomplicated (without systemic symptoms) or Complicated (systemic symptoms)? @ -complicated Side effects of treatment? @ -No Exacerbation, Progression, or Severe Exacerbation? @ -No Poses a threat to life or bodily function? How? (Chest pain, USA, NE, pneumonia, PE, COPD, DKA, ARF, appy, cholecystitis, CVA, Diverticulitis, Homicidal, Suicidal, threat to staff... and all critical care pts) @ -No - Lab Data Result diagrams: 04/22/23 00:46 04/22/23 00:46 Lab Results 04/22/23 04/22/23 04/22/23 Range/Units 00:46 00:46 00:46 WBC 7.8 (3.8-10.6) k/uL RBC 4.61 (4.30-5.90) m/uL Hgb 15.4 (13.0-17.5) gm/dL Hct 45.7 (39.0-53.0) % MCV 99.0 (80.0-100.0) fL MCH 33.3 (25.0-35.0) pg MCHC 33.6 (31.0-37.0) g/dL RDW 12.3 (11.5-15.5) % Plt Count 300 (150-450) k/uL MPV 6.9 Neutrophils % 57 % Lymphocytes % 32 % Monocytes % 7 % Eosinophils % 3 % Basophils % 0 % Neutrophils # 4.4 (1.3-7.7) k/uL Lymphocytes # 2.5 (1.0-4.8) k/uL Monocytes # 0.5 (0-1.0) k/uL Eosinophils # 0.2 (0-0.7) k/uL Basophils # 0.0 (0-0.2) k/uL PT 9.4 (9.0-12.0) sec INR 0.9 (<1.2) APTT 22.9 (22.0-30.0) sec Sodium 135 L (137-145) mmol/L Potassium 4.7 (3.5-5.1) mmol/L Chloride 105 (98-107) mmol/L Carbon Dioxide 19 L (22-30) mmol/L Anion Gap 11 mmol/L BUN 9 (9-20) mg/dL Creatinine 0.64 L (0.66-1.25) mg/dL Est GFR (CKD-EPI)AfAm >90 (>60 ml/min/1.73 sqM) Est GFR (CKD-EPI)NonAf >90 (>60 ml/min/1.73 sqM) Glucose 98 (74-99) mg/dL Calcium 8.7 (8.4-10.2) mg/dL Magnesium 2.2 (1.6-2.3) mg/dL Total Bilirubin 0.6 (0.2-1.3) mg/dL AST 81 H (17-59) U/L ALT 67 H (4-49) U/L Alkaline Phosphatase 103 (38-126) U/L Troponin I (0.000-0.034) ng/mL Total Protein 7.1 (6.3-8.2) g/dL Albumin 4.2 (3.5-5.0) g/dL Serum Alcohol 297 H* mg/dL 04/22/23 Range/Units 00:46 WBC (3.8-10.6) k/uL RBC (4.30-5.90) m/uL Hgb (13.0-17.5) gm/dL Hct (39.0-53.0) % MCV (80.0-100.0) fL MCH (25.0-35.0) pg MCHC (31.0-37.0) g/dL RDW (11.5-15.5) % Plt Count (150-450) k/uL MPV Neutrophils % % Lymphocytes % % Monocytes % % Eosinophils % % Basophils % % Neutrophils # (1.3-7.7) k/uL Lymphocytes # (1.0-4.8) k/uL Monocytes # (0-1.0) k/uL Eosinophils # (0-0.7) k/uL Basophils # (0-0.2) k/uL PT (9.0-12.0) sec INR (<1.2) APTT (22.0-30.0) sec Sodium (137-145) mmol/L Potassium (3.5-5.1) mmol/L Chloride (98-107) mmol/L Carbon Dioxide (22-30) mmol/L Anion Gap mmol/L BUN (9-20) mg/dL Creatinine (0.66-1.25) mg/dL Est GFR (CKD-EPI)AfAm (>60 ml/min/1.73 sqM) Est GFR (CKD-EPI)NonAf (>60 ml/min/1.73 sqM) Glucose (74-99) mg/dL Calcium (8.4-10.2) mg/dL Magnesium (1.6-2.3) mg/dL Total Bilirubin (0.2-1.3) mg/dL AST (17-59) U/L ALT (4-49) U/L Alkaline Phosphatase (38-126) U/L Troponin I <0.012 (0.000-0.034) ng/mL Total Protein (6.3-8.2) g/dL Albumin (3.5-5.0) g/dL Serum Alcohol mg/dL - EKG Data -: EKG Interpreted by Me EKG Comments: EKG performed at 1:07 sinus rhythm rate of 82 [place] 139 QRS 102 QT/QTC 385/424 Disposition Clinical Impression: Alcohol intoxication, Syncope Disposition: ADMITTED IP TO THIS [facility] Condition: Fair Time of Disposition: 01:35
--- NOTE | 2023-04-22 01:15 | CT ---
EXAM: CT Head Without Intravenous Contrast CLINICAL HISTORY: ITS.REASON CT Reason: fall, trauma TECHNIQUE: Axial computed tomography images of the head/brain without intravenous contrast. CTDI is 1117 mGy and DLP is 758.5 mGy-cm. This CT exam was performed using one or more of the following dose reduction techniques: automated exposure control, adjustment of the mA and/or kV according to patient size, and/or use of iterative reconstruction technique. COMPARISON: No relevant prior studies available. FINDINGS: Brain: Unremarkable. No hemorrhage. No significant white matter disease. No edema. Ventricles: Unremarkable. No ventriculomegaly. Bones/joints: Unremarkable. No acute fracture. Soft tissues: Unremarkable. Sinuses: Right maxillary sinus inflammatory changes. Mastoid air cells: Unremarkable as visualized. No mastoid effusion. IMPRESSION: No acute findings in the head/brain. EXAM: CT Cervical Spine Without Intravenous Contrast CLINICAL HISTORY: ITS.REASON CT Reason: fall, trauma TECHNIQUE: Axial computed tomography images of the cervical spine without intravenous contrast. CTDI is 393.2 mGy and DLP is 758.5 mGy-cm. This CT exam was performed using one or more of the following dose reduction techniques: automated exposure control, adjustment of the mA and/or kV according to patient size, and/or use of iterative reconstruction technique. COMPARISON: No relevant prior studies available. FINDINGS: Vertebrae: Mild multilevel cervical spondylopathy without significant canal or neural foraminal stenosis at Stenosis due to a degenerative disc bulge and bony hypertrophy. No acute fracture. Discs/spinal canal/neural foramina: See above. Soft tissues: Unremarkable. Vasculature: Carotid calcifications. IMPRESSION: Mild multilevel cervical spondylopathy without significant canal or neural foraminal stenosis
--- NOTE | 2023-04-22 01:17 | XR ---
EXAM: XR Chest, 2 Views CLINICAL HISTORY: ITS.REASON XR Reason: syncope TECHNIQUE: Frontal and lateral views of the chest. COMPARISON: No relevant prior studies available. FINDINGS: Lungs: Unremarkable. No consolidation. Pleural space: Unremarkable. No pneumothorax. Heart: Unremarkable. No cardiomegaly. Mediastinum: Unremarkable. Bones/joints: Unremarkable. IMPRESSION: Normal chest x-rays.
[2023-04-22 01:22] LABS: Alcohol 297 mg/dL; Potassium 4.7 mmol/L (3.5-5.1)
[2023-04-22] MEDS ORDERED: NITROGLYCERIN SL TABS 0.4 MG TAB SUBLINGUAL PRN (02:07)
[2023-04-22] MEDS ORDERED: LORazepam 1 MG TAB PO PRN ×3 (02:08)
[2023-04-22] MEDS ORDERED: LORazepam 0.5 MG TAB PO PRN (02:08)
[2023-04-22] MEDS ORDERED: THIAMINE 100 MG/ML 2 ML VIAL IM STA (02:08)
[2023-04-22] MEDS: ASPIRIN 81 MG PO SCH (11:01)
[2023-04-22] MEDS: lisinopriL 10 MG TAB PO SCH (11:01)
[2023-04-22] MEDS: METOPROLOL TARTRATE 25 MG TAB PO SCH ×2 (11:01→21:04)
[2023-04-22] MEDS: TICAGRELOR 90 MG TAB PO SCH ×2 (11:01→21:04)
--- NOTE | 2023-04-22 13:40 | P.CRDCN ---
History of Present Illness History of present illness: HISTORY OF PRESENT ILLNESS: This is a 62-year-old male with a past medical history significant for coronary artery disease, hypertension, hyperlipidemia, nicotine dependence, and alcohol abuse. Patient follows in the office with Dr. Guerrero. We have been asked to see the patient in consultation for chest pain and syncope. Patient examined at the bedside in the emergency room. Patient states that he was getting up to use the bathroom yesterday home. He states that he began to feel weak and fell. He is unsure if he lost consciousness. The patient reports he has been having chest pain on and off for the past week. He reports he has been taking his medication s as prescribed. The patient was found to be acutely intoxicated with a level of 297. He states that he drinks half a pint of liquor in 2-3 beers daily. His last drink was yesterday. He reports occasional marijuana use. He is also a cigarette smoker and smokes 1 pack per day. * EKG reveals sinus mechanism with no signs of acute ischemia * Chest xray negative for acute process * Laboratory data: W BC 7.8. Hemoglobin 15.4. Platelet count 300. Sodium 135. Potassium 4.7. BUN 9. Creatinine 0.64. Troponin negative 3 * Current home cardiac medications include Brilinta 90 mg twice a day, lis inopril 10 mg daily, metoprolol tartrate 25 mg twice a day, Lipitor 80 mg at night, and aspirin 81 mg daily * Most recent echocardiogram obtained in March 2023 reveals ejection fraction 45%, mild right ventricular dilation, RVSP 31, mildly dilated left atrium * Cardiac catheterization history: October 2022 revealing 95% OM1 stenosis with PCI of the proximal OM1. Patient was also found to have mid LAD 20-30% stenosis. Right coronary artery was not imaged at this time however is known to be 100% occluded. REVIEW OF SYSTEMS: At the time of my exam: CONSTITUTIONAL: Denies fever or chills. HEENT: Denies blurred vision, vision changes, or eye pain. Denies hemoptysis CARDIOVASCULAR: Denies chest pain. Denies orthopnea. Denies PND. Denies palpitations RESPIRATORY: Denies shortness of breath. GASTROINTESTINAL: Denies abdominal pain. Denies nausea or vomiting. HEMATOLOGIC: Denies bleeding disorders. GENITOURINARY: Denies any blood in urine. SKIN: Denies pruitis. Denies rash. PHYSICAL EXAM: VITAL SIGNS: Reviewed. GENERAL: Well-developed in no acute distress. HEENT: Head is normocephalic. Pupils are equal, round. Sclerae anicteric. Mucous membranes of the mouth are moist. Neck supple. No JVD or thyromegaly LUNGS: Respirations even and unlabored. Lungs essentially clear to auscultation bilaterally. HEART: Regular rate and rhythm. S1 and S2 heard. ABDOMEN: Soft. Nondistended. Nontender. EXTREMITIES: Normal range of motion. No clubbing or cyanosis. Peripheral pulses intact. No lower extremity edema NEUROLOGIC: Awake and alert. Oriented x 3. ASSESSMENT: Chest pain, troponins negative 3 Status post fall, does not appear to be syncopal in nature Acute alcohol intoxication Coronary artery disease with stenting of the proximal OM, October 2022 Known chronic total occlusion of the RCA Hypertension Hyperlipidemia History of alcohol abuse Nicotine dependence, patient smokes 1 pack per day Marijuana use PLAN: An acute coronary event has been ruled out Resume home cardiac medications Continue antiplatelet therapy with aspirin and Brilinta Abstinence from alcohol recommended Smoking cessation encouraged Patient is stable for discharge home today from a cardiac standpoint Recommend outpatient stress testing when patient is medically stable and not acutely intoxicated Patient may follow up in the office with Dr. Guerrero Nurse practitioner note has been reviewed by physician. Signing provider agrees with the documented findings, assessment, and plan of care. Dr. Alaniz's Addendum Patient is noncompliant and drinks half pint of alcohol and 48 ounces of beer every day. He also smokes 1 pack per day. Patient had recent PCI. He does report that he is compliant to Brilinta takes it twice daily. His EKG and troponins do not show any evidence of ACS. His symptoms of chest pain is very atypical and this patient is not able to give reliable history as younger siblings intoxicated with his serum alcohol levels being high. Patient denies any interest in quitting alcohol or smoking at this time. Further cardiac testing is not recommended at this time. He would benefit from an outpatient stress test once patient is not under the influence of alcohol. I have personally seen and examined the patient. I have personally performed all the components of medical care documented above including formulating the assessment and plan. I have personally reviewed the relevant labs, imaging and other diagnostics. I have discussed this in detail with my MDS COORDINATOR who has helped me with this documentation. I have carefully reviewed this document before finalizing. Total time spent reviewing medical chart, examining patient, cou nselling patient and documentation [45] mins Thank you for letting cardiology team participating in this patient's care. Dr. Ren Alaniz MD Cardiovascular Disease Past Medical History Past Medical History: Asthma, COPD, Hypertension, Myocardial Infarction ([place]) Additional Past Medical History / Comment(s): Alcoholism Last Myocardial Infarction Date:: n/a History of Any Multi-Drug Resistant Organisms: None Reported Past Surgical History: Appendectomy, Bowel Resection, Ear Surgery, Heart Catheterization With Stent, Hernia Repair, Orthopedic Surgery Past Anesthesia/Blood Transfusion Reactions: No Reported Reaction Date of Last Stent Placement:: 10/05/2022 Past Psychological History: No Psychological Hx Reported Smoking Status: Current every day smoker Past Alcohol Use History: Daily, Heavy Past Drug Use History: Marijuana - Past Family History Father Family Medical History: Coronary Artery Disease (CAD) Medications and Allergies Home Medications Medication Instructions Recorded Confirmed Type Ticagrelor [Brilinta] 90 mg PO BID #60 tab 10/16/22 04/22/23 Rx Acetaminophen Tab [Tylenol] 650 mg PO Q6HR PRN tab 10/17/22 04/22/23 Rx Aspirin 81 mg PO DAILY #30 tab 10/17/22 04/22/23 Rx Atorvastatin [Lipitor] 80 mg PO HS #30 tab 10/17/22 04/22/23 Rx Budesonide-Formot 160-4.5 Mcg 2 puff INHALATION RT-BID #1 inh 10/17/22 04/22/23 Rx [Symbicort 160-4.5 Mcg Inhaler] Famotidine [Pepcid] 20 mg PO BID #60 tab 10/17/22 04/22/23 Rx Metoprolol Tartrate [Lopressor] 25 mg PO BID #60 tab 10/17/22 04/22/23 Rx Albuterol Inhaler [Ventolin Hfa 2 puff INHALATION RT-QID PRN 10/31/22 04/22/23 History Inhaler] Albuterol Nebulized [Ventolin 2.5 mg INHALATION RT-QID 03/22/23 04/22/23 History Nebulized] Nitroglycerin Sl Tabs [Nitrostat] 0.4 mg SL Q5M PRN 03/22/23 04/22/23 History lisinopriL [Prinivil] 10 mg PO DAILY 03/22/23 04/22/23 History Allergies Allergy/AdvReac Type Severity Reaction Status Date / Time No Known Allergies Allergy Verified 04/22/23 08:03 Physical Exam Vitals: Vital Signs Temp Pulse Resp BP Pulse Ox 04/22/23 08:44 77 19 144/83 97 04/22/23 01:10 97.7 F 86 18 122/71 96 Intake and Output 04/21/23 04/22/23 04/22/23 22:59 06:59 14:59 Other: Weight 76.204 kg Results 04/22/23 00:46 04/22/23 00:46 Cardiac Enzymes 04/22/23 04/22/23 04/22/23 Range/Units 00:46 00:46 05:16 AST 81 H (17-59) U/L Troponin I <0.012 0.014 (0.000-0.034) ng/mL 04/22/23 Range/Units 08:15 AST (17-59) U/L Troponin I 0.015 (0.000-0.034) ng/mL Coagulation 04/22/23 Range/Units 00:46 PT 9.4 (9.0-12.0) sec APTT 22.9 (22.0-30.0) sec CBC 04/22/23 Range/Units 00:46 WBC 7.8 (3.8-10.6) k/uL RBC 4.61 (4.30-5.90) m/uL Hgb 15.4 (13.0-17.5) gm/dL Hct 45.7 (39.0-53.0) % Plt Count 300 (150-450) k/uL Comprehensive Metabolic Panel 04/22/23 Range/Units 00:46 Sodium 135 L (137-145) mmol/L Potassium 4.7 (3.5-5.1) mmol/L Chloride 105 (98-107) mmol/L Carbon Dioxide 19 L (22-30) mmol/L BUN 9 (9-20) mg/dL Creatinine 0.64 L (0.66-1.25) mg/dL Glucose 98 (74-99) mg/dL Calcium 8.7 (8.4-10.2) mg/dL AST 81 H (17-59) U/L ALT 67 H (4-49) U/L Alkaline Phosphatase 103 (38-126) U/L Total Protein 7.1 (6.3-8.2) g/dL Albumin 4.2 (3.5-5.0) g/dL Current Medications Generic Name Dose Route Start Last Admin Trade Name Freq PRN Reason Stop Dose Admin Aspirin 81 mg 04/22/23 10:00 Aspirin 81 Mg PO DAILY [facility] Atorvastatin Calcium 80 mg 04/22/23 21:00 Atorvastatin 80 Mg Tab PO HS AUNG Lisinopril 10 mg 04/22/23 10:00 Lisinopril 10 Mg Tab PO DAILY AUNG Lorazepam 0.5 mg 04/22/23 02:08 Lorazepam 0.5 Mg Tab PO Q4HR PRN Ciwa 4 To 5 Lorazepam 1 mg 04/22/23 02:08 Lorazepam 1 Mg Tab PO Q4HR PRN Ciwa 6 To 7 Lorazepam 2 mg 04/22/23 02:08 Lorazepam 1 Mg Tab PO Q2HR PRN Ciwa 10 or greater Lorazepam 2 mg 04/22/23 02:08 Lorazepam 1 Mg Tab PO Q3HR PRN Ciwa 8 To 9 Metoprolol Tartrate 25 mg 04/22/23 10:00 Metoprolol Tartrate 25 Mg Tab PO BID AUNG Nitroglycerin 0.4 mg 04/22/23 02:07 Nitroglycerin Sl Tabs 0.4 Mg Tab SUBLINGUAL Q5M PRN Chest Pain Thiamine HCl 100 mg 04/23/23 09:00 Thiamine 100 Mg Tab PO DAILY AUNG Ticagrelor 90 mg 04/22/23 10:00 Ticagrelor 90 Mg Tab PO BID AUNG Intake and Output 04/21/23 04/22/23 04/22/23 22:59 06:59 14:59 Other: Weight 76.204 kg 04/22/23 00:46 04/22/23 00:46
--- NOTE | 2023-04-22 19:38 | HP ---
HISTORY AND PHYSICAL HISTORY OF PRESENT ILLNESS: A 62-year-old white male came to emergency room with syncope, passed out at home, acutely intoxicated. He . He became lightheaded with syncope. He did not strike his head. He does drink daily, continues to smoke, not taking his medications at home for his heart. HOME MEDICATIONS: Include: 1. Albuterol inhaler. 2. Nitroglycerin sublingual. 3. Prinivil 10 mg daily. 4. He takes Pepcid 20 b.i.d. 5. Lopressor 25 b.i.d. 6. Lipitor 80 daily. 7. Aspirin 81 daily. 8. Brilinta 90 b.i.d. REVIEW OF SYSTEMS: Fourteen-point review of systems is otherwise negative. ALLERGIES: Negative. PAST MEDICAL HISTORY: Asthma, COPD, hypertension, and myocardial infarction. PAST SURGICAL HISTORY: Appendectomy, bowel resection, heart catheterization with stent, hernia repair, and orthopedic surgery. SOCIAL HISTORY: Current everyday smoker, heavy alcohol, marijuana. FAMILY HISTORY: Father, coronary artery disease. PHYSICAL EXAMINATION: VITAL SIGNS: Blood pressure 120s/70s, temperature 97.7, pulse , respiratory rate 16 to 18, O2 of 96%. HEENT: Normocephalic and atraumatic. Pupils are equal, round, and reactive. LUNGS: Transmitted upper airway sounds. CARDIOVASCULAR: S1 and S2. GI: Soft. BACK: Range of motion is full. CRANIAL NERVES: Intact. PSYCHIATRIC: Fair mood and affect. ASSESSMENT: 1. Syncope, possible vasovagal. Rule out cardiac event. 2. Alcohol intoxication. 3. Mild dehydration. 4. Mild hyponatremia. 5. Elevated liver enzymes secondary to alcohol intake. PLAN: [facility] protocol. Cardiology to rule out any cardiac source of syncope. Watching for alcohol withdrawal. EKG, sinus rhythm. Prognosis is guarded. Wait for Neurology recommendations prior to him going home. MMODL / IJN: [id number] /
[2023-04-22] MEDS: ATORVASTATIN 80 MG TAB PO SCH (21:04)
[2023-04-22] MEDS ORDERED: BUTALB/APAP/CAFF 50-325-40MG TAB PO PRN (22:03)
[2023-04-22] MEDS: SODIUM CHLORIDE 0.9% 1,000 ML IV SCH (22:22)
[2023-04-23] MEDS: SODIUM CHLORIDE 0.9% 1,000 ML IV SCH ×2 (08:15→20:32)
[2023-04-23] MEDS: SYMBICORT 160-4.5 MCG INHALER INHALATION SCH ×2 (08:32→20:55)
[2023-04-23] MEDS: TICAGRELOR 90 MG TAB PO SCH ×2 (09:42→20:32)
[2023-04-23] MEDS: lisinopriL 10 MG TAB PO SCH (09:42)
[2023-04-23] MEDS: THIAMINE 100 MG TAB PO SCH (09:42)
[2023-04-23] MEDS: METOPROLOL TARTRATE 25 MG TAB PO SCH ×2 (09:42→20:32)
[2023-04-23] MEDS: FAMOTIDINE 20 MG TAB PO SCH ×2 (09:42→20:32)
[2023-04-23] MEDS: ASPIRIN 81 MG PO SCH (09:42)
[2023-04-23 13:23] LABS: Basophils # (A) 0.05 X 10*3/uL (0.00-0.10); Basophils % (A) 0.7 %; Eosinophils # (A) 0.16 X 10*3/uL (0.04-0.35); Eosinophils % (A) 2.4 %; HCT 42.3 % (39.6-50.0); HGB 14.4 d/dL (12.0-15.0); Lymphocytes # (A) 1.84 X 10*3/uL (0.90-5.00); Lymphocytes % (A) 27.3 %; Mean Platelet Volume 9.3 FL (9.5-12.2); Monocytes # (A) 0.79 X 10*3/uL (0.20-1.00); Monocytes % (A) 11.7 %; NRBC Per 100 WBC 0 X 10*3/uL (0.00-0.01); Neutrophils # (A) 3.88 X 10*3/uL (1.80-7.70); Neutrophils % (A) 57.5 %; Platelet Count 250 X 10*3/uL (140-440); RBC 4.36 X 10*6/uL (4.40-5.60); RDW 12.9 % (11.5-14.5); WBC 6.75 X 10*3/uL (4.50-10.00)
[2023-04-23 13:36] LABS: ALT 59 U/L (10-49); AST 60 U/L (14-35); Albumin 3.5 d/dL (3.8-4.9); Albumin/Globulin Ratio 1.84 Ratio (1.60-3.17); Alkaline Phosphatase 95 U/L (41-126); BUN/Creat Ratio 9.62 Ratio (12.00-20.00); Blood Urea Nitrogen 7.7 mg/dL (9.0-27.0); Calcium 8.8 mg/dL (8.7-10.3); Carbon Dioxide 20.9 mmol/L (21.6-31.8); Chloride 108 mmol/L (96-109); Chol/HDL Ratio 1.63 Ratio; Globulin 1.9 d/dL (1.6-3.3); Glucose 88 mg/dL (70-110); LDL Cholesterol,Calculated 32.2 mg/dL (0.0-131.0); Sodium 140 mmol/L (135-145); Total Bilirubin 0.7 mg/dL (0.3-1.2); Total Protein 5.4 d/dL (6.2-8.2)
[2023-04-23] MEDS: ATORVASTATIN 80 MG TAB PO SCH (20:32)
[2023-04-24 02:07] VITALS: RESP 16
[2023-04-24] MEDS: SODIUM CHLORIDE 0.9% 1,000 ML IV SCH (05:44)
[2023-04-24] MEDS: SYMBICORT 160-4.5 MCG INHALER INHALATION SCH (08:00)
[2023-04-24 08:52] VITALS: BP 156/84; PULSE 60; TEMP 97.9
[2023-04-24] MEDS: FAMOTIDINE 20 MG TAB PO SCH (10:27)
[2023-04-24] MEDS: TICAGRELOR 90 MG TAB PO SCH (10:27)
[2023-04-24] MEDS: lisinopriL 10 MG TAB PO SCH (10:27)
[2023-04-24] MEDS: ASPIRIN 81 MG PO SCH (10:27)
[2023-04-24] MEDS: METOPROLOL TARTRATE 25 MG TAB PO SCH (10:27)
[2023-04-24] MEDS: THIAMINE 100 MG TAB PO SCH (10:27)
[2023-04-24] MEDS ORDERED: FOLIC ACID 1 MG TAB PO SCH (11:15)
--- NOTE | 2023-04-24 12:16 | P.CNNES ---
History of Present Illness Consult date: 04/24/23 Requesting physician: Shane King Reason for Consult: syncope History of Present Illness: This is a 62-year-old gentleman with history of hypertension, CAD s/p stent, significant alcohol use, tobacco use, marijuana use who was syncopal episode. Patient states that he does not feel he drinks heavily. He drinks half a pint according to him with 2 beers daily. Regarding the syncope episode he states that the there been going on for the past couple months and happened once a month and happens he thinks when he is getting up from sitting to standing position. Denies any tongue bite, denies being told that he shaken with these episodes according to the patient. Denies any history of seizures. He denies any history of stroke to his knowledge. According to the nurse she notified her that that V they happen when the he over drinks alcohol but to me he stated initially no and later stated that one of the episodes happen when he over drank. Some of the workup during his hospital visit consisted of: Lipid panel is cholesterol is 118, LDL is 32, HDL is 72, triglyceride is 67. Alcohol level is 297. CT of the head is reported as no acute finding in the head/brain CT cervical spine is reported as mild multilevel cervical spondylopathy without significant canal or neuroforaminal stenosis. I personally reviewed the CT and the fact the patient has hypodensity over the left basal ganglia/kim radiata, another one adjacent to the left anterior horn of left ventricle that is small in size. Past Medical History Past Medical History: Asthma, COPD, Hypertension, Myocardial Infarction ([place]) Additional Past Medical History / Comment(s): Alcoholism Last Myocardial Infarction Date:: n/a History of Any Multi-Drug Resistant Organisms: None Reported Past Surgical History: Appendectomy, Bowel Resection, Ear Surgery, Heart Catheterization With Stent, Hernia Repair, Orthopedic Surgery Past Anesthesia/Blood Transfusion Reactions: No Reported Reaction Date of Last Stent Placement:: 10/05/2022 Past Psychological History: No Psychological Hx Reported Smoking Status: Current every day smoker Past Alcohol Use History: Daily, Heavy Past Drug Use History: Marijuana - Past Family History Father Family Medical History: Coronary Artery Disease (CAD) Medications and Allergies Home Medications Medication Instructions Recorded Confirmed Type Ticagrelor [Brilinta] 90 mg PO BID #60 tab 10/16/22 04/22/23 Rx Acetaminophen Tab [Tylenol] 650 mg PO Q6HR PRN tab 10/17/22 04/22/23 Rx Aspirin 81 mg PO DAILY #30 tab 10/17/22 04/22/23 Rx Atorvastatin [Lipitor] 80 mg PO HS #30 tab 10/17/22 04/22/23 Rx Budesonide-Formot 160-4.5 Mcg 2 puff INHALATION RT-BID #1 inh 10/17/22 04/22/23 Rx [Symbicort 160-4.5 Mcg Inhaler] Famotidine [Pepcid] 20 mg PO BID #60 tab 10/17/22 04/22/23 Rx Metoprolol Tartrate [Lopressor] 25 mg PO BID #60 tab 10/17/22 04/22/23 Rx Albuterol Inhaler [Ventolin Hfa 2 puff INHALATION RT-QID PRN 10/31/22 04/22/23 History Inhaler] Albuterol Nebulized [Ventolin 2.5 mg INHALATION RT-QID 03/22/23 04/22/23 History Nebulized] Nitroglycerin Sl Tabs [Nitrostat] 0.4 mg SL Q5M PRN 03/22/23 04/22/23 History lisinopriL [Prinivil] 10 mg PO DAILY 03/22/23 04/22/23 History Allergies Allergy/AdvReac Type Severity Reaction Status Date / Time No Known Allergies Allergy Verified 04/22/23 08:03 Physical Examination - Vital Signs Vital Signs: Vital Signs Temp Pulse Resp BP Pulse Ox 04/24/23 08:00 96 04/24/23 07:40 97.9 F 60 16 156/84 98 04/24/23 01:03 98.3 F 63 16 129/77 96 04/23/23 19:27 97.6 F 80 14 137/79 98 04/23/23 15:00 97.4 F L 69 16 136/61 97 Intake and Output 04/23/23 04/24/23 04/24/23 22:59 06:59 14:59 Intake Total 118 Output Total 220 Balance -102 Intake: Oral 118 Output: Urine 220 Other: # Voids 2 2 GENERAL: The patient is lying in bed and is not in acute distress. NEUROLOGICAL: Higher mental function: The patient is awake, alert, oriented to self, place and time. Patient is following commands. No aphasia and no neglect. Cranial nerves: The pupils are round, equal and reactive to light and accommodation. Visual tan are full to confrontation throughout. Extraocular movement is intact no nystagmus is noted. Facial sensation is normal to touch throughout. The facial strength is normal throughout. Hearing is normal bilaterally to hand rub. Tongue is midline and moved [id number] without any difficulty. No dysarthria is noted. Shoulder shrug is normal bilaterally. Motor: Gait is normal. The strength is 5 over 5 throughout. Normal tone and bulk. Cerebellum: Normal finger to nose heel to [place] bilaterally. Has a subtle tremor with movement of uppers and there is no dysmetria or ataxia noted Sensation: Sensation is normal to touch throughout. Reflexes (right/left): 2+ throughout. Plantars are downgoing bilaterally. Results - Laboratory Findings CBC and BMP: 04/23/23 06:40 04/23/23 06:40 Abnormal Lab Findings: Abnormal Labs 04/22/23 04/23/23 04/23/23 00:46 06:40 06:40 RBC 4.36 L MCH 33.0 H MPV 9.3 L Sodium 135 L Carbon Dioxide 19 L 20.9 L BUN 7.7 L Creatinine 0.64 L BUN/Creatinine Ratio 9.62 L AST 81 H 60 H ALT 67 H 59 H Total Protein 5.4 L Albumin 3.5 L HDL Cholesterol 72.30 H Serum Alcohol 297 H* Assessment and Plan Assessment: This is a 62-year-old gentleman with significant alcohol use who states he is having syncopal episodes at home for the past couple months. He notified the nurse it happens when he overdrinks on alcohol. His alcohol level during this hospital visit is 297. Denies hx of stroke or seizure in past. Syncope: Unsure exact cause but probable due to alcohol intoxication. On CT head it appears he has old stroke on left basal ganglia/kim radiata: Likely due to chronic small vessel disease due to his risk factors. He denies history of stroke. Alcohol intoxication 297 History of Coronary artery disease s/p stent Hypertension Nicotine use Marijuana use Plan: I ordered a routine EEG to rule out any underlying seizure discharges. I ordered carotid duplex especially with the the old stroke to rule out any significant carotid stenosis that could've contributed to the stroke other than the chronic small vessel disease and to rule out any the significant stenosis that can contribute to syncope Ordered orthostatic vitals He was started on aspirin 81 mg as well as Brilinta 90mg bid by cardiology team. Cardiology team started him on Lipitor 80 mg daily at bedtime. I'll defer the use of statin and dose since he has alcohol intoxication that can cause liver issues. Recommend MRI of the brain. I started him on folic acid 1mg daily. She was counseled on tobacco cessation as well as alcohol cessation. We'll defer the rest of the medical management to the primary team and cardi ology team. Recommend the patient follow up with a neurologist in outpatient within 1-2 weeks The plan was discussed with the patient and his nurses at bedside. Thank you for the consultation Time with Patient: Greater than 30
--- NOTE | 2023-04-24 18:15 | EEG ---
ELECTROENCEPHALOGRAM REPORT CLINICAL HISTORY: This is a 62-year-old gentleman with significant alcohol use, who was having a syncopal episode at home that he reports. The video EEG is obtained to evaluate for seizure and epileptiform activity. RELEVANT MEDICATION: Ativan. EEG TYPE: A routine 21-channel EEG is performed with video using the 10/20 electrode placement system. DESCRIPTION: The posterior dominant rhythm consists of [id number] voltage of 9 to 10 Hz activity that is well modulated and well sustained. There is no physiological stage II sleep architecture. There is no focal slowing. INTERICTAL AND ICTAL: None. ACTIVATION PROCEDURE: Photic stimulation did not evoke a posterior driving response. There is no abnormality during the photic stimulation. Hyperventilation was not performed. CLINICAL INTERPRETATION: This is a normal routine EEG. There is no focal slowing, epileptiform discharge, or seizure on the EEG. A normal routine EEG does not rule out underlying epilepsy. Clinical correlation is recommended. DG / TIM: [id number] / MTDD
== END 2023-04-24 12:17 | disposition left against medical advice (07) ==
LOC: EC 23:44 → 6NMEDSUR 04-22 02:07
PROVIDERS: ADMIT Family Medicine; ATTEND Family Medicine
DX: R55 Syncope and collapse (principal); R07.9 Chest pain, unspecified; F10.229 Alcohol dependence with intoxication, unspecified; Y90.8 Blood alcohol level of 240 mg/100 ml or more; E87.1 Hypo-osmolality and hyponatremia; F17.210 Nicotine dependence, cigarettes, uncomplicated; I10 Essential (primary) hypertension; I25.10 Atherosclerotic heart disease of native coronary artery without angina pectoris; I25.2 Old myocardial infarction; E86.0 Dehydration; W19.XXXA Unspecified fall, initial encounter; E78.5 Hyperlipidemia, unspecified; Z79.82 Long term (current) use of aspirin; Z79.899 Other long term (current) drug therapy; Z86.73 Personal history of transient ischemic attack (TIA), and cerebral infarction without residual deficits; Z95.5 Presence of coronary angioplasty implant and graft; Z79.02 Long term (current) use of antithrombotics/antiplatelets; J44.9 Chronic obstructive pulmonary disease, unspecified; Z90.49 Acquired absence of other specified parts of digestive tract; Z71.41 Alcohol abuse counseling and surveillance of alcoholic; Z71.6 Tobacco abuse counseling; Z82.49 Family history of ischemic heart disease and other diseases of the circulatory system
CPT/HCPCS: 96361 ×3; 96360; 99285; 36415; 94640 ×3; 94760 ×2; 95816; 93005; 80061; 80053 ×2; 83735; 84484; 85025 ×2; 85610; 85730; 71046; 72125; 70450; G0378 ×3; G0480; 80320

== ENCOUNTER 2023-05-01 00:36 | Observation (INO) | payer OTHER ==
[2023-05-01] MEDS ORDERED: SODIUM CHLORIDE 0.9% 1,000 ML IV STA ×2 (00:54)
[2023-05-01] MEDS ORDERED: THIAMINE 100 MG/ML 2 ML VIAL IVPB STA (00:54)
[2023-05-01] MEDS ORDERED: SODIUM CHLORIDE 0.9% 500 ML 500 ML IV STA (00:54)
--- NOTE | 2023-05-01 00:54 | ED ---
Weakness HPI - General Stated complaint: Loss of balance Time Seen by Provider: 05/01/23 00:39 Source: RN notes reviewed, old records reviewed Mode of arrival: EMS Limitations: altered mental status - History of Present Illness Initial comments: This is a 62-year-old male. Patient presents today patient for evaluation of intoxication, not feeling well off-balance weak and dizzy. Patient feels unsteady on his feet. Patient does have recent hospital admission and inpatient evaluation. Symptoms have been persistent for 2 months MD Complaint: generalized weakness, difficulty walking -: days(s) Location: generalized Severity: moderate Severity scale (1-10): 4 Quality: tingling Consistency: constant Improves with: none Worsens with: none Context: history of similar Associated Symptoms: confusion - Related Data Home Medications Medication Instructions Recorded Confirmed Albuterol Inhaler [Ventolin Hfa 2 puff INHALATION RT-QID PRN 10/31/22 05/01/23 Inhaler] Albuterol Nebulized [Ventolin 2.5 mg INHALATION RT-QID 03/22/23 05/01/23 Nebulized] Nitroglycerin Sl Tabs [Nitrostat] 0.4 mg SL Q5M PRN 03/22/23 05/01/23 lisinopriL [Prinivil] 10 mg PO DAILY 03/22/23 05/01/23 Previous Rx's Medication Instructions Recorded Ticagrelor [Brilinta] 90 mg PO BID #60 tab 10/16/22 Acetaminophen Tab [Tylenol] 650 mg PO Q6HR PRN tab 10/17/22 Atorvastatin [Lipitor] 80 mg PO HS #30 tab 10/17/22 Budesonide-Formot 160-4.5 Mcg 2 puff INHALATION RT-BID #1 inh 10/17/22 [Symbicort 160-4.5 Mcg Inhaler] Metoprolol Tartrate [Lopressor] 25 mg PO BID #60 tab 10/17/22 Allergies Allergy/AdvReac Type Severity Reaction Status Date / Time No Known Allergies Allergy Verified 05/01/23 07:32 Review of Systems ROS Statement: Those systems with pertinent positive or pertinent negative responses have been documented in the HPI. ROS Other: All systems not noted in ROS Statement are negative. Past Medical History Past Medical History: Asthma, COPD, Hypertension, Myocardial Infarction (GA) Additional Past Medical History / Comment(s): Alcoholism Last Myocardial Infarction Date:: n/a History of Any Multi-Drug Resistant Organisms: None Reported Past Surgical History: Appendectomy, Bowel Resection, Ear Surgery, Heart Catheterization With Stent, Hernia Repair, Orthopedic Surgery Past Anesthesia/Blood Transfusion Reactions: No Reported Reaction Date of Last Stent Placement:: 10/05/2022 Past Psychological History: No Psychological Hx Reported Smoking Status: Current every day smoker Past Alcohol Use History: Daily, Heavy Past Drug Use History: Marijuana - Past Family History Father Family Medical History: Coronary Artery Disease (CAD) General Exam General appearance: alert, in no apparent distress, appears intoxicated Head exam: Present: atraumatic, normocephalic, normal inspection Eye exam: Present: normal appearance, PERRL, EOMI. Absent: scleral icterus, conjunctival injection, periorbital swelling ENT exam: Present: normal exam, mucous membranes moist Neck exam: Present: normal inspection. Absent: tenderness, meningismus, lymphadenopathy Respiratory exam: Present: normal lung sounds bilaterally. Absent: respiratory distress, wheezes, rales, rhonchi, stridor Cardiovascular Exam: Present: regular rate, normal rhythm, normal heart sounds. Absent: systolic murmur, diastolic murmur, rubs, gallop, clicks GI/Abdominal exam: Present: soft, normal bowel sounds. Absent: distended, tenderness, guarding, rebound, rigid Extremities exam: Present: normal inspection, full ROM, normal capillary refill. Absent: tenderness, pedal edema, joint swelling, calf tenderness Back exam: Present: normal inspection Neurological exam: Present: alert, oriented X3, CN II-XII intact Psychiatric exam: Present: normal affect, normal mood Skin exam: Present: warm, dry, intact, normal color. Absent: rash Course Vital Signs 05/01/23 05/01/23 05/01/23 01:05 05:47 07:41 Temperature 97.1 F L Pulse Rate 85 86 Respiratory 18 20 Rate Blood Pressure 163/96 127/94 O2 Sat by Pulse 99 96 Oximetry 05/01/23 05/01/23 05/01/23 07:50 08:20 11:26 Temperature Pulse Rate 90 92 78 Respiratory 18 Rate Blood Pressure 128/55 O2 Sat by Pulse 98 Oximetry 05/01/23 05/01/23 05/01/23 11:34 11:41 14:52 Temperature Pulse Rate 81 68 64 Respiratory 18 18 Rate Blood Pressure 156/86 148/81 O2 Sat by Pulse 96 96 Oximetry - Reevaluation(s) Reevaluation #1: 05/01/23 00:54 Medical record is reviewed Reevaluation #4: 05/01/23 00:54 Was pt. sent in by a medical professional or institution (JOSE Coehlo, QUARTER SUPERVISOR, urgent care, hospital, or [facility]...) When possible be specific @ -no Did you speak to anyone other than the patient for history (EMS, parent, family, police, friend...)? What history was obtained from this source @ -no Did you review nursing and triage notes (agree or disagree)? Why? @ -agree Are old charts reviewed (outside hosp., previous admission, EMS record, old EKG, old radiological studies, urgent care reports/EKG's, [facility] records)? Report findings @ -yes Differential Diagnosis (chest pain, altered mental status, abdominal pain women, abdominal pain men, vaginal bleeding, weakness, fever, dyspnea, syncope, h eadache, dizziness, GI bleed, back pain, seizure, CVA, palpatations, mental health, musculoskeletal)? @ -prior EKG interpreted by me (3pts min.). @ -yes X-rays interpreted by me (1pt min.). @ -yes CT interpreted by me (1pt min.). @ -no U/S interpreted by me (1pt. min.). @ -no What testing was considered but not performed or refused? (CT, X-rays, U/S, labs)? Why? @ -none What meds were considered but not given or refused? Why? @ -none Did you discuss the management of the patient with other professionals (professionals i.e. JOSE Coelho, QUARTER SUPERVISOR, lab, RT, psych nurse, social sciences chair, computer assembler, teacher, co founder and chief strategy officer, community case manager)? Give summary @ -no Was smoking cessation discussed for >3mins.? @ -no Was critical care preformed (if so, how long)? @ -no Were there social determinants of health that impacted care today? How? (Homelessness, low income, unemployed, alcoholism, drug addiction, transportation, low edu. Level, literacy, decrease access to med. care, [facility], rehab)? @ -none Was there de-escalation of care discussed even if they declined (Discuss DNR or withdrawal of care, Hospice)? DNR status @ -no What co-morbidities impacted this encounter? (DM, HTN, Smoking, COPD, CAD, Ca ncer, CVA, ARF, Chemo, Hep., AIDS, mental health diagnosis, sleep apnea, morbid obesity)? @ -none Was patient admitted / discharged? Hospital course, mention meds given and route, prescriptions, significant lab abnormalities, going to OR and other pertinent info. @ - Undiagnosed new problem with uncertain prognosis? @ -no Drug Therapy requiring intensive monitoring for toxicity (Heparin, Nitro, Insulin, Cardizem)? @ -no Were any procedures done? @ -no Diagnosis/symptom? @ - Acute, or Chronic, or Acute on Chronic? @ -Acute Uncomplicated (without systemic symptoms) or Complicated (systemic symptoms)? @ -Complicated Side effects of treatment? @ -no Exacerbation, Progression, or Severe Exacerbation? @ -exacerbation Poses a threat to life or bodily function? How? (Chest pain, USA, GA, pneumonia, PE, COPD, DKA, ARF, appy, cholecystitis, CVA, Diverticulitis, Homicidal, Suicidal, threat to staff... and all critical care pts) @ -yes Reevaluation #5: 05/01/23 00:54 Differential Altered Mental Status: Hypoglycemia, DKA, hypercapnia, ETOH, overdose, CO poisoning, trauma, myxedema coma, HTN encephalopathy, infection, encephalitis, psychosis, intercranial hemorrhage, hepatic encephalopathy, meningitis, CVA, this is not meant to be an all-inclusive list Medical Decision Making - Lab Data Result diagrams: 05/01/23 01:15 05/01/23 01:15 Lab Results 05/01/23 05/01/23 Range/Units 01:15 01:15 WBC 6.8 (3.8-10.6) k/uL RBC 4.74 (4.30-5.90) m/uL Hgb 15.8 (13.0-17.5) gm/dL Hct 46.4 (39.0-53.0) % MCV 98.0 (80.0-100.0) fL MCH 33.4 (25.0-35.0) pg MCHC 34.1 (31.0-37.0) g/dL RDW 12.4 (11.5-15.5) % Plt Count 315 (150-450) k/uL MPV 6.8 Neutrophils % 57 % Lymphocytes % 30 % Monocytes % 7 % Eosinophils % 3 % Basophils % 1 % Neutrophils # 3.8 (1.3-7.7) k/uL Lymphocytes # 2.1 (1.0-4.8) k/uL Monocytes # 0.5 (0-1.0) k/uL Eosinophils # 0.2 (0-0.7) k/uL Basophils # 0.1 (0-0.2) k/uL Sodium 137 (137-145) mmol/L Potassium 4.5 (3.5-5.1) mmol/L Chloride 104 (98-107) mmol/L Carbon Dioxide 21 L (22-30) mmol/L Anion Gap 12 mmol/L BUN 10 (9-20) mg/dL Creatinine 0.61 L (0.66-1.25) mg/dL Est GFR (CKD-EPI)AfAm >90 (>60 ml/min/1.73 sqM) Est GFR (CKD-EPI)NonAf >90 (>60 ml/min/1.73 sqM) Glucose 96 (74-99) mg/dL Calcium 9.0 (8.4-10.2) mg/dL Phosphorus 4.0 (2.5-4.5) mg/dL Magnesium 2.4 H (1.6-2.3) mg/dL Total Bilirubin 0.5 (0.2-1.3) mg/dL AST 79 H (17-59) U/L ALT 64 H (4-49) U/L Alkaline Phosphatase 96 (38-126) U/L Total Protein 7.4 (6.3-8.2) g/dL Albumin 4.4 (3.5-5.0) g/dL Lipase 277 (23-300) U/L Serum Alcohol 330 H* mg/dL Disposition
[2023-05-01 01:42] LABS: Basophils # (A) 0.1 k/uL (0-0.2); Basophils % (A) 1 %; Eosinophils # (A) 0.2 k/uL (0-0.7); Eosinophils % (A) 3 %; HCT 46.4 % (39.0-53.0); HGB 15.8 gm/dL (13.0-17.5); Lymphocytes # (A) 2.1 k/uL (1.0-4.8); Lymphocytes % (A) 30 %; MCH 33.4 pg (25.0-35.0); MCHC 34.1 g/dL (31.0-37.0); Mean Platelet Volume 6.8; Monocytes # (A) 0.5 k/uL (0-1.0); Monocytes % (A) 7 %; Neutrophils # (A) 3.8 k/uL (1.3-7.7); Neutrophils % (A) 57 %; Platelet Count 315 k/uL (150-450); RBC 4.74 m/uL (4.30-5.90); RDW 12.4 % (11.5-15.5); WBC 6.8 k/uL (3.8-10.6)
[2023-05-01 01:51] LABS: ALT 64 U/L (4-49); AST 79 U/L (17-59); African American GFR (CKD) >90 (>60 ml/min/1.73 sqM); Albumin 4.4 g/dL (3.5-5.0); Alkaline Phosphatase 96 U/L (38-126); Anion Gap 12 mmol/L; Blood Urea Nitrogen 10 mg/dL (9-20); Carbon Dioxide 21 mmol/L (22-30); Chloride 104 mmol/L (98-107); Glucose 96 mg/dL (74-99); Lipase 277 U/L (23-300); Magnesium 2.4 mg/dL (1.6-2.3); Non-African American GFR(CKD) >90 (>60 ml/min/1.73 sqM); Potassium 4.5 mmol/L (3.5-5.1); Sodium 137 mmol/L (137-145); Total Bilirubin 0.5 mg/dL (0.2-1.3); Total Protein 7.4 g/dL (6.3-8.2)
[2023-05-01 02:10] LABS: Alcohol 330 mg/dL
[2023-05-01] MEDS ORDERED: NALOXONE 0.4 MG/ML 1 ML VIAL IV PRN (03:35)
[2023-05-01] MEDS ORDERED: ONDANSETRON 4 MG/2 ML VIAL IVP PRN (03:35)
[2023-05-01] MEDS ORDERED: LORazepam 2 MG/ML INJ IV PRN ×2 (03:35)
[2023-05-01] MEDS ORDERED: ALBUTEROL NEBULIZED 2.5 MG/3 ML INHALATION PRN (05:33)
--- NOTE | 2023-05-01 05:46 | P.HPIM ---
History of Present Illness H&P Date: 05/01/23 Chief Complaint: ataxia 62 year old male with recent CAD s/p stent , alcohol dependance He is coming in todayHe is coming in today urged by his roommate to get evaluated due to ataxia and frequent falling. he admits to heavy drinking , denies any illicit drugs . he reports multiple falls with injury to his side , and hitting his head, he has some bruises over his side and buttocks . he denies any headache, vision or hearing changes, denies any new focal neuro deficit, but he is finding it increasingly difficult to walk with out leaning against a wall, or holding onto furniture he also had a heart attack few months ago, requiring a stent, he claims to be compliant with his brilinta and statin. but reports exertional chest pain with moderate activity. resolved with rest. he denies any denies any fever, chills, cough, sore throat, chest pain , trouble breathing , nausea , vomiting, abd pain , changes in urinary or bowel habits. review of systems Pertinent positives as noted in HPI. All other systems were reviewed and are negative on exam Constitutional: No acute distress, conversant, pleasant, looks older than stated age Eyes: Anicteric sclerae, moist conjunctiva, Pupils equal round reactive to light ENMT: NC/AT Oropharynx clear, no erythema, or exudates Neck: Supple, no masses, or JVD No carotid bruits No thyromegaly Lungs: Clear to auscultation Clear to percussion Normal respiratory effort, no accessory muscle use Cardiovascular: Heart regular in rate and rhythm, No murmurs, gallops, or rubs No peripheral edema Abdominal: Soft Nontender, no guarding, rebound or rigidity Abdomen moving with respiration Normoactive bowel sounds No hepatomegaly, No splenomegaly No palpable mass No abdominal wall hernia noted Skin: echymosis and bruising over his left thoracic back, otherwise Normal temperature, tone, texture, turgor Extremities: No digital cyanosis No clubbing Pedal pulses intact and symmetrical Radial pulses intact and symmetrical No calf tenderness Psychiatric: Alert and oriented to person, place and time Appropriate affect Neuro Muscles Strength 5/5 in all 4 extremities Sensation to light touch grossly present throughout Cranial nerves II-XII grossly intact horizontal nystagmus Lymphatics: no palpable cervical or supraclavicular lymph nodes Past Medical History Past Medical History: Asthma, COPD, Hypertension, Myocardial Infarction (MD) Additional Past Medical History / Comment(s): Alcoholism Last Myocardial Infarction Date:: n/a History of Any Multi-Drug Resistant Organisms: None Reported Past Surgical History: Appendectomy, Bowel Resection, Ear Surgery, Heart Catheterization With Stent, Hernia Repair, Orthopedic Surgery Past Anesthesia/Blood Transfusion Reactions: No Reported Reaction Date of Last Stent Placement:: 10/05/2022 Past Psychological History: No Psychological Hx Reported Smoking Status: Current every day smoker Past Alcohol Use History: Daily, Heavy Past Drug Use History: Marijuana - Past Family History Father Family Medical History: Coronary Artery Disease (CAD) Medications and Allergies Home Medications Medication Instructions Recorded Confirmed Type Ticagrelor [Brilinta] 90 mg PO BID #60 tab 10/16/22 04/22/23 Rx Acetaminophen Tab [Tylenol] 650 mg PO Q6HR PRN tab 10/17/22 04/22/23 Rx Aspirin 81 mg PO DAILY #30 tab 10/17/22 04/22/23 Rx Atorvastatin [Lipitor] 80 mg PO HS #30 tab 10/17/22 04/22/23 Rx Budesonide-Formot 160-4.5 Mcg 2 puff INHALATION RT-BID #1 inh 10/17/22 04/22/23 Rx [Symbicort 160-4.5 Mcg Inhaler] Famotidine [Pepcid] 20 mg PO BID #60 tab 10/17/22 04/22/23 Rx Metoprolol Tartrate [Lopressor] 25 mg PO BID #60 tab 10/17/22 04/22/23 Rx Albuterol Inhaler [Ventolin Hfa 2 puff INHALATION RT-QID PRN 10/31/22 04/22/23 History Inhaler] Albuterol Nebulized [Ventolin 2.5 mg INHALATION RT-QID 03/22/23 04/22/23 History Nebulized] Nitroglycerin Sl Tabs [Nitrostat] 0.4 mg SL Q5M PRN 03/22/23 04/22/23 History lisinopriL [Prinivil] 10 mg PO DAILY 03/22/23 04/22/23 History Allergies Allergy/AdvReac Type Severity Reaction Status Date / Time No Known Allergies Allergy Verified 04/22/23 08:03 Physical Exam Vitals: Vital Signs Temp Pulse Resp BP Pulse Ox 05/01/23 01:05 97.1 F L 85 18 163/96 99 Intake and Output 04/30/23 04/30/23 05/01/23 14:59 22:59 06:59 Other: Weight 77.111 kg Results CBC & Chem 7: 05/01/23 01:15 05/01/23 01:15 Labs: Abnormal Lab Results - Last 24 Hours (Table) 05/01/23 Range/Units 01:15 Carbon Dioxide 21 L (22-30) mmol/L Creatinine 0.61 L (0.66-1.25) mg/dL Magnesium 2.4 H (1.6-2.3) mg/dL AST 79 H (17-59) U/L ALT 64 H (4-49) U/L Serum Alcohol 330 H* mg/dL Assessment and Plan Assessment: 62-year-old male with alcohol dependence coming in for evaluation of ataxia and frequent falling, I discussed the case with the ED doctor, I accepted the admission for acute alcohol intoxication and neurology evaluation with anticipated length of stay less than 2 midnights Acute severe alcohol intoxication Ataxia with frequent falls possibly secondary to Wernicke's with history of chronic alcohol abuse, rule out other neurologic pathology Alcohol level 330 Withdrawal precautions Thiamine daily IV fluid hydration normal saline 100 mL/h Benzos per CIWA scale Counseled to quit alcohol abuse Fall precautions Check CT of the brain secondary to frequent falls and head injuries Neurology consultation Neurochecks Coronary artery disease status post stent Anginal chest pains Cardiology consult Resume Berlinta aspirin and statin gambling monitor Monitor vital signs Resume metoprolol Electrolytes are unremarkable potassium 4.5 sodium 137 magnesium 2.4 BUN 10 creatinine 0.6 COPD compensated Resume inhalers Counseled to quit smoking Full code DVT prophylaxis mechanical
[2023-05-01] MEDS: SODIUM CHLORIDE 0.9% 1,000 ML IV SCH ×3 (07:08→19:21)
[2023-05-01] MEDS: ALBUTEROL NEBULIZED 2.5 MG/3 ML INHALATION SCH ×4 (07:40→21:20)
[2023-05-01] MEDS: SYMBICORT 160-4.5 MCG INHALER INHALATION SCH ×2 (07:41→21:20)
[2023-05-01] MEDS: FOLIC ACID 1 MG TAB PO SCH (08:16)
[2023-05-01] MEDS: FAMOTIDINE 20 MG TAB PO SCH ×2 (08:16→21:43)
[2023-05-01] MEDS: METOPROLOL TARTRATE 25 MG TAB PO SCH ×2 (08:16→21:43)
[2023-05-01] MEDS: lisinopriL 10 MG TAB PO SCH (08:16)
[2023-05-01] MEDS: MULTIVITAMINS, THERA 1 EACH TAB PO SCH (08:16)
[2023-05-01] MEDS: ASPIRIN 81 MG PO SCH (08:16)
[2023-05-01] MEDS: TICAGRELOR 90 MG TAB PO SCH ×2 (08:16→21:43)
--- NOTE | 2023-05-01 08:42 | CT ---
EXAMINATION TYPE: CT brain wo con DATE OF EXAM: 05/01/2023 COMPARISON: 04/22/2023 HISTORY: 62-year-old male ataxia, frequent falls TECHNIQUE: Examination was done in axial plane without intravenous contrast. Coronal and sagittal r econstructions performed. CT DLP: 1098.4 mGycm Automated exposure control for dose reduction was used. FINDINGS: There is no evidence of acute intracranial hemorrhage, acute ischemic changes, mass, mass-effect, or extra-axial fluid collection. There is no effacement of cerebral sulci or basal subarachnoid cister ns. There is no hydrocephalus. There is no midline shift. [place]-white matter distinction is preserv ed. Atherosclerotic calcifications within the carotid siphons. Mucosal retention cyst measuring up to 2.9 cm in the floor of the right maxillary sinus and smaller o n the left measuring 9 mm. Moderate mucosal thickening bilateral frontal sinuses and anterior ethmoid air cells. Mild to moderate within the sphenoid sinuses. Rightward nasal septal deviation. Mastoid a ir cells well pneumatized. The globes are intact. IMPRESSION: No acute intracranial abnormality seen. Moderate chronic pansinusitis which has worsened compared to the recent prior of 04/22/2023.
[2023-05-01] MEDS: THIAMINE 500 MG in SODIUM CHLORIDE 0.9% 100 ML IVPB SCH ×3 (09:10→23:05)
--- NOTE | 2023-05-01 11:48 | P.CRDCN ---
History of Present Illness Consult date: 05/01/23 Consult reason: chest pain History of present illness: HISTORY OF PRESENT ILLNESS: This is a 62-year-old male with a past medical history significant for coronary artery disease, hypertension, hyperlipidemia, nicotine dependence, and alcohol abuse. Patient follows in the office with Dr. Guerrero. We have been asked to see the patient in consultation for chest pain. Patient states that he is not sure why he is at the hospital but he states he has been losing his balance, feeling dizzy and had a fall. He denies any syncopal episode. He states he has a little chest pain worse with deep breathing. No palpitations, positive cough, feels like his heart but no documented fever. No lower extremity edema. No blood in his stools or urine. He denies any stroke or seizure activity. He is a smoker of half a pack per day. Patient is drinking half pint of liquor along with a couple beers daily. Patient does have a large ecchymosis area on the posterior thoracic left side from a recent fall. He reports occasional marijuana use. EKG reveals sinus mechanism with no signs of acute ischemia CBC within normal limits. Sodium 137, potassium 4.5, BUN 10 creatinine 0.61. AST 79, ALT 64, alkaline phosphatase 96. Triglycerides 67, cholesterol 118, LDL 32, HDL 72. Lipase 277. Alcohol level 330. Current home cardiac medications include Brilinta 90 mg twice a day, atorvastatin 80 mg at bedtime, lisinopril 10 mg daily, metoprolol tartrate 25 mg twice daily, Nitrostat as needed. Most recent echocardiogram obtained in March 2023 reveals ejection fraction 45%, mild right ventricular dilation, RVSP 31, mildly dilated left atrium Cardiac catheterization history: October 2022 revealing 95% OM1 stenosis with PCI of the proximal OM1. Patient was also found to have mid LAD 20-30% stenosis. Right coronary artery was not imaged at this time however is known to be 100% occluded. REVIEW OF SYSTEMS: At the time of my exam: CONSTITUTIONAL: Denies fever or chills. Reports weakness and falls. HEENT: Denies blurred vision, vision changes, or eye pain. Denies hemoptysis CARDIOVASCULAR: Denies chest pain. Denies orthopnea. Denies PND. Denies palpitations RESPIRATORY: Denies shortness of breath. GASTROINTESTINAL: Denies abdominal pain. Denies nausea or vomiting. HEMATOLOGIC: Denies bleeding disorders. GENITOURINARY: Denies any blood in urine. SKIN: Denies pruitis. Denies rash. PHYSICAL EXAM: VITAL SIGNS: Reviewed. GENERAL: Well-developed in no acute distress. HEENT: Head is normocephalic. Pupils are equal, round. Sclerae anicteric. Mucous membranes of the mouth are moist. Neck supple. No JVD or thyromegaly LUNGS: Respirations even and unlabored. Lungs essentially clear to auscultation bilaterally. HEART: Regular rate and rhythm. S1 and S2 heard. ABDOMEN: Soft. Nondistended. Nontender. EXTREMITIES: Normal range of motion. No clubbing or cyanosis. Peripheral pulses intact. No lower extremity edema NEUROLOGIC: Awake and alert. Oriented x 3. ASSESSMENT: Chest pain, acute coronary syndrome ruled out Status post fall, does not appear to be syncopal in nature Acute alcohol intoxication Coronary artery disease with stenting of the proximal OMOctober 2022 Known chronic total occlusion of the RCA Hypertension Hyperlipidemia History of alcohol abuse Tobacco use and dependence Marijuana use PLAN: Continue home cardiac medications Continue antiplatelet therapy with aspirin and Brilinta Abstinence from alcohol recommended Smoking cessation encouraged Patient is stable for discharge home today from a cardiac standpoint Patient may follow up in the office with Dr. Guerrero Nurse practitioner note has been reviewed by physician. Signing provider agrees with the documented findings, assessment, and plan of care. Past Medical History Past Medical History: Asthma, COPD, Hypertension, Myocardial Infarction ([place]) Additional Past Medical History / Comment(s): Alcoholism Last Myocardial Infarction Date:: n/a History of Any Multi-Drug Resistant Organisms: None Reported Past Surgical History: Appendectomy, Bowel Resection, Ear Surgery, Heart Catheterization With Stent, Hernia Repair, Orthopedic Surgery Past Anesthesia/Blood Transfusion Reactions: No Reported Reaction Date of Last Stent Placement:: 10/05/2022 Past Psychological History: No Psychological Hx Reported Smoking Status: Current every day smoker Past Alcohol Use History: Daily, Heavy Past Drug Use History: Marijuana - Past Family History Father Family Medical History: Coronary Artery Disease (CAD) Medications and Allergies Home Medications Medication Instructions Recorded Confirmed Type Ticagrelor [Brilinta] 90 mg PO BID #60 tab 10/16/22 05/01/23 Rx Acetaminophen Tab [Tylenol] 650 mg PO Q6HR PRN tab 10/17/22 05/01/23 Rx Atorvastatin [Lipitor] 80 mg PO HS #30 tab 10/17/22 05/01/23 Rx Budesonide-Formot 160-4.5 Mcg 2 puff INHALATION RT-BID #1 inh 10/17/22 05/01/23 Rx [Symbicort 160-4.5 Mcg Inhaler] Metoprolol Tartrate [Lopressor] 25 mg PO BID #60 tab 10/17/22 05/01/23 Rx Albuterol Inhaler [Ventolin Hfa 2 puff INHALATION RT-QID PRN 10/31/22 05/01/23 History Inhaler] Albuterol Nebulized [Ventolin 2.5 mg INHALATION RT-QID 03/22/23 05/01/23 History Nebulized] Nitroglycerin Sl Tabs [Nitrostat] 0.4 mg SL Q5M PRN 03/22/23 05/01/23 History lisinopriL [Prinivil] 10 mg PO DAILY 03/22/23 05/01/23 History Allergies Allergy/AdvReac Type Severity Reaction Status Date / Time No Known Allergies Allergy Verified 05/01/23 07:32 Physical Exam Vitals: Vital Signs Temp Pulse Resp BP Pulse Ox 05/01/23 08:20 92 18 128/55 98 05/01/23 07:50 90 05/01/23 07:41 86 05/01/23 05:47 20 127/94 96 05/01/23 01:05 97.1 F L 85 18 163/96 99 Intake and Output 04/30/23 05/01/23 05/01/23 22:59 06:59 14:59 Other: Weight 77.111 kg Results 05/01/23 01:15 05/01/23 01:15 Cardiac Enzymes 05/01/23 Range/Units 01:15 AST 79 H (17-59) U/L CBC 05/01/23 Range/Units 01:15 WBC 6.8 (3.8-10.6) k/uL RBC 4.74 (4.30-5.90) m/uL Hgb 15.8 (13.0-17.5) gm/dL Hct 46.4 (39.0-53.0) % Plt Count 315 (150-450) k/uL Comprehensive Metabolic Panel 05/01/23 Range/Units 01:15 Sodium 137 (137-145) mmol/L Potassium 4.5 (3.5-5.1) mmol/L Chloride 104 (98-107) mmol/L Carbon Dioxide 21 L (22-30) mmol/L BUN 10 (9-20) mg/dL Creatinine 0.61 L (0.66-1.25) mg/dL Glucose 96 (74-99) mg/dL Calcium 9.0 (8.4-10.2) mg/dL AST 79 H (17-59) U/L ALT 64 H (4-49) U/L Alkaline Phosphatase 96 (38-126) U/L Total Protein 7.4 (6.3-8.2) g/dL Albumin 4.4 (3.5-5.0) g/dL Current Medications Generic Name Dose Route Start Last Admin Trade Name Freq PRN Reason Stop Dose Admin Albuterol Sulfate 2.5 mg 05/01/23 05:33 Albuterol Nebulized 2.5 Mg/3 Ml INHALATION RT-QID PRN Shortness Of Breath Albuterol Sulfate 2.5 mg 05/01/23 08:00 05/01/23 07:40 Albuterol Nebulized 2.5 Mg/3 Ml INHALATION 2.5 mg RT-QID AUNG Administration Aspirin 81 mg 05/01/23 09:00 05/01/23 08:16 Aspirin 81 Mg PO 81 mg DAILY AUNG Administration Atorvastatin Calcium 80 mg 05/01/23 21:00 Atorvastatin 80 Mg Tab PO HS AUNG Budesonide/Formoterol Fumarate 2 puff 05/01/23 08:00 05/01/23 07:41 Symbicort 160-4.5 Mcg Inhaler INHALATION 2 puff RT-BID AUNG Administration Famotidine 20 mg 05/01/23 09:00 05/01/23 08:16 Famotidine 20 Mg Tab PO 20 mg BID AUNG Administration Folic Acid 1 mg 05/01/23 09:00 05/01/23 08:16 Folic Acid 1 Mg Tab PO 1 mg DAILY AUNG Administration Sodium Chloride 1,000 mls @ 100 mls/hr 05/01/23 00:54 05/01/23 01:17 Saline 0.9% IV 05/01/23 10:53 100 mls/hr .Q10H STA Administration Sodium Chloride 1,000 mls @ 130 mls/hr 05/01/23 03:45 05/01/23 07:08 Saline 0.9% IV Not Given .Q7H42M AUNG Thiamine HCl 500 mg/ Sodium 105 mls @ 200 mls/hr 05/01/23 08:00 Chloride IVPB Q8HR AUNG Lisinopril 10 mg 05/01/23 09:00 05/01/23 08:16 Lisinopril 10 Mg Tab PO 10 mg DAILY AUNG Administration Lorazepam 2 mg 05/01/23 03:35 Lorazepam 2 Mg/Ml Inj IV 05/03/23 03:37 Q10M PRN CIWA 16 or higher Lorazepam 1 mg 05/01/23 03:35 Lorazepam 2 Mg/Ml Inj IV Q2HR PRN CIWA 8 or 9 Lorazepam 1 mg 05/01/23 03:35 Lorazepam 2 Mg/Ml Inj IV Q1HR PRN CIWA 10 to 15 Metoprolol Tartrate 25 mg 05/01/23 09:00 05/01/23 08:16 Metoprolol Tartrate 25 Mg Tab PO 25 mg BID AUNG Administration Multivitamins 1 each 05/01/23 09:00 05/01/23 08:16 Multivitamins, Thera 1 Each Tab PO 1 each DAILY AUNG Administration Naloxone HCl 0.2 mg 05/01/23 03:35 Naloxone 0.4 Mg/Ml 1 Ml Vial IV Q2M PRN Opioid Reversal Ondansetron HCl 4 mg 05/01/23 03:35 Ondansetron 4 Mg/2 Ml Vial IVP Q8HR PRN Nausea And Vomiting Ticagrelor 90 mg 05/01/23 09:00 05/01/23 08:16 Ticagrelor 90 Mg Tab PO 90 mg BID AUNG Administration Intake and Output 04/30/23 05/01/23 05/01/23 22:59 06:59 14:59 Other: Weight 77.111 kg 05/01/23 01:15 05/01/23 01:15
--- NOTE | 2023-05-01 14:48 | US ---
EXAMINATION TYPE: US carotid duplex BILAT DATE OF EXAM: 05/01/2023 COMPARISON: NONE CLINICAL INDICATION: Male, 62 years old with history of Dizziness; TECHNIQUE: Carotid duplex ultrasound examination. Indirect Doppler criteria was utilized. FINDINGS: EXAM MEASUREMENTS: RIGHT: Peak Systolic Velocity (PSV) cm/sec ----- Right CCA: 88.9 ----- Right ICA: 114.5 ----- Right ECA: 219.9 ICA/CCA ratio: 1.3 RIGHT: End Diastole cm/sec ----- Right CCA: 18.6 ----- Right ICA: 27.3 ----- Right ECA: 33.2 LEFT: Peak Systolic Velocity (PSV) cm/sec ----- Left CCA: 83.4 ----- Left ICA: 84.5 ----- Left ECA: 317.4 ICA/CCA ratio: 1.0 LEFT: End Diastole cm/sec ----- Left CCA: 21.9 ----- Left ICA: 23.0 ----- Left ECA: 58.6 VERTEBRALS (direction of flow): Right Vertebral: Antegrade Left Vertebral: Antegrade Rhythm: Normal WORM PICKER NOTES: Extensive shadowing plaque noted throughout. Elevated ECA velocities, left greater than right. IMPRESSION: No hemodynamically significant internal carotid artery stenosis on either side. Criteria for Assigning % of Stenosis / Diameter reduction (Estimation based on the indirect measurements of the internal carotid artery velocities (ICA PSV). 1. Normal (no stenosis)=ICA PSV < 125 cm/s: ratio < 2.0: ICA EDV<40 cm/s. 2. Less than 50% stenosis=ICA PSV < 125 cm/s: ratio < 2.0: ICA EDV<40 cm/s. 3. 50 to 69% stenosis=ICA PSV of 125 to 230 cm/s: ration 2.0 ? 4.0: ICA EDV 40-100 cm/s. 4. Greater than 70% stenosis to near occlusion= ICA PSV > 230 cm/s: ratio > 4.0: ICA EDV > 100 cm/s. 5. Near occlusion= ICA PSV velocities may be low or undetectable: variable ratio and ICA EDV. 6. Total occlusion=unable to detect flow.
[2023-05-01] MEDS: LORazepam 2 MG/ML INJ IV PRN ×2 (16:50→19:29)
--- NOTE | 2023-05-01 17:38 | P.PN ---
Subjective Progress Note Date: 05/01/23 Hospital course: Patient is a 62-year-old male with a past medical history of alcoholism, CAD with stent on Brilinta, hypertension, hyperlipidemia, COPD with continued nicotine dependence and cannabinoid use disorder. He presented to the emergency department for evaluation of gait disturbances resulting in recurrent falls and reported difficulties with balance and proprioception. He underwent full evaluation in the emergency department. Labs completed and reviewed. CBC unremarkable. BMP also unremarkable. Liver profile showing elevated AST of 79 and ALT of 64. Alcohol 330 at time of admission. CT had completed negative for acute intercranial abnormality showing moderate chronic sinusitis reported to have worsened when compared to previous he had completed on 04/22/23. Patient was admitted under services with consultation to neurology. Physical exam: Vital signs reviewed and stable. General: Nontoxic, no distress and appears stated age. Derm: Skin warm and dry, normal coloration for ethnicity. Bruising left posterior rib region . Head: Atraumatic, normocephalic and symmetric. Eyes: EOMs intact, no lid lag, and anicteric sclera Mouth: no lip lesions, mucus membranes moist Cardiovascular: regular rate and rhythm with normal S1S2, no murmur, positive p osterior tibial pulses bilaterally, and cap refill < 2 seconds. Lungs: Respirations even, regular, and unlabored on room air. Lungs CTA bilaterally, no rhonchi, no rales, no wheezing, and no accessory muscle usage. Abdominal: soft, nontender to palpation, no guarding, no appreciable organomegaly Ext: ROM intact. No gross muscle atrophy, no edema, no contractures Neuro: Speech clear, face symmetrical and CN II-XII grossly intact with no noted focal neuro deficits Psych: Alert and oriented to person, place, time, and situation. Appropriate and pleasant affect. Assessment and Plan of Care: Alcohol intoxication pending withdrawal Elevated liver enzymes -Order placed for monitoring of CIWA scores and patient to be medicated with Ativan 0.5 mg every 4 hours as needed for CIWA score of 4-5, Ativan 1 mg every 4 hours for CIWA score of 6-7, Ativan 2 mg every 3 hours CIWA score of 8-9, and Ativan 2 mg every 2 hours forr CIWA score of 10 or greater. -Continuous IV hydration. -Thiamine 100 mg twice a day -Multivitamin daily -Folate 1 mg daily -Seizure, fall, aspiration, and elopement precautions in place. -Urine drug screen -Follow up on vitamin B12 and folate. Continued close monitoring of electrolytes and replace as needed. -Telemetry monitoring. Gait disturbances with reported difficulties with balance and proprioception resulting in Recurrent falls -Neuro checks every 4 hours -Telemetry monitoring -Fall precautions -Seizure precautions -Neurology consulted -CT had reviewed negative for acute intercranial abnormality showing moderate chronic sinusitis -Follow up on folate and B12 levels -Order placed for x-ray left ribs secondary to large posterior bruise seen upon examination History of CAD with stent Hypertension Hyperlipidemia -Continue cardiac medication regimen with Brilinta 90 mg twice daily, aspirin 81 mg daily, atorvastatin 80 mg nightly, lisinopril 10 mg daily, and metoprolol 25 mg twice daily. COPD with continued nicotine dependence Cannabinoid use disorder -Continue scheduled nebulizer treatments 4 times daily and every 2 hours as needed along with daily Symbicort -Nicotine patch -Recommend smoking cessation CODE STATUS: Full code DVT prophylaxis: Lovenox Discussed with: Patient and RN Anticipated discharge date: Clinical course to determine Anticipated discharge place: Home Patient was seen independently by Nurse Pracitioner. This document was prepared using [employer] dictation software. Please allow for errors in supervisor precision optical elements, while rare they do occur. Cristofer Perez NP rendered care for this patient independently, reviewed the findings and plan as documented in the note above. I did not physically speak with or examine the patient on this date. Objective - Vital Signs Vital signs: Vital Signs Temp 97.1 F L 05/01/23 01:05 Pulse 90 05/01/23 07:50 Resp 20 05/01/23 05:47 BP 127/94 05/01/23 05:47 Pulse Ox 96 05/01/23 05:47 FiO2 Intake & Output 04/30/23 05/01/23 05/01/23 18:59 06:59 18:59 Weight 77.111 kg - Labs CBC & Chem 7: 05/02/23 05:42 05/02/23 05:42 Labs: Abnormal Lab Results - Last 24 Hours (Table) 05/01/23 Range/Units 01:15 Carbon Dioxide 21 L (22-30) mmol/L Creatinine 0.61 L (0.66-1.25) mg/dL Magnesium 2.4 H (1.6-2.3) mg/dL AST 79 H (17-59) U/L ALT 64 H (4-49) U/L Serum Alcohol 330 H* mg/dL
[2023-05-01] MEDS: ENOXAPARIN 40 MG/0.4 ML SYRINGE SQ SCH (17:40)
--- NOTE | 2023-05-01 18:08 | P.CNNES ---
History of Present Illness Consult date: 05/01/23 Requesting physician: Patrick Chatman Reason for Consult: Ataxia History of Present Illness: Patient is a 62-year-old male with history of alcoholism came to the hospital by ambulance mother superior today at 12:36 AM for gait imbalance. Patient states that for around 5 weeks, he has not been feeling right, and losing balance. He has been falling about 3-4 times a week. Patient says that he had a heart attack about 4 or 5 weeks ago for which he underwent cardiac stenting. He has been feeling lightheaded, and ends up falling. He tries to grab the wall and he still falls. He denies any stroke symptoms. No headache. As per EMS flow sheet, when they arrived, patient was laying in the left lateral recumbent position on the couch. Patient was noted to be alert and oriented 3. He was able to answer most questions appropriately however was slightly confused on time or place. Per bystander on the scene, his normal baseline when he is not drinking alcohol is alert and oriented 4 but his balance is off. Patient mentioned that he has had a loss of balance for a couple months that is resulting in falls and thinks his equilibrium is off. Patient was admitted to [facility] for a week and then signed out AMA after 4 days of admission. Patient appeared to be fatigued with generalized weakness. Stroke scale was negative. Patient was noted to have moments of mumbling and speech with also a St. of alcohol on his breath upon assessment. 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 Patient has been drinking alcohol since the morning and tends about half pint with multiple beers daily. Patient was noted to have an unsteady gait on the scene. Blood sugar was 96. Blood pressure 165/92, pulse rate 89, respiratory rate 20, saturation 99%. Patient denies any history of diabetes or hypertension. He has smoked 1 pack per day for 40 years. Since last admission, he has cut back to smoking half pack per day. He drinks 224 ounce can Budweiser and half pint of [place] house whiskey daily for last 43 years. He smokes marijuana. No other illicit drug use. Patient's blood test shows normal CBC, basic metabolic panel. Hepatic panel is abnormal with AST 79, ALT 64, blood alcohol level was 330. Patient has multiple admissions to the hospital this year for intoxication. CT head revealed no acute intracranial abnormality seen. Moderate chronic pansinusitis which has worsened compared to the recent prior of 04/22/2023. Patient was recently seen by Dr. Oeby Hassan on 04/24/2023 for syncopal spell. Patient had a normal EEG on 04/24/2023. He also ordered MRI of the brain and carotid Doppler, but patient apparently signed out AGAINST MEDICAL ADVICE. Review of Systems Constitutional: Denies chills, Denies fever Eyes: denies blurred vision, denies diplopia, denies pain Ears: deny: decreased hearing, ear discharge Ears, nose, mouth and throat: Reports headache, Denies nasal congestion, Denies sore throat Cardiovascular: Reports chest pain, Reports shortness of breath Respiratory: Reports cough with sputum, Reports wheezing, Denies sleep apnea Gastrointestinal: Denies abdominal pain, Denies diarrhea, Denies nausea, Denies vomiting Genitourinary: Denies discharge, Denies flank pain, Denies genital pain Musculoskeletal: Reports low back pain (from fall), Denies myalgias, Denies neck pain Integumentary: Denies pruritus, Denies rash Neurological: Reports as per HPI Psychiatric: Denies anxiety, Denies depression Endocrine: Reports fatigue, Denies weight change Hematologic/Lymphatic: Reports easy bruising, Denies easy bleeding Past Medical History Past Medical History: Asthma, COPD, Hypertension, Myocardial Infarction ([place]) Additional Past Medical History / Comment(s): Alcoholism Last Myocardial Infarction Date:: n/a History of Any Multi-Drug Resistant Organisms: None Reported Past Surgical History: Appendectomy, Bowel Resection, Ear Surgery, Heart Catheterization With Stent, Hernia Repair, Orthopedic Surgery Past Anesthesia/Blood Transfusion Reactions: No Reported Reaction Date of Last Stent Placement:: 10/05/2022 Past Psychological History: No Psychological Hx Reported Smoking Status: Current every day smoker Past Alcohol Use History: Daily, Heavy Past Drug Use History: Marijuana - Past Family History Father Family Medical History: Coronary Artery Disease (CAD) Medications and Allergies Home Medications Medication Instructions Recorded Confirmed Type Ticagrelor [Brilinta] 90 mg PO BID #60 tab 10/16/22 05/01/23 Rx Acetaminophen Tab [Tylenol] 650 mg PO Q6HR PRN tab 10/17/22 05/01/23 Rx Atorvastatin [Lipitor] 80 mg PO HS #30 tab 10/17/22 05/01/23 Rx Budesonide-Formot 160-4.5 Mcg 2 puff INHALATION RT-BID #1 inh 10/17/22 05/01/23 Rx [Symbicort 160-4.5 Mcg Inhaler] Metoprolol Tartrate [Lopressor] 25 mg PO BID #60 tab 10/17/22 05/01/23 Rx Albuterol Inhaler [Ventolin Hfa 2 puff INHALATION RT-QID PRN 10/31/22 05/01/23 History Inhaler] Albuterol Nebulized [Ventolin 2.5 mg INHALATION RT-QID 03/22/23 05/01/23 History Nebulized] Nitroglycerin Sl Tabs [Nitrostat] 0.4 mg SL Q5M PRN 03/22/23 05/01/23 History lisinopriL [Prinivil] 10 mg PO DAILY 03/22/23 05/01/23 History Allergies Allergy/AdvReac Type Severity Reaction Status Date / Time No Known Allergies Allergy Verified 05/01/23 07:32 Physical Examination - Vital Signs Vital Signs: Vital Signs Temp Pulse Resp BP Pulse Ox 05/01/23 08:20 92 18 128/55 98 05/01/23 07:50 90 05/01/23 07:41 86 05/01/23 05:47 20 127/94 96 05/01/23 01:05 97.1 F L 85 18 163/96 99 Intake and Output 04/30/23 05/01/23 05/01/23 22:59 06:59 14:59 Other: Weight 77.111 kg Patient is a late middle aged male, in no acute distress. Patient is alert awake oriented to time place and person. Speech and language functions are normal. Patient can name and repeat very well. No aphasia or dysarthria. Attention, concentration and fund of knowledge is adequate. Patient has slightly hoarse voice. On cranial nerve examination, pupils are equal, round and reacting to light, visual tan are full on confrontation, with no neglect on double simultaneous stimulation. Extraocular muscles are intact with mild bilateral end gaze nystagmus. Face is symmetric, tongue protrudes to the midline. Palatal eleva tion and sensation normal, hearing and shoulder shrug normal, facial sensation normal. On muscle strength testing, there is no pronator drift and the strength is normal in arms and legs distally and proximally. Deep tendon reflexes are symmetric biceps 1, brachioradialis 1+, knees 2+, ankles 2 and plantars downgoing bilaterally. Sensory to touch is equal with no neglect on double simultaneous stimulation. Cerebellar function showed no ataxia for [id number] testing. Patient has tremors for [id number] testing bilaterally. Mild tremors of outstretched hands. No tremors at rest. No dysdiadochokinesia. No ataxia for [id number] testing on either side. Tone and bulk of muscles normal. Gait deferred.. On general examination, there is no carotid bruit or murmur, S1-S2 audible. Chest is clear on consultation. Abdomen is soft nontender. No organomegaly, bowel sounds present. Peripheral pulses are present. No edema. Results - Laboratory Findings CBC and BMP: 05/01/23 01:15 05/01/23 01:15 Abnormal Lab Findings: Abnormal Labs 05/01/23 01:15 Carbon Dioxide 21 L Creatinine 0.61 L Magnesium 2.4 H AST 79 H ALT 64 H Serum Alcohol 330 H* Assessment and Plan Assessment: * Gait imbalance and frequent falls, likely due to alcohol intoxication. Patient drinks fairly heavily almost on a daily basis, which may be contributing to the gait imbalance and falls. * Recent history of syncope. * Recent MRI, status post stenting. * Chronic alcoholism * CAD, status post stent * Hypertension * Tobacco use * Marijuana use Plan: * Patient's gait imbalance likely due to chronic alcoholism. Patient counseled about abstinence from alcoholism, as it can further affect his balance if he continues to drink. * Thiamine, folate, multivitamins. Watch for DTs. * Patient had a normal EEG performed recently on 04/24/2023. No need to repeat. * Carotid Doppler rule out stenosis. * Check B12, folate, TSH, RPR. * MRI brain, rule out CVA * Continue aspirin 81 mg daily and Brilinta 90 mg twice a day for recent cardiac stent. * PT, OT, evaluate gait. * Dr. Summers will cover neurology service over the weekend. Thank you for the consult.
[2023-05-01 18:50] LABS: Amphetamine Screen,Urine Not Detected (NotDetected); Barbiturate Screen,Urine Detected (NotDetected); Benzodiazepines Screen,Urine Detected (NotDetected); Cocaine Screen,Urine Not Detected (NotDetected); Methadone Screen, Urine Not Detected (NotDetected); Opiate Screen,Urine Not Detected (NotDetected); Oxycodone Screen, Urine Not Detected (NotDetected); Phencyclidine Screen,Urine Not Detected (NotDetected); Tricyclic Antidepressant,Urine Not Detected (NotDetected); Urn Cannabinoid Scrn Detected (NotDetected)
--- NOTE | 2023-05-01 18:51 | XR ---
EXAMINATION TYPE: XR ribs LT w pa chest xray DATE OF EXAM: 05/01/2023 6:14 PM INDICATION: Patient age:Male; 62 years old; Reason for study: recurrent falls with large bruise posterior L ribs; PHH. COMPARISON: 04/22/2023 TECHNIQUE: Frontal and oblique views of the left ribs with frontal chest radiograph. FINDINGS: The ribs have a normal appearance. No evidence of fracture. Overall, the lungs are clear. The cardiac silhouette is normal in size. The remaining osseous structures are intact. IMPRESSION: No displaced fracture visualized.. If there remains concern for fracture consider CT.
[2023-05-01] MEDS: ATORVASTATIN 80 MG TAB PO SCH (21:43)
[2023-05-02] MEDS: SODIUM CHLORIDE 0.9% 1,000 ML IV SCH ×3 (03:36→16:26)
--- NOTE | 2023-05-02 08:49 | MR ---
EXAMINATION TYPE: MR brain wo con DATE OF EXAM: 05/02/2023 8:42 AM COMPARISON: CT brain 05/01/2023. CLINICAL INDICATION:Male, 62 years old with history of Imbalance, falls, rule out CVA; PHH, TECHNIQUE: Multi planar, multi sequence imaging was performed through the brain. No gadolinium was gi kevin. FINDINGS: The rosas-white junctions, ventricular system, and cisterns appear unremarkable. Patchy foci of high T2/FLAIR signal intensity are seen within the periventricular and subcortical white matter. Midline s tructures show no abnormality. Diffusion-weighted imaging shows no evidence of restricted diffusion. The susceptibility weighted images do not reveal any evidence for micro-hemorrhage. Age-appropriate c erebral volume loss. The bone marrow signal is within normal limits. The unremarkable. Mild to moderate mucosal thickening of the bilateral ethmoid, sphenoid, frontal, and right maxillary sinus. Mucous retention cyst sugges brian within the left maxillary sinus measuring up to 1.1 cm. The mastoid air cells are clear. IMPRESSION: 1. No evidence of intracranial mass or acute/subacute infarct. 2. Nonspecific white matter changes, likely secondary to small vessel ischemic disease. 3. Paranasal sinus disease.
[2023-05-02] MEDS: THIAMINE 500 MG in SODIUM CHLORIDE 0.9% 100 ML IVPB SCH ×3 (09:04→23:16)
[2023-05-02] MEDS: lisinopriL 10 MG TAB PO SCH (09:06)
[2023-05-02] MEDS: FOLIC ACID 1 MG TAB PO SCH (09:06)
[2023-05-02] MEDS: FAMOTIDINE 20 MG TAB PO SCH ×2 (09:06→21:07)
[2023-05-02] MEDS: METOPROLOL TARTRATE 25 MG TAB PO SCH ×2 (09:06→21:06)
[2023-05-02] MEDS: TICAGRELOR 90 MG TAB PO SCH ×2 (09:06→21:07)
[2023-05-02] MEDS: ASPIRIN 81 MG PO SCH (09:06)
[2023-05-02] MEDS: ENOXAPARIN 40 MG/0.4 ML SYRINGE SQ SCH (09:06)
[2023-05-02] MEDS: NICOTINE 21MG/24HR PATCH TRANSDERM SCH (09:06)
[2023-05-02] MEDS: MULTIVITAMINS, THERA 1 EACH TAB PO SCH (09:06)
[2023-05-02] MEDS: ALBUTEROL NEBULIZED 2.5 MG/3 ML INHALATION SCH ×4 (09:25→19:57)
[2023-05-02] MEDS: SYMBICORT 160-4.5 MCG INHALER INHALATION SCH ×2 (09:25→19:57)
[2023-05-02 10:09] LABS: Basophils # (A) 0.05 X 10*3/uL (0.00-0.10); Basophils % (A) 0.6 %; Eosinophils # (A) 0.08 X 10*3/uL (0.04-0.35); HCT 38.8 % (39.6-50.0); HGB 13.3 d/dL (13.0-17.0); Lymphocytes # (A) 1.66 X 10*3/uL (0.90-5.00); Lymphocytes % (A) 21.6 %; MCH 32.8 pg (27.0-32.0); MCHC 34.3 d/dL (32.0-37.0); MCV 95.8 FL (80.0-97.0); Mean Platelet Volume 9.2 FL (9.5-12.2); Monocytes # (A) 0.67 X 10*3/uL (0.20-1.00); Monocytes % (A) 8.7 %; NRBC Per 100 WBC 0 X 10*3/uL (0.00-0.01); Neutrophils # (A) 5.21 X 10*3/uL (1.80-7.70); Neutrophils % (A) 67.7 %; Platelet Count 299 X 10*3/uL (140-440); RBC 4.05 X 10*6/uL (4.40-5.60)
[2023-05-02 10:17] LABS: BUN/Creat Ratio 7.57 Ratio (12.00-20.00); Blood Urea Nitrogen 5.3 mg/dL (9.0-27.0); Chloride 106 mmol/L (96-109); Glucose 86 mg/dL (70-110); Magnesium 1.8 mg/dL (1.5-2.4); Phosphorus 3.8 mg/dL (2.4-5.1); Potassium 3.7 mmol/L (3.5-5.5); Sodium 139 mmol/L (135-145)
[2023-05-02 10:18] LABS: ALT 49 U/L (10-49); AST 50 U/L (14-35); Albumin 3.8 d/dL (3.8-4.9); Albumin/Globulin Ratio 2.24 Ratio (1.60-3.17); Alkaline Phosphatase 88 U/L (41-126); Calcium 8.6 mg/dL (8.7-10.3); Carbon Dioxide 22.7 mmol/L (21.6-31.8); Globulin 1.7 d/dL (1.6-3.3); Total Protein 5.5 d/dL (6.2-8.2)
--- NOTE | 2023-05-02 14:30 | P.PN ---
Subjective Progress Note Date: 05/02/23 The patient is a 62-year-old male who is seen in neurologic follow-up on May 02, 2023, via teleneurology. The patient's chart has been reviewed. "Patient has a history of alcoholism came to the hospital by ambulance director of early childhood today at 12:36 AM for gait imbalance. Patient states that for around 5 weeks, he has not been feeling right, and losing balance. He has been falling about 3-4 times a week. Patient says that he had a heart attack about 4 or 5 weeks ago for which he underwent cardiac stenting. He has been feeling lightheaded, and ends up falling. He tries to grab the wall and he still falls. He denies any stroke symptoms. No headache. As per EMS flow sheet, when they arrived, patient was laying in the left lateral recumbent position on the couch. Patient was noted to be alert and oriented 3. He was able to answer most questions appropriately however was slightly confused on time or place. Per bystander on the scene, his normal baseline when he is not drinking alcohol is alert and oriented 4 but his balance is off. Patient mentioned that he has had a loss of balance for a couple months that is resulting in falls and thinks his equilibrium is off. Patient was admitted to [facility] for a week and then signed out AMA after 4 days of admission. Patient appeared to be fatigued with generalized weakness. Stroke scale was negative. Patient was noted to have moments of mumbling and speech with also a smell of alcohol on his breath upon assessment. Patient had equal grain weigher strength and denied numbness weakness or tingling. Patient has been drinking alcohol since the morning and tends about half pint with multiple beers daily. Patient was noted to have an unsteady gait on the scene. Blood sugar was 96. Blood pressure 165/92, pulse rate 89, respiratory rate 20, saturation 99%". The patient reports that this morning, he is feeling tired. MRI of the brain results are discussed with the patient. He is advised that he has not had a stroke. Objective - Vital Signs Vital signs: Vital Signs Temp 98.2 F 05/02/23 07:00 Pulse 84 05/02/23 09:38 Resp 14 05/02/23 07:00 BP 151/80 05/02/23 07:00 Pulse Ox 97 05/02/23 07:00 FiO2 Intake & Output 05/01/23 05/02/23 05/02/23 18:59 06:59 18:59 Intake Total 591 Output Total 300 400 Balance 291 -400 Intake: Oral 591 Output: Urine 300 400 Other: # Voids 1 3 - Exam Gen.: The patient is reclining in the bed. He is somewhat sleepy. He is in no acute distress HEENT: Head is atraumatic, normocephalic. Fundus not visualized. There is no scleral icterus. Mucous membranes are moist. R neurological examination Mental status: The patient is awake and alert. His speech is clear. Cranial nerves: 2-12 grossly intact - Labs CBC & Chem 7: 05/02/23 05:42 05/02/23 05:42 Labs: Abnormal Lab Results - Last 24 Hours (Table) 05/01/23 05/02/23 05/02/23 Range/Units 17:00 05:42 05:42 RBC 4.05 L (4.40-5.60) X 10*6/uL Hct 38.8 L (39.6-50.0) % MCH 32.8 H (27.0-32.0) pg MPV 9.2 L (9.5-12.2) FL BUN 5.3 L (9.0-27.0) mg/dL BUN/Creatinine Ratio 7.57 L (12.00-20.00) Ratio Calcium 8.6 L (8.7-10.3) mg/dL AST 50 H (14-35) U/L Total Protein 5.5 L (6.2-8.2) d/dL Ur Barbiturates Screen Detected H (NotDetected) U Benzodiazepines Scrn Detected H (NotDetected) U Marijuana (THC) Screen Detected H (NotDetected) Assessment and Plan Assessment: * Gait imbalance and frequent falls, likely due to alcohol intoxication. Patient drinks fairly heavily almost on a daily basis, which may be contributing to the gait imbalance and falls, Less likely to be stroke * Recent history of syncope. * Recent MRI, status post stenting. * Chronic alcoholism * CAD, status post stent * Hypertension * Tobacco use * Marijuana use * Mild B12 deficiency Plan: 1. MRI results were discussed with the patient. He was advised that there is no sign of stroke on his MRI. 2. The patient was counseled/advised to seek assistance, for alcohol cessation 3. The patient was advised to begin taking [id number] B12 tablets, daily because of his mildly low B12 level. It was explained to the patient that the combination of low B12 and alcohol use may increase his chances of developing peripheral neuropathy and therefore worsen his ataxia Thank you for allowing us to participate in the care of this patient. Neurology will sign off at this time. Please call with questions or concerns. Time with Patient: Less than 30 (28 minutes were spent in caring for this patient today including obtaining a history, examining the patient, reviewing imaging, chart documentation, labs and creating this note)
[2023-05-02] MEDS ORDERED: ACETAMINOPHEN TAB 325 MG TAB PO PRN (14:59)
--- NOTE | 2023-05-02 18:11 | P.PN ---
Subjective Progress Note Date: 05/02/23 Hospital course: Patient is a 62-year-old male with a past medical history of alcoholism, CAD with stent on Brilinta, hypertension, hyperlipidemia, COPD with continued nicotine dependence and cannabinoid use disorder. He presented to the emergency department for evaluation of gait disturbances resulting in recurrent falls and reported difficulties with balance and proprioception. He underwent full evaluation in the emergency department. Labs completed and reviewed. CBC unremarkable. BMP also unremarkable. Liver profile showing elevated AST of 79 and ALT of 64. Alcohol 330 at time of admission. CT had completed negative for acute intercranial abnormality showing moderate chronic sinusitis reported to have worsened when compared to previous he had completed on 04/22/23. Patient was admitted under services with consultation to neurology. Physical exam: Vital signs reviewed and stable. General: Nontoxic, no distress and appears stated age. Derm: Skin warm and dry, normal coloration for ethnicity. Bruising left posterior rib region . Head: Atraumatic, normocephalic and symmetric. Eyes: EOMs intact, no lid lag, and anicteric sclera Mouth: no lip lesions, mucus membranes moist Cardiovascular: regular rate and rhythm with normal S1S2, no murmur, positive p osterior tibial pulses bilaterally, and cap refill < 2 seconds. Lungs: Respirations even, regular, and unlabored on room air. Lungs CTA bilaterally, no rhonchi, no rales, no wheezing, and no accessory muscle usage. Abdominal: soft, nontender to palpation, no guarding, no appreciable organomegaly Ext: ROM intact. No gross muscle atrophy, no edema, no contractures Neuro: Speech clear, face symmetrical and CN II-XII grossly intact with no noted focal neuro deficits Psych: Alert and oriented to person, place,time, and situation. Appropriate and pleasant affect. Assessment and Plan of Care: Alcohol intoxication pending withdrawal Elevated liver enzymes -Continue monitoring of CIWA scores and patient to be medicated with Ativan 0.5 mg every 4 hours as needed for CIWA score of 4-5, Ativan 1 mg every 4 hours for CIWA score of 6-7, Ativan 2 mg every 3 hours CIWA score of 8-9, and Ativan 2 mg every 2 hours forr CIWA score of 10 or greater. Pt has received a total of 2 mg of ativan over the past 24 hours. -Continuous IV hydration. -Thiamine 100 mg twice a day -Multivitamin daily -Folate 1 mg daily -Seizure, fall, aspiration, and elopement precautions in place. -Urine drug screen positive for barbiturates, benzodiazepines, and marijuana. -Vitamin B12 is in low normal range at 311. Folate 6.90. -TSH 1.470 -Continued close monitoring of electrolytes and replace as needed. -Telemetry monitoring. Gait disturbances with reported difficulties with balance and proprioception resulting in Recurrent falls -Neuro checks every 4 hours -Telemetry monitoring -Fall precautions -Seizure precautions -Neurology following and review documentation in chart -CT head reviewed negative for acute intercranial abnormality showing moderate chronic sinusitis -MRI completed in radiology report reviewed stating no evidence of intracranial mass or acute/subacute infarct -X-ray left ribs negative for acute fracture or dislocation. History of CAD with stent Hypertension Hyperlipidemia -Continue cardiac medication regimen with Brilinta 90 mg twice daily, aspirin 81 mg daily, atorvastatin 80 mg nightly, lisinopril 10 mg daily, and metoprolol 25 mg twice daily. COPD with continued nicotine dependence Cannabinoid use disorder -Continue scheduled nebulizer treatments 4 times daily and every 2 hours as needed along with daily Symbicort -Nicotine patch -Recommend smoking cessation CODE STATUS: Full code DVT prophylaxis: Lovenox Discussed with: Patient and RN Anticipated discharge date: Clinical course to determine Anticipated discharge place: Home Patient was seen independently by Nurse Pracitioner. This document was prepared using [employer] dictation software. Please allow for errors in reproductive healthcare assistant, while rare they do occur. I reviewed the documentation as provided by the MONICA above, who is the original author of this note. I agree with the documented assessment and plan, with the following changes: none Objective - Vital Signs Vital signs: Vital Signs Temp 98.2 F 05/02/23 15:00 Pulse 76 05/02/23 15:29 Resp 14 05/02/23 15:00 BP 146/84 05/02/23 15:00 Pulse Ox 98 05/02/23 15:00 FiO2 Intake & Output 05/01/23 05/02/23 05/02/23 18:59 06:59 18:59 Intake Total 591 600 Output Total 300 400 Balance 291 -400 600 Intake: Oral 591 600 Output: Urine 300 400 Other: # Voids 1 3 - Labs CBC & Chem 7: 05/02/23 05:42 07/29/23 05:42 Labs: Abnormal Lab Results - Last 24 Hours (Table) 05/01/23 05/02/23 05/02/23 Range/Units 17:00 05:42 05:42 RBC 4.05 L (4.40-5.60) X 10*6/uL Hct 38.8 L (39.6-50.0) % MCH 32.8 H (27.0-32.0) pg MPV 9.2 L (9.5-12.2) FL BUN 5.3 L (9.0-27.0) mg/dL BUN/Creatinine Ratio 7.57 L (12.00-20.00) Ratio Calcium 8.6 L (8.7-10.3) mg/dL AST 50 H (14-35) U/L Total Protein 5.5 L (6.2-8.2) d/dL Ur Barbiturates Screen Detected H (NotDetected) U Benzodiazepines Scrn Detected H (NotDetected) U Marijuana (THC) Screen Detected H (NotDetected)
[2023-05-02] MEDS: chlordiazePOXIDE 25 MG CAP PO SCH (21:06)
[2023-05-02] MEDS: ATORVASTATIN 80 MG TAB PO SCH (21:07)
[2023-05-03] MEDS: SODIUM CHLORIDE 0.9% 1,000 ML IV SCH ×2 (00:22→07:59)
[2023-05-03] MEDS: ALBUTEROL NEBULIZED 2.5 MG/3 ML INHALATION SCH ×2 (07:26→11:12)
[2023-05-03] MEDS: SYMBICORT 160-4.5 MCG INHALER INHALATION SCH (07:26)
[2023-05-03] MEDS: FOLIC ACID 1 MG TAB PO SCH (07:58)
[2023-05-03] MEDS: lisinopriL 10 MG TAB PO SCH (07:58)
[2023-05-03] MEDS: TICAGRELOR 90 MG TAB PO SCH (07:58)
[2023-05-03 07:59] VITALS: BP 157/84; PULSE 68; RESP 16; TEMP 98.1
[2023-05-03] MEDS: METOPROLOL TARTRATE 25 MG TAB PO SCH (07:59)
[2023-05-03] MEDS: ASPIRIN 81 MG PO SCH (07:59)
[2023-05-03] MEDS: NICOTINE 21MG/24HR PATCH TRANSDERM SCH (07:59)
[2023-05-03] MEDS: MULTIVITAMINS, THERA 1 EACH TAB PO SCH (07:59)
[2023-05-03] MEDS: FAMOTIDINE 20 MG TAB PO SCH (07:59)
[2023-05-03] MEDS: THIAMINE 500 MG in SODIUM CHLORIDE 0.9% 100 ML IVPB SCH (07:59)
[2023-05-03] MEDS: ENOXAPARIN 40 MG/0.4 ML SYRINGE SQ SCH (07:59)
[2023-05-03] MEDS: chlordiazePOXIDE 25 MG CAP PO SCH (07:59)
--- NOTE | 2023-05-03 17:03 | P.DS ---
Providers Date of admission: 05/01/23 03:36 Expected date of discharge: 05/03/23 Attending physician: Patrick Chatman MD Consults: 05/01/23 05:34 Consult Physician Routine Consulting Provider: Obey Hassan Consult Reason/Comments: ataxia Do you want consulting provider notified?: Yes, Notify in am 05/01/23 05:47 Consult Physician Routine Consulting Provider: Andrea Olvera Consult Reason/Comments: anginal chest pain Do you want consulting provider notified?: Yes, Notify in am Primary care physician: Stated None Hospital Course: Discharge Diagnosis: Alcohol withdrawal Alcohol abuse disorder Elevated liver enzymes secondary to chronic daily alcohol abuse Gait disturbances with reported difficulties with balance and proprioception resulting in Recurrent falls. Patient strongly advised on the importance of alcohol cessation and discharged home on B12 supplement and folate History of CAD with stent. Continue cardiac medication regimen with Brilinta 90 mg twice daily, aspirin 81 mg daily, atorvastatin 80 mg nightly, lisinopril 10 mg daily, and metoprolol 25 mg twice daily. Hypertension. Continue with antihypertensive medication regimen consisting of lisinopril 10 mg daily metoprolol 25 mg twice daily. Hyperlipidemia. Continue with daily atorvastatin 80 mg nightly. COPD with continued nicotine dependence. Prescriptions sent for medication refills of Ventolin inhaler along with Symbicort. Patient strongly counseled on the importance of smoking cessation. Cannabinoid use disorder. Recommend cessation of use. Hospital Course: Patient is a 62-year-old male with a past medical history of alcoholism, CAD with stent on Brilinta, hypertension, hyperlipidemia, COPD with continued nicotine dependence and cannabinoid use disorder. He presented to the emergency department for evaluation of gait disturbances resulting in recurrent falls and reported difficulties with balance and proprioception. He underwent full evaluation in the emergency department. Labs completed and reviewed. CBC unremarkable. BMP also unremarkable. Liver profile showing elevated AST of 79 and ALT of 64. Alcohol 330 at time of admission. CT head completed negative for acute intercranial abnormality showing moderate chronic sinusitis reported to have worsened when compared to previous he had completed on 04/22/23. Patient was admitted under services with consultation to neurology. TSH resulting at 1.470. Vitamin B12 his lower range of normal at 311 along with folate also lower end of normal at 6.90. MRI completed and radiology report reviewed stating no evidence of intracranial mass or acute/subacute infarct. X-ray left ribs negative for acute fracture or dislocation. Patient was treated for alcohol withdrawal via [facility] protocol with symptom triggered medication management with benzodiazepines and scheduled Librium. He was evaluated by neurologist and advised for alcohol cessation and recommended [id number] vitamin B12 tablet. The patient had not required symptom triggered medication management with Ativan in greater than 18 hours. Medically, patient stable at this time and requesting discharge. Vital signs as follows blood pressure 157/84, heart rate 68, respiratory rate 16, temp 98.1F, and SpO2 of 98% on room air. Patient reports he is out of all of his medications at home including albuterol inhaler, lisinopril, nitroglycerin tablets, atorvastatin, Symbicort, metoprolol, and Brilinta and requesting refills on these prescriptions at this time. Orders placed for 30 day prescription for these medications along with newly prescribed medications including aspirin 81 mg daily, thiamine 100 mg daily, folic acid 1 mg daily, and multivitamin tablets once daily. Patient educated on the importance of medication compliance and encouraged to follow up outpatient with his primary care provider and psychiatry teacher as discussed. Patient requesting refills or his prescriptions be sent to [facility] and patient was informed that these refills will not be available until tomorrow and he verbalized understanding stating he has enough for a couple days. Patient medically stable for discharge at this time, strongly encouraged on the importance of cessation of alcohol and nicotine use and again educated that combining B12 supplements with alcohol may increase his chances of developing peripheral neuropathy and worsen ataxia. Physical exam: Vital signs reviewed and stable. General: Nontoxic, no distress and appears stated age. Derm: Skin warm and dry, normal coloration for ethnicity. Bruising left posterior rib region . Head: Atraumatic, normocephalic and symmetric. Eyes: EOMs intact, no lid lag, and anicteric sclera Mouth: no lip lesions, mucus membranes moist Cardiovascular: regular rate and rhythm with normal S1S2, no murmur, positive posterior tibial pulses bilaterally, and cap refill < 2 seconds. Lungs: Respirations even, regular, and unlabored on room air. Lungs CTA bilaterally, no rhonchi, no rales, no wheezing, and no accessory muscle usage. Abdominal: soft, nontender to palpation, no guarding, no appreciable organomegaly Ext: ROM intact. No gross muscle atrophy, no edema, no contractures Neuro: Speech clear, face symmetrical and CN II-XII grossly intact with no noted focal neuro deficits Psych: Alert and oriented to person, place,time, and situation. Appropriate and pleasant affect. A total of 39 minutes of time were spent preparing this complex discharge summary. Pt was discharged on 05/03/23 at 11:49 AM. Patient was seen independently by Nurse Practitioner. This document was prepared using [employer] dictation software. Please allow for errors in process equipment operator while rare they do occur. Patient Condition at Discharge: Stable Plan - Discharge Summary New Discharge Prescriptions: New Folic Acid 1 mg PO DAILY 30 Days #30 tab Multivitamins, Thera [Multivitamin (formulary)] 1 each PO DAILY 30 Days #30 tab Thiamine [Vitamin B-1] 100 mg PO DAILY 30 Days #30 tablet Aspirin 81 mg PO DAILY 30 Days #30 tab Continue Acetaminophen Tab [Tylenol] 650 mg PO Q6HR PRN tab PRN Reason: Mild Pain Or Fever > 100.5 Ticagrelor [Brilinta] 90 mg PO BID 30 Days #60 tab Metoprolol Tartrate [Lopressor] 25 mg PO BID 30 Days #60 tab Budesonide-Formot 160-4.5 Mcg [Symbicort 160-4.5 Mcg Inhaler] 2 puff INHALATION RT-BID #1 inh Albuterol Nebulized [Ventolin Nebulized] 2.5 mg INHALATION RT-QID #120 ml Atorvastatin [Lipitor] 80 mg PO HS 30 Days #30 tab Nitroglycerin Sl Tabs [Nitrostat] 0.4 mg SL Q5M PRN #60 tab PRN Reason: Chest Pain lisinopriL [Prinivil] 10 mg PO DAILY 30 Days #30 tab Albuterol Inhaler [Ventolin Hfa Inhaler] 2 puff INHALATION RT-QID PRN #1 each PRN Reason: Shortness Of Breath Discharge Medication List Acetaminophen Tab [Tylenol] 650 mg PO Q6HR PRN tab 10/17/22 [Rx] Albuterol Inhaler [Ventolin Hfa Inhaler] 2 puff INHALATION RT-QID PRN #1 each 05/03/23 [Rx] Albuterol Nebulized [Ventolin Nebulized] 2.5 mg INHALATION RT-QID #120 ml 05/03/23 [Rx] Aspirin 81 mg PO DAILY 30 Days #30 tab 05/03/23 [Rx] Atorvastatin [Lipitor] 80 mg PO HS 30 Days #30 tab 05/03/23 [Rx] Budesonide-Formot 160-4.5 Mcg [Symbicort 160-4.5 Mcg Inhaler] 2 puff INHALATION RT-BID #1 inh 05/03/23 [Rx] Folic Acid 1 mg PO DAILY 30 Days #30 tab 05/03/23 [Rx] Metoprolol Tartrate [Lopressor] 25 mg PO BID 30 Days #60 tab 05/03/23 [Rx] Multivitamins, Thera [Multivitamin (formulary)] 1 each PO DAILY 30 Days #30 tab 05/03/23 [Rx] Nitroglycerin Sl Tabs [Nitrostat] 0.4 mg SL Q5M PRN #60 tab 05/03/23 [Rx] Thiamine [Vitamin B-1] 100 mg PO DAILY 30 Days #30 tablet 05/03/23 [Rx] Ticagrelor [Brilinta] 90 mg PO BID 30 Days #60 tab 05/03/23 [Rx] lisinopriL [Prinivil] 10 mg PO DAILY 30 Days #30 tab 05/03/23 [Rx] Follow up Appointment(s)/Referral(s): Andrea Olvera MD [STAFF PHYSICIAN] - 1 Week Shane Navarrete MD [STAFF PHYSICIAN] - 1 Week Patient Instructions/Handouts: Vitamin B-12 (By mouth), Abuse of Alcohol (DC), Alcohol Withdrawal (DC) Activity/Diet/Wound Care/Special Instructions: Activity: As tolerated. Take breaks as needed. Diet: Heart healthy and carb consistent diet. Avoid salts, or foods with hidden salts such as canned or boxed foods and frozen dinners. Extra salt makes your heart work harder and traps the fluid in your body for longer. Special Instructions: Take all of your medications as directed and remember to keep all of your doctor's appointments and follow-up as needed. A refill of all of your prescriptions has been sent to [facility] as you requested in addition to newly prescribed vitamins due to lowre levels and concerns for will not be able to pick these prescriptions up until to basilio morning when pharmacy reopens as we discussed. Also as discussed with you, combining B-12 supplements with alcohol may increase your chances of developing peripheral neuropathy and worsen your ataxia (balance). Strongly advise cessation of alcohol use. Thank you for allowing us to participate in your care, it was truly a pleasure having you for our patient!!! Discharge Disposition: HOME SELF-CARE
== END 2023-05-03 11:57 | disposition home or self-care (01) ==
LOC: EC 00:36 → 6NMEDSUR 03:36
PROVIDERS: ADMIT Internal Medicine; ATTEND Internal Medicine
DX: F10.239 Alcohol dependence with withdrawal, unspecified (principal); F10.229 Alcohol dependence with intoxication, unspecified; Y90.8 Blood alcohol level of 240 mg/100 ml or more; R74.8 Abnormal levels of other serum enzymes; R44.8 Other symptoms and signs involving general sensations and perceptions; R26.89 Other abnormalities of gait and mobility; R29.6 Repeated falls; Z71.41 Alcohol abuse counseling and surveillance of alcoholic; Z71.6 Tobacco abuse counseling; I25.119 Atherosclerotic heart disease of native coronary artery with unspecified angina pectoris; I10 Essential (primary) hypertension; E78.5 Hyperlipidemia, unspecified; I25.2 Old myocardial infarction; J44.9 Chronic obstructive pulmonary disease, unspecified; Z95.5 Presence of coronary angioplasty implant and graft; Z90.49 Acquired absence of other specified parts of digestive tract; Z98.890 Other specified postprocedural states; Z82.49 Family history of ischemic heart disease and other diseases of the circulatory system; Z79.02 Long term (current) use of antithrombotics/antiplatelets; Z79.82 Long term (current) use of aspirin; Z79.899 Other long term (current) drug therapy; Z79.51 Long term (current) use of inhaled steroids
CPT/HCPCS: 96376; 96361 ×2; 96366 ×2; 96372 ×3; 96375; 96365; 99285; 36415; 94640 ×6; 80053 ×2; 84443; 82607; 82746; 83690; 83735 ×2; 84100 ×2; 85025 ×2; 86780; 80306; 71101; 93880; 70450; 70551; G0378 ×3; G0480; S4990 ×2; J2060; J3411 ×3; J1650 ×3; 80320

== ENCOUNTER 2023-05-26 00:29 | Observation (INO) | payer OTHER ==
--- NOTE | 2023-05-26 01:38 | ED ---
General Adult HPI - General Chief complaint: Fall Stated complaint: ETOH Time Seen by Provider: 05/26/23 01:17 Source: EMS Mode of arrival: EMS Limitations: no limitations - History of Present Illness Initial comments: Dictation was produced using [employer] dictation software. please excuse any grammatical, word or spelling errors. Chief Complaint: 62-year-old male with multiple comorbidities presents to emergency department for frequent falls History of Present Illness: 62-year-old male he states that he fell down today. He states that he is not sure if he syncopized or not. Not sure if he felt palpitations prior to falling. States that he feels like his disequilibrium resolved. He had a cardiac tournament today where he states he wanted first place. He got home when all of a sudden he expense another episode. He has hi story of coronary artery disease. He has a coronary artery stent that was placed recently. Patient states that he is suffering frequent falls recently which led to multiple bumps and bruises. Reports that he does have some mild chest pain to the left anterior chest. No associated diaphoresis or nausea. The ROS documented in this emergency department record has been reviewed and confirmed by me. Those systems with pertinent positive or negative responses have been documented in the HPI. All other systems are other negative and/or noncontributory. - Related Data Previous Rx's Medication Instructions Recorded Acetaminophen Tab [Tylenol] 650 mg PO Q6HR PRN tab 10/17/22 Albuterol Inhaler [Ventolin Hfa 2 puff INHALATION RT-QID PRN #1 05/03/23 Inhaler] each Albuterol Nebulized [Ventolin 2.5 mg INHALATION RT-QID #120 ml 05/03/23 Nebulized] Aspirin 81 mg PO DAILY 30 Days #30 tab 05/03/23 Atorvastatin [Lipitor] 80 mg PO HS 30 Days #30 tab 05/03/23 Budesonide-Formot 160-4.5 Mcg 2 puff INHALATION RT-BID #1 inh 05/03/23 [Symbicort 160-4.5 Mcg Inhaler] Folic Acid 1 mg PO DAILY 30 Days #30 tab 05/03/23 Metoprolol Tartrate [Lopressor] 25 mg PO BID 30 Days #60 tab 05/03/23 Multivitamins, Thera [Multivitamin 1 each PO DAILY 30 Days #30 tab 05/03/23 (formulary)] Nitroglycerin Sl Tabs [Nitrostat] 0.4 mg SL Q5M PRN #60 tab 05/03/23 Thiamine [Vitamin B-1] 100 mg PO DAILY 30 Days #30 tablet 05/03/23 Ticagrelor [Brilinta] 90 mg PO BID 30 Days #60 tab 05/03/23 lisinopriL [Prinivil] 10 mg PO DAILY 30 Days #30 tab 05/03/23 Allergies Allergy/AdvReac Type Severity Reaction Status Date / Time No Known Allergies Allergy Verified 05/26/23 00:40 Review of Systems ROS Statement: Those systems with pertinent positive or pertinent negative responses have been documented in the HPI. ROS Other: All systems not noted in ROS Statement are negative. Past Medical History Past Medical History: Asthma, COPD, Hypertension, Myocardial Infarction ([place]) Additional Past Medical History / Comment(s): Alcoholism Last Myocardial Infarction Date:: n/a History of Any Multi-Drug Resistant Organisms: None Reported Past Surgical History: Appendectomy, Bowel Resection, Ear Surgery, Heart Catheterization With Stent, Hernia Repair, Orthopedic Surgery Past Anesthesia/Blood Transfusion Reactions: No Reported Reaction Date of Last Stent Placement:: 10/05/2022 Past Psychological History: No Psychological Hx Reported Smoking Status: Current every day smoker Past Alcohol Use History: Daily, Heavy Past Drug Use History: Marijuana - Past Family History Father Family Medical History: Coronary Artery Disease (CAD) General Exam - General Exam Comments Initial Comments: PHYSICAL EXAM: General Impression: Alert and oriented x3, not in acute distress HEENT: Normocephalic atraumatic, extra-ocular movements intact, pupils equal and reactive to light bilaterally, mucous membranes moist. Cardiovascular: Heart regular rate and rhythm Chest: Able to complete full sentences, no retractions, no tachypnea Abdomen: abdomen soft, non-tender, non-distended, no organomegaly Musculoskeletal: Pulses present and equal in all extremities, no peripheral edema Motor: no focal deficits noted Neurological: CN II-XII grossly intact, no focal motor or sensory deficits noted Skin: Intact with no visualized rashes Psych: Normal affect and mood Limitations: no limitations Course Vital Signs 05/26/23 05/26/23 05/26/23 00:37 02:26 02:41 Temperature 98 F Pulse Rate 87 78 Respiratory 18 16 Rate Blood Pressure 146/64 143/75 Blood Pressure 117/68 [Left Arm Sitting] Blood Pressure 117/83 [Left Arm Standing] Blood Pressure 137/82 [Left Arm Supine] O2 Sat by Pulse 100 97 Oximetry EKG Findings - EKG Comments: EKG Findings:: My EKG interpretation: Ventricular rate 70, sinus rhythm,. 132, S1, QTC 418. No AR prolongation, no QTC prolongation, no ST or T-wave changes noted. EKG compared to 05/01/2023 showing no changes. Overall, this EKG is unremarkable Medical Decision Making - Medical Decision Making Was pt. sent in by a medical professional or institution (, PA, HAND EDGER, urgent care, hospital, or [facility]...) When possible be specific @ -No Did you speak to anyone other than the patient for history (EMS, parent, family, police, friend...)? What history was obtained from this source @ -No Did you review nursing and triage notes (agree or disagree)? Why? @ -I reviewed and agree with nursing and triage notes Were old charts reviewed (outside hosp., previous admission, EMS record, old EKG, old radiological studies, urgent care reports/EKG's, [facility] records)? Report findings @ -No old charts were reviewed Differential Diagnosis (chest pain, altered mental status, abdominal pain women, abdominal pain men, vaginal bleeding, musculoskeletal, weakness, fever, dyspnea, syncope, headache, dizziness, GI bleed, back pain, seizure, CVA, palpatations, m ental health)? @ -Differential Chest Pain: Stable Angina, Unstable Angina, STEMI, NSTEMI Aortic Dissection, Pneumothorax, Musculoskeletal, Esophageal Spasm GERD, Cholecystitis, Pancreatitis, Zoster, this is not meant to be an all-inclusive list. EKG interpreted by me (3pts min.). @ -See above X-rays interpreted by me (1pt min.). @ -Chest x-ray unremarkable. CT interpreted by me (1pt min.). @ -Computed tomography scan the brain and C-spine shows no acute processes. U/S interpreted by me (1pt. min.). @ -None done What testing was considered but not performed or refused? (CT, X-rays, U/S, labs)? Why? @ -None What meds were considered but not given or refused? Why? @ -None Did you discuss the management of the patient with other professionals (professionals i.e. , PA, HAND EDGER, lab, RT, psych nurse, 7th grade social studies teacher, tugboat captain, teacher, credit compliance officer, watch caser)? Give summary @ -No Was smoking cessation discussed for >3mins.? @ -No Was critical care preformed (if so, how long)? @ -No Were there social determinants of health that impacted care today? How? (Homelessness, low income, unemployed, alcoholism, drug addiction, transportation, low edu. Level, literacy, decrease access to med. care, ch[facility], rehab)? @ -No Was there de-escalation of care discussed even if they declined (Discuss DNR or withdrawal of care, Hospice)? DNR status @ -No What co-morbidities impacted this encounter? (DM, HTN, Smoking, COPD, CAD, Cancer, CVA, ARF, Chemo, Hep., AIDS, mental health diagnosis, sleep apnea, morbid obesity)? @ -None Was patient admitted / discharged? Hospital course, mention meds given and route, prescriptions, significant lab abnormalities, going to OR and other pertinent info. @ -62-year-old male with concerns of syncope and chest pain. Vital signs are stable. Patient resting comfortably at the bedside. Does not appear to be in any acute distress. EKG unremarkable. Labs shows troponin 0.025. This is slightly above his baseline over the earlier part of this year. Reevaluated at bedside 331 sleeping comfortably. Patient has significant risk factors will be admitted for cardiac monitoring cardiology consultation. There is concern for cardiac syncope Undiagnosed new problem with uncertain prognosis? @ -No Drug Therapy requiring intensive monitoring for toxicity (Heparin, Nitro, In sulin, Cardizem)? @ -No Were any procedures done? @ -No Diagnosis/symptom? Acute, or Chronic, or Acute on Chronic? Uncomplicated (without systemic symptoms) or Complicated (systemic symptoms)? @ -1. Chest pain, 2. Syncope Side effects of treatment? @ -No Exacerbation, Progression, or Severe Exacerbation? @ -No Poses a threat to life or bodily function? How? (Chest pain, [place], [place], pneumonia, PE, COPD, DKA, ARF, appy, cholecystitis, CVA, Diverticulitis, Homicidal, Suicidal, threat to staff... and all critical care pts) @ -yes - Lab Data Result diagrams: 05/26/23 01:59 05/26/23 01:59 Lab Results 05/26/23 05/26/23 05/26/23 Range/Units 01:59 01:59 01:59 WBC 7.5 (3.8-10.6) k/uL RBC 4.30 (4.30-5.90) m/uL Hgb 14.2 (13.0-17.5) gm/dL Hct 42.1 (39.0-53.0) % MCV 97.9 (80.0-100.0) fL MCH 32.9 (25.0-35.0) pg MCHC 33.6 (31.0-37.0) g/dL RDW 12.4 (11.5-15.5) % Plt Count 245 (150-450) k/uL MPV 7.1 Neutrophils % 49 % Lymphocytes % 40 % Monocytes % 7 % Eosinophils % 1 % Basophils % 1 % Neutrophils # 3.7 (1.3-7.7) k/uL Lymphocytes # 3.0 (1.0-4.8) k/uL Monocytes # 0.5 (0-1.0) k/uL Eosinophils # 0.1 (0-0.7) k/uL Basophils # 0.0 (0-0.2) k/uL Sodium 137 (137-145) mmol/L Potassium 4.8 (3.5-5.1) mmol/L Chloride 105 (98-107) mmol/L Carbon Dioxide 21 L (22-30) mmol/L Anion Gap 11 mmol/L BUN 9 (9-20) mg/dL Creatinine 0.63 L (0.66-1.25) mg/dL Est GFR (CKD-EPI)AfAm >90 (>60 ml/min/1.73 sqM) Est GFR (CKD-EPI)NonAf >90 (>60 ml/min/1.73 sqM) Glucose 87 (74-99) mg/dL Calcium 8.8 (8.4-10.2) mg/dL Magnesium 2.3 (1.6-2.3) mg/dL Total Bilirubin 0.8 (0.2-1.3) mg/dL AST 91 H (17-59) U/L ALT 72 H (4-49) U/L Alkaline Phosphatase 73 (38-126) U/L Troponin I 0.025 (0.000-0.034) ng/mL Total Protein 7.1 (6.3-8.2) g/dL Albumin 4.2 (3.5-5.0) g/dL Disposition Clinical Impression: Syncope, Chest pain Disposition: ADMITTED IP TO THIS HOSP Condition: Fair Referrals: None,Stated [Primary Care Provider] - 1-2 days Decision Time: 03:32
[2023-05-26 02:19] LABS: Basophils % (A) 1 %; Eosinophils # (A) 0.1 k/uL (0-0.7); Eosinophils % (A) 1 %; HCT 42.1 % (39.0-53.0); HGB 14.2 gm/dL (13.0-17.5); Lymphocytes % (A) 40 %; MCH 32.9 pg (25.0-35.0); MCHC 33.6 g/dL (31.0-37.0); MCV 97.9 fL (80.0-100.0); Mean Platelet Volume 7.1; Monocytes # (A) 0.5 k/uL (0-1.0); Monocytes % (A) 7 %; Neutrophils # (A) 3.7 k/uL (1.3-7.7); Neutrophils % (A) 49 %; Platelet Count 245 k/uL (150-450); RDW 12.4 % (11.5-15.5); WBC 7.5 k/uL (3.8-10.6)
[2023-05-26 02:29] LABS: ALT 72 U/L (4-49); AST 91 U/L (17-59); African American GFR (CKD) >90 (>60 ml/min/1.73 sqM); Albumin 4.2 g/dL (3.5-5.0); Alkaline Phosphatase 73 U/L (38-126); Anion Gap 11 mmol/L; Blood Urea Nitrogen 9 mg/dL (9-20); Calcium 8.8 mg/dL (8.4-10.2); Carbon Dioxide 21 mmol/L (22-30); Chloride 105 mmol/L (98-107); Glucose 87 mg/dL (74-99); Magnesium 2.3 mg/dL (1.6-2.3); Non-African American GFR(CKD) >90 (>60 ml/min/1.73 sqM); Sodium 137 mmol/L (137-145); Total Bilirubin 0.8 mg/dL (0.2-1.3); Total Protein 7.1 g/dL (6.3-8.2)
[2023-05-26 02:43] LABS: Potassium 4.8 mmol/L (3.5-5.1)
--- NOTE | 2023-05-26 03:13 | XR ---
EXAM: XR Chest, 2 Views CLINICAL HISTORY: ITS.REASON XR Reason: rib pain s/p falls TECHNIQUE: Frontal and lateral views of the chest. COMPARISON: No relevant prior studies available. FINDINGS: Lungs: Unremarkable. No consolidation. Pleural space: Unremarkable. No pneumothorax. Heart: Unremarkable. No cardiomegaly. Mediastinum: Unremarkable. Bones/joints: Unremarkable. IMPRESSION: Normal chest x-rays.
[2023-05-26] MEDS ORDERED: NALOXONE 0.4 MG/ML 1 ML VIAL IV PRN (03:28)
[2023-05-26] MEDS ORDERED: ASPIRIN 81 MG PO STA (03:29)
[2023-05-26] MEDS: SODIUM CHLORIDE 0.9% 1,000 ML IV SCH ×2 (03:39→09:07)
--- NOTE | 2023-05-26 03:50 | CT ---
EXAM: CT Head Without Intravenous Contrast CLINICAL HISTORY: ITS.REASON CT Reason: rib pain s/p falls TECHNIQUE: Axial computed tomography images of the head/brain without intravenous contrast. CTDI is 45.2 mGy and DLP is 1009 mGy-cm. This CT exam was performed using one or more of the following dose reduction techniques: automated exposure control, adjustment of the mA and/or kV according to patient size, and/or use of iterative reconstruction technique. COMPARISON: 05/01/2023 FINDINGS: Brain: Mild generalized cortical atrophy. No hemorrhage. No significant white matter disease. Ventricles: Unremarkable. No ventriculomegaly. Bones/joints: Unremarkable. No acute fracture. Soft tissues: Unremarkable. Sinuses: Unremarkable as visualized. No acute sinusitis. Mastoid air cells: Unremarkable as visualized. No mastoid effusion. IMPRESSION: No acute findings in the head/brain. EXAM: CT Cervical Spine Without Intravenous Contrast CLINICAL HISTORY: ITS.REASON CT Reason: rib pain s/p falls TECHNIQUE: Axial computed tomography images of the cervical spine without intravenous contrast. CTDI is 11.6 mGy and DLP is 360.1 mGy-cm. This CT exam was performed using one or more of the following dose reduction techniques: automated exposure control, adjustment of the mA and/or kV according to patient size, and/or use of iterative reconstruction technique. COMPARISON: 04/22/2023 FINDINGS: Vertebrae: Unremarkable. No acute fracture. Discs/spinal canal/neural foramina: Mild degenerative changes. No spinal canal stenosis. Soft tissues: Unremarkable. Vasculature: Atherosclerotic vascular calcifications. IMPRESSION: No acute findings in the cervical spine.
[2023-05-26] MEDS ORDERED: ALBUTEROL NEBULIZED 2.5 MG/3 ML INHALATION PRN (05:38)
--- NOTE | 2023-05-26 05:48 | P.HPIM ---
History of Present Illness H&P Date: 05/26/23 Chief Complaint: ataxia, fall 62-year-old male with coronary stents few months ago Coming in today due to frequent falling, he was having a normal day earlier today he was playing cards with friend had few drinks, when asked he explained had a half a pint and couple beers. He doesn't believe that he has a drinking problem. The reason he is in here today is because his roommate called EMS, as he was walking around the house he had a fall and was unable to get up he denies any head injury denies passing out denies any new onset focal neuro deficits. He adds that she's been having frequent falls about 1-2 per week over the past few months denies any new onset headache changes in his vision or hearing denies any new onset focal neuro deficits Patient denies any chest pain trouble breathing nausea vomiting palpitations denies any fevers chills upper respiratory infection symptoms. He recently had left heart cath with a stent deployed few months ago he claims to be compliant with his medications he is on Brilinta denies any bleeding Admits to tobacco smoking, smoking marijuana, and daily alcohol review of systems Pertinent positives as noted in HPI. All other systems were reviewed and are negative on exam Constitutional: No acute distress, conversant, pleasant Eyes: Anicteric sclerae, moist conjunctiva, Pupils equal round reactive to light ENMT: NC/AT Oropharynx clear, no erythema, or exudates Neck: Supple, no masses, or JVD No carotid bruits No thyromegaly Lungs: Clear to auscultation Clear to percussion Normal respiratory effort, no accessory muscle use Cardiovascular: Heart regular in rate and rhythm, No murmurs, gallops, or rubs No peripheral edema Abdominal: Soft Nontender, no guarding, rebound or rigidity Abdomen moving with respiration Normoactive bowel sounds No hepatomegaly, No splenomegaly No palpable mass No abdominal wall hernia noted Skin: Normal temperature, tone, texture, turgor No induration No subcutaneous nodules No rash, lesions No ulcers Extremities: No digital cyanosis No clubbing Pedal pulses intact and symmetrical Radial pulses intact and symmetrical No calf tenderness Psychiatric: Alert and oriented to person, place and time Appropriate affect fair judgement Neuro Muscles Strength 5/5 in all 4 extremities Sensation to light touch grossly present throughout Cranial nerves II-XII grossly intact Lymphatics: no palpable cervical or supraclavicular lymph nodes Past Medical History Past Medical History: Asthma, COPD, Hypertension, Myocardial Infarction ([place]) Additional Past Medical History / Comment(s): Alcoholism Last Myocardial Infarction Date:: 10/2022 History of Any Multi-Drug Resistant Organisms: None Reported Past Surgical History: Appendectomy, Bowel Resection, Ear Surgery, Heart Catheterization With Stent, Hernia Repair, Orthopedic Surgery Additional Past Surgical History / Comment(s): Hernia repair X3. Right hand index surgery. Bowel resection r/t diverticulitis. Past Anesthesia/Blood Transfusion Reactions: No Reported Reaction Date of Last Stent Placement:: 10/05/2022 Past Psychological History: No Psychological Hx Reported Smoking Status: Current every day smoker Past Alcohol Use History: Daily, Heavy Additional Past Alcohol Use History / Comment(s): Pt states he drinks 2 beer and a half pint daily. Denies every going through DTs. Past Drug Use History: Marijuana - Past Family History Father Family Medical History: Coronary Artery Disease (CAD) Medications and Allergies Home Medications Medication Instructions Recorded Confirmed Type Acetaminophen Tab [Tylenol] 650 mg PO Q6HR PRN tab 10/17/22 05/01/23 Rx Albuterol Inhaler [Ventolin Hfa 2 puff INHALATION RT-QID PRN #1 05/03/23 Rx Inhaler] each Albuterol Nebulized [Ventolin 2.5 mg INHALATION RT-QID #120 ml 05/03/23 Rx Nebulized] Aspirin 81 mg PO DAILY 30 Days #30 tab 05/03/23 Rx Atorvastatin [Lipitor] 80 mg PO HS 30 Days #30 tab 05/03/23 Rx Budesonide-Formot 160-4.5 Mcg 2 puff INHALATION RT-BID #1 inh 05/03/23 Rx [Symbicort 160-4.5 Mcg Inhaler] Folic Acid 1 mg PO DAILY 30 Days #30 tab 05/03/23 Rx Metoprolol Tartrate [Lopressor] 25 mg PO BID 30 Days #60 tab 05/03/23 Rx Multivitamins, Thera [Multivitamin 1 each PO DAILY 30 Days #30 tab 05/03/23 Rx (formulary)] Nitroglycerin Sl Tabs [Nitrostat] 0.4 mg SL Q5M PRN #60 tab 05/03/23 Rx Thiamine [Vitamin B-1] 100 mg PO DAILY 30 Days #30 tablet 05/03/23 Rx Ticagrelor [Brilinta] 90 mg PO BID 30 Days #60 tab 05/03/23 Rx lisinopriL [Prinivil] 10 mg PO DAILY 30 Days #30 tab 05/03/23 Rx Allergies Allergy/AdvReac Type Severity Reaction Status Date / Time No Known Allergies Allergy Verified 05/26/23 00:40 Physical Exam Vitals: Vital Signs Temp Pulse Resp BP BP BP BP 05/26/23 02:41 117/68 117/83 137/82 05/26/23 02:26 78 16 143/75 05/26/23 00:37 98 F 87 18 146/64 Pulse Ox 05/26/23 02:41 05/26/23 02:26 97 05/26/23 00:37 100 Intake and Output 05/25/23 05/25/23 05/26/23 14:59 22:59 06:59 Intake Total 0 Balance 0 Intake: Oral 0 Other: Voiding Method Urinal Weight 81.647 kg Results CBC & Chem 7: 05/26/23 01:59 05/26/23 01:59 Labs: Abnormal Lab Results - Last 24 Hours (Table) 05/26/23 Range/Units 01:59 Carbon Dioxide 21 L (22-30) mmol/L Creatinine 0.63 L (0.66-1.25) mg/dL AST 91 H (17-59) U/L ALT 72 H (4-49) U/L Thrombosis Risk Factor Assmnt - Choose All That Apply Any of the Below Risk Factors Present?: Yes Each Factor Represents 1 point: Abnormal pulmonary function (COPD), Obesity (BMI >25) Thrombosis Risk Factor Assessment Total Risk Factor Score: 2 Thrombosis Risk Factor Assessment Level: Low Risk Assessment and Plan Assessment: 62-year-old male with coronary artery disease status post stents 4 months ago coming in for a fall discussed the case with the ED doctor and accepted the admission for ataxia for neurologic evaluation with anticipated length of stay less than 2 midnights Gait disturbance and ataxia with frequent falling CT of the brain and spine no acute pathology Neurochecks Fall precautions Neurology consultation Alcohol dependence with potential withdrawal Patient counseled regarding his drinking Thiamine daily IV fluid hydration Benzo per CIWA scale for withdrawal symptoms Coronary artery disease status post stents 4 months ago Continue Brilinta twice a day Continue with aspirin and statin COPD Patient counseled to quit smoking Continue with home breathing treatments Supplemental oxygen as needed Blood work reviewed overall unremarkable Hemoglobin 15.2 Troponins negative Renal function unremarkable Full code DVT prophylaxis heparin subcu 3 times a day
[2023-05-26] MEDS ORDERED: LORazepam 0.5 MG TAB PO PRN (05:50)
[2023-05-26] MEDS ORDERED: LORazepam 1 MG TAB PO PRN ×3 (05:50)
[2023-05-26] MEDS ORDERED: THIAMINE 100 MG/ML 2 ML VIAL IM STA (05:50)
[2023-05-26] MEDS: SYMBICORT 160-4.5 MCG INHALER INHALATION SCH ×2 (08:27→19:45)
[2023-05-26] MEDS: ALBUTEROL NEBULIZED 2.5 MG/3 ML INHALATION SCH ×4 (08:27→19:45)
[2023-05-26] MEDS: lisinopriL 10 MG TAB PO SCH (09:06)
[2023-05-26] MEDS: ASPIRIN 81 MG PO SCH (09:06)
[2023-05-26] MEDS: HEPARIN SODIUM,PORCINE 5,000 UNIT/ML 1 ML VIAL SQ SCH ×3 (09:06→23:42)
[2023-05-26] MEDS: TICAGRELOR 90 MG TAB PO SCH ×2 (09:06→21:02)
[2023-05-26] MEDS: THIAMINE 100 MG TAB PO SCH (09:06)
[2023-05-26] MEDS: METOPROLOL TARTRATE 25 MG TAB PO SCH ×2 (09:06→21:02)
--- NOTE | 2023-05-26 09:16 | P.CRDCN ---
History of Present Illness Consult date: 05/26/23 Consult reason: chest pain History of present illness: HISTORY OF PRESENT ILLNESS: This is a 62-year-old male with a past medical history significant for coronary artery disease, hypertension, hyperlipidemia, nicotine dependence, and alcohol abuse. Patient follows in the office with Dr. Guerrero. We have been asked to see the patient in consultation for chest pain. Patient states that he is not sure why he is at the hospital but he states he has been losing his balance, feeling dizzy and had a fall. He states he has had 6 of these episodes recently. He states he has a little chest pain worse with deep breathing. No palpitations. No lower extremity edema. No blood in his stools or urine. He denies any stroke or seizure activity. He is a smoker of half a pack per day. Patient is drinking half pint of liquor along with a couple beers daily. Patient does have a large ecchymosis area on the posterior thoracic left side from a recent fall. He reports occasional marijuana use. EKG reveals sinus mechanism with no signs of acute ischemia CBC within normal limits. Sodium 137, potassium 4.5, BUN 9 creatinine 0.63. Glucose 87. Magnesium 2.3. AST 91, ALT 72, alkaline phosphate 73. Troponin negative 2. Recent lab work for Triglycerides 67, cholesterol 118, LDL 32, HDL 72. Current home cardiac medications include aspirin 81 mg daily, Brilinta 90 mg twice a day, atorvastatin 80 mg at bedtime, lisinopril 10 mg daily, metoprolol tartrate 25 mg twice daily, Nitrostat as needed. Most recent echocardiogram obtained in March 2023 reveals ejection fraction 45%, mild right ventricular dilation, RVSP 31, mildly dilated left atrium Cardiac catheterization history: October 2022 revealing 95% OM1 stenosis with PCI of the proximal OM1. Patient was also found to have mid LAD 20-30% stenosis. Right coronary artery was not imaged at this time however is known to be 100% occluded. REVIEW OF SYSTEMS: At the time of my exam: CONSTITUTIONAL: Denies fever or chills. Reports weakness and falls. HEENT: Denies blurred vision, vision changes, or eye pain. Denies hemoptysis CARDIOVASCULAR: Denies chest pain. Denies orthopnea. Denies PND. Denies palpitations RESPIRATORY: Denies shortness of breath. GASTROINTESTINAL: Denies abdominal pain. Denies nausea or vomiting. HEMATOLOGIC: Denies bleeding disorders. GENITOURINARY: Denies any blood in urine. SKIN: Denies pruitis. Denies rash. PHYSICAL EXAM: VITAL SIGNS: Reviewed. GENERAL: Well-developed in no acute distress. HEENT: Head is normocephalic. Pupils are equal, round. Sclerae anicteric. Mucous membranes of the mouth are moist. Neck supple. No JVD or thyromegaly LUNGS: Respirations even and unlabored. Lungs essentially clear to auscultation bilaterally. HEART: Regular rate and rhythm. S1 and S2 heard. ABDOMEN: Soft. Nondistended. Nontender. EXTREMITIES: No clubbing or cyanosis. Peripheral pulses intact. No lower extremity edema NEUROLOGIC: Awake and alert. Oriented x 3. ASSESSMENT: Status post fall, possible vasovagal Coronary artery disease with stenting of the proximal OM1, October 2022 Known chronic total occlusion of the RCA Hypertension Hyperlipidemia Alcohol abuse Tobacco use and dependence Marijuana use PLAN: Continue home cardiac medications Scheduled tilt table test today Continue antiplatelet therapy with aspirin and Brilinta Abstinence from alcohol recommended Smoking cessation encouraged Patient may follow up in the office with Dr. Guerrero Following tilt table test and recommendations, patient is cleared for discharge from cardiology. Nurse practitioner note has been reviewed by physician. Signing provider agrees with the documented findings, assessment, and plan of care. Past Medical History Past Medical History: Asthma, COPD, Hypertension, Myocardial Infarction ([place]) Additional Past Medical History / Comment(s): Alcoholism Last Myocardial Infarction Date:: 10/2022 History of Any Multi-Drug Resistant Organisms: None Reported Past Surgical History: Appendectomy, Bowel Resection, Ear Surgery, Heart Catheterization With Stent, Hernia Repair, Orthopedic Surgery Additional Past Surgical History / Comment(s): Hernia repair X3. Right hand index surgery. Bowel resection r/t diverticulitis. Past Anesthesia/Blood Transfusion Reactions: No Reported Reaction Date of Last Stent Placement:: 10/05/2022 Past Psychological History: No Psychological Hx Reported Smoking Status: Current every day smoker Past Alcohol Use History: Daily, Heavy Additional Past Alcohol Use History / Comment(s): Pt states he drinks 2 beer and a half pint daily. Denies every going through DTs. Past Drug Use History: Marijuana - Past Family History Father Family Medical History: Coronary Artery Disease (CAD) Medications and Allergies Home Medications Medication Instructions Recorded Confirmed Type Acetaminophen Tab [Tylenol] 650 mg PO Q6HR PRN tab 10/17/22 05/26/23 Rx Albuterol Inhaler [Ventolin Hfa 2 puff INHALATION RT-QID PRN #1 05/03/23 05/26/23 Rx Inhaler] each Albuterol Nebulized [Ventolin 2.5 mg INHALATION RT-QID #120 ml 05/03/23 05/26/23 Rx Nebulized] Aspirin 81 mg PO DAILY 30 Days #30 tab 05/03/23 05/26/23 Rx Atorvastatin [Lipitor] 80 mg PO HS 30 Days #30 tab 05/03/23 05/26/23 Rx Budesonide-Formot 160-4.5 Mcg 2 puff INHALATION RT-BID #1 inh 05/03/23 05/26/23 Rx [Symbicort 160-4.5 Mcg Inhaler] Folic Acid 1 mg PO DAILY 30 Days #30 tab 05/03/23 05/26/23 Rx Metoprolol Tartrate [Lopressor] 25 mg PO BID 30 Days #60 tab 05/03/23 05/26/23 Rx Multivitamins, Thera [Multivitamin 1 each PO DAILY 30 Days #30 tab 05/03/23 05/26/23 Rx (formulary)] Nitroglycerin Sl Tabs [Nitrostat] 0.4 mg SL Q5M PRN #60 tab 05/03/23 05/26/23 Rx Thiamine [Vitamin B-1] 100 mg PO DAILY 30 Days #30 tablet 05/03/23 05/26/23 Rx Ticagrelor [Brilinta] 90 mg PO BID 30 Days #60 tab 05/03/23 05/26/23 Rx lisinopriL [Prinivil] 10 mg PO DAILY 30 Days #30 tab 05/03/23 05/26/23 Rx Allergies Allergy/AdvReac Type Severity Reaction Status Date / Time No Known Allergies Allergy Verified 05/26/23 06:48 Physical Exam Vitals: Vital Signs Temp Pulse Pulse Resp BP BP BP 05/26/23 04:12 97.7 F 90 18 05/26/23 02:41 117/68 117/83 05/26/23 02:26 78 16 143/75 05/26/23 00:37 98 F 87 18 146/64 BP Pulse Ox 08/22/23 04:12 152/82 97 08/22/23 02:41 137/82 05/26/23 02:26 97 05/26/23 00:37 100 Intake and Output 05/25/23 05/26/23 05/26/23 22:59 06:59 14:59 Intake Total 0 Balance 0 Intake: Oral 0 Other: Voiding Method Urinal Weight 81.647 kg Results 05/26/23 01:59 05/26/23 01:59 Cardiac Enzymes 05/26/23 05/26/23 Range/Units 01:59 01:59 AST 91 H (17-59) U/L Troponin I 0.025 (0.000-0.034) ng/mL CBC 05/26/23 Range/Units 01:59 WBC 7.5 (3.8-10.6) k/uL RBC 4.30 (4.30-5.90) m/uL Hgb 14.2 (13.0-17.5) gm/dL Hct 42.1 (39.0-53.0) % Plt Count 245 (150-450) k/uL Comprehensive Metabolic Panel 05/26/23 Range/Units 01:59 Sodium 137 (137-145) mmol/L Potassium 4.8 (3.5-5.1) mmol/L Chloride 105 (98-107) mmol/L Carbon Dioxide 21 L (22-30) mmol/L BUN 9 (9-20) mg/dL Creatinine 0.63 L (0.66-1.25) mg/dL Glucose 87 (74-99) mg/dL Calcium 8.8 (8.4-10.2) mg/dL AST 91 H (17-59) U/L ALT 72 H (4-49) U/L Alkaline Phosphatase 73 (38-126) U/L Total Protein 7.1 (6.3-8.2) g/dL Albumin 4.2 (3.5-5.0) g/dL Current Medications Generic Name Dose Route Start Last Admin Trade Name Freq PRN Reason Stop Dose Admin Acetaminophen 650 mg 05/26/23 05:38 Acetaminophen Tab 325 Mg Tab PO Q6HR PRN Mild Pain or Fever > 100.5 Albuterol Sulfate 2.5 mg 05/26/23 05:38 Albuterol Nebulized 2.5 Mg/3 Ml INHALATION RT-QID PRN Shortness Of Breath Albuterol Sulfate 2.5 mg 05/26/23 08:00 Albuterol Nebulized 2.5 Mg/3 Ml INHALATION RT-QID [facility] Aspirin 81 mg 05/26/23 09:00 Aspirin 81 Mg PO DAILY [facility] Atorvastatin Calcium 80 mg 05/26/23 21:00 Atorvastatin 80 Mg Tab PO HS [facility] Budesonide/Formoterol Fumarate 2 puff 05/26/23 08:00 Symbicort 160-4.5 Mcg Inhaler INHALATION RT-BID [facility] Heparin Sodium (Porcine) 5,000 unit 05/26/23 08:00 Heparin Sodium,Porcine 5,000 Unit/Ml 1 Ml Vial SQ Q8HR [facility] Sodium Chloride 1,000 mls @ 20 mls/hr 05/26/23 03:30 05/26/23 03:39 Saline 0.9% IV 20 mls/hr .Q24H [facility] Administration Lisinopril 10 mg 05/26/23 09:00 Lisinopril 10 Mg Tab PO DAILY [facility] Lorazepam 0.5 mg 05/26/23 05:50 Lorazepam 0.5 Mg Tab PO Q4HR PRN [place] 4 To 5 Lorazepam 1 mg 05/26/23 05:50 Lorazepam 1 Mg Tab PO Q4HR PRN [place] 6 To 7 Lorazepam 2 mg 05/26/23 05:50 Lorazepam 1 Mg Tab PO Q2HR PRN [place] 10 or greater Lorazepam 2 mg 05/26/23 05:50 Lorazepam 1 Mg Tab PO Q3HR PRN [place] 8 To 9 Metoprolol Tartrate 25 mg 05/26/23 09:00 Metoprolol Tartrate 25 Mg Tab PO BID [facility] Naloxone HCl 0.2 mg 05/26/23 03:28 Naloxone 0.4 Mg/Ml 1 Ml Vial IV Q2M PRN Opioid Reversal Thiamine HCl 100 mg 05/26/23 09:00 Thiamine 100 Mg Tab PO DAILY [facility] Thiamine HCl 100 mg 05/27/23 09:00 Thiamine 100 Mg Tab PO DAILY [facility] Ticagrelor 90 mg 05/26/23 09:00 Ticagrelor 90 Mg Tab PO BID [facility] Intake and Output 05/25/23 05/26/23 05/26/23 22:59 06:59 14:59 Intake Total 0 Balance 0 Intake: Oral 0 Other: Voiding Method Urinal Weight 81.647 kg 05/26/23 01:59 05/26/23 01:59
[2023-05-26] MEDS ORDERED: IV FLUID CONTINUATION 1,000 ML IV ONE (09:32)
--- NOTE | 2023-05-26 11:50 | P.EPPROC ---
- EP Procedure Note Electrophysiology Procedure Note: Diagnosis Recurrent dizzy spells and presyncope Twelve-lead EKG shows sinus rhythm normal NV narrow QRS early repolarization abnormality in V5-V6 Tilt table test per protocol Baseline blood pressure 143/76. His mercury, waistline heart rate 79 beats a minute Patient was tilted upright at night of 70 per protocol There was no significant change in blood pressure a heart rate He had recurrent episodes of dizziness, initially upon standing without any significant change in heart rate or blood pressure. Later he complained of being dizzy and sweaty in his blood pressure 128/83 mmHg and pulse rate was 85 beats a minute 2 was the end of the test his blood pressure lowered to 101/70 mmHg and he said he felt more sweaty and was still dizzy No syncope noted Impression Fairly normal twelve-lead EKG Tilt table test that does not show any clear-cut evidence for neurocardiogenic phenomenon Patient's dizziness was most noticeable when his blood pressure was 101/70 mmHg with a normal heart rate of 90 Suggest It is possible he is having vasovagal presyncope that the changes in blood pressure are quite minor for most part except was the end of the test when his blood pressure was 101-106 mmHg systolic Suggest Switched to metoprolol succinate 25 mg in the morning Change to lisinopril 2.5 mg by mouth in the evening Continue antiplatelet therapy and anti-atherosclerotic therapy Follow-up with primary medical assembler
--- NOTE | 2023-05-26 12:57 | P.CNNES ---
History of Present Illness Consult date: 05/26/23 Requesting physician: Patrick Chatman Reason for Consult: Ataxia History of Present Illness: Patient is a 62-year-old male came to the hospital by ambulance early this morning at 12:29 AM. As per EMS flow sheet, when they arrived to the scene, patient had gone out for some drinks and to play poker and stated he has been falling over and unable to walk since he has returned home. Patient denies hitting his head as well denies any body pain. Patient stated that his just equilibrium was off. Patient was alert and oriented 4 answer all questions. Patient states that he had "a few beers as well as a pint". His vitals were blood pressure 156/90, pulse rate 89, respirations 15, saturation 98%. Patient's blood tests showed normal CBC, chem 7, AST 91, ALT 72, troponins are normal. Alcohol level was not checked. Patient has numerous admission to the hospital earlier this year with alcohol intoxication. Patient's previous urine drug screen from 05/01/2023 was positive for barbiturate, benzodiazepine, iris flores. RPR nonreactive. Patient states that at present he does not feel well. He looses balance, keeps on falling. He currently drinks 2 beers and half pint of [place] house everyday. Also smokes little marijuana and smokes half pack per day. He lives with roommate, uses cane. Patient denies any history of diabetes or hypertension. He has smoked 1 pack per day for 40 years. Since last admission, he has cut back to smoking half pack per day. He drinks 2 24 ounce can Budweiser and half pint of [place] house whiskey daily for last 43 years. He smokes marijuana. No other illicit drug use. Review of Systems Constitutional: Denies chills, Denies fever Eyes: denies blurred vision, denies diplopia, denies pain Ears: deny: decreased hearing, ear discharge Ears, nose, mouth and throat: Reports headache, Denies nasal congestion, Denies sore throat Cardiovascular: Reports chest pain, Reports shortness of breath Respiratory: Reports cough with sputum, Reports wheezing, Denies sleep apnea Gastrointestinal: Denies abdominal pain, Denies diarrhea, Denies nausea, Denies vomiting Genitourinary: Denies discharge, Denies flank pain, Denies genital pain Musculoskeletal: Reports low back pain (from fall), Denies myalgias, Denies neck pain Integumentary: Denies pruritus, Denies rash Neurological: Reports as per HPI Psychiatric: Denies anxiety, Denies depression Endocrine: Reports fatigue, Denies weight change Hematologic/Lymphatic: Reports easy bruising, Denies easy bleeding Past Medical History Past Medical History: Asthma, COPD, Hypertension, Myocardial Infarction ([place]) Additional Past Medical History / Comment(s): Alcoholism Last Myocardial Infarction Date:: 10/2022 History of Any Multi-Drug Resistant Organisms: None Reported Past Surgical History: Appendectomy, Bowel Resection, Ear Surgery, Heart Catheterization With Stent, Hernia Repair, Orthopedic Surgery Additional Past Surgical History / Comment(s): Hernia repair X3. Right hand index surgery. Bowel resection r/t diverticulitis. Past Anesthesia/Blood Transfusion Reactions: No Reported Reaction Date of Last Stent Placement:: 10/05/2022 Past Psychological History: No Psychological Hx Reported Smoking Status: Current every day smoker Past Alcohol Use History: Daily, Heavy Additional Past Alcohol Use History / Comment(s): Pt states he drinks 2 beer and a half pint daily. Denies every going through DTs. Past Drug Use History: Marijuana - Past Family History Father Family Medical History: Coronary Artery Disease (CAD) Medications and Allergies Home Medications Medication Instructions Recorded Confirmed Type Acetaminophen Tab [Tylenol] 650 mg PO Q6HR PRN tab 10/17/22 05/26/23 Rx Albuterol Inhaler [Ventolin Hfa 2 puff INHALATION RT-QID PRN #1 05/03/23 05/26/23 Rx Inhaler] each Albuterol Nebulized [Ventolin 2.5 mg INHALATION RT-QID #120 ml 05/03/23 05/26/23 Rx Nebulized] Aspirin 81 mg PO DAILY 30 Days #30 tab 05/03/23 05/26/23 Rx Atorvastatin [Lipitor] 80 mg PO HS 30 Days #30 tab 05/03/23 05/26/23 Rx Budesonide-Formot 160-4.5 Mcg 2 puff INHALATION RT-BID #1 inh 05/03/23 05/26/23 Rx [Symbicort 160-4.5 Mcg Inhaler] Folic Acid 1 mg PO DAILY 30 Days #30 tab 05/03/23 05/26/23 Rx Multivitamins, Thera [Multivitamin 1 each PO DAILY 30 Days #30 tab 05/03/23 05/26/23 Rx (formulary)] Nitroglycerin Sl Tabs [Nitrostat] 0.4 mg SL Q5M PRN #60 tab 05/03/23 05/26/23 Rx Thiamine [Vitamin B-1] 100 mg PO DAILY 30 Days #30 tablet 05/03/23 05/26/23 Rx Ticagrelor [Brilinta] 90 mg PO BID 30 Days #60 tab 05/03/23 05/26/23 Rx Metoprolol Succinate (ER) [Toprol 25 mg PO DAILY #90 tab 05/26/23 Rx Xl] lisinopriL 2.5 mg PO HS #90 tablet 05/26/23 Rx Cyanocobalamin [Vitamin B-12] 1,000 mcg PO DAILY 30 Days #60 tab 05/27/23 Rx Allergies Allergy/AdvReac Type Severity Reaction Status Date / Time No Known Allergies Allergy Verified 05/26/23 06:48 Physical Examination - Vital Signs Vital Signs: Vital Signs Temp Pulse Pulse Resp BP BP BP 05/26/23 11:42 84 05/26/23 11:35 82 05/26/23 08:39 88 05/26/23 08:30 88 05/26/23 08:15 98.4 F 82 16 05/26/23 08:00 82 05/26/23 04:12 97.7 F 90 18 05/26/23 02:41 117/68 117/83 05/26/23 02:26 78 16 143/75 05/26/23 00:37 98 F 87 18 146/64 BP Pulse Ox 05/26/23 11:42 05/26/23 11:35 05/26/23 08:39 05/26/23 08:30 05/26/23 08:15 123/72 97 05/26/23 08:00 05/26/23 04:12 152/82 97 05/26/23 02:41 137/82 05/26/23 02:26 97 05/26/23 00:37 100 Intake and Output 05/25/23 05/26/23 05/26/23 22:59 06:59 14:59 Intake Total 0 20 Balance 0 20 Intake: IV 20 Oral 0 Other: Voiding Method Urinal Weight 81.647 kg Patient is a late middle aged male, in no acute distress. Patient is alert awake oriented to time place and person. Speech and language functions are normal. Patient can name and repeat very well. No aphasia or dysarthria. Attention, concentration and fund of knowledge is adequate. Patient has slightly hoarse voice. On cranial nerve examination, pupils are equal, round and reacting to light, visual tan are full on confrontation, with no neglect on double simultaneous stimulation. Extraocular muscles are intact with mild bilateral end gaze nystagmus. Face is symmetric, tongue protrudes to the midline. Palatal elevation and sensation normal, hearing and shoulder shrug normal, facial sensation normal. On muscle strength testing, there is no pronator drift and the strength is normal in arms and legs distally and proximally. Deep tendon reflexes are symmetric biceps 1, brachioradialis 1+, knees 2+, ankles 2 and plantars downgoing bilaterally. Sensory to touch is equal with no neglect on double simultaneous stimulation. Cerebellar function showed no ataxia for [id number] testing. Patient has moderate tremors for [id number] testing bilaterally. Mild tremors of outstretched hands. No tremors at rest. No dysdiadochokinesia. Patient has mild ataxia for [id number] testing on either side. Tone and bulk of muscles normal. Gait deferred.. On general examination, there is no carotid bruit or murmur, S1-S2 audible. Ch est is clear on consultation. Abdomen is soft nontender. No organomegaly, bowel sounds present. Peripheral pulses are present. No edema. Results - Laboratory Findings CBC and BMP: 05/27/23 05:21 05/27/23 05:21 Abnormal Lab Findings: Abnormal Labs 05/26/23 01:59 Carbon Dioxide 21 L Creatinine 0.63 L AST 91 H ALT 72 H Assessment and Plan Assessment: * Gait imbalance and frequent falls, likely due to alcohol intoxication. Patient drinks fairly heavily almost on a daily basis, which may be contributing to the gait imbalance and falls. * Chronic alcoholism * CAD, status post stent * Chronically elevated liver enzymes likely from alcoholism/fatty liver * Hypertension * Tobacco use * Marijuana use Plan: * Patient's gait imbalance likely due to chronic alcoholism. Patient counseled about abstinence from alcoholism, as it can further affect his balance if he continues to drink. * Thiamine, folate, multivitamins. Watch for DTs. * Patient had a normal EEG performed recently on 04/24/2023. No need to repeat. * Blood alcohol level 38. * Carotid Doppler 05/01/2023 revealed no hemodynamically significant stenosis internal carotid arteries on either side. Antegrade flow in both vertebral arteries. * B12 311, folate 6.9, TSH 1.47, RPR nonreactive. Resume B12, folate and multivitamins. * MRI brain performed 05/02/2023 revealed no evidence of intracranial mass or acute/subacute infarct. Nonspecific white matter changes, likely secondary to small vessel ischemic disease. Paranasal sinus disease. I personally reviewed MRI, I agree with the findings. There is evidence of cerebellar atrophy particularly in the midline, likely from chronic alcoholism. * Continue aspirin 81 mg daily and Brilinta 90 mg twice a day for recent cardiac stent. * PT, OT, evaluate gait. Patient has cane at home. Suggest starting using walker to prevent falls. * Watch for impending DTs. * Neurologically no other workup indicated.
[2023-05-26 14:25] LABS: Amphetamine Screen,Urine Not Detected (NotDetected); Barbiturate Screen,Urine Not Detected (NotDetected); Benzodiazepines Screen,Urine Detected (NotDetected); Cocaine Screen,Urine Not Detected (NotDetected); Methadone Screen, Urine Not Detected (NotDetected); Opiate Screen,Urine Not Detected (NotDetected); Oxycodone Screen, Urine Not Detected (NotDetected); Phencyclidine Screen,Urine Not Detected (NotDetected); Tricyclic Antidepressant,Urine Not Detected (NotDetected); Urn Cannabinoid Scrn Detected (NotDetected)
--- NOTE | 2023-05-26 14:25 | P.PN ---
Subjective Progress Note Date: 05/26/23 Hospital course: Patient is a 62-year-old male with a past medical history of alcoholism drinking a pint of liquor in a couple beers daily, CAD with stent on Brilinta, hypertension, hyperlipidemia, COPD with continued nicotine dependence and cannabinoid use disorder. He presented to the emergency department for a chief complaint of chest pain and evaluation of gait disturbances resulting in recurrent falls at home and reported difficulties with balance and proprioception. He underwent full evaluation in the emergency department. Vital signs upon arrival show blood pressure 146/64, heart rate 87, respiratory rate 18, temp 98.0F, SpO2 100% on room air. EKG was completed showing normal sinus rhythm at 70 bpm with no noted T wave or ST abnormality showing no signs of acute ischemia. Chest x-ray negative for acute cardiopulmonary process. Labs completed and reviewed. CBC unremarkable. BMP revealing slightly low carbon dioxide 21. Liver profile showing elevated AST of 91 and ALT of 72. Troponin negative at 0.025. Serum alcohol or urine drug screens were not obtai alvin upon admission. Patient was admitted under our services with consultation to cardiology and neurology. Physical exam: Vital signs reviewed and stable. General: Nontoxic, no distress and appears stated age. Derm: Skin warm and dry, normal coloration for ethnicity. Head: Atraumatic, normocephalic and symmetric. Eyes: EOMs intact, no lid lag, and anicteric sclera Mouth: no lip lesions, mucus membranes moist Cardiovascular: regular rate and rhythm with normal S1S2, no murmur, positive p osterior tibial pulses bilaterally, and cap refill < 2 seconds. Lungs: Respirations even, regular, and unlabored on room air. Lungs CTA bilaterally, no rhonchi, no rales, no wheezing, and no accessory muscle usage. Abdominal: soft, nontender to palpation, no guarding, no appreciable organomegaly Ext: ROM intact. No gross muscle atrophy, no edema, no contractures Neuro: Speech clear, face symmetrical and CN II-XII grossly intact with no noted focal neuro deficits Psych: Alert and oriented to person, place, time, and situation. Appropriate and pleasant affect. Assessment and Plan of Care: Gait disturbances with reported difficulties with balance and proprioception resulting in recurrent falls. Gait disturbances and recurrent falls likely secondary to chronic alcoholism and daily alcohol abuse. -Neuro checks every 4 hours -Telemetry monitoring -Fall precautions -Seizure precautions -Neurology following, patient recently had negative neurological workup for same complaint 04/2023. -Orthostatic vitals negative for orthostatic hypotension. -Order placed for x-ray left rib secondary to large bruise left flank region. Chest pain, acute coronary event ruled out. History of CAD with stent Hypertension Hyperlipidemia -Troponins trended overnight resulting in 0.025, less than 0.012, and less than 0.012. -Continue cardiac medication regimen with Brilinta 90 mg twice daily, aspirin 81 mg daily, atorvastatin 80 mg nightly, lisinopril 10 mg daily, and metoprolol 25 mg twice daily. -Cardiology following and scheduled patient for tilt table test later today Alcohol withdrawal in an active alcoholic Elevated liver enzymes secondary to daily alcohol abuse -Continue monitoring of CIWA scores and patient to be medicated with Ativan 0.5 mg every 4 hours as needed for CIWA score of 4-5, Ativan 1 mg every 4 hours for CIWA score of 6-7, Ativan 2 mg every 3 hours CIWA score of 8-9, and Ativan 2 mg every 2 hours forr CIWA score of 10 or greater. -Thiamine 100 mg twice a day -Multivitamin daily -Folate 1 mg daily -Seizure, fall, aspiration, and elopement precautions in place. -Order placed for repeat vitamin B12 and folate, levels previously at the lower end of normal. We will monitor for improvement. -Continued close monitoring of electrolytes and replace as needed. -Telemetry monitoring. COPD with continued nicotine dependence Cannabinoid use disorder -Continue scheduled nebulizer treatments 4 times daily and every 2 hours as needed for shortness of breath and/or wheezing. -Continue Symbicort 1604.5 g inhaler 2 puffs twice daily -Nicotine patch -Recommend smoking cessation Data review: Troponins trended overnight all negative at 0.025, less than 0.012, and less than 0.012. Vital signs reviewed and stable. Blood pressure 123/72, heart rate 82, respiratory rate 16, SpO2 of 97% on room air was temp of 98.4F. Imaging review: No new imaging for review at this time. CODE STATUS: Full code DVT prophylaxis: Heparin Discussed with: Patient and RN Anticipated discharge date: Clinical course to determine Anticipated discharge place: Home Patient was seen independently by Nurse Pracitioner. This document was prepared using [employer] dictation software. 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 I reviewed the documentation as provided by the MONICA above, who is the original author of this note. I agree with the documented assessment and plan, with the following changes: none Objective - Vital Signs Vital signs: Vital Signs Temp 97.7 F 05/26/23 04:12 Pulse 88 05/26/23 08:30 Resp 18 05/26/23 04:12 BP 152/82 05/26/23 04:12 Pulse Ox 97 05/26/23 04:12 FiO2 Intake & Output 05/25/23 05/26/23 05/26/23 18:59 06:59 18:59 Intake Total 0 Balance 0 Weight 81.647 kg Intake: Oral 0 Other: Voiding Method Urinal - Labs CBC & Chem 7: 05/27/23 05:21 05/27/23 05:21 Labs: Abnormal Lab Results - Last 24 Hours (Table) 05/26/23 Range/Units 01:59 Carbon Dioxide 21 L (22-30) mmol/L Creatinine 0.63 L (0.66-1.25) mg/dL AST 91 H (17-59) U/L ALT 72 H (4-49) U/L
--- NOTE | 2023-05-26 14:58 | XR ---
EXAMINATION TYPE: XR ribs LT DATE OF EXAM: 05/26/2023 2:42 PM INDICATION: Patient age:Male; 62 years old; Reason for study: Large bruise left rib region; PH[facility]. COMPARISON: Chest radiograph 05/26/2023, left rib radiographs 04/23/2023 TECHNIQUE: Frontal and oblique views of the left ribs and chest FINDINGS: Acute minimally displaced left lateral sixth rib fracture. No evidence of fracture. Overal l, the lungs are clear. The cardiac silhouette is normal in size. The remaining osseous structures are intact. IMPRESSION: Acute minimally displaced left lateral sixth rib fracture. No visualized pneumothorax.
[2023-05-26] MEDS: ACETAMINOPHEN TAB 325 MG TAB PO PRN ×2 (17:02→22:31)
[2023-05-26] MEDS: FOLIC ACID 1 MG TAB PO SCH (17:03)
[2023-05-26] MEDS: NICOTINE 21MG/24HR PATCH TRANSDERM SCH (17:03)
[2023-05-26] MEDS: CYANOCOBALAMIN 500 MCG TAB PO SCH (17:03)
[2023-05-26] MEDS ORDERED: ATORVASTATIN 80 MG TAB PO SCH (21:00)
[2023-05-27] MEDS: SODIUM CHLORIDE 0.9% 1,000 ML IV SCH ×2 (04:21→09:18)
[2023-05-27] MEDS: ALBUTEROL NEBULIZED 2.5 MG/3 ML INHALATION SCH ×2 (07:34→10:48)
[2023-05-27] MEDS: SYMBICORT 160-4.5 MCG INHALER INHALATION SCH (07:34)
--- NOTE | 2023-05-27 07:41 | P.PN ---
Progress Note - Text Progress Note Date: 05/27/23 patient underwent tilt table test yesterday as well as medication changes were advised. Patient was cleared for discharge from cardiology yesterday. No further cardiac workup at this time.
[2023-05-27 08:40] VITALS: BP 137/82; PULSE 80; RESP 16; TEMP 97.7
[2023-05-27 08:59] LABS: HCT 37.9 % (39.6-50.0); HGB 12.8 d/dL (13.0-17.0); MCH 32.4 pg (27.0-32.0); MCHC 33.8 d/dL (32.0-37.0); MCV 95.9 FL (80.0-97.0); Mean Platelet Volume 9.3 FL (9.5-12.2); NRBC Per 100 WBC 0 X 10*3/uL (0.00-0.01); Platelet Count 222 X 10*3/uL (140-440); RBC 3.95 X 10*6/uL (4.40-5.60); RDW 12.8 % (11.5-14.5); WBC 9.18 X 10*3/uL (4.50-10.00)
[2023-05-27] MEDS ORDERED: THIAMINE 100 MG TAB PO SCH (09:00)
[2023-05-27 09:06] LABS: ALT 72 U/L (10-49); AST 90 U/L (14-35); Albumin 3.9 d/dL (3.8-4.9); Albumin/Globulin Ratio 2.29 Ratio (1.60-3.17); Alkaline Phosphatase 85 U/L (41-126); Blood Urea Nitrogen 11.2 mg/dL (9.0-27.0); Calcium 8.8 mg/dL (8.7-10.3); Carbon Dioxide 22.7 mmol/L (21.6-31.8); Chloride 106 mmol/L (96-109); Globulin 1.7 d/dL (1.6-3.3); Glucose 99 mg/dL (70-110); Potassium 3.7 mmol/L (3.5-5.5); Sodium 140 mmol/L (135-145); Total Bilirubin 0.8 mg/dL (0.3-1.2); Total Protein 5.6 d/dL (6.2-8.2)
[2023-05-27] MEDS: THIAMINE 100 MG TAB PO SCH (09:17)
[2023-05-27] MEDS: HEPARIN SODIUM,PORCINE 5,000 UNIT/ML 1 ML VIAL SQ SCH (09:18)
[2023-05-27] MEDS: CYANOCOBALAMIN 500 MCG TAB PO SCH (09:18)
[2023-05-27] MEDS: ASPIRIN 81 MG PO SCH (09:18)
[2023-05-27] MEDS: TICAGRELOR 90 MG TAB PO SCH (09:18)
[2023-05-27] MEDS: FOLIC ACID 1 MG TAB PO SCH (09:18)
[2023-05-27] MEDS: lisinopriL 10 MG TAB PO SCH (09:18)
[2023-05-27] MEDS: METOPROLOL TARTRATE 25 MG TAB PO SCH (09:18)
[2023-05-27] MEDS: NICOTINE 21MG/24HR PATCH TRANSDERM SCH (09:19)
--- NOTE | 2023-05-27 09:40 | P.DS ---
Providers Date of admission: 05/26/23 03:29 Expected date of discharge: 05/27/23 Attending physician: Patrick Chatman MD Consults: 05/26/23 03:28 Consult Physician Routine Consulting Provider: Omar Muhammad Consult Reason/Comments: chest pain Do you want consulting provider notified?: Yes 05/26/23 05:39 Consult Physician Routine Consulting Provider: Obey Hassan Consult Reason/Comments: ataxia Do you want consulting provider notified?: Yes, Notify in am Primary care physician: Stated None Hospital Course: Discharge Diagnosis: Gait disturbances with reported difficulties with balance and proprioception resulting in recurrent falls. Gait disturbances and recurrent falls believed to be secondary to chronic alcoholism and daily alcohol abuse. Patient strongly encouraged to avoid any and all alcohol use. Patient also encouraged on inpatient [facility] and declined. Chest pain, acute coronary event ruled out. History of CAD with stent Hypertension Hyperlipidemia Alcohol withdrawal in an active alcoholic Elevated liver enzymes secondary to daily alcohol abuse COPD with continued nicotine dependence Cannabinoid use disorder Hospital Course: Patient is a 62-year-old male with a past medical history of alcoholism drinking a pint of liquor in a couple beers daily, CAD with stent on Brilinta, hypertension, hyperlipidemia, COPD with continued nicotine dependence and cannabinoid use disorder. He presented to the emergency department for a chief complaint of chest pain and evaluation of gait disturbances resulting in recurrent falls at home and reported difficulties with balance and proprioception. He underwent full evaluation in the emergency department. Vital signs upon arrival show blood pressure 146/64, heart rate 87, respiratory rate 18, temp 98.0F, SpO2 100% on room air. EKG was completed showing normal sinus rhythm at 70 bpm with no noted T wave or ST abnormality showing no signs of acute ischemia. Chest x-ray negative for acute cardiopulmonary process. Labs completed and reviewed. CBC unremarkable. BMP revealing slightly low carbon dioxide 21. Liver profile showing elevated AST of 91 and ALT of 72. Troponin negative at 0.025. Serum alcohol or urine drug screens were not obtained upon admission. Patient was admitted under our services with consultation to cardiology and neurology. X-ray completed of left ribs showing an acute minimally displaced left lateral sixth rib fracture no visualized pneumothorax. Patient was evaluated by assistant secretary and underwent tilt table testing. Cardiology is stating it is possible patient has been vasovagal presyncope however tilt table test did not show any clear-cut evidence for neurocardiac phenomenon, recommending outpatient follow-up with cardiology in 1 week. Neurology evaluated recommending cessation of alcohol use and continuation of daily folate, vitamin B12, multivitamin, and thiamine supplements and outpatient follow-up with neurologist as needed.. Medically, patient is stable at this time. Patient requesting discharge would like evaluated by orthopedic surgery, patient reports will follow up outpatient. Patient strongly encouraged on alcohol cessation. Physical exam: Vital signs reviewed and stable. General: Nontoxic, no distress and appears stated age. Derm: Skin warm and dry, normal coloration for ethnicity. Head: Atraumatic, normocephalic and symmetric. Eyes: EOMs intact, no lid lag, and anicteric sclera Mouth: no lip lesions, mucus membranes moist Cardiovascular: regular rate and rhythm with normal S1S2, no murmur, positive posterior tibial pulses bilaterally, and cap refill < 2 seconds. Lungs: Respirations even, regular, and unlabored on room air. Lungs CTA bilaterally, no rhonchi, no rales, no wheezing, and no accessory muscle usage. Abdominal: soft, nontender to palpation, no guarding, no appreciable organomega ly Ext: ROM intact. No gross muscle atrophy, no edema, no contractures Neuro: Speech clear, face symmetrical and CN II-XII grossly intact with no noted focal neuro deficits Psych: Alert and oriented to person, place, time, and situation. Appropriate and pleasant affect. A total of 38 minutes of time were spent preparing this complex discharge summary. Pt was discharged on 05/27/23 at 9:41 AM Patient was seen independently by Nurse Practitioner. This document was prepared using [employer] dictation software. Please allow for errors in automobile repair service estimator while rare they do occur. Cristofer Perez NP rendered care for this patient independently, reviewed the findings and plan as documented in the note above. I did not physically speak with or examine the patient on this date. Patient Condition at Discharge: Stable Plan - Discharge Summary New Discharge Prescriptions: New lisinopriL 2.5 mg PO HS #90 tablet Metoprolol Succinate (ER) [Toprol Xl] 25 mg PO DAILY #90 tab Cyanocobalamin [Vitamin B-12] 1,000 mcg PO DAILY 30 Days #60 tab Continue Acetaminophen Tab [Tylenol] 650 mg PO Q6HR PRN tab PRN Reason: Mild Pain Or Fever > 100.5 Folic Acid 1 mg PO DAILY 30 Days #30 tab Multivitamins, Thera [Multivitamin (formulary)] 1 each PO DAILY 30 Days #30 tab Thiamine [Vitamin B-1] 100 mg PO DAILY 30 Days #30 tablet Ticagrelor [Brilinta] 90 mg PO BID 30 Days #60 tab Budesonide-Formot 160-4.5 Mcg [Symbicort 160-4.5 Mcg Inhaler] 2 puff INHALATION RT-BID #1 inh Albuterol Nebulized [Ventolin Nebulized] 2.5 mg INHALATION RT-QID #120 ml Aspirin 81 mg PO DAILY 30 Days #30 tab Atorvastatin [Lipitor] 80 mg PO HS 30 Days #30 tab Nitroglycerin Sl Tabs [Nitrostat] 0.4 mg SL Q5M PRN #60 tab PRN Reason: Chest Pain Albuterol Inhaler [Ventolin Hfa Inhaler] 2 puff INHALATION RT-QID PRN #1 each PRN Reason: Shortness Of Breath Discontinued Metoprolol Tartrate [Lopressor] 25 mg PO BID 30 Days #60 tab lisinopriL [Prinivil] 10 mg PO DAILY 30 Days #30 tab Discharge Medication List Acetaminophen Tab [Tylenol] 650 mg PO Q6HR PRN tab 10/17/22 [Rx] Albuterol Inhaler [Ventolin Hfa Inhaler] 2 puff INHALATION RT-QID PRN #1 each 05/03/23 [Rx] Albuterol Nebulized [Ventolin Nebulized] 2.5 mg INHALATION RT-QID #120 ml 05/03/23 [Rx] Aspirin 81 mg PO DAILY 30 Days #30 tab 05/03/23 [Rx] Atorvastatin [Lipitor] 80 mg PO HS 30 Days #30 tab 05/03/23 [Rx] Budesonide-Formot 160-4.5 Mcg [Symbicort 160-4.5 Mcg Inhaler] 2 puff INHALATION RT-BID #1 inh 05/03/23 [Rx] Folic Acid 1 mg PO DAILY 30 Days #30 tab 05/03/23 [Rx] Multivitamins, Thera [Multivitamin (formulary)] 1 each PO DAILY 30 Days #30 tab 05/03/23 [Rx] Nitroglycerin Sl Tabs [Nitrostat] 0.4 mg SL Q5M PRN #60 tab 05/03/23 [Rx] Thiamine [Vitamin B-1] 100 mg PO DAILY 30 Days #30 tablet 05/03/23 [Rx] Ticagrelor [Brilinta] 90 mg PO BID 30 Days #60 tab 05/03/23 [Rx] Metoprolol Succinate (ER) [Toprol Xl] 25 mg PO DAILY #90 tab 05/26/23 [Rx] lisinopriL 2.5 mg PO HS #90 tablet 05/26/23 [Rx] Cyanocobalamin [Vitamin B-12] 1,000 mcg PO DAILY 30 Days #60 tab 05/27/23 [Rx] Follow up Appointment(s)/Referral(s): Zia Henry MD [Medical Doctor] - 1 Week Justus Couch PAC [PHYSICIAN OSTEOPATHIC PHYSICIAN] - 1 Week Edy Guerrero MD [STAFF PHYSICIAN] - 06/03/23 9:00 am Patient Instructions/Handouts: Rib Fracture (DC), Abuse of Alcohol (DC), Alcohol Withdrawal (DC), Near Syncope (DC) Activity/Diet/Wound Care/Special Instructions: Activity: As tolerated. Take breaks as needed. Diet: Heart healthy and carb consistent diet. Avoid salts, or foods with hidden salts such as canned or boxed foods and frozen dinners. Extra salt makes your heart work harder and traps the fluid in your body for longer. Special Instructions: Take all of your medications as directed and remember to keep all of your doctor's appointments and follow-up as needed. Strongly recommend inpatient drug and alcohol rehabilitation program. The unsteady gait and recurrent falls is likely associated with alcohol abuse and vitamin deficiencies. You are being discharged home on vitamin B12 in addition to folic acid, thiamine, and daily multivitamin. Again as we discussed, minimally displaced rib fracture. Discussed with orthopedic in follow-up outpatient in office. Please splint when coughing or with sitting and/or standing. Again I highly recommend cessation of alcohol. Thank you for allowing us to participate in your care, it was truly a pleasure having you for our patient!!! Discharge/Stand Alone Forms: AA Meetings [facility] - [facility], AA Meetings [facility], Who Do I Call?, Assisted Living Facilities, Community Resources, Help In The Home, Outpatient Counseling, Inp Substance Abuse Facilities Discharge Disposition: HOME SELF-CARE
[2023-05-27] MEDS: ACETAMINOPHEN TAB 325 MG TAB PO PRN (09:52)
== END 2023-05-27 11:22 | disposition home or self-care (01) ==
LOC: EC 00:29 → 6NMEDSUR 03:29
PROVIDERS: ADMIT Internal Medicine; ATTEND Internal Medicine
DX: R29.6 Repeated falls (principal); S22.32XA Fracture of one rib, left side, initial encounter for closed fracture; W19.XXXA Unspecified fall, initial encounter; R07.9 Chest pain, unspecified; I25.10 Atherosclerotic heart disease of native coronary artery without angina pectoris; I10 Essential (primary) hypertension; E78.5 Hyperlipidemia, unspecified; J44.9 Chronic obstructive pulmonary disease, unspecified; R55 Syncope and collapse; F10.230 Alcohol dependence with withdrawal, uncomplicated; R74.8 Abnormal levels of other serum enzymes; F12.10 Cannabis abuse, uncomplicated; F17.200 Nicotine dependence, unspecified, uncomplicated; I25.2 Old myocardial infarction; Y90.1 Blood alcohol level of 20-39 mg/100 ml; Z95.5 Presence of coronary angioplasty implant and graft; Z79.899 Other long term (current) drug therapy; Z79.82 Long term (current) use of aspirin; Z79.51 Long term (current) use of inhaled steroids; Z79.02 Long term (current) use of antithrombotics/antiplatelets; Z82.49 Family history of ischemic heart disease and other diseases of the circulatory system
CPT/HCPCS: 96360; 96361; 96372; 99285; 36415; 94640 ×4; 93005; 93660; 80053 ×2; 82607; 82746; 83735 ×2; 84484; 85025; 85027; 80306; 71100; 71046; 72125; 70450; G0378 ×2; G0480; S4990 ×2; J1644; J3411; 80320

== ENCOUNTER 2023-07-16 00:45 | Emergency (ER) | payer OTHER ==
[2023-07-16 01:34] VITALS: TEMP 97.9
--- NOTE | 2023-07-16 02:52 | CT ---
EXAM: CT Head Without Intravenous Contrast CLINICAL HISTORY: ITS.REASON CT Reason: fall, facial injury TECHNIQUE: Axial computed tomography images of the head/brain without intravenous contrast. CTDI is 25.9 mGy and DLP is 792.2 mGy-cm. This CT exam was performed using one or more of the following dose reduction techniques: automated exposure control, adjustment of the mA and/or kV according to patient size, and/or use of iterative reconstruction technique. COMPARISON: No relevant prior studies available. FINDINGS: Brain: No hemorrhage or mass effect. Ventricles: No hydrocephalus. Bones/joints: Unremarkable. Soft tissues: Unremarkable. Mastoid air cells: Clear. IMPRESSION: No acute hemorrhage, hydrocephalus, or mass effect. EXAM: CT Cervical Spine Without Intravenous Contrast CLINICAL HISTORY: ITS.REASON CT Reason: fall, facial injury TECHNIQUE: Axial computed tomography images of the cervical spine without intravenous contrast. CTDI is 11.7 mGy and DLP is 334.1 mGy-cm. This CT exam was performed using one or more of the following dose reduction techniques: automated exposure control, adjustment of the mA and/or kV according to patient size, and/or use of iterative reconstruction technique. COMPARISON: No relevant prior studies available. FINDINGS: Vertebrae: No acute fracture. Discs/spinal canal/neural foramina: degenerative changes. Soft tissues: No prevertebral swelling. IMPRESSION: No acute fracture or subluxation.
[2023-07-16 03:55] VITALS: RESP 16
--- NOTE | 2023-07-16 04:21 | CT ---
EXAM: CT Head and Maxillofacial Without Intravenous Contrast CLINICAL HISTORY: ITS.REASON CT Reason: fall, facial injury TECHNIQUE: Axial computed tomography images of the head/brain and face without intravenous contrast. CTDI is 25 mGy and DLP is 785 mGy-cm. This CT exam was performed using one or more of the following dose reduction techniques: automated exposure control, adjustment of the mA and/or kV according to patient size, and/or use of iterative reconstruction technique. COMPARISON: No relevant prior studies available. FINDINGS: Bones/joints: No acute fracture. Soft tissues: Unremarkable. Sinuses: Unremarkable. No acute sinusitis. Mastoid air cells: Unremarkable. No mastoid effusion. Orbits: Unremarkable. IMPRESSION: No acute fracture.
[2023-07-16] MEDS ORDERED: ACETAMINOPHEN TAB 500 MG TAB PO STA (05:09)
--- NOTE | 2023-07-16 07:08 | ED ---
General Adult HPI - General Chief complaint: Head Injury Stated complaint: ETOH Time Seen by Provider: 07/16/23 04:55 Source: patient, EMS, RN notes reviewed, old records reviewed Mode of arrival: EMS Limitations: no limitations - History of Present Illness Initial comments: Patient is a 63-year-old male with past medical history remarkable for chronic alcohol abuse, prior UT presents from his department after losing his balance and falling. States this has been on ongoing issue for multiple months. Fell and hit his head as well as loss of his face. Presents over concern for injury. Currently asymptomatic units of dizziness. Denies any chest pain, shortness breath, abdominal pain, nausea, vomiting. No other symptoms. No weakness. Presents for further evaluation. Workup started in triage.Patient does endorse some right thumb pain. - Related Data Previous Rx's Medication Instructions Recorded Acetaminophen Tab [Tylenol] 650 mg PO Q6HR PRN tab 10/17/22 Albuterol Inhaler [Ventolin Hfa 2 puff INHALATION RT-QID PRN #1 05/03/23 Inhaler] each Albuterol Nebulized [Ventolin 2.5 mg INHALATION RT-QID #120 ml 05/03/23 Nebulized] Aspirin 81 mg PO DAILY 30 Days #30 tab 05/03/23 Atorvastatin [Lipitor] 80 mg PO HS 30 Days #30 tab 05/03/23 Budesonide-Formot 160-4.5 Mcg 2 puff INHALATION RT-BID #1 inh 05/03/23 [Symbicort 160-4.5 Mcg Inhaler] Folic Acid 1 mg PO DAILY 30 Days #30 tab 05/03/23 Multivitamins, Thera [Multivitamin 1 each PO DAILY 30 Days #30 tab 05/03/23 (formulary)] Nitroglycerin Sl Tabs [Nitrostat] 0.4 mg SL Q5M PRN #60 tab 05/03/23 Thiamine [Vitamin B-1] 100 mg PO DAILY 30 Days #30 tablet 05/03/23 Ticagrelor [Brilinta] 90 mg PO BID 30 Days #60 tab 05/03/23 Metoprolol Succinate (ER) [Toprol 25 mg PO DAILY #90 tab 05/26/23 Xl] lisinopriL 2.5 mg PO HS #90 tablet 05/26/23 Cyanocobalamin [Vitamin B-12] 1,000 mcg PO DAILY 30 Days #60 tab 05/27/23 Allergies Allergy/AdvReac Type Severity Reaction Status Date / Time No Known Allergies Allergy Verified 05/26/23 06:48 Review of Systems ROS Statement: Those systems with pertinent positive or pertinent negative responses have been documented in the HPI. Review of Systems: CONST: Denies fever EYES: Denies blurry vision ENT: Denies nasal congestion C/V: Denies Chest pain RESP: Denies shortness of breath GI: Denies abdominal pain : Denies dysuria SKIN: Denies rash. MSK: Endorses right thumb pain NEURO: Denies headache ROS Other: All systems not noted in ROS Statement are negative. Past Medical History Past Medical History: Asthma, COPD, Hypertension, Myocardial Infarction ([place]) Additional Past Medical History / Comment(s): Alcoholism Last Myocardial Infarction Date:: 10/2022 History of Any Multi-Drug Resistant Organisms: None Reported Past Surgical History: Appendectomy, Bowel Resection, Ear Surgery, Heart Cat heterization With Stent, Hernia Repair, Orthopedic Surgery Additional Past Surgical History / Comment(s): Hernia repair X3. Right hand index surgery. Bowel resection r/t diverticulitis. Past Anesthesia/Blood Transfusion Reactions: No Reported Reaction Date of Last Stent Placement:: 10/05/2022 Past Psychological History: No Psychological Hx Reported Smoking Status: Current every day smoker Past Alcohol Use History: Daily, Heavy Past Drug Use History: Marijuana - Past Family History Father Family Medical History: Coronary Artery Disease (CAD) General Exam - General Exam Comments Initial Comments: General: Appears in no acute distress. HEAD: Normal with no signs of head trauma. Negative Blancas sign. Negative raccoon eyes. EYES: PERRLA, EOMI, conjunctiva normal, no discharge. Pupils 3 mm equal bilaterally. ENT: Hearing grossly intact, normal oropharynx. RESPIRATORY: Clear breath sounds bilaterally. No wheezes, rales, or rhonchi. C/V: Regular rate and rhythm. S1 and S2 auscultated, no edema, peripheral pulses 2+ and intact throughout ABD: Abd is soft, nontender, nondistended EXT: Normal range of motion, no obvious deformity. Tenderness to palpation over the right first MCP joint. No obvious deformity or injury. SKIN: No rashes or lesions observed on exposed skin. NEURO: Alert and oriented 4. GCS 15. No focal sensory strength deficits. NIH 0. Able to ambulate without difficulty. Limitations: no limitations Course Vital Signs 07/16/23 07/16/23 07/16/23 01:20 03:48 07:38 Temperature 97.9 F 97.9 F 97.9 F Pulse Rate 79 80 81 Respiratory 18 16 16 Rate Blood Pressure 145/89 119/71 130/81 O2 Sat by Pulse 98 95 97 Oximetry Medical Decision Making - Medical Decision Making Was pt. sent in by a medical professional or institution (, JOSE, CUSTOMER CARE VOICE CONSULTANT, urgent care, hospital, or fdc...) When possible be specific @ -No Did you speak to anyone other than the patient for history (EMS, parent, family, police, friend...)? What history was obtained from this source @ -No Did you review nursing and triage notes (agree or disagree)? Why? @ -I reviewed and agree with nursing and triage notes Were old charts reviewed (outside hosp., previous admission, EMS record, old EKG, old radiological studies, urgent care reports/EKG's, fdc records)? Report findings @ -Old charts revealed Differential Diagnosis (chest pain, altered mental status, abdominal pain women, abdominal pain men, vaginal bleeding, weakness, fever, dyspnea, syncope, headache, dizziness, GI bleed, back pain, seizure, CVA, palpatations, mental health, musculoskeletal)? @ -Fall, intracranial injury, right thumb injury, arrhythmia. This is not all inclusive. EKG interpreted by me (3pts min.). @ -As above X-rays interpreted by me (1pt min.). @ -X-ray of the hand negative for any obvious injury. CT interpreted by me (1pt min.). @ -CT brain, C-spine, facial bones negative for any obvious injury. U/S interpreted by me (1pt. min.). @ -None done What testing was considered but not performed or refused? (CT, X-rays, U/S, labs)? Why? @ -None What meds were considered but not given or refused? Why? @ -None Did you discuss the management of the patient with other professionals (professionals i.e. JOSE Coelho, CUSTOMER CARE VOICE CONSULTANT, lab, RT, psych nurse, social media project manager, rn oncology research, teacher, credit or loans officer, case management coordinator)? Give summary @ -No Was smoking cessation discussed for >3mins.? @ -No Was critical care preformed (if so, how long)? @ -No Were there social determinants of health that impacted care today? How? (Homelessness, low income, unemployed, alcoholism, drug addiction, transportation, low edu. Level, literacy, decrease access to med. care, skilled nursing, rehab)? @ -No Was there de-escalation of care discussed even if they declined (Discuss DNR or withdrawal of care, Hospice)? DNR status @ -No What co-morbidities impacted this encounter? (DM, HTN, Smoking, COPD, CAD, Cancer, CVA, ARF, Chemo, Hep., AIDS, mental health diagnosis, sleep apnea, morbid obesity)? @ -None Was patient admitted / discharged? Hospital course, mention meds given and route, prescriptions, significant lab abnormalities, going to OR and other pertinent info. @ -Based on the patient's presentation and physical exam, patient presents for concern for injury to his face or brain. CT imaging obtained in triage and negative. I evaluated the patient after is placed in a room and we will obtain a screening EKG as well as x-ray of the right hand. Otherwise patient is at baseline with no complaints. He was in agreement with this plan. He'll be given Tylenol for pain control. Vital signs within acceptable limits. Neuro exam normal. Ambulate without issue. EKG shows no signs of acute ischemia. X-ray negative for any fracture. I updated the patient. He'll be discharged with this time. Strict return precautions discussed. I instructed the patient to follow up with their PCP in the next 1-3 days. . I explained that the patient should return to the emergency department if they experience any worsening symptoms. Strict return precautions were discussed with the patient. The patient expressed understanding of these instructions. I answered all questions that the patient had. The patient was discharged home in good condition with their prescriptions and follow up information. Undiagnosed new problem with uncertain prognosis? @ -No Drug Therapy requiring intensive monitoring for toxicity (Heparin, Nitro, Insulin, Cardizem)? @ -No Were any procedures done? @ -No Diagnosis/symptom? @ -Fall, minor head injury, thumb sprain Acute, or Chronic, or Acute on Chronic? @ -Acute Uncomplicated (without systemic symptoms) or Complicated (systemic symptoms)? @ -Uncomplicated Side effects of treatment? @ -No Exacerbation, Progression, or Severe Exacerbation? @ -No Poses a threat to life or bodily function? How? (Chest pain, [place], [place], pneumonia, PE, COPD, DKA, ARF, appy, cholecystitis, CVA, Diverticulitis, Homicidal, Suicidal, threat to staff... and all critical care pts) @ -No - EKG Data -: EKG Interpreted by Me EKG Comments: 12-lead Electrocardiogram Interpretation Note EKG was reviewed and interpreted by myself. 12-lead ECG performed at 0531 is interpreted by me as revealing normal sinus rhythm at a rate of 60 beats per minute. [place] is normal. SD interval is 140 ms, QRS duration is 99 ms, QTc is 440 ms.. There were no ST or T wave abnormalities to suggest myocardial ischemia or injury. R wave progression across the precordium was satisfactory. By my interpretation this EKG is non-diagnostic for acute ischemia. Disposition Clinical Impression: Minor head injury, Fall, Sprain, thumb Disposition: HOME SELF-CARE Condition: Good Instructions (If sedation given, give patient instructions): Fall Prevention for Older Adults (ED) Is patient prescribed a controlled substance at d/c from ED?: No Referrals: Edy Guerrero MD [Primary Care Provider] - 1-2 days Time of Disposition: 06:59
--- NOTE | 2023-07-16 07:14 | XR ---
EXAMINATION TYPE: XR hand limited RT DATE OF EXAM: 07/16/2023 COMPARISON: NONE HISTORY: 63-year-old male right first MCP joint pain TECHNIQUE: 2 views FINDINGS: There is moderate degenerative change of the first MCP and IP joints. Additional moderate t o severe degenerative change at the second DIP joint. Mild degenerative change first CMC joint. No ac carl fracture, subluxation, or dislocation seen. IMPRESSION: Moderate osteoarthritic change first MCP, first IP, and second DIP joints. Additional scattered mild osteoarthritic change such as at the base of the thumb. No acute osseous abnormality seen.
[2023-07-16 07:44] VITALS: BP 130/81; PULSE 81
== END 2023-07-16 07:39 | disposition home or self-care (01) ==
LOC: EC 00:45
DX: S09.90XA Unspecified injury of head, initial encounter (principal); S63.601A Unspecified sprain of right thumb, initial encounter; I10 Essential (primary) hypertension; I25.2 Old myocardial infarction; J44.9 Chronic obstructive pulmonary disease, unspecified; F17.200 Nicotine dependence, unspecified, uncomplicated; F12.90 Cannabis use, unspecified, uncomplicated; Z90.49 Acquired absence of other specified parts of digestive tract; W01.0XXA Fall on same level from slipping, tripping and stumbling without subsequent striking against object, initial encounter
CPT/HCPCS: 70450; 70486; 72125; 93005; 99285

== ENCOUNTER 2023-10-04 21:02 | Emergency (ER) | payer OTHER ==
--- NOTE | 2023-10-04 21:43 | ED ---
General Adult HPI - General Chief complaint: Fall Stated complaint: Upper Respiratory Infection Time Seen by Provider: 10/04/23 21:03 Source: patient, EMS, RN notes reviewed, old records reviewed Mode of arrival: EMS Limitations: no limitations - History of Present Illness Initial comments: 63 male with fall, head injury. Patient states he is having equilibrium problems for the past 6 months. He does report to daily alcohol consumption reports that he drank today. He also reports upper respiratory symptoms including cough and congestion. No fever. No chest pain. No focal numbness or weakness. - Related Data Previous Rx's Medication Instructions Recorded Acetaminophen Tab [Tylenol] 650 mg PO Q6HR PRN tab 10/17/22 Albuterol Inhaler [Ventolin Hfa 2 puff INHALATION RT-QID PRN #1 05/03/23 Inhaler] each Albuterol Nebulized [Ventolin 2.5 mg INHALATION RT-QID #120 ml 05/03/23 Nebulized] Aspirin 81 mg PO DAILY 30 Days #30 tab 05/03/23 Atorvastatin [Lipitor] 80 mg PO HS 30 Days #30 tab 05/03/23 Budesonide-Formot 160-4.5 Mcg 2 puff INHALATION RT-BID #1 inh 05/03/23 [Symbicort 160-4.5 Mcg Inhaler] Folic Acid 1 mg PO DAILY 30 Days #30 tab 05/03/23 Multivitamins, Thera [Multivitamin 1 each PO DAILY 30 Days #30 tab 05/03/23 (formulary)] Nitroglycerin Sl Tabs [Nitrostat] 0.4 mg SL Q5M PRN #60 tab 05/03/23 Thiamine [Vitamin B-1] 100 mg PO DAILY 30 Days #30 tablet 05/03/23 Ticagrelor [Brilinta] 90 mg PO BID 30 Days #60 tab 05/03/23 Metoprolol Succinate (ER) [Toprol 25 mg PO DAILY #90 tab 05/26/23 Xl] lisinopriL 2.5 mg PO HS #90 tablet 05/26/23 Cyanocobalamin [Vitamin B-12] 1,000 mcg PO DAILY 30 Days #60 tab 05/27/23 Allergies Allergy/AdvReac Type Severity Reaction Status Date / Time No Known Allergies Allergy Verified 05/26/23 06:48 Review of Systems ROS Statement: Those systems with pertinent positive or pertinent negative responses have been documented in the HPI. ROS Other: All systems not noted in ROS Statement are negative. Past Medical History Past Medical History: Asthma, COPD, Hypertension, Myocardial Infarction ([place]) Additional Past Medical History / Comment(s): Alcoholism Last Myocardial Infarction Date:: 10/2022 History of Any Multi-Drug Resistant Organisms: None Reported Past Surgical History: Appendectomy, Bowel Resection, Ear Surgery, Heart Catheterization With Stent, Hernia Repair, Orthopedic Surgery Additional Past Surgical History / Comment(s): Hernia repair X3. Right hand index surgery. Bowel resection r/t diverticulitis. Past Anesthesia/Blood Transfusion Reactions: No Reported Reaction Date of Last Stent Placement:: 10/05/2022 Past Psychological History: No Psychological Hx Reported Smoking Status: Current every day smoker Past Alcohol Use History: Daily, Heavy Past Drug Use History: Marijuana - Past Family History Father Family Medical History: Coronary Artery Disease (CAD) General Exam Limitations: no limitations General appearance: alert, in no apparent distress Head exam: Present: atraumatic, normocephalic Eye exam: Present: normal appearance, PERRL ENT exam: Present: normal exam Neck exam: Present: normal inspection Respiratory exam: Present: wheezes. Absent: respiratory distress Cardiovascular Exam: Present: regular rate, normal rhythm GI/Abdominal exam: Present: soft. Absent: distended, tenderness, guarding Extremities exam: Present: normal inspection, normal capillary refill Neurological exam: Present: alert, oriented X3, CN II-XII intact. Absent: motor sensory deficit Psychiatric exam: Present: normal affect, normal mood Skin exam: Present: warm, dry, intact Course Vital Signs 10/04/23 21:22 Temperature 98.1 F Pulse Rate 91 Respiratory 18 Rate Blood Pressure 142/83 O2 Sat by Pulse 98 Oximetry Medical Decision Making - Medical Decision Making Was pt. sent in by a medical professional or institution (, PA, CURTAIN STRETCHER ASSEMBLER, urgent care, hospital, or shelter...) When possible be specific @ -No Did you speak to anyone other than the patient for history (EMS, parent, family, police, friend...)? What history was obtained from this source @ -No Did you review nursing and triage notes (agree or disagree)? Why? @ -I reviewed and agree with nursing and triage notes Were old charts reviewed (outside hosp., previous admission, EMS record, old EKG, old radiological studies, urgent care reports/EKG's, shelter records)? Report findings @ -No old charts were reviewed Differential Diagnosis (chest pain, altered mental status, abdominal pain women, abdominal pain men, vaginal bleeding, weakness, fever, dyspnea, syncope, headache, dizziness, GI bleed, back pain, seizure, CVA, palpatations, mental health, musculoskeletal)? @ -not applicable EKG interpreted by me (3pts min.). @ -Sinus rhythm rate of 75, PA interval 140, QRS duration 95, QTC [address] segment elevation. X-rays interpreted by me (1pt min.). @Chest x-ray negative for acute cardio pulmonary findings CT interpreted by me (1pt min.). @ -CT negative for intracranial hemorrhage or mass effect U/S interpreted by me (1pt. min.). @ -None done What testing was considered but not performed or refused? (CT, X-rays, U/S, lab s)? Why? @ -None What meds were considered but not given or refused? Why? @ -None Did you discuss the management of the patient with other professionals (professionals i.e. , PA, CURTAIN STRETCHER ASSEMBLER, lab, RT, psych nurse, protective services social worker, tax manager cpa, teacher, forest officer, case technician)? Give summary @ -No Was smoking cessation discussed for >3mins.? @ -No Was critical care preformed (if so, how long)? @ -No Were there social determinants of health that impacted care today? How? (Homelessness, low income, unemployed, alcoholism, drug addiction, transportation, low edu. Level, literacy, decrease access to med. care, detention, rehab)? @ -No Was there de-escalation of care discussed even if they declined (Discuss DNR or withdrawal of care, Hospice)? DNR status @ -No What co-morbidities impacted this encounter? (DM, HTN, Smoking, COPD, CAD, Cancer, CVA, ARF, Chemo, Hep., AIDS, mental health diagnosis, sleep apnea, morbid obesity)? @ -None Was patient admitted / discharged? Hospital course, mention meds given and route, prescriptions, significant lab abnormalities, going to OR and other pertinent info. @ -[63-year-old male with fall from home. Patient is intoxicated, alcohol 250. No external signs of trauma. EKG is sinus rhythm. Patient has negative CT, negative chest x-ray. Patient observed in the emergency department and discharged in stable condition. Undiagnosed new problem with uncertain prognosis? @ -No Drug Therapy requiring intensive monitoring for toxicity (Heparin, Nitro, Insulin, Cardizem)? @ -No Were any procedures done? @ -No Diagnosis/symptom? @ -Fall, alcohol intoxication Acute, or Chronic, or Acute on Chronic? @Acute Uncomplicated (without systemic symptoms) or Complicated (systemic symptoms)? @ -default Side effects of treatment? @ -No Exacerbation, Progression, or Severe Exacerbation? @ -No Poses a threat to life or bodily function? How? (Chest pain, [place], [place], pneumonia, PE, COPD, DKA, ARF, appy, cholecystitis, CVA, Diverticulitis, Homicidal, Suicidal, threat to staff... and all critical care pts) @Low risk at this time - Lab Data Result diagrams: 10/04/23 21:34 10/04/23 21:34 Lab Results 10/04/23 10/04/23 10/04/23 Range/Units 21:34 21:34 21:34 WBC 9.2 (3.8-10.6) k/uL RBC 4.35 (4.30-5.90) m/uL Hgb 14.7 (13.0-17.5) gm/dL Hct 42.1 (39.0-53.0) % MCV 96.9 (80.0-100.0) fL MCH 33.9 (25.0-35.0) pg MCHC 35.0 (31.0-37.0) g/dL RDW 12.4 (11.5-15.5) % Plt Count 257 (150-450) k/uL MPV 7.0 Neutrophils % 66 % Lymphocytes % 21 % Monocytes % 8 % Eosinophils % 1 % Basophils % 1 % Neutrophils # 6.1 (1.3-7.7) k/uL Lymphocytes # 1.9 (1.0-4.8) k/uL Monocytes # 0.7 (0-1.0) k/uL Eosinophils # 0.1 (0-0.7) k/uL Basophils # 0.1 (0-0.2) k/uL Sodium 137 (137-145) mmol/L Potassium 4.0 (3.5-5.1) mmol/L Chloride 102 (98-107) mmol/L Carbon Dioxide 22 (22-30) mmol/L Anion Gap 13 mmol/L BUN 10 (9-20) mg/dL Creatinine 0.77 (0.66-1.25) mg/dL Est GFR (CKD-EPI)AfAm >90 (>60 ml/min/1.73 sqM) Est GFR (CKD-EPI)NonAf >90 (>60 ml/min/1.73 sqM) Glucose 87 (74-99) mg/dL Calcium 8.8 (8.4-10.2) mg/dL Total Bilirubin 0.5 (0.2-1.3) mg/dL AST 85 H (17-59) U/L ALT 71 H (4-49) U/L Alkaline Phosphatase 102 (38-126) U/L Total Protein 6.6 (6.3-8.2) g/dL Albumin 4.0 (3.5-5.0) g/dL Serum Alcohol 257 H* mg/dL Influenza Type A (PCR) Not Detected (Not Detectd) Influenza Type B (PCR) Not Detected (Not Detectd) RSV (PCR) Not Detected (Not Detectd) SARS-CoV-2 (PCR) Not Detected (Not Detectd) Disposition Clinical Impression: Alcohol intoxication, Fall Disposition: HOME SELF-CARE Condition: Fair Instructions (If sedation given, give patient instructions): Fall Prevention for Older Adults (ED), Alcohol Intoxication (ED) Is patient prescribed a controlled substance at d/c from ED?: No Referrals: Edy Guerrero MD [Primary Care Provider] - 1-2 days Time of Disposition: 00:30
[2023-10-04 21:52] LABS: Basophils # (A) 0.1 k/uL (0-0.2); Basophils % (A) 1 %; Eosinophils # (A) 0.1 k/uL (0-0.7); Eosinophils % (A) 1 %; HCT 42.1 % (39.0-53.0); HGB 14.7 gm/dL (13.0-17.5); Lymphocytes # (A) 1.9 k/uL (1.0-4.8); Lymphocytes % (A) 21 %; MCH 33.9 pg (25.0-35.0); MCV 96.9 fL (80.0-100.0); Monocytes # (A) 0.7 k/uL (0-1.0); Monocytes % (A) 8 %; Neutrophils # (A) 6.1 k/uL (1.3-7.7); Neutrophils % (A) 66 %; Platelet Count 257 k/uL (150-450); RBC 4.35 m/uL (4.30-5.90); RDW 12.4 % (11.5-15.5); WBC 9.2 k/uL (3.8-10.6)
[2023-10-04 22:04] LABS: ALT 71 U/L (4-49); AST 85 U/L (17-59); African American GFR (CKD) >90 (>60 ml/min/1.73 sqM); Alkaline Phosphatase 102 U/L (38-126); Anion Gap 13 mmol/L; Blood Urea Nitrogen 10 mg/dL (9-20); Calcium 8.8 mg/dL (8.4-10.2); Carbon Dioxide 22 mmol/L (22-30); Chloride 102 mmol/L (98-107); Glucose 87 mg/dL (74-99); Non-African American GFR(CKD) >90 (>60 ml/min/1.73 sqM); Sodium 137 mmol/L (137-145); Total Bilirubin 0.5 mg/dL (0.2-1.3); Total Protein 6.6 g/dL (6.3-8.2)
--- NOTE | 2023-10-04 22:11 | XR ---
EXAMINATION TYPE: XR chest 2V DATE OF EXAM: 10/04/2023 9:56 PM CLINICAL INDICATION:Male, 63 years old with history of cough; [facility] COMPARISON: Chest radiographs from 05/26/2023. TECHNIQUE: XR chest 2V Frontal and lateral views of the chest. FINDINGS: Lungs/Pleura: There is no evidence of pleural effusion, focal consolidation, or pneumothorax. Pulmonary vascularity: Unremarkable. Heart/mediastinum: Cardiomediastinal silhouette is unremarkable. Musculoskeletal: No acute osseous pathology. IMPRESSION: No acute cardiopulmonary disease/process.
[2023-10-04 22:12] VITALS: RESP 18; TEMP 98.1
[2023-10-04] MEDS ORDERED: ACETAMINOPHEN TAB 500 MG TAB PO STA (23:13)
[2023-10-04 23:33] LABS: Alcohol 257 mg/dL
--- NOTE | 2023-10-04 23:48 | CT ---
EXAMINATION TYPE: CT brain cspine wo con CT DLP: 1396 mGycm, Automated exposure control for dose reduction was used. DATE OF EXAM: 10/04/2023 10:21 PM COMPARISON: 07/16/2023. CLINICAL INDICATION:Male, 63 years old with history of fall; TECHNIQUE: Brain: Multiple axial CT images of the brain were obtained without IV contrast. Cspine: Axial CT images from the skull base to the inferior aspect of T2 we obtained without intraven ous contrast. Coronal and sagittal reformatted images were also reviewed. FINDINGS: Brain: Extra-axial spaces: No abnormal extra-axial fluid collections. Ventricular system: Within normal limits Cerebral parenchyma: No acute intraparenchymal hemorrhage or mass effect. The rosas-white junction is well differentiated. Cerebellum: Unremarkable. Mass effect: No evidence of midline shift. Intracranial vasculature: Atherosclerotic calcifications of the intracranial vessels. Soft tissues: Normal. Calvarium/osseous structures: No depressed skull fracture. Paranasal sinuses and mastoid air cells: Mild scattered mucosal thickening and or secretions. Visualized orbits: Orbital contents are intact. Cervical spine: Fracture: None. Osseous structures: Multilevel degenerative disc disease changes with endplate spurring and disc oste ophyte complex's. Vertebral alignment: Within normal limits. Spinal canal/Neural Foramina: No evidence of significant spinal canal narrowing. Facet joint uncovert ebral joint arthropathy scattered throughout the cervical spine with varying degrees of neural forami nal stenosis. Neck soft tissues: Prevertebral soft tissues are within normal limits. Other: The airway is patent. The lung apices are clear. Atherosclerosis of the carotid bifurcations. IMPRESSION: 1. No acute intracranial process. 2. No evidence of cervical spine fracture. 3. Mild multilevel degenerative disc disease.
[2023-10-05 07:08] VITALS: BP 170/88; PULSE 89
== END 2023-10-05 06:49 | disposition home or self-care (01) ==
LOC: EC 21:02
DX: S09.90XA Unspecified injury of head, initial encounter (principal); F10.129 Alcohol abuse with intoxication, unspecified; I10 Essential (primary) hypertension; J44.89 Other specified chronic obstructive pulmonary disease; I25.2 Old myocardial infarction; F17.200 Nicotine dependence, unspecified, uncomplicated; F12.90 Cannabis use, unspecified, uncomplicated; Y90.8 Blood alcohol level of 240 mg/100 ml or more; Z20.822 Contact with and (suspected) exposure to COVID-19; W19.XXXA Unspecified fall, initial encounter
CPT/HCPCS: 36415; 93005; 80053; 85025; 87636; 71046; 72125; 70450; 99285; G0480; 80320

== ENCOUNTER 2023-10-31 21:19 | Emergency (ER) | payer OTHER ==
[2023-10-31 21:31] VITALS: TEMP 98.1
[2023-10-31 23:21] LABS: Basophils # (A) 0.1 k/uL (0-0.2); Basophils % (A) 1 %; Eosinophils # (A) 0.1 k/uL (0-0.7); Eosinophils % (A) 2 %; HCT 43.4 % (39.0-53.0); HGB 14.6 gm/dL (13.0-17.5); Lymphocytes # (A) 2.5 k/uL (1.0-4.8); Lymphocytes % (A) 33 %; MCH 33.1 pg (25.0-35.0); MCHC 33.8 g/dL (31.0-37.0); Mean Platelet Volume 7.3; Monocytes # (A) 0.5 k/uL (0-1.0); Monocytes % (A) 6 %; Neutrophils # (A) 4.2 k/uL (1.3-7.7); Neutrophils % (A) 56 %; Platelet Count 279 k/uL (150-450); RBC 4.42 m/uL (4.30-5.90); RDW 12.9 % (11.5-15.5); WBC 7.6 k/uL (3.8-10.6)
[2023-10-31 23:32] LABS: ALT 43 U/L (4-49); AST 61 U/L (17-59); African American GFR (CKD) >90 (>60 ml/min/1.73 sqM); Albumin 3.6 g/dL (3.5-5.0); Alkaline Phosphatase 101 U/L (38-126); Anion Gap 8 mmol/L; Blood Urea Nitrogen 12 mg/dL (9-20); Calcium 8.6 mg/dL (8.4-10.2); Carbon Dioxide 24 mmol/L (22-30); Chloride 107 mmol/L (98-107); Glucose 94 mg/dL (74-99); Non-African American GFR(CKD) >90 (>60 ml/min/1.73 sqM); Potassium 3.9 mmol/L (3.5-5.1); Sodium 139 mmol/L (137-145); Total Bilirubin 0.3 mg/dL (0.2-1.3); Total Protein 6.1 g/dL (6.3-8.2)
[2023-10-31 23:50] LABS: INR 0.9 (<1.2); Partial Thromboplastin Time 24.8 sec (22.0-30.0)
[2023-10-31 23:53] LABS: Appearance,Urine Clear (Clear); Bilirubin,Urine Negative (Negative); Blood,Urine Negative (Negative); Color,Urine Light Yellow; Glucose,Urine (UA) Negative (Negative); Ketones,Urine Negative (Negative); Leukocyte Esterase,Urine Negative (Negative); Nitrite,Urine Negative (Negative); PH, Urine 5.5 (5.0-8.0); Protein,Urine Negative (Negative); Specific Gravity,Urine 1.016 (1.001-1.035); Urobilinogen,Urine <2.0 mg/dL (<2.0)
[2023-11-01] MEDS ORDERED: ACETAMINOPHEN TAB 500 MG TAB PO STA (00:40)
[2023-11-01] MEDS ORDERED: IPRATROPIUM-ALBUTEROL 3 ML NEB INHALATION STA (01:37)
--- NOTE | 2023-11-01 01:57 | CT ---
EXAM: CT Head Without Intravenous Contrast CLINICAL HISTORY: ITS.REASON CT Reason: s/p fall head injury on thinners TECHNIQUE: Axial computed tomography images of the head/brain without intravenous contrast. CTDI is 20.9 mGy and DLP is 603.25 mGy-cm. This CT exam was performed using one or more of the following dose reduction techniques: automated exposure control, adjustment of the mA and/or kV according to patient size, and/or use of iterative reconstruction technique. COMPARISON: No relevant prior studies available. FINDINGS: Brain: No hemorrhage or mass effect. Ventricles: No hydrocephalus. Bones/joints: Unremarkable. Soft tissues: Unremarkable. Sinuses: Bilateral maxillary sinus air fluid level. Mastoid air cells: Clear. IMPRESSION: No acute hemorrhage, hydrocephalus, or mass effect. EXAM: CT Cervical Spine Without Intravenous Contrast CLINICAL HISTORY: ITS.REASON CT Reason: s/p fall head injury on thinners TECHNIQUE: Axial computed tomography images of the cervical spine without intravenous contrast. CTDI is 20.9 mGy and DLP is 603.25 mGy-cm. This CT exam was performed using one or more of the following dose reduction techniques: automated exposure control, adjustment of the mA and/or kV according to patient size, and/or use of iterative reconstruction technique. COMPARISON: No relevant prior studies available. FINDINGS: Vertebrae: No acute fracture. Discs/spinal canal/neural foramina: degenerative changes. Soft tissues: No prevertebral swelling. Mild left CCA and right ICA stenosis from atherosclerosis. Mild left vertebral artery origin stenosis from atherosclerosis. IMPRESSION: No acute fracture or subluxation.
--- NOTE | 2023-11-01 02:02 | CT ---
EXAM: CT Angiography Head With Intravenous Contrast CLINICAL HISTORY: ITS.REASON CT Reason: disequilibrium TECHNIQUE: Axial computed tomographic angiography images of the head with intravenous contrast. CTDI is 20.9 mGy and DLP is 603.25 mGy-cm. This CT exam was performed using one or more of the following dose reduction techniques: automated exposure control, adjustment of the mA and/or kV according to patient size, and/or use of iterative reconstruction technique. MIP reconstructed images were created and reviewed. COMPARISON: No relevant prior studies available. FINDINGS: Right internal carotid artery: Intracranial segment is patent with no significant stenosis. No aneurysm. Right anterior cerebral artery: No occlusion or significant stenosis. No aneurysm. Right middle cerebral artery: No occlusion or significant stenosis. No aneurysm. Right posterior cerebral artery: No occlusion or significant stenosis. No aneurysm. Right vertebral artery: Unremarkable. Left internal carotid artery: Intracranial segment is patent with no significant stenosis. No aneurysm. Left anterior cerebral artery: No occlusion or significant stenosis. No aneurysm. Left middle cerebral artery: No occlusion or significant stenosis. No aneurysm. Left posterior cerebral artery: No occlusion or significant stenosis. No aneurysm. Left vertebral artery: Unremarkable. Basilar artery: No occlusion or significant stenosis. No aneurysm. IMPRESSION: No significant stenosis. EXAM: CT Angiography Neck With Intravenous Contrast CLINICAL HISTORY: ITS.REASON CT Reason: disequilibrium TECHNIQUE: Axial computed tomographic angiography images of the neck with intravenous contrast. CTDI is 20.9 mGy and DLP is 603.25 mGy-cm. This CT exam was performed using one or more of the following dose reduction techniques: automated exposure control, adjustment of the mA and/or kV according to patient size, and/or use of iterative reconstruction technique. MIP reconstructed images were created and reviewed. COMPARISON: No relevant prior studies available. FINDINGS: VASCULATURE: Right common carotid artery: No significant stenosis. No dissection. Right internal carotid artery: Mild stenosis. No dissection. Right vertebral artery: No significant stenosis. No dissection. Left common carotid artery: 50% stenosis from atherosclerosis. No dissection. Left internal carotid artery: Extracranial has no significant stenosis. No dissection. Left vertebral artery: Mild stenosis at the origin. No dissection. NECK: Bones/joints: No acute fracture. No dislocation. CAROTID STENOSIS REFERENCE USING NASCET CRITERIA: % ICA stenosis = (1 - narrowest ICA diameter/diameter of distal cervical ICA) x 100. Mild - <50% stenosis. Moderate - 50-69% stenosis. Severe - 70-94% stenosis. Near occlusion - 95-99% stenosis. Occluded - 100% stenosis. IMPRESSION: 1. 50% left CCA stenosis from atherosclerosis. 2. Mild left vertebral artery and mild right ICA stenosis from atherosclerosis.
--- NOTE | 2023-11-01 02:36 | ED ---
Alcohol HPI - General Chief Complaint: Alcohol Stated Complaint: ETOH Time Seen by Provider: 10/31/23 21:24 Source: patient, EMS Mode of arrival: EMS Limitations: no limitations - History of Present Illness Initial Comments: 63-year-old male with a past medical history significant for alcoholism, COPD, and AK status post stents on Brilinta presenting to the ED with a chief complaint of falls. Patient notes a longstanding history of dizziness. States that with this he feels off balance. States today secondary to this fell onto his right side hitting his head. There is no LOC at this time. Patient also does note pain of his hip secondary to the fall as well. No other injuries at this time. No other complaints. Patient reports drinking a few beers to half a pint daily. His last drink today was a beer which was prior to arrival. No history of seizures secondary to alcohol withdrawal. - Related Data Previous Rx's Medication Instructions Recorded Acetaminophen Tab [Tylenol] 650 mg PO Q6HR PRN tab 10/17/22 Albuterol Inhaler [Ventolin Hfa 2 puff INHALATION RT-QID PRN #1 05/03/23 Inhaler] each Albuterol Nebulized [Ventolin 2.5 mg INHALATION RT-QID #120 ml 05/03/23 Nebulized] Aspirin 81 mg PO DAILY 30 Days #30 tab 05/03/23 Atorvastatin [Lipitor] 80 mg PO HS 30 Days #30 tab 05/03/23 Budesonide-Formot 160-4.5 Mcg 2 puff INHALATION RT-BID #1 inh 05/03/23 [Symbicort 160-4.5 Mcg Inhaler] Folic Acid 1 mg PO DAILY 30 Days #30 tab 05/03/23 Multivitamins, Thera [Multivitamin 1 each PO DAILY 30 Days #30 tab 05/03/23 (formulary)] Nitroglycerin Sl Tabs [Nitrostat] 0.4 mg SL Q5M PRN #60 tab 05/03/23 Thiamine [Vitamin B-1] 100 mg PO DAILY 30 Days #30 tablet 05/03/23 Ticagrelor [Brilinta] 90 mg PO BID 30 Days #60 tab 05/03/23 Metoprolol Succinate (ER) [Toprol 25 mg PO DAILY #90 tab 05/26/23 Xl] lisinopriL 2.5 mg PO HS #90 tablet 05/26/23 Cyanocobalamin [Vitamin B-12] 1,000 mcg PO DAILY 30 Days #60 tab 05/27/23 Allergies Allergy/AdvReac Type Severity Reaction Status Date / Time No Known Allergies Allergy Verified 10/31/23 21:27 Review of Systems ROS Statement: Those systems with pertinent positive or pertinent negative responses have been documented in the HPI. ROS Other: All systems not noted in ROS Statement are negative. Past Medical History Past Medical History: Asthma, COPD, Hypertension, Myocardial Infarction (AK) Additional Past Medical History / Comment(s): Alcoholism Last Myocardial Infarction Date:: 10/2022 History of Any Multi-Drug Resistant Organisms: None Reported Past Surgical History: Appendectomy, Bowel Resection, Ear Surgery, Heart Catheterization With Stent, Hernia Repair, Orthopedic Surgery Additional Past Surgical History / Comment(s): Hernia repair X3. Right hand index surgery. Bowel resection r/t diverticulitis. Past Anesthesia/Blood Transfusion Reactions: No Reported Reaction Date of Last Stent Placement:: 10/05/2022 Past Psychological History: No Psychological Hx Reported Smoking Status: Current every day smoker Past Alcohol Use History: Daily, Heavy Past Drug Use History: Marijuana - Past Family History Father Family Medical History: Coronary Artery Disease (CAD) General Exam Limitations: no limitations General appearance: alert, in no apparent distress Head exam: Present: other (No chawla signs or raccoon's eyes.) Neck exam: Present: normal inspection Respiratory exam: Present: normal lung sounds bilaterally Cardiovascular Exam: Present: regular rate, normal rhythm GI/Abdominal exam: Present: soft Neurological exam: Present: alert, oriented X3, CN II-XII intact Skin exam: Present: warm, dry Course Vital Signs 10/31/23 10/31/23 11/01/23 21:23 23:04 01:19 Temperature 98.1 F Pulse Rate 119 H 97 96 Respiratory 18 18 18 Rate Blood Pressure 143/99 118/73 145/82 O2 Sat by Pulse 98 97 92 L Oximetry Medical Decision Making - Medical Decision Making Was pt. sent in by a medical professional or institution (, PA, INSTRUMENT REPAIRER HELPER, urgent care, hospital, or residential...) When possible be specific @ -No Did you speak to anyone other than the patient for history (EMS, parent, family, police, friend...)? What history was obtained from this source @ -No Did you review nursing and triage notes (agree or disagree)? Why? @ -I reviewed and agree with nursing and triage notes Were old charts reviewed (outside hosp., previous admission, EMS record, old EKG, old radiological studies, urgent care reports/EKG's, residential records)? Report findings @ -No old charts were reviewed Differential Diagnosis (chest pain, altered mental status, abdominal pain women, abdominal pain men, vaginal bleeding, weakness, fever, dyspnea, syncope, headache, dizziness, GI bleed, back pain, seizure, CVA, palpatations, mental health, musculoskeletal)? @ -Differential Dizziness: Benign paroxysmal positional Vertigo, Menieres disease, otitis media, acoustic neuroma, vertebrobasilar insufficiency, cerebellar stroke, encephalitis, hypovolemic, arrhythmia, coronary artery syndrome, anemia, this is not meant to be an all-inclusive list EKG interpreted by me (3pts min.). @ -EKG interpreted by me showing a sinus rhythm at [address] or T wave changes. ND 132, QRS 90, QT/QTc 365/412. X-rays interpreted by me (1pt min.). @ -None done CT interpreted by me (1pt min.). @ -CT brain interpreted by me showing no evidence of hemorrhage or other acute finding. CTA of the brain also did not show some left common carotid and right internal carotid stenosis from atherosclerosis and left vertebral artery origin stenosis from atherosclerosis. No acute findings. U/S interpreted by me (1pt. min.). @ -None done What testing was considered but not performed or refused? (CT, X-rays, U/S, labs)? Why? @ -X-ray of the hip/right femur was considered however at this time patient declined as he reports he does not think that these are broken. What meds were considered but not given or refused? Why? @ -None Did you discuss the management of the patient with other professionals (professionals i.e. , PA, INSTRUMENT REPAIRER HELPER, lab, RT, psych nurse, marriage and family social worker, duck operator, teacher, trust officer, adult protective caseworker)? Give summary @ -No Was smoking cessation discussed for >3mins.? @ -No Was critical care preformed (if so, how long)? @ -No Were there social determinants of health that impacted care today? How? (Homelessness, low income, unemployed, alcoholism, drug addiction, transportation, low edu. Level, literacy, decrease access to med. care, snf, rehab)? @ -No Was there de-escalation of care discussed even if they declined (Discuss DNR or withdrawal of care, Hospice)? DNR status @ -No What co-morbidities impacted this encounter? (DM, HTN, Smoking, COPD, CAD, Ca ncer, CVA, ARF, Chemo, Hep., AIDS, mental health diagnosis, sleep apnea, morbid obesity)? @ -None Was patient admitted / discharged? Hospital course, mention meds given and route, prescriptions, significant lab abnormalities, going to OR and other pertinent info. @ -Discharge 63-year-old male with a past medical history significant for alcoholism, COPD, and AK status post stents on Brilinta presenting to the ED status post fall secondary to a longstanding history of dizziness. Laboratory studies at this time reviewed. Labs largely including CBC, CMP, UA largely unremarkable however alcohol is elevated at 172. CT brain showed no acute findings but did show some evidence of stenosis of the left common carotid right internal carotid and left vertebral artery from atherosclerosis. At this time patient is not sober and will be kept in the ED until patient is sober and will be discharged home once he is sober. Undiagnosed new problem with uncertain prognosis? @ -No Drug Therapy requiring intensive monitoring for toxicity (Heparin, Nitro, Insulin, Cardizem)? @ -No Were any procedures done? @ -No Diagnosis/symptom? @ -Dizziness, status post fall Acute, or Chronic, or Acute on Chronic? @ -Acute Uncomplicated (without systemic symptoms) or Complicated (systemic symptoms)? @ -Uncomplicated Side effects of treatment? @ -No Exacerbation, Progression, or Severe Exacerbation? @ -No Poses a threat to life or bodily function? How? (Chest pain, USA, AK, pneumonia, PE, COPD, DKA, ARF, appy, cholecystitis, CVA, Diverticulitis, Homicidal, Suicidal, threat to staff... and all critical care pts) @ -No - Lab Data Result diagrams: 10/31/23 23:15 10/31/23 23:15 Lab Results 10/31/23 10/31/23 10/31/23 Range/Units 23:15 23:15 23:15 WBC 7.6 (3.8-10.6) k/uL RBC 4.42 (4.30-5.90) m/uL Hgb 14.6 (13.0-17.5) gm/dL Hct 43.4 (39.0-53.0) % MCV 98.0 (80.0-100.0) fL MCH 33.1 (25.0-35.0) pg MCHC 33.8 (31.0-37.0) g/dL RDW 12.9 (11.5-15.5) % Plt Count 279 (150-450) k/uL MPV 7.3 Neutrophils % 56 % Lymphocytes % 33 % Monocytes % 6 % Eosinophils % 2 % Basophils % 1 % Neutrophils # 4.2 (1.3-7.7) k/uL Lymphocytes # 2.5 (1.0-4.8) k/uL Monocytes # 0.5 (0-1.0) k/uL Eosinophils # 0.1 (0-0.7) k/uL Basophils # 0.1 (0-0.2) k/uL PT 10.0 (10.0-12.5) sec INR 0.9 (<1.2) APTT 24.8 (22.0-30.0) sec Sodium 139 (137-145) mmol/L Potassium 3.9 (3.5-5.1) mmol/L Chloride 107 (98-107) mmol/L Carbon Dioxide 24 (22-30) mmol/L Anion Gap 8 mmol/L BUN 12 (9-20) mg/dL Creatinine 0.79 (0.66-1.25) mg/dL Est GFR (CKD-EPI)AfAm >90 (>60 ml/min/1.73 sqM) Est GFR (CKD-EPI)NonAf >90 (>60 ml/min/1.73 sqM) Glucose 94 (74-99) mg/dL Calcium 8.6 (8.4-10.2) mg/dL Total Bilirubin 0.3 (0.2-1.3) mg/dL AST 61 H (17-59) U/L ALT 43 (4-49) U/L Alkaline Phosphatase 101 (38-126) U/L Troponin I (0.000-0.034) ng/mL Total Protein 6.1 L (6.3-8.2) g/dL Albumin 3.6 (3.5-5.0) g/dL Urine Color Urine Appearance (Clear) Urine pH (5.0-8.0) Ur Specific [place] (1.001-1.035) Urine Protein (Negative) Urine Glucose (UA) (Negative) Urine Ketones (Negative) Urine Blood (Negative) Urine Nitrite (Negative) Urine Bilirubin (Negative) Urine Urobilinogen (<2.0) mg/dL Ur Leukocyte Esterase (Negative) Serum Alcohol mg/dL 10/31/23 10/31/23 11/01/23 Range/Units 23:15 23:45 00:25 WBC (3.8-10.6) k/uL RBC (4.30-5.90) m/uL Hgb (13.0-17.5) gm/dL Hct (39.0-53.0) % MCV (80.0-100.0) fL MCH (25.0-35.0) pg MCHC (31.0-37.0) g/dL RDW (11.5-15.5) % Plt Count (150-450) k/uL MPV Neutrophils % % Lymphocytes % % Monocytes % % Eosinophils % % Basophils % % Neutrophils # (1.3-7.7) k/uL Lymphocytes # (1.0-4.8) k/uL Monocytes # (0-1.0) k/uL Eosinophils # (0-0.7) k/uL Basophils # (0-0.2) k/uL PT (10.0-12.5) sec INR (<1.2) APTT (22.0-30.0) sec Sodium (137-145) mmol/L Potassium (3.5-5.1) mmol/L Chloride (98-107) mmol/L Carbon Dioxide (22-30) mmol/L Anion Gap mmol/L BUN (9-20) mg/dL Creatinine (0.66-1.25) mg/dL Est GFR (CKD-EPI)AfAm (>60 ml/min/1.73 sqM) Est GFR (CKD-EPI)NonAf (>60 ml/min/1.73 sqM) Glucose (74-99) mg/dL Calcium (8.4-10.2) mg/dL Total Bilirubin (0.2-1.3) mg/dL AST (17-59) U/L ALT (4-49) U/L Alkaline Phosphatase (38-126) U/L Troponin I <0.012 (0.000-0.034) ng/mL Total Protein (6.3-8.2) g/dL Albumin (3.5-5.0) g/dL Urine Color Light Yellow Urine Appearance Clear (Clear) Urine pH 5.5 (5.0-8.0) Ur Specific [place] 1.016 (1.001-1.035) Urine Protein Negative (Negative) Urine Glucose (UA) Negative (Negative) Urine Ketones Negative (Negative) Urine Blood Negative (Negative) Urine Nitrite Negative (Negative) Urine Bilirubin Negative (Negative) Urine Urobilinogen <2.0 (<2.0) mg/dL Ur Leukocyte Esterase Negative (Negative) Serum Alcohol 172 mg/dL Disposition Clinical Impression: Dizziness, Fall, Head injury Disposition: HOME SELF-CARE Condition: Good Additional Instructions: Please return to the Emergency Department if symptoms worsen or any other concerns. Please follow-up with your primary care provider. Is patient prescribed a controlled substance at d/c from ED?: No Referrals: None,Stated [Primary Care Provider] - 1-2 days Time of Disposition: 02:42
[2023-11-01 06:00] VITALS: BP 143/77; PULSE 90; RESP 19
== END 2023-11-01 05:35 | disposition home or self-care (01) ==
LOC: EC 21:19
DX: S09.90XA Unspecified injury of head, initial encounter (principal); R42 Dizziness and giddiness; I65.21 Occlusion and stenosis of right carotid artery; I25.10 Atherosclerotic heart disease of native coronary artery without angina pectoris; J44.89 Other specified chronic obstructive pulmonary disease; I25.2 Old myocardial infarction; F17.200 Nicotine dependence, unspecified, uncomplicated; F12.90 Cannabis use, unspecified, uncomplicated; Z95.5 Presence of coronary angioplasty implant and graft; W19.XXXA Unspecified fall, initial encounter; Y92.009 Unspecified place in unspecified non-institutional (private) residence as the place of occurrence of the external cause
CPT/HCPCS: 36415 ×2; 94640; 93005; 80053; 84484; 85025; 85610; 85730; 81003; 80320; 72125; 70496; 70450; 70498; 99285; Q9967

== ENCOUNTER → 2024-02-03 | Outpatient (CLI) | payer OTHER ==
[2024-02-03 15:48] LABS: ALT 43 U/L (10-49); AST 48 U/L (14-35); Chol/HDL Ratio 1.59 Ratio; LDL Cholesterol,Calculated 26.8 mg/dL (0.0-131.0); VLDL Calculation 16.26 mg/dL (5.00-40.00)
== END | disposition home or self-care (01) ==
LOC: LABWHC1 09:47
PROVIDERS: ATTEND Internal Medicine Cardiovascular Disease
DX: E78.2 Mixed hyperlipidemia (principal)
CPT/HCPCS: 36415; 80061; 84450; 84460

== ENCOUNTER → 2024-12-02 | Outpatient (CLI) | payer MEDICARE, OTHER ==
--- NOTE | 2024-12-05 07:36 | CTL ---
EXAMINATION TYPE: CT Low Dose Lung DATE OF EXAM: 12/02/2024 4:23 PM COMPARISON: None. 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 TECHNIQUE: Low Dose CT Lung Screening, Low dose computed tomography scan was performed through the est at 1 millimeter thick sections and reconstructed images in the coronal plane at 1 mm thick sectio ns. IV CONTRAST USED: None. SCREENING VISIT: First visit CT DLP: 95.2 mGycm, Automated exposure control for dose reduction was used. CT CTDI: 2.8 mGy FINDINGS: CT DIAGNOSTIC QUALITY: Satisfactory LUNG NODULES: Not presentLeft lung: no nodules identified.Right lung: no nodules identified. LUNGS: COPD: Severity: None Fibrosis: Severity:None Lymph nodes: None Other findings: None RIGHT PLEURAL SPACE: Effusion: None Calcification: None Thickening: None Pneumothorax: None LEFT PLEURAL SPACE: Effusion: None Calcification: None Thickening: None Pneumothorax: None HEART: Heart Size: Mildly enlarged Coronary calcification: Mild Pericardial effusion: None OTHER FINDINGS: Upper abdomen: No significant abnormality Bony thorax: Degenerative changes Supraclavicular region: No significant abnormalityOther: No significant abnormalityI IMPRESSION: 1. No clinically significant pulmonary nodules. 2. Mild emphysema. CT LUNG RAD AND CT CHEST RECOMMENDATION: Lung-Rad 1 Negative: Continue annual screening with LDCT in 12 months. S Modifier (other clinically significant findings): [facility], , 12/05/2024 7:34 AM
== END | disposition home or self-care (01) ==
LOC: RADCTMAIN 15:56
PROVIDERS: ATTEND Internal Medicine Critical Care Medicine
DX: Z12.2 Encounter for screening for malignant neoplasm of respiratory organs (principal); F17.210 Nicotine dependence, cigarettes, uncomplicated; J43.9 Emphysema, unspecified
CPT/HCPCS: 71271

== ENCOUNTER 2025-01-02 20:13 | Emergency (ER) | payer MEDICARE, OTHER ==
[2025-01-02 20:20] VITALS: TEMP 97.9
--- NOTE | 2025-01-02 20:23 | ED ---
General Adult HPI - General Source: patient, RN notes reviewed Mode of arrival: ambulatory Limitations: no limitations <Melia Garcia - Last Filed: 01/02/25 20:22> <Hoa Liu - Last Filed: 01/03/25 19:11> - General Chief complaint: Chest Pain Stated complaint: Chest Pain Time Seen by Provider: 01/02/25 20:22 - History of Present Illness Initial comments: Quick [id number] male presenting to emergency department with multiple complaints. He states that today he began to experience chest pain described as a pressure and started sensation in the mid part of his chest after he was doing activities outside. Additionally, states that he has been experiencing difficulty breathing and upper respiratory infection symptoms over the past week and a half. History of COPD. (Melia Garcia) Patient is a 64-year-old gentleman presenting today for multiple complaints. His predominant complaint is GI upset. States about a week and a half ago he began having a "gurgling" stomach as well as about 5-6 episodes of dark loose stools a day. Endorses nausea but no vomiting. Endorses associated substernal chest pain that is been going on for last 3 to 4 days. Also notes shortness of breath. Denies fevers but endorses chills. He is on Brilinta and about a week ago was started on 800 mg ibuprofen twice daily by his primary care provider when he had presented there for these complaints. He was also started on Augmentin however the patient is unsure for what kind of infection he was specifically started on this for. He does have a hx CAD. Multiple prior abdominal surgeries. Is a current smoker. Drinks about 6 beers a day. (Hoa Liu) - Related Data Previous Rx's Medication Instructions Recorded Acetaminophen Tab [Tylenol] 650 mg PO Q6HR PRN tab 10/17/22 Albuterol Inhaler [Ventolin Hfa 2 puff INHALATION RT-QID PRN #1 05/03/23 Inhaler] each Albuterol Nebulized [Ventolin 2.5 mg INHALATION RT-QID #120 ml 05/03/23 Nebulized] Aspirin 81 mg PO DAILY 30 Days #30 tab 05/03/23 Atorvastatin [Lipitor] 80 mg PO HS 30 Days #30 tab 05/03/23 Budesonide-Formot 160-4.5 Mcg 2 puff INHALATION RT-BID #1 inh 05/03/23 [Symbicort 160-4.5 Mcg Inhaler] Folic Acid 1 mg PO DAILY 30 Days #30 tab 05/03/23 Multivitamins, Thera [Multivitamin 1 each PO DAILY 30 Days #30 tab 05/03/23 (formulary)] Nitroglycerin Sl Tabs [Nitrostat] 0.4 mg SL Q5M PRN #60 tab 05/03/23 Thiamine [Vitamin B-1] 100 mg PO DAILY 30 Days #30 tablet 05/03/23 Ticagrelor [Brilinta] 90 mg PO BID 30 Days #60 tab 05/03/23 Metoprolol Succinate (ER) [Toprol 25 mg PO DAILY #90 tab 05/26/23 Xl] lisinopriL 2.5 mg PO HS #90 tablet 05/26/23 Cyanocobalamin [Vitamin B-12] 1,000 mcg PO DAILY 30 Days #60 tab 05/27/23 Allergies Allergy/AdvReac Type Severity Reaction Status Date / Time No Known Allergies Allergy Verified 01/02/25 20:21 Review of Systems ROS Other: All systems not noted in ROS Statement are negative. <Melia Garcia - Last Filed: 01/02/25 20:22> ROS Other: All systems not noted in ROS Statement are negative. <Hoa Liu - Last Filed: 01/03/25 19:11> ROS Statement: Those systems with pertinent positive or pertinent negative responses have been documented in the HPI. Past Medical History Past Medical History: Asthma, COPD, Hypertension, Myocardial Infarction ([place]) Additional Past Medical History / Comment(s): Alcoholism Last Myocardial Infarction Date:: 10/2022 History of Any Multi-Drug Resistant Organisms: None Reported Past Surgical History: Appendectomy, Bowel Resection, Ear Surgery, Heart Catheterization With Stent, Hernia Repair, Orthopedic Surgery Additional Past Surgical History / Comment(s): Hernia repair X3. Right hand index surgery. Bowel resection r/t diverticulitis. Past Anesthesia/Blood Transfusion Reactions: No Reported Reaction Date of Last Stent Placement:: 10/05/2022 Past Psychological History: No Psychological Hx Reported Smoking Status: Current every day smoker Past Alcohol Use History: Daily, Heavy Past Drug Use History: Marijuana - Past Family History Father Family Medical History: Coronary Artery Disease (CAD) <Melia Garcia - Last Filed: 01/02/25 20:22> General Exam Limitations: no limitations <Melia Garcia - Last Filed: 01/02/25 20:22> <Hoa Liu - Last Filed: 01/03/25 19:11> - General Exam Comments Initial Comments: Visual Physical Exam Vital signs reviewed General: Well-appearing, nontoxic, no acute distress. Head: Normocephalic, atraumatic Eyes: PERRLA, EOMI ENT: Airway patent Chest: Nonlabored breathing Skin: No visual rash, normal skin tone Neuro: Alert and oriented 3 Musculoskeletal: No gross abnormalities (Stieler,Melia) PE: CONSTITUTIONAL: No apparent distress, well appearing SKIN: Warm, dry, no jaundice, hives or petechiae EYES: Pupils are equally round, extraocular movements intact without nystagmus, clear conjunctiva, non-icteric sclera HENT: Normocephalic, atraumatic, moist mucus membranes, oropharynx clear without exudates NECK: , Full range of motion, normal appearance PULMONARY: Scant wheeze in the bilateral lung tan without rhonchi, or rales, normal excursion, no accessory muscle use and no stridor CARDIOVASCULAR: Regular rate, rhythm, normal S1 and S2. No appreciated murmurs, rubs or gallops. Strong radial pulses with intact distal perfusion. No lower extremity edema GASTROINTESTINAL: Soft, hyperactive bowel sounds throughout, abdomen is distended, tender to palpation in the epigastrium and right upper quadrant, no palpable masses, no rebound or guarding. 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 No calf swelling NEUROLOGIC:_a/o x 3, GCS 15, normal mentation and speech. Moves all extremities x 4 without motor or sensory deficit PSYCHIATRIC:_normal mood and affect, thought process is clear and linear (Hoa Liu) Course Vital Signs 01/02/25 01/02/25 01/02/25 20:14 23:08 23:19 Temperature 97.9 F Pulse Rate 69 63 69 Respiratory 20 Rate Blood Pressure 167/82 O2 Sat by Pulse 100 Oximetry 01/03/25 00:13 Temperature Pulse Rate 75 Respiratory 18 Rate Blood Pressure 160/102 O2 Sat by Pulse Oximetry EKG Findings - EKG Comments: EKG Findings:: Sinus rhythm, rate 79 bpm [place] interval 126 ms QT/QTc 364/398 ms, normal axis no ST elevations or depressions, no ischemic changes <Hoa Liu - Last Filed: 01/03/25 19:11> Medical Decision Making <Melia Garcia - Last Filed: 01/02/25 20:22> - Lab Data Result diagrams: 01/02/25 20:39 01/02/25 20:39 <Hoa Liu - Last Filed: 01/03/25 19:11> - Medical Decision Making I completed the quick note portion of this chart signed Melia Garcia PA-C (Melia Garcia) , Was pt. sent in by a medical professional or institution ([facility], [facility], urgent care, hospital, or longterm...) When possible be specific @ -No Did you speak to anyone other than the patient for history (EMS, parent, family, police, friend...)? What history was obtained from this source @ -No Did you review nursing and triage notes (agree or disagree)? Why? @ -I reviewed nursing and triage notes Were old charts reviewed (outside hosp., previous admission, EMS record, old EKG, old radiological studies, urgent care reports/EKG's, longterm records)? Report findings @ -Medical records reviewed Differential Diagnosis (chest pain, altered mental status, abdominal pain women, abdominal pain men, vaginal bleeding, weakness, fever, dyspnea, syncope, headache, dizziness, GI bleed, back pain, seizure, CVA, palpatations, mental health, musculoskeletal)? @Differential Chest Pain: Stable Angina, Unstable Angina, STEMI, NSTEMI Aortic Dissection, pericarditis, pleurisy, chostochondirits, Pneumothorax, Musculoskeletal, Esophageal Spasm GERD, Cholecystitis, Pancreatitis, Zoster, this is not meant to be an all- inclusive list. Differential Abdominal Pain Men: Appendicitis, cholecystitis, diverticulosis, ischemic bowel, pancreatitis, hepatitis, UTI, gastroenteritis, AAA, incarcerated hernia, bowel obstruction, constipation, inflammatory bowel, hepatitis, peptic ulcer disease, splenic infarction, perforated viscus, testicular torsion, this is not meant to be an all-inclusive list EKG interpreted by me (3pts min.). @ -As above X-rays interpreted by me (1pt min.). @Personally reviewed chest x-ray see no evidence of cardiomegaly, consolidations or pleural effusions CT interpreted by me (1pt min.). I personally reviewed CT scan, shows wall thickening of the small bowel loops without obstruction or obvious transition point, read by radiologist as significant for "pancreatic cystic lesion possibly representing a sidebranch intraductal papillary mucinous neoplasm versus other etiology, states stable back to 03/24/2023", however upon review of CT scan and03/24/23, the pancreas was noted to be unremarkable. Additionally there are scattered simple and simple complex hepatic cysts, mildly larger compared to 03/24/2023. distribution field technician was able to contact Dr. Michelle, radiologist he clarified that the pancreatic mass w as slightly visible on prior CT on 03/24/2023 however not as obvious given prior CT was done as an angiogram U/S interpreted by me (1pt. min.). @ -None done What testing was considered but not performed or refused? (CT, X-rays, U/S, labs)? Why? @ -None What meds were considered but not given or refused? Why? @ -None Did you discuss the management of the patient with other professionals (professionals i.e. , [facility], P[facility]SKIN TRIMMER, lab, RT, psych nurse, social services counselor, tool repairer bench, teacher, chief credit officer, leather case finisher)? Give summary @ Case discussed with SAMRA Lou, Heidi Bolden, kindly accepts pt for trans nayely Was smoking cessation discussed for >3mins.? @ -No Was critical care preformed (if so, how long)? @ -No Were there social determinants of health that impacted care today? How? (Homelessness, low income, unemployed, alcoholism, drug addiction, transportation, low edu. Level, literacy, decrease access to med. care, [facility], rehab)? @ -No Was there de-escalation of care discussed even if they declined (Discuss DNR or withdrawal of care, Hospice)? @ -No What co-morbidities impacted this encounter? (DM, HTN, Smoking, COPD, CAD, Cancer, CVA, ARF, Chemo, Hep., AIDS, mental health diagnosis, sleep apnea, morbid obesity)? Smoking, COPD, alcoholism Was patient admitted / discharged? Hospital course, mention meds given and route, prescriptions, significant lab abnormalities, going to OR and other p ertinent info. @Transfer-this is a pleasant 64-year-old gentleman presenting today for multiple complaints of predominant which is GI upset x 1.5 weeks. Patient was initially seen and assessed in the waiting room due to emergency department at capacity. I obtained patient's patient to discuss history and perform exam in waiting room. ATP labs were ordered by triage provider. I reviewed these which were significant for lipase of 421. CT abdomen pelvis with contrast was ordered by myself. Ordered IV fluids, pain control Protonix. CT findings as above. Concerning for neoplasm. I did discuss this with the patient, including the possibility of cancerous mass and need for transfer for further workup. Pt understanding and agreeable w/ plan for transfer. Labs otherwise significant for mild leukocytosis white blood count 13, sodium 131, magnesium 2.4, AST/ALT 68/166, blood alcohol 91, stool occult blood negative. Patient transferred to [facility] in stable condition . ( Undiagnosed new problem with uncertain prognosis? @ -No Drug Therapy requiring intensive monitoring for toxicity (Heparin, Nitro, Insulin, Cardizem)? @ -No Were any procedures done? @ -No Diagnosis/symptom? @ -Pancreatic mass, pancreatitis, chest pain Acute, or Chronic, or Acute on Chronic? @Acute Uncomplicated (without systemic symptoms) or Complicated (systemic symptoms)? Complicated Side effects of treatment? @ -No Exacerbation, Progression, or Severe Exacerbation? @ -No Poses a threat to life or bodily function? How? (Chest pain, [place], [place], pneumonia, PE, COPD, DKA, ARF, appy, cholecystitis, CVA, Diverticulitis, Homicidal, Suicidal, threat to staff... and all critical care pts) @ -Potentially, if left unaddressed could progress to necrotizing pancreatitis, shock and (Hoa Liu) - Lab Data Lab Results 01/02/25 01/02/25 01/02/25 Range/Units 20:28 20:39 20:39 WBC 13.0 H (3.8-10.6) k/uL RBC 5.12 (4.30-5.90) m/uL Hgb 16.2 (13.0-17.5) gm/dL Hct 49.5 (39.0-53.0) % MCV 96.6 (80.0-100.0) fL MCH 31.7 (25.0-35.0) pg MCHC 32.8 (31.0-37.0) g/dL RDW 12.5 (11.5-15.5) % Plt Count 341 (150-450) k/uL MPV 6.9 Neutrophils % 69 % Lymphocytes % 22 % Monocytes % 6 % Eosinophils % 1 % Basophils % 0 % Neutrophils # 9.0 H (1.3-7.7) k/uL Lymphocytes # 2.8 (1.0-4.8) k/uL Monocytes # 0.7 (0-1.0) k/uL Eosinophils # 0.2 (0-0.7) k/uL Basophils # 0.0 (0-0.2) k/uL PT 9.8 L (10.0-12.5) sec INR 0.9 (<1.2) APTT 21.3 L (22.0-30.0) sec Sodium (137-145) mmol/L Potassium (3.5-5.1) mmol/L Chloride (98-107) mmol/L Carbon Dioxide (22-30) mmol/L Anion Gap mmol/L BUN (9-20) mg/dL Creatinine (0.66-1.25) mg/dL Est GFR (CKD-EPI)AfAm (>60 ml/min/1.73 sqM) Est GFR (CKD-EPI)NonAf (>60 ml/min/1.73 sqM) Glucose (74-99) mg/dL Plasma Lactic Acid Tony (0.7-2.0) mmol/L Calcium (8.4-10.2) mg/dL Magnesium (1.6-2.3) mg/dL Total Bilirubin (0.2-1.3) mg/dL AST (17-59) U/L ALT (4-49) U/L Alkaline Phosphatase (38-126) U/L Troponin I (0.000-0.034) ng/mL Total Protein (6.3-8.2) g/dL Albumin (3.5-5.0) g/dL Lipase (23-300) U/L Stool Occult Blood (Negative) Serum Alcohol mg/dL Influenza Type A (PCR) Not Detected (Not Detectd) Influenza Type B (PCR) Not Detected (Not Detectd) RSV (PCR) Not Detected (Not Detectd) SARS-CoV-2 (PCR) Not Detected (Not Detectd) Blood Type Blood Type Confirm Blood Type Recheck Bld Type Recheck Status Antibody Screen Spec Expiration Date 01/02/25 01/02/25 01/02/25 Range/Units 20:39 20:39 22:06 WBC (3.8-10.6) k/uL RBC (4.30-5.90) m/uL Hgb (13.0-17.5) gm/dL Hct (39.0-53.0) % MCV (80.0-100.0) fL MCH (25.0-35.0) pg MCHC (31.0-37.0) g/dL RDW (11.5-15.5) % Plt Count (150-450) k/uL MPV Neutrophils % % Lymphocytes % % Monocytes % % Eosinophils % % Basophils % % Neutrophils # (1.3-7.7) k/uL Lymphocytes # (1.0-4.8) k/uL Monocytes # (0-1.0) k/uL Eosinophils # (0-0.7) k/uL Basophils # (0-0.2) k/uL PT (10.0-12.5) sec INR (<1.2) APTT (22.0-30.0) sec Sodium 131 L (137-145) mmol/L Potassium 4.9 (3.5-5.1) mmol/L Chloride 98 (98-107) mmol/L Carbon Dioxide 22 (22-30) mmol/L Anion Gap 11 mmol/L BUN 20 (9-20) mg/dL Creatinine 0.84 (0.66-1.25) mg/dL Est GFR (CKD-EPI)AfAm >90 (>60 ml/min/1.73 sqM) Est GFR (CKD-EPI)NonAf >90 (>60 ml/min/1.73 sqM) Glucose 88 (74-99) mg/dL Plasma Lactic Acid Tony (0.7-2.0) mmol/L Calcium 9.6 (8.4-10.2) mg/dL Magnesium 2.4 H (1.6-2.3) mg/dL Total Bilirubin 0.5 (0.2-1.3) mg/dL AST 68 H (17-59) U/L ALT 166 H (4-49) U/L Alkaline Phosphatase 67 (38-126) U/L Troponin I <0.012 (0.000-0.034) ng/mL Total Protein 7.3 (6.3-8.2) g/dL Albumin 4.6 (3.5-5.0) g/dL Lipase 421 H (23-300) U/L Stool Occult Blood (Negative) Serum Alcohol mg/dL Influenza Type A (PCR) (Not Detectd) Influenza Type B (PCR) (Not Detectd) RSV (PCR) (Not Detectd) SARS-CoV-2 (PCR) (Not Detectd) Blood Type A Positive Blood Type Confirm Blood Type Recheck No Previous Record Bld Type Recheck Status CABO Indicated Antibody Screen NEGATIVE Spec Expiration Date 01/05/2025 - 230501/02/25 01/02/25 01/02/25 Range/Units 22:11 22:12 22:12 WBC (3.8-10.6) k/uL RBC (4.30-5.90) m/uL Hgb (13.0-17.5) gm/dL Hct (39.0-53.0) % MCV (80.0-100.0) fL MCH (25.0-35.0) pg MCHC (31.0-37.0) g/dL RDW (11.5-15.5) % Plt Count (150-450) k/uL MPV Neutrophils % % Lymphocytes % % Monocytes % % Eosinophils % % Basophils % % Neutrophils # (1.3-7.7) k/uL Lymphocytes # (1.0-4.8) k/uL Monocytes # (0-1.0) k/uL Eosinophils # (0-0.7) k/uL Basophils # (0-0.2) k/uL PT (10.0-12.5) sec INR (<1.2) APTT (22.0-30.0) sec Sodium (137-145) mmol/L Potassium (3.5-5.1) mmol/L Chloride (98-107) mmol/L Carbon Dioxide (22-30) mmol/L Anion Gap mmol/L BUN (9-20) mg/dL Creatinine (0.66-1.25) mg/dL Est GFR (CKD-EPI)AfAm (>60 ml/min/1.73 sqM) Est GFR (CKD-EPI)NonAf (>60 ml/min/1.73 sqM) Glucose (74-99) mg/dL Plasma Lactic Acid Tony 1.4 (0.7-2.0) mmol/L Calcium (8.4-10.2) mg/dL Magnesium (1.6-2.3) mg/dL Total Bilirubin (0.2-1.3) mg/dL AST (17-59) U/L ALT (4-49) U/L Alkaline Phosphatase (38-126) U/L Troponin I (0.000-0.034) ng/mL Total Protein (6.3-8.2) g/dL Albumin (3.5-5.0) g/dL Lipase (23-300) U/L Stool Occult Blood (Negative) Serum Alcohol 91 mg/dL Influenza Type A (PCR) (Not Detectd) Influenza Type B (PCR) (Not Detectd) RSV (PCR) (Not Detectd) SARS-CoV-2 (PCR) (Not Detectd) Blood Type Blood Type Confirm A Positive Blood Type Recheck Bld Type Recheck Status Antibody Screen Spec Expiration Date 01/02/25 Range/Units 23:30 WBC (3.8-10.6) k/uL RBC (4.30-5.90) m/uL Hgb (13.0-17.5) gm/dL Hct (39.0-53.0) % MCV (80.0-100.0) fL MCH (25.0-35.0) pg MCHC (31.0-37.0) g/dL RDW (11.5-15.5) % Plt Count (150-450) k/uL MPV Neutrophils % % Lymphocytes % % Monocytes % % Eosinophils % % Basophils % % Neutrophils # (1.3-7.7) k/uL Lymphocytes # (1.0-4.8) k/uL Monocytes # (0-1.0) k/uL Eosinophils # (0-0.7) k/uL Basophils # (0-0.2) k/uL PT (10.0-12.5) sec INR (<1.2) APTT (22.0-30.0) sec Sodium (137-145) mmol/L Potassium (3.5-5.1) mmol/L Chloride (98-107) mmol/L Carbon Dioxide (22-30) mmol/L Anion Gap mmol/L BUN (9-20) mg/dL Creatinine (0.66-1.25) mg/dL Est GFR (CKD-EPI)AfAm (>60 ml/min/1.73 sqM) Est GFR (CKD-EPI)NonAf (>60 ml/min/1.73 sqM) Glucose (74-99) mg/dL Plasma Lactic Acid Tony (0.7-2.0) mmol/L Calcium (8.4-10.2) mg/dL Magnesium (1.6-2.3) mg/dL Total Bilirubin (0.2-1.3) mg/dL AST (17-59) U/L ALT (4-49) U/L Alkaline Phosphatase (38-126) U/L Troponin I (0.000-0.034) ng/mL Total Protein (6.3-8.2) g/dL Albumin (3.5-5.0) g/dL Lipase (23-300) U/L Stool Occult Blood Negative (Negative) Serum Alcohol mg/dL Influenza Type A (PCR) (Not Detectd) Influenza Type B (PCR) (Not Detectd) RSV (PCR) (Not Detectd) SARS-CoV-2 (PCR) (Not Detectd) Blood Type Blood Type Confirm Blood Type Recheck Bld Type Recheck Status Antibody Screen Spec Expiration Date Disposition <Melia Garcia - Last Filed: 01/02/25 20:22> - Out of Hospital Transfer - Req. Specs Out of Hospital Transfer - Requested Specifics: Other Emergency Center ([facility]) <Hoa Liu - Last Filed: 01/03/25 19:11> Clinical Impression: Pancreatic mass, Acute pancreatitis Disposition: OTHER INSTITUTION NOT DEFINED Condition: Good Referrals: Matt Barros DO [Primary Care Provider] - 1-2 days
[2025-01-02 20:57] LABS: Basophils % (A) 0 %; Eosinophils # (A) 0.2 k/uL (0-0.7); Eosinophils % (A) 1 %; HCT 49.5 % (39.0-53.0); HGB 16.2 gm/dL (13.0-17.5); Lymphocytes # (A) 2.8 k/uL (1.0-4.8); Lymphocytes % (A) 22 %; MCH 31.7 pg (25.0-35.0); MCHC 32.8 g/dL (31.0-37.0); MCV 96.6 fL (80.0-100.0); Mean Platelet Volume 6.9; Monocytes # (A) 0.7 k/uL (0-1.0); Monocytes % (A) 6 %; Neutrophils % (A) 69 %; Platelet Count 341 k/uL (150-450); RBC 5.12 m/uL (4.30-5.90); RDW 12.5 % (11.5-15.5)
[2025-01-02 21:06] LABS: ALT 166 U/L (4-49); AST 68 U/L (17-59); African American GFR (CKD) >90 (>60 ml/min/1.73 sqM); Albumin 4.6 g/dL (3.5-5.0); Alkaline Phosphatase 67 U/L (38-126); Anion Gap 11 mmol/L; Blood Urea Nitrogen 20 mg/dL (9-20); Calcium 9.6 mg/dL (8.4-10.2); Carbon Dioxide 22 mmol/L (22-30); Chloride 98 mmol/L (98-107); Glucose 88 mg/dL (74-99); Lipase 421 U/L (23-300); Magnesium 2.4 mg/dL (1.6-2.3); Non-African American GFR(CKD) >90 (>60 ml/min/1.73 sqM); Potassium 4.9 mmol/L (3.5-5.1); Sodium 131 mmol/L (137-145); Total Bilirubin 0.5 mg/dL (0.2-1.3); Total Protein 7.3 g/dL (6.3-8.2)
[2025-01-02 21:09] LABS: INR 0.9 (<1.2); Prothrombin Time 9.8 sec (10.0-12.5)
--- NOTE | 2025-01-02 21:14 | XR ---
EXAMINATION TYPE: XR chest 2V DATE OF EXAM: 01/02/2025 8:59 PM COMPARISON: Chest radiographs from 10/04/2023 CLINICAL INDICATION: Male, 64 years old with history of Chest Pain; [facility] TECHNIQUE: XR chest 2V Frontal and lateral views of the chest. FINDINGS: Lungs/Pleura: There is no evidence of pleural effusion, focal consolidation, or pneumothorax. Pulmonary vascularity: Unremarkable. Heart/mediastinum: Cardiomediastinal silhouette is unremarkable. Musculoskeletal: No acute osseous pathology. IMPRESSION: No acute cardiopulmonary disease/process. [facility], , 01/02/2025 9:12 PM
[2025-01-02 21:20] LABS: Partial Thromboplastin Time 21.3 sec (22.0-30.0)
[2025-01-02 21:32] LABS: Influenza A Not Detected (Not Detectd); Influenza B Not Detected (Not Detectd); RSV Not Detected (Not Detectd)
[2025-01-02] MEDS: SODIUM CHLORIDE 0.9% 1,000 ML IV STA (22:20)
[2025-01-02] MEDS: MORPHINE SULFATE 4 MG/ML SYRINGE IVP STA (22:21)
[2025-01-02] MEDS: ONDANSETRON 4 MG/2 ML VIAL IVP STA (22:22)
[2025-01-02] MEDS: PANTOPRAZOLE 40 MG/10 ML VIAL IVP STA (22:24)
[2025-01-02] MEDS: METOPROLOL SUCCINATE (ER) 50 MG TAB.ER.24H PO STA (22:25)
[2025-01-02] MEDS: ATORVASTATIN 80 MG TAB PO SCH (22:25)
[2025-01-02] MEDS: IPRATROPIUM-ALBUTEROL 3 ML NEB INHALATION STA (23:07)
--- NOTE | 2025-01-02 23:24 | CT ---
EXAMINATION TYPE: CT abdomen pelvis w con DATE OF EXAM: 01/02/2025 11:02 PM COMPARISON: CTs dating back to 03/24/2023. CLINICAL INDICATION: Male, 64 years old with history of epigastric pain bloating, hx etoh, elevated l ipase; Pt states his chest pain also has been going on for past 5 days. pt states he has not slept a nd also has diarrhea, minimal nausea and no vomiting. TECHNIQUE: Axial CT abdomen pelvis w con;Sagittal and coronal reformats were created on a separate w orkstation. Contrast used:100 mL of Isovue 300 with IV Contrast, (none if empty) Oral contrast used: without Oral Contrast (none if empty) CT DLP: 905.9 mGycm, Automated exposure control for dose reduction was used. FINDINGS: LOWER CHEST: Unremarkable ABDOMEN LIVER: Scattered simple appearing hepatic slightly complex appearing hepatic cysts.rrr knee most comp jorge appearing cyst on series 201 image 23 measuring 20 x 18 mm is stable back to 03/24/2023. GALLBLADDER AND BILE DUCTS: Unremarkable. PANCREAS: Pancreatic uncinate process cyst measuring 10 mm. SPLEEN: Unremarkable. ADRENAL GLANDS: Unremarkable. KIDNEYS AND URETERS: No evidence of hydronephrosis or nonobstructing renal calculus. Nonobstructing r ight 3 mm calculus. The ureters are unremarkable. PELVIS BLADDER: No evidence for wall thickening or mass given limitations of exam. REPRODUCTIVE: Small right hydrocele. ABDOMEN & PELVIS STOMACH AND BOWEL: No evidence of bowel obstruction. Postsurgical changes to the sigmoid: With suture identified. No evidence for stricture or obstruction. PERITONEUM/RETROPERITONEUM: No evidence of pne umoperitoneum or free fluid. VASCULATURE: No evidence of aortic aneurysm. Moderate to severe consultations of the aorta. MUSCULOSKELETAL: No acute osseous abnormalities LYMPH NODES: No gross evidence for lymphadenopathy. SOFT TISSUE/ABDOMINAL WALL: Fat-containing inguinal hernia on the left. IMPRESSION: 1. No evidence for acute abdominal process. 2. Post surgical changes the: No evidence for obstruction. 3. Left fat-containing inguinal hernia. 4. Pancreatic cystic lesion cystic lesion possibly representing side branch intraductal papillary mu cinous neoplasm. Versus other etiologies. Stable back to 03/24/2023. 5. Scattered simple and slightly complex hepatic cysts. Similar mildly larger compared to 03/24/2023. The complex appearing cyst appears stable back to 03/24/2023. Nonobstructing right 6. 3 mm calculus suggested. [facility], , 01/02/2025 11:21 PM
[2025-01-03] MEDS: MORPHINE SULFATE 4 MG/ML SYRINGE IVP STA (00:05)
[2025-01-03] MEDS: SODIUM CHLORIDE 0.9% 1,000 ML IV SCH (00:05)
[2025-01-03 00:13] VITALS: BP 160/102; PULSE 75; RESP 18
== END 2025-01-03 00:32 | disposition other institution (70) ==
LOC: EC 20:13
DX: K85.90 Acute pancreatitis without necrosis or infection, unspecified (principal); J44.9 Chronic obstructive pulmonary disease, unspecified; F17.200 Nicotine dependence, unspecified, uncomplicated
CPT/HCPCS: 36415; 94640; 93005; 86900; 86901; 80053; 83605; 83690; 83735; 84484; 85025; 85610; 85730; 86850; 82272; 87636; 71046; 74177; 99285; 96374; 96375 ×2; 96361 ×2; 96376; G0480; J2270 ×2; J2405; Q9967; J2470; 80320